=== PATIENT | female | born 1940 | race Caucasian/White ===

== ENCOUNTER 2018-09-04 10:51 | Inpatient (IN) ==
[2018-09-04] MEDS ORDERED: Naloxone 0.4 MG/ML INJ IVP PRN (14:00)
[2018-09-04] MEDS ORDERED: Acetaminophen 325 MG TABLET PO PRN (14:00)
[2018-09-04] MEDS ORDERED: 0.9 % Sodium Chloride 1,000 ML IVC SCH (14:00)
[2018-09-04] MEDS ORDERED: 0.9 % Sodium Chloride 250 ML IVC ONE (14:03)
[2018-09-04] MEDS ORDERED: *HR* Heparin 5,000 UNIT/ML VIAL IVP PRN ×2 (14:04)
[2018-09-04] MEDS ORDERED: *HR* Heparin 5,000 UNIT/ML VIAL IVP ONE (14:04)
[2018-09-04] MEDS ORDERED: Ondansetron 4 MG/2 ML VIAL IVP PRN (14:08)
--- NOTE | 2018-09-04 14:13 | Internal Med History&Physical ---
<Brodie Ray - Last Filed: 09/04/18 15:47> Date of Encounter: 09/04/18 Time of Encounter: 14:13 Internal Medicine - H&P: HPI Chief complaint: Nausea and vomiting Admitted From: Hospital to Hospital Transfer Plans for Post Hospital Care: Home History of present illness: Ms. Baird is a 78 year old female with no reported past medical history presented to [facility] emergency department with complaint of nausea and vomiting 6 days. She states that the emesis has been bilious and occurring multiple times a day. Symptoms have been constant since onset and starting this morning she has felt increasingly weak and was unable to rise from her chair. She has been denying any symptoms of fevers, chills, cough, urinary symptoms including dysuria and frequency, numbness, tingling, chest pain, shortness of breath, palpitations, abdominal pain, hematochezia, melena. She does admit to decreased bowel movements however she admits that her poor oral intake has been very poor secondary to her nausea and vomiting. She denies any recent travel or sick contacts. In [facility] emergency room, vitals were significant for a heart rate of 148, respiratory rate 16, blood pressure 102/61 and she was tolerating 98% oxygen on room air. Labs were significant for a WBC elevation of 15.5, hemoglobin 15.5, platelets 240, potassium 2.8, BUNs/creatinine of 63/2.22, troponin elevation of 0.43, TSH within normal limits, magnesium 3.8. EKG was obtained and showed atrial fibrillation with rapid ventricular response, some anterior septal ST depression in leads II, III, AVF, V3-V6. Chest x-ray was obtained and showed possible ground glass opacities in right central region which may indicate early pneumonitis. She was given 40 mEq of potassium, IV hydration, she was started on Cardizem drip and [place] cardiology was consult at that time. She was given a heparin bolus per cardiology recommendations and transferred to [facility]. On presentation to this facility, she states she overall she is feeling mildly improved. She is still having episodes of emesis which contains dark bilious fluid without evidence of coffee grounds or blood. Past medical history: Patient denies. He does admit to occasional GERD Past surgical history: Patient denies Social history: Never smoker, denies alcohol or drug use Family history: CAD in grandfather Past Med Surg Social Fam HX - Past Medical History Medical history: no medical history Psychiatric history: no psych history - Social History Smoking Status: Never smoker Smokeless Tobacco Status: No Alcohol use: none Drug use: none - Family History Mother History Unknown: Yes Internal Medicine - H&P: Meds No Known Home Drugs 09/04/18 [History] 3 Allergy/AdvReac Type Severity Reaction Status Date / Time No Known Allergies Allergy Verified 09/04/18 09:22 All Systems PM: A 10-system review of systems was performed and is negative for pertinent findings except as documented above in the HPI. Review of systems: - Constitutional: Admits to weakness, fatigue. Denies fevers, chills - Head/Neck: Denies MORRISON, neck stiffness - EENT: Denies vision changes/blurriness - CVS: Denies chest pain, palpitations, PERRY, orthopnea, edema, PND, - Pulm: Denies SOB, cough, sputum, hematemesis, wheezing - GI: Admits to nausea and vomiting Denies abdominal pain, anorexia, diarrhea, constipation, melena - : Denies dysuria, increased frequency, urgency, hematuria, - Heme: Denies ease of bleeding or bruising - Skin: Denies rashes, ulcers, color changes, - Neuro: Denies MORRISON, paresthesias, focal deficits, numbness, tingling - Constitutional Exam: Gen.: Vitals noted. No acute distress. AAOx3, resting comfortably at bedside. HEENT: PERRL/EOMI, oropharynx clear, Normocephalic, atraumatic, mildly dry mucus membranes, bilious residue in mouth Cardiac: RRR, no murmur, +S1/S2, mildly tachycardic Pulmonary: CTA bilaterally, no wheezes, rales or rhonchi, equal chest expansion Abdomen: soft, nontender, BS noted, no guarding, no rebound or distention. MSK: ROM intact, no joint swelling noted Extremities: no BLE edema, nontender calf, no cyanosis or clubbing Neuro: A&Ox3, moves all extremities, no focal deficits Psych: Appropriate mood and behavior - Assessment and plan (1) New onset atrial fibrillation Current Visit: Yes Status: Acute Assessment and plan: - New-onset atrial fibrillation as noted and confirmed on EKG in [place] - Patient was started on Cardizem drip and received heparin bolus - Patient has since converted to normal sinus rhythm, mildly tachycardic in the 90s, confirmed by repeat EKG - Etiology unclear at this time however may be possibly due to dehydration, hypokalemia, infection, ischemia - Patient is having her potassium replenished as below receiving IV fluids for dehydration. - Infectious etiologies possible given leukocytosis however I believe this is more likely secondary to hemoconcentration as below. - TSH wnl at [facility]. - Cardiology has been consult, appreciate recommendations - [id number] score 3 (age, female). HASBLED 0 Plan - Spoke with cardiology regarding anticoagulation and will not start heparin drip at this time - Continue Cardizem drip in attempt to wean off with long-acting Cardizem - May possibly be a candidate for outpatient long-term adequate ventilation - Replenish K as below. Recheck in AM. - Appreciate cardiology recommendations as far as ischemic etiology. (2) Acute renal failure Current Visit: Yes Status: Acute Assessment and plan: - BUNs/creatinine of 63/2.22 in [facility] emergency department - Patient denies any history of kidney disease however no baseline labs are available - Likely elevated in the setting of dehydration secondary to nausea and vomiting - Patient is clinically dry on exam - We will give gentle fluid hydration at 250 mL bolus and 75 mL per hour 1 bag - Continue to monitor, avoid nephrotoxic agents - We will also obtain urinalysis and postvoid bladder scan to rule out alternative etiologies Qualifiers: Acute renal failure type: unspecified Qualified Code(s): N17.9 - Acute kidney failure, unspecified (3) Elevated troponin Current Visit: Yes Status: Acute Assessment and plan: - Elevated troponin of 0.43 in [facility] emergency department - EKG did show ST changes in leads 2, 3, aVF, V3-V6 however noted to be nonspecific - No previous EKG to compare to - Patient has never had a cardiac workup in the past and denies any cardiac history - Cardiology has been consult as above - Possible etiologies at this time include demand ischemia from atrial fibrillation, pneumonia, dehydration in the setting of acute kidney injury however cannot rule out cardiac ischemia Plan - We will continue to trend troponins - Echocardiogram - Did receive heparin bolus in [facility]. I did discuss this with Dr. Dowd the on-call supervisor tumbling and rolling he recommends not starting heparin drip at this time as she has converted back to normal sinus rhythm. We will continue to monitor and appreciate recommendations (4) GERD (gastroesophageal reflux disease) Current Visit: Yes Status: Chronic Assessment and plan: - Patient states she does have some symptoms of esophageal reflux for which she takes [id number] medications - States that has been previously well-controlled however has not seen a primary care physician in over 40 years - We will prescribe Tums while inpatient recommend outpatient follow-up Qualifiers: Esophagitis presence: esophagitis presence not specified Qualified Code(s) : K21.9 - Gastro-esophageal reflux disease without esophagitis (5) Pneumonia Current Visit: Yes Status: Suspected Assessment and plan: -Possible Pneumonia demonstrated on chest x-ray in [facility] emergency department - Patient is asymptomatic describing no shortness breath, cough, fevers, chills - X-ray report reads groundglass opacities of possible early pneumonitis - She does have an elevated WBC count of 15.5, afebrile. This may be elevated secondary to dehydration as above - Received 1 dose of azithromycin in emergency department Plan - We will continue to monitor for development of symptoms and worsening of leukocytosis - Will not start antibiotics at this time as alternative etiologies are more likely for leukocytosis - Continue to monitor Qualifiers: Pneumonia type: due to unspecified organism Laterality: right Lung location: middle lobe of lung Qualified Code(s): J18.1 - Lobar pneumonia, unspecified organism (6) Hypokalemia Current Visit: Yes Status: Acute Assessment and plan: - Potassium of 2.8 in [facility] emergency department - Likely depleted and setting of nausea and vomiting - Given 40 mEq in [facility] - We will obtain repeat labs here and replenish as necessary - Repeat with a.m. labs (7) DVT prophylaxis Current Visit: Yes Status: Acute Assessment and plan: Heparin subcutaneously every 12 hours (8) Sepsis Current Visit: Yes Status: Ruled-out Assessment and plan: - Patient does technically meet sirs criteria with leukocytosis and tachycardia - However at this time I did not suspect an infectious etiology and suspect that more likely leukocytosis is secondary to hemoconcentration and tachycardia secondary to atrial fibrillation - We cannot rule out atrial fibrillation brought on by infectious etiology however patient is having no symptoms at this time other than nausea and vomiting as above - Patient does not appear clinically ill Plan - We will continue to monitor with daily labs - Of note, heart rate has improved with Cardizem drip and fluid administration Qualifiers: Sepsis type: sepsis due to unspecified organism Qualified Code(s): A41.9 - Sepsis, unspecified organism - Time Spent With Patient Total time spent is greater than 50% in coordination of care (as documented) at patient's floor/unit and/or counseling patient: <Gloria Harvey - Last Filed: 09/04/18 17:01> Date of Encounter: 09/04/18 Internal Medicine - H&P: HPI History of present illness: Ms. Baird is a 78 year old female All Systems PM: A 10-system review of systems was performed and is negative for pertinent findings except as documented above in the HPI. - Constitutional Vitals: Temp Pulse Resp BP Pulse Ox 98 F 99 18 124/75 91 09/04/18 14:19 09/04/18 14:19 09/04/18 14:19 09/04/18 14:19 09/04/18 14:19 - Assessment and plan (1) New onset atrial fibrillation Current Visit: Yes Status: Acute (2) Hypokalemia Current Visit: Yes Status: Acute (3) Acute renal failure Current Visit: Yes Status: Acute Qualifiers: Acute renal failure type: unspecified Qualified Code(s): N17.9 - Acute kidney failure, unspecified (4) Elevated troponin Current Visit: Yes Status: Acute (5) Pneumonia Current Visit: Yes Status: Suspected Qualifiers: Pneumonia type: due to unspecified organism Laterality: right Lung location: middle lobe of lung Qualified Code(s): J18.1 - Lobar pneumonia, unspecified organism (6) DVT prophylaxis Current Visit: Yes Status: Acute (7) GERD (gastroesophageal reflux disease) Current Visit: Yes Status: Chronic Qualifiers: Esophagitis presence: esophagitis presence not specified Qualified Code(s) : K21.9 - Gastro-esophageal reflux disease without esophagitis (8) Sepsis Current Visit: Yes Status: Ruled-out Qualifiers: Sepsis type: sepsis due to unspecified organism Qualified Code(s): A41.9 - Sepsis, unspecified organism - Time Spent With Patient Total time spent is greater than 50% in coordination of care (as documented) at patient's floor/unit and/or counseling patient: - Attending Attestation I examined this patient and my medical decision-making was reviewed with the Resident Physician Dr Ray. I agree with the documented findings, disposition and treatment plan as described except to the extent set forth below. Presented to [facility] with days of n/v, no other assoicated symptoms and found to be in afib with rvr, ekg findings c/w nstemi and significant mirza. Transferred for futher cardiac care with cardiology contacted from ED. Awake, family at bedside. She has continued nausea and emesis, emeiss at bedside watery green which is what she reports it has been. No assoicated abd pain, diarrhea, some recent constipation but has had bm in last day. No assoicated chest pain or pressure, sob, palpitations, presyncope or syncope, no le edema. CXR there showed possible developing pna and she denies any recent sob , cough, sptum, congestion, wheezing, orthopnea. No fevers or chills. No cardiac history. Noting decreased urinary outptu, no dysuria, heamturia, urgency. gen- alert, awake,appears stated age, nad eyes- pupils equal round , no scleral icterus, no conjunctival pallor, dry mm cv- reg rate and rhythm, normal s1,s2, no murmurs appreciated, no le edema, no jvd, radial pulses 2+ and regular lungs- ctabl, no wheezing, rhonchi or crackles, normal resp effort on ra abd- soft, non tender, non distended, + bs skin- no pallor juandice, warm, dry neuro- AAOx3 Intractable nausea and vomiting, suspecting gastroenteritis, rule out obstruction given recent constipation-prn anti emetics, check kub Afib with RVR, converted to NSR on cardizem gtt 2/2 hypokalemia, dehydration and possible infection whic his being ruled out -cont cardizem gtt, fu cards rec re transitioning to oral -replete lytes, tele, tsh wnl, ivf hydration -cards is consulted and will fu recs reagrding beginning AC given her chadsvasc score, and if ischemic work up warranted NSTEMI at this time suspect Type II due to demand of Afib RVR as evidenced by [place] ekg with st depressions in II, III, aVF and V3-V^ with improvement on EKG on admission here, trop 0.43 admitting ekg reviewed- nsr hr 90 baseline artifact makes it hard to discuern st segments and t waves, appear s to have likely twi II on review of rhythm lead , possibly V4-6 -tele, serial trops and ekgs, o2 prn, cards gave heparin bolus in greenfiled? though rec her verbally thus far is no heparin gtt -degree of trop elevation may be partially related to kidney funcion -will fu cards recs today, check a1c and lipids, at this time she cannot tolerate oral so no asa or statin ordered- will defer to cards re hep gtt intitaiton or ischemic work up -check echo MIRZA likely 2/2 dehydration- i/os, ivfs, check ua and monitor for urinary retention, aovid nephro toxic agents leukocytosis suspect hemoconcentration, afebrile ros neg, aware of CXR read though pt has no s/s of pna, cont to monitor, check ua with reflex to culture, check kub Hypokalmeia- repeat K+ level now onadmit and replete further prn, check mag
[2018-09-04] MEDS ORDERED: Heparin 25,000 UNIT/500 ML D5W 25,000 UNIT/500 ML BAG IVC SCH (14:15)
--- NOTE | 2018-09-04 15:27 | Cardiology Consult Note ---
<Astrid Alvarez Alfredo - Last Filed: 09/04/18 15:21> Date of Encounter: 09/04/18 Time of Encounter: 15:10 Assessment and Plan (1) New onset atrial fibrillation Current Visit: Yes Status: Acute Newly diagnosed atrial fibrillation with RVR; chronicity unclear--patient asymptomatic. Converted to NSR on cardizem gtt; will transition to LA cardizem. Significant electrolyte abnormality upon presentation with K 2.8, Mg 3.8, SCr 2.22 Developing PNA also evident on CXR. Add TSH. Continue CCB. Check TTE. CHA2Ds Vasc=2 (female, age); recommend long-term anticoagulation prior to discharge, patient is agreeable. NOAC vs. coumadin depending on testing and renal function. Will continue to follow. (2) Acute renal failure Current Visit: Yes Status: Acute Likely secondary to acute anorexia/dehydration. IVF resuscitation. Primary service to manage. Qualifiers: Acute renal failure type: unspecified Qualified Code(s): N17.9 - Acute kidney failure, unspecified (3) Elevated troponin Current Visit: Yes Status: Acute Troponin 0.43 in the setting of ARF, PNA, and afib with RVR; non-diagnostic for ACS. No chest pain reported. Non-specific ST/T wave abnormalities noted. No prior CV history. Check TTE. Add asa, started on CCB. (4) Pneumonia Current Visit: Yes Status: Acute Mgmt per primary service. Qualifiers: Pneumonia type: due to unspecified organism Laterality: right Lung location: middle lobe of lung Qualified Code(s): J18.1 - Lobar pneumonia, unspecified organism Discussion w patient/family: The assessment and plan as outlined above was discussed with the patient and/or family members who expressed understanding and agreement. All questions were answered. Thank you for involving us in the care of your patient. Please call with any questions. The patient will be discussed and reviewed with Dr. Dowd; changes to be made accordingly. History of Present Illness Consult date: 09/04/18 Requesting physician: Brodie Ray Consult reason: new onset afib Chief complaint: nausea/vomiting History of present illness: Ms. Baird is a 78 year old female with no significant PMHx (nor follows with provider) who presented to [facility] ED after fall at home today secondary to weakness. She reports persistent nausea and vomiting over the past 6 days, symptoms began last Tuesday. Denies food bourne illness or recent sick contacts. She reports she is unable to keep food or liquids down. Associated symptoms include decrease in urine output over the past 3-4 days, weakness, and hoarseness due to dry heaving. No chest pain/discomfort, shortness of breath, palpitations, or syncope/pre-syncopal symptoms described. ECG demonstrated afib with RVR, she was started on Cardizem gtt and reportedly converted to NSR prior to transfer to [facility]. She was also noted to have MIRZA (SCr 2.2) with hypokalemia. Troponin elevated at 0.43. No prior CV testing reported. Past Med Surg Social Fam HX - Past Medical History Attestation: Yes The following information was validated with the patient. Source: patient Medical history: no medical history Psychiatric history: no psych history - Past Surgical History Surgical History: non-contributory - Social History Smoking Status: Never smoker Smokeless Tobacco Status: No Alcohol use: none Drug use: none - Family History Mother Living Status: Cause of : CA Hx Family Cancer: Yes (blood cancer) Father Living Status: Cause of : CA Hx Family Cancer: Yes (prostate) Brother Living Status: Cause of : liver disease/ 2nd brother CVA (brain aneurysm) Medications and Allergies No Known Home Drugs 09/04/18 [History] 3 Allergy/AdvReac Type Severity Reaction Status Date / Time No Known Allergies Allergy Verified 09/04/18 09:22 All Systems Review: The remainder of the systems were reviewed and are negative - Cardiovascular Cardiovascular: as per HPI Physical Examination Vital Signs, Last 4 Hours Temp Pulse Resp BP Pulse Ox 09/04/18 14:19 98 F 99 18 124/75 91 General: Conversant, Other (thin, frail) Cardiac: Reg Rate and Rhythm, Normal S1 and S2 Lungs: Other (RLL rales) Neuro: Alert and responsive Abdomen: Soft Skin: No rashes noted on visualized skin Musculoskeletal: No Chest Wall Tenderness Extremities: No Edema, Normal Pulses Results - Imaging and Cardiology Echo: pending - EKG Interpretation EKG results cardiology: personally reviewed Consult Discharge Plan - Plan Referrals: NONE,PCP [Primary Care Provider] - <Werner Dowd - Last Filed: 10/10/18 12:45> Date of Encounter: 09/04/18 Time of Encounter: 18:00 - Attending Attestation I have personally performed a face to face evaluation on this patient. I have reviewed and agree with the care plan. History and Exam by me shows: CC: Weakness HPI: Pt presented to [facility] ER with complaints of sudden onset nausea and vomiting over last week, unable to keep fluids or medications down over the last 48 hours prior to admission. She noted associated muscle weakness, decreased appetite, and continue emesis. On initial eval was found to be in A fib with RVR, heart rates into the 160s. She was started on IV diltiazem and rehydration in the ER, with conversion to NSR. She denies chest pain, pressure , palpitations, head, neck or arm pain. She notes nausea and shortness of breath have improved since admission. PMH: reviewed ROS: reviewed Labs, xrays, EKGs and echos reviewed. PE: pt seen and examined, agree with findings as documented. IMP/Plan: 1. A fib with RVR, transient, back in NSR with rehydration and IV diltiazem, will continue po diltiazem 2. Elevated troponin, most consistent with demand ischemia, no acute EKG changes , will review echo for wall motion abnormalities, continue medical tx, will reconsider if has indications of previous KS. 3. Acute on chronic renal failure, responding to gentle rehydration 4. Pnuemonia, right middle lobe, on antibiotics and resp tx per primary team, reports some improvement comparted to admission. Assessment and Plan Discussion w patient/family: The assessment and plan as outlined above was discussed with the patient and/or family members who expressed understanding and agreement. All questions were answered. Thank you for involving us in the care of your patient. Please call with any questions. History of Present Illness History of present illness: Ms. Baird is a 78 year old female All Systems Review: The remainder of the systems were reviewed and are negative Physical Examination Vital Signs, Last 4 Hours Temp Pulse Resp BP Pulse Ox 09/06/18 12:15 97.6 F 83 15 149/71 96 Results 09/06/18 05:33 09/06/18 05:33 Lab Results 09/06/18 09/06/18 05:33 05:33 WBC 10.7 Hgb 13.2 Hct 40.2 Plt Count 235 Sodium 141 Potassium 3.5 Chloride 96 L Carbon Dioxide 35 H BUN 50 H Creatinine 0.92 Glucose 105 Calcium 10.5 H Total Bilirubin 1.1 H AST 131 H ALT 134 H Alkaline Phosphatase 59
[2018-09-04] MEDS: Diltiazem CD (24hr) 120 MG CAPSULE PO SCH (16:24)
[2018-09-04 16:52] LABS: Heparin anti-factor XA UFH 0.23 IU/mL (0.30-0.70); INR 1.2; Prothrombin Time 13.1 Seconds (9.4-12.1)
[2018-09-04 17:10] LABS: Troponin I 0.48 ng/mL (< 0.04)
[2018-09-04 17:33] LABS: Hematocrit 42.6 % (35.3-44.9); Hemoglobin 14.2 g/dL (11.5-15.4); Immature Granulocytes % 0.8 % (0-4); Lymphocytes # 0.2 K/mcL (0.6-4.6); Lymphocytes % 3.6 %; Mean Corpuscular HGB Conc 33.3 g/dL (31.6-35.5); Mean Corpuscular Hemoglobin 29.6 pg (28.0-33.3); Mean Corpuscular Volume 88.9 fL (83.0-100.0); Monocytes # 0.3 K/mcL (0.0-1.3); Monocytes % 4.5 %; Neutrophils # 5.9 K/mcL (1.6-8.9); Platelet Count 201 K/mcL (140-400); Red Blood Count 4.79 M/mcL (3.82-4.97); Red Cell Distribution Width 12.2 % (11.5-14.5); Segmented Neutrophils % 91.1 %
[2018-09-04] MEDS: *HR* Heparin 5,000 UNIT/ML VIAL SQ SCH (17:52)
[2018-09-04 17:59] LABS: Albumin 3.7 g/dL (3.5-5.7); Albumin/Globulin Ratio 1.7 (1.1-2.2); Bilirubin,Total 1.4 mg/dL (0.3-1.0); Calcium 9.7 mg/dL (8.6-10.3); Globulin 2.2 g/dL (2.4-3.5); Magnesium 3.1 mg/dL (1.6-2.6); Potassium 3.2 mEq/L (3.5-5.1); Total Protein 5.9 g/dL (6.4-8.9)
[2018-09-05 05:08] LABS: Basophils % 0.1 %; Immature Granulocytes % 0.2 % (0-4); Lymphocytes # 0.4 K/mcL (0.6-4.6); Lymphocytes % 5.1 %; Mean Corpuscular HGB Conc 34.1 g/dL (31.6-35.5); Mean Corpuscular Hemoglobin 30.1 pg (28.0-33.3); Mean Corpuscular Volume 88.5 fL (83.0-100.0); Mean Platelet Volume 10.6 fL (9.4-12.4); Monocytes # 0.6 K/mcL (0.0-1.3); Monocytes % 6.6 %; Neutrophils # 7.6 K/mcL (1.6-8.9); Platelet Count 172 K/mcL (140-400); Red Blood Count 4.18 M/mcL (3.82-4.97); Red Cell Distribution Width 12.6 % (11.5-14.5)
[2018-09-05 05:09] LABS: Hemoglobin 12.6 g/dL (11.5-15.4)
[2018-09-05 05:30] LABS: Calcium 9.8 mg/dL (8.6-10.3); Chol/HDL Ratio 2.5 (0-4.9); Magnesium 2.8 mg/dL (1.6-2.6); Potassium 3.5 mEq/L (3.5-5.1)
[2018-09-05] MEDS: *HR* Heparin 5,000 UNIT/ML VIAL SQ SCH (06:19)
[2018-09-05 06:32] LABS: Estimated Average Glucose 120 mg/dl; Hemoglobin A1C 5.8 %
[2018-09-05] MEDS: Aspirin 81 MG TAB.CHEW PO SCH (08:31)
[2018-09-05] MEDS: Diltiazem CD (24hr) 120 MG CAPSULE PO SCH (08:31)
--- NOTE | 2018-09-05 13:55 | Internal Med Progress Note ---
<Ovidio Tam - Last Filed: 09/05/18 16:40> Hospitalist Progress Note - Encounter Date of Encounter: 09/05/18 - Exam Vitals: Temp Pulse Resp BP Pulse Ox 98.4 F 84 17 150/73 96 09/05/18 15:51 09/05/18 15:51 09/05/18 15:51 09/05/18 15:51 09/05/18 15:51 - Assessment and Plan (1) Paroxysmal atrial fibrillation Current Visit: Yes Status: Acute (2) New onset atrial fibrillation Current Visit: Yes Status: Inactive (3) Hypokalemia Current Visit: Yes Status: Inactive (4) Acute renal failure Current Visit: Yes Status: Suspected (5) Elevated troponin Current Visit: Yes Status: Inactive (6) Pneumonia Current Visit: Yes Status: Inactive (7) DVT prophylaxis Current Visit: Yes Status: Acute (8) GERD (gastroesophageal reflux disease) Current Visit: Yes Status: Chronic (9) Sepsis Current Visit: Yes Status: Ruled-out - Time Spent with Patient Total time spent is greater than 50% in coordination of care (as documented) at patient's floor/unit and/or counseling patient: Internal Medicine: Result - Labs CBC & Chem 7: 09/05/18 04:41 09/05/18 04:41 Labs: Short CBC 09/04/18 09/05/18 Range/Units 16:42 04:41 WBC 6.5 D 8.7 (4.3-11.1) K/mcL Hgb 14.2 12.6 D (11.5-15.4) g/dL Hct 42.6 37.0 (35.3-44.9) % Plt Count 201 172 (140-400) K/mcL Neutrophils # 5.9 7.6 (1.6-8.9) K/mcL BMP 09/04/18 09/04/18 09/05/18 15:52 20:01 04:41 Sodium 138 140 Potassium 3.2 L 3.5 3.5 Chloride 95 L 99 Carbon Dioxide 28 28 BUN 61 H 65 H Creatinine 1.67 H 1.35 H Glucose 109 H 85 Calcium 9.7 9.8 Cardiac Enzymes 09/04/18 09/04/18 09/05/18 Range/Units 15:52 20:01 01:39 Troponin I 0.48 H* 0.57 H* 0.42 H* (< 0.04) ng/mL Liver Function 09/04/18 Range/Units 15:52 Total Bilirubin 1.4 H (0.3-1.0) mg/dL AST 248 H (13-39) Units/L ALT 162 H (7-52) Units/L Alkaline Phosphatase 52 (34-104) Units/L Albumin 3.7 (3.5-5.7) g/dL - ABG Interpretation ABG results: PT/INR, D-dimer PT 13.1 Seconds (9.4-12.1) H 09/04/18 16:01 - Impressions Impressions Echocardiogram 09/04/18 14:04 Impressions: LVEF 60-65%. Normal LV chamber size, wall thickness and function. Mild left ventricular diastolic dysfunction. Normal right ventricular structure and function. Mild tricuspid regurgitation. KUB X-Ray 09/04/18 16:51 IMPRESSION: Air-filled dilated loops of small bowel in the left mid to lower abdomen which may reflect ileus or obstruction. D/ / Leatha Stephens MD / Leatha Stephens MD Interpreting Provider: Leatha Stephens MD Consult Discharge Plan - Plan Referrals: NONE,PCP [Primary Care Provider] - - Attending Attestation The history, physical exam, and medical decision making was performed by the medical student either while I was physically present and actively involved or I personally re-performed the exam and medical decision making. I have verified the accuracy of the medical student's documentation with regards to the history, physical exam findings, and medical decision making on 09/05/18. Ms Baird is currently admitted for new atrial fibrillation/flutter paroxysmal with rapid rate. She remains moderate to high risk due to potential for worsening clinical status. Ms. Baird was in NSR this AM but returned to an episode of afib/flutter around lunch time. No fever or chills. Says she feels tachycardia "if I concentrate on it." Tolerating clear liquid diet. Says she is passing gas but no BM. Exam Alert Comfortable at this time Mucus membranes dry Heart irreg and tachy. No overt murmur though hard to hear. Lungs clear Abd distended. Nontender. No mass felt though distended No edema I/P 1. Parox a fib/flutter - Cardizem dose increased today. Eliquis started. 2. Nausea /vomiting - ? GI issue. 3. Low TSH - need to check free T4 Further diagnoses and plan as above. <Wolfgang Guzman R - Last Filed: 09/05/18 18:56> Hospitalist Progress Note - Encounter Date of Encounter: 09/05/18 Time of Encounter: 18:55 - Subjective Interval History: Patient reports that she is feeling better today. She no longer feels weak. Her nausea and vomiting has improved. She had 1 episode of emesis last night. While vomiting, her upper dentures fell into the vomit bag and was thrown away before she realized they were missing. She is now producing urine, which she states is dark in color. She was eating a clear liquid diet without nausea, vomiting, abdominal pain, but she has not had a bowel movement since admission. She denies chest pain, shortness of breath, palpitations, light headedness, cough, sputum production, nausea, abdominal pain, dysuria, fever, chills, night sweats. - Exam Vitals: Temp Pulse Resp BP Pulse Ox 97.7 F 93 16 137/74 95 09/05/18 10:55 09/05/18 10:55 09/05/18 10:55 09/05/18 10:55 09/05/18 10:55 Exam: Gen.: female sitting in chair. Not in acute distress HEENT: Upper teeth missing. 1 cm yellow colored nodule midline anterior neck Cardiac: RRR with occasional PAC/PVC, no murmurs noted Pulmonary: CTA bilaterally, no wheezes, rales or rhonchi, equal chest expansion Abdomen: soft, nontender to palpation, distended, BS present MSK: ROM intact, no joint swelling noted, 5/5 strength in RUE, 4/5 strength in LUE Extremities: no BLE edema, nontender calf, no cyanosis or clubbing Neuro: A&Ox3, moves all extremities Psych: Appropriate mood and behavior - Assessment and Plan (1) Atrial fibrillation with RVR Current Visit: Yes Status: Acute Assessment and Plan: -Patient presented to [place] [facility] with new onset A fib RVR -Peak HR was 144 at [place] [facility]. Dropped to 99 upon admission with cardizem dripp. It is currently in the 80s -Patient is currently in NSR -Chronicity unclear due to patient not being able to feel when she is out of rhythm. Etiology is unclear at this time. Likely 2/2 dehydration vs infection vs hyperthyroidism vs unlikely ischemia -TSH .254 today. Was 1.002 at [place] [facility] yesterday. This could be an acute thyroid -ECHO 09/05 showed EF 65% with mild LV diastolic dysfunction -CHADSVASC score 4 (age,female) Plan: -Continue with cardizem po -Continue tele -Start Eliquis 2.5 mg BID upon discharge -Follow with cardiology outpatient for ischemic eval -T4 pending (2) Elevated troponin Current Visit: Yes Status: Acute Assessment and Plan: -Patient had troponin of .43 on admission. Serial troponins have remained elevated at .48, .57, .42 -EKG 09/[address] depression in II, III, AVF, V3-V6 -ECHO 09/05 shows EF 65% with no wall motion abnormalities and mild LV diastolic dysfunction -Likely NSTEMI type II 2/2 dehydration vs A fib RVR in the setting of MIRZA -Patient received 250 ml bolus and 1 bag NS at 75ml/hr -Patient is tolerating clear fluids with good oral intake Plan: -same as above (3) MIRZA (acute kidney injury) Current Visit: Yes Status: Acute Assessment and Plan: -2/2 dehydration vs infection -BUN/Cr at admission was 63/2.22 . Now it has improved to 65/1.35 -Patient is now having urine output -Patient received 250 ml bolus and 1 bag NS at 75 ml/hr -Patient tolerating clear liquid diet with good oral intake Plan: -UA pending -Avoid nephrotoxic agents -Continue to encourage good oral intake (4) Pneumonia Current Visit: Yes Status: Suspected Assessment and Plan: -Chest xray on 09/04 showed ground glass air space opacification in Right lower lobe, suggestive of early pneumonitis -Patient is currently asymptomatic. Has no cough, fever, sputum production, shortness of breath -At this time, we do not suspect pneumonia Plan: -Will not currently treat because do not suspect pneumonia -Consider starting antibiotics if patient becomes symptomatic (5) Hypokalemia Current Visit: Yes Status: Acute Assessment and Plan: -2/2 emesis -Potassium on admission was 2.8. 40 mEq was given in [place] [facility], and another 40 mEq were given when she was admitted. Her potassium has now increased to 3.5 -Magnesium is 2.8 today -Continue to replete potassium prn (6) Nausea & vomiting Current Visit: Yes Status: Acute Assessment and Plan: -2/2 infectious etiology vs ileus vs malignancy -KUB 09/04 shows findings suggestive of ileus vs obstruction -Patient has never had colonoscopy -Nausea and vomiting has improved since admission. Abdomen is still distended -Patient tolerating clear liquid diet without nausea, vomiting, abdominal pain -Patient has not had a BM since admission Plan: -Talk with patient tomorrow regarding imaging vs outpatient followup for etiology workup -Consider CT abdomen if patient does not improve -Consider outpatient colonoscopy upon discharge (7) GERD (gastroesophageal reflux disease) Current Visit: Yes Status: Chronic Assessment and Plan: -Patient states that she has had acid reflux for many years. It is controlled at home with TUMS -Continue TUMS prn while inpatient (8) Sepsis Current Visit: Yes Status: Ruled-out Assessment and Plan: -Sepsis has been ruled out -Patient met SIRS criteria upon admission with WBC of 15.5, and heart rate of 144. We suspected that the leukocytosis was 2/2 to dehydration because she also had erythrocytosis and thrombocytosis. With fluid resucitation, her WBC has come down to 8.7. We also suspect that she was tachycardic 2/2 atrial fibrillation with RVR. Her heart rate is now in the mid 80s DVT Prophylaxis: Heparin SQ - Time Spent with Patient Total time spent is greater than 50% in coordination of care (as documented) at patient's floor/unit and/or counseling patient: Internal Medicine: Result - Labs CBC & Chem 7: 09/05/18 04:41 09/05/18 04:41 Labs: Short CBC 09/04/18 09/05/18 Range/Units 16:42 04:41 WBC 6.5 D 8.7 (4.3-11.1) K/mcL Hgb 14.2 12.6 D (11.5-15.4) g/dL Hct 42.6 37.0 (35.3-44.9) % Plt Count 201 172 (140-400) K/mcL Neutrophils # 5.9 7.6 (1.6-8.9) K/mcL BMP 09/04/18 09/04/18 09/05/18 15:52 20:01 04:41 Sodium 138 140 Potassium 3.2 L 3.5 3.5 Chloride 95 L 99 Carbon Dioxide 28 28 BUN 61 H 65 H Creatinine 1.67 H 1.35 H Glucose 109 H 85 Calcium 9.7 9.8 Cardiac Enzymes 09/04/18 09/04/18 09/05/18 Range/Units 15:52 20:01 01:39 Troponin I 0.48 H* 0.57 H* 0.42 H* (< 0.04) ng/mL Liver Function 09/04/18 Range/Units 15:52 Total Bilirubin 1.4 H (0.3-1.0) mg/dL AST 248 H (13-39) Units/L ALT 162 H (7-52) Units/L Alkaline Phosphatase 52 (34-104) Units/L Albumin 3.7 (3.5-5.7) g/dL - ABG Interpretation ABG results: PT/INR, D-dimer PT 13.1 Seconds (9.4-12.1) H 09/04/18 16:01 - Impressions Impressions KUB X-Ray 09/04/18 16:51 IMPRESSION: Air-filled dilated loops of small bowel in the left mid to lower abdomen which may reflect ileus or obstruction. D/ / Leatha Stephens MD / Leatha Stephens MD Interpreting Provider: Leatha Stephens MD <Ovidio Tam - Last Filed: 09/05/18 16:40> (4) Acute renal failure Qualifiers: Acute renal failure type: with acute tubular necrosis Qualified Code(s): N17.0 - Acute kidney failure with tubular necrosis (6) Pneumonia Qualifiers: Pneumonia type: due to unspecified organism Laterality: right Lung location : middle lobe of lung Qualified Code(s): J18.1 - Lobar pneumonia, unspecified organism (8) GERD (gastroesophageal reflux disease) Qualifiers: Esophagitis presence: esophagitis presence not specified Qualified Code(s): K21.9 - Gastro-esophageal reflux disease without esophagitis (9) Sepsis Qualifiers: Sepsis type: sepsis due to unspecified organism Qualified Code(s): A41.9 - Sepsis, unspecified organism <Wolfgang Guzman R - Last Filed: 09/05/18 18:56> (7) GERD (gastroesophageal reflux disease) Qualifiers: Esophagitis presence: esophagitis presence not specified Qualified Code(s): K21.9 - Gastro-esophageal reflux disease without esophagitis (8) Sepsis Qualifiers: Sepsis type: sepsis due to unspecified organism Qualified Code(s): A41.9 - Sepsis, unspecified organism
--- NOTE | 2018-09-05 14:36 | Cardiology Progress Note ---
Date of Encounter: 09/05/18 Time of Encounter: 14:00 Assessment and Plan (1) New onset atrial fibrillation Current Visit: Yes Status: Inactive Newly diagnosed atrial fibrillation with RVR; chronicity unclear--patient asymptomatic. Converted to NSR on cardizem gtt; transitioned to LA cardizem yesterday. Significant electrolyte abnormality upon presentation with K 2.8, Mg 3.8, SCr 2.22--improved today. Developing PNA also evident on CXR. PAF noted overnight, currently in afib; hospitalist has changed cardizem to short-acting. Would recommend transition to long acting upon discharge. Anticipate HR to improve once PNA, ileus treated. TSH low at 0.254, defer correction to primary service. TTE: EF preserved, no significant valvular dysfunction. CHA2Ds Vasc=4 (female, age, HTN); recommend long-term anticoagulation prior to discharge, patient is agreeable. NOAC vs. coumadin discussed; due to transportation issues, want NOAC if affordable. Discussed with Rafael in Pharmacy , will arroyo check Eliquis 2.5 mg BID. (2) Acute renal failure Current Visit: Yes Status: Inactive Likely secondary to acute anorexia/dehydration. IVF resuscitation. Primary service to manage. Qualifiers: Acute renal failure type: unspecified Qualified Code(s): N17.9 - Acute kidney failure, unspecified (3) Elevated troponin Current Visit: Yes Status: Inactive Peak troponin 0.57 in the setting of ARF, PNA, and afib with RVR; non- diagnostic for ACS. No chest pain reported. Non-specific ST/T wave abnormalities noted. No prior CV history. TTE: EF preserved, normal wall motion. Consider outpt ischemic evaluation. (4) Pneumonia Current Visit: Yes Status: Inactive Mgmt per primary service. Qualifiers: Pneumonia type: due to unspecified organism Laterality: right Lung location: middle lobe of lung Qualified Code(s): J18.1 - Lobar pneumonia, unspecified organism Discussion w patient/family: The assessment and plan as outlined above was discussed with the patient and/or family members who expressed understanding and agreement. All questions were answered. Thank you for involving us in the care of your patient. Please call with any questions. The patient will be discussed and reviewed with Dr. Dowd; changes to be made accordingly. Subjective Principal diagnosis: Afib, MIRZA, ileus Interval history: Seen and examined. She has no complaints today upon exam. Now back in afib--reports occasionally notices palpitations. Still with no BM. Objective Vital Signs, Last 4 Hours Temp Pulse Resp BP Pulse Ox 09/05/18 10:55 97.7 F 93 16 137/74 95 General: Conversant HEENT: Atraumatic, Normocephaly Cardiac: Other (irregularly irregular) Lungs: Normal Breath Sounds Neuro: Alert and responsive Abdomen: Soft Skin: No rashes noted on visualized skin Musculoskeletal: No Chest Wall Tenderness Extremities: No Edema, Normal Pulses Results 09/05/18 04:41 09/05/18 04:41 Lab Results 09/04/18 09/04/18 09/04/18 15:52 16:01 16:42 WBC 6.5 D Hgb 14.2 Hct 42.6 Plt Count 201 INR 1.2 Sodium 138 Potassium 3.2 L Chloride 95 L Carbon Dioxide 28 BUN 61 H Creatinine 1.67 H Glucose 109 H Calcium 9.7 Magnesium 3.1 H Total Bilirubin 1.4 H AST 248 H ALT 162 H Alkaline Phosphatase 52 Troponin I 0.48 H* TSH 09/04/18 09/04/18 09/05/18 20:01 20:01 01:39 WBC Hgb Hct Plt Count INR Sodium Potassium 3.5 Chloride Carbon Dioxide BUN Creatinine Glucose Calcium Magnesium Total Bilirubin AST ALT Alkaline Phosphatase Troponin I 0.57 H* 0.42 H* TSH 09/05/18 09/05/18 09/05/18 04:41 04:41 04:41 WBC 8.7 Hgb 12.6 D Hct 37.0 Plt Count 172 INR Sodium 140 Potassium 3.5 Chloride 99 Carbon Dioxide 28 BUN 65 H Creatinine 1.35 H Glucose 85 Calcium 9.8 Magnesium 2.8 H Total Bilirubin AST ALT Alkaline Phosphatase Troponin I TSH 0.254 L Active Medications Acetaminophen (Tylenol) 650 mg PO Q6HR PRN PRN Reason: Mild Pain/Fever Stop: 03/06/19 14:01 Aspirin (Aspirin) 81 mg PO DAILY [facility] Stop: 03/07/19 09:01 Last Admin: 09/05/18 08:31 Dose: 81 mg Calcium Carbonate (Tums) 1,000 mg PO Q4HR PRN; Protocol PRN Reason: Heartburn Stop: 03/06/19 14:22 Last Admin: 09/05/18 09:07 Dose: 1,000 mg Diltiazem HCl (Cardizem Cd) 180 mg PO DAILY [facility] Stop: 03/08/19 09:01 Diltiazem HCl (Cardizem) 60 mg PO Q8H [facility] Stop: 09/05/18 21:01 Last Admin: 09/05/18 12:55 Dose: Not Given Heparin Sodium (Porcine) (Heparin) 5,000 unit SQ Q12HCO [facility] Stop: 03/06/19 18:01 Last Admin: 09/05/18 06:19 Dose: 5,000 unit Naloxone HCl (Narcan) 0.4 mg IVP Q2MIN PRN PRN Reason: SEE COMMENTS Stop: 03/06/19 14:01 Ondansetron HCl (Zofran) 4 mg IVP Q6HR PRN; Protocol PRN Reason: Nausea Stop: 03/06/19 14:09 - Imaging and Cardiology Echo: report reviewed Other Results: 12 hour tele: avg HR=82 PAF noted. - EKG Interpretation EKG results cardiology: personally reviewed, sinus rhythm Consult Discharge Plan - Plan Referrals: NONE,PCP [Primary Care Provider] -
[2018-09-05 17:54] LABS: Bilirubin,Urine Negative (Negative); Blood,Urine Moderate (Negative); Clarity,Urine Cloudy (Clear); Color,Urine Yellow (Yellow); Glucose,Urine (UA) Normal (Normal); Ketones,Urine 15 mg/dL (Negative); Leukocyte Esterase,Urine Negative (Negative); Nitrite,Urine Negative (Negative); PH,Urine 5.5 pH Units (5.0-8.0); Protein,Urine 30 mg/dL (Neg-Trace); Specific Gravity,Urine 1.024 (1.010-1.025); Urobilinogen,Urine Normal (Normal)
[2018-09-05 17:55] LABS: Hyaline Casts,Urine None Seen per lpf (None-Few); Squamous Epithelial Cell,Urine Many per lpf (None-Few)
[2018-09-05 18:12] LABS: Yeast,Urine Few per hpf (None Seen)
[2018-09-05 18:13] LABS: Bacteria,Urine Few per hpf (None-Few)
--- NOTE | 2018-09-05 19:07 | Electrocardiograph Report ---
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
[2018-09-05] MEDS: Apixaban 5 MG TABLET PO SCH (23:49)
[2018-09-06 06:36] LABS: Basophils % 0.1 %; Hematocrit 40.2 % (35.3-44.9); Hemoglobin 13.2 g/dL (11.5-15.4); Immature Granulocytes % 0.5 % (0-4); Lymphocytes # 0.4 K/mcL (0.6-4.6); Lymphocytes % 3.5 %; Mean Corpuscular HGB Conc 32.8 g/dL (31.6-35.5); Mean Corpuscular Volume 91.4 fL (83.0-100.0); Mean Platelet Volume 10.7 fL (9.4-12.4); Monocytes # 0.8 K/mcL (0.0-1.3); Monocytes % 7.3 %; Neutrophils # 9.5 K/mcL (1.6-8.9); Platelet Count 235 K/mcL (140-400); Red Cell Distribution Width 12.5 % (11.5-14.5); Segmented Neutrophils % 88.6 %
[2018-09-06 06:51] LABS: Alanine Aminotransferase 134 Units/L (7-52); Albumin 3.7 g/dL (3.5-5.7); Albumin/Globulin Ratio 1.6 (1.1-2.2); Alkaline Phosphatase 59 Units/L (34-104); Aspartate Amino Transferase 131 Units/L (13-39); BUN/Creatinine Ratio 54 (6-26); Bilirubin,Total 1.1 mg/dL (0.3-1.0); Blood Urea Nitrogen 50 mg/dL (8-23); Calcium 10.5 mg/dL (8.6-10.3); Carbon Dioxide 35 mEq/L (23-29); Chloride 96 mEq/L (98-107); Globulin 2.3 g/dL (2.4-3.5); Glucose 105 mg/dL (70-105); Osmolality,Calculated 306 (280-300); Potassium 3.5 mEq/L (3.5-5.1); Sodium 141 mEq/L (136-145); eGFR For Non-African Americans 59 (> 60)
--- NOTE | 2018-09-06 08:43 | Electrocardiograph Report ---
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
--- NOTE | 2018-09-06 09:07 | Cardiology Progress Note ---
Date of Encounter: 09/06/18 Time of Encounter: 08:00 Assessment and Plan (1) New onset atrial fibrillation Current Visit: Yes Status: Acute Per cardiology: -Newly diagnosed atrial fibrillation with RVR; chronicity unclear--patient asymptomatic. -Converted to NSR on cardizem gtt; transitioned to LA cardizem yesterday. -Significant electrolyte abnormality upon presentation with K 2.8, Mg 3.8, SCr 2.22--improved today. -Developing PNA also evident on CXR. -Now in SR. Average HR previous 12 hours noted to be 80, SR. -TSH low at 0.254, defer correction to primary service. -TTE: EF preserved, no significant valvular dysfunction. -CHA2Ds Vasc=4 (female, age, HTN); recommend long-term anticoagulation prior to discharge, started on eliquis 2.5mg BID, noted to be $8/month. -Cardiology will sign off. Will arrange outpatient follow up. -Consider outpatient ischemic evaluation, and possible sleep study. (2) Acute renal failure Current Visit: Yes Status: Suspected Per cardiology: -Likely secondary to acute anorexia/dehydration. Improved today. -IVF resuscitation. -Primary service to manage. Qualifiers: Acute renal failure type: with acute tubular necrosis Qualified Code(s): N17.0 - Acute kidney failure with tubular necrosis (3) Elevated troponin Current Visit: Yes Status: Acute Per cardiology: -Peak troponin 0.57 in the setting of ARF, PNA, and afib with RVR; non- diagnostic for ACS. -No chest pain reported. Non-specific ST/T wave abnormalities noted. -No prior CV history. -TTE: EF preserved, normal wall motion. -Consider outpt ischemic evaluation. Discussion w patient/family: The assessment and plan as outlined above was discussed with the patient who expressed understanding and agreement. All questions were answered. Thank you for involving us in the care of your patient. Please call with any questions. Discussed and reviewed with . Subjective Principal diagnosis: Afib, MIRZA, ileus Interval history: Patient states she feels better this morning. Denies palpitations, fluttering. Objective Vital Signs, Last 4 Hours Temp Pulse Resp BP Pulse Ox 09/06/18 07:03 98.9 F 80 18 130/67 94 General: Conversant, No Apparent Distress HEENT: Atraumatic, Normocephaly, Mucus Membranes Moist Neck: No JVD, Normal carotid pulses Cardiac: Reg Rate and Rhythm, Normal S1 and S2, No Murmur Lungs: Normal Breath Sounds, No Wheeze, Rales, Rhonchi Neuro: Alert and responsive, No focal deficits noted Abdomen: Soft, Non-Tender Skin: No rashes noted on visualized skin Musculoskeletal: No Chest Wall Tenderness Extremities: No Clubbing, No Cyanosis, No Edema, Normal Pulses Results 09/06/18 05:33 09/06/18 05:33 Lab Results Impressions Echocardiogram 09/04/18 14:04 Impressions: LVEF 60-65%. Normal LV chamber size, wall thickness and function. Mild left ventricular diastolic dysfunction. Normal right ventricular structure and function. Mild tricuspid regurgitation. Active Medications Acetaminophen (Tylenol) 650 mg PO Q6HR PRN PRN Reason: Mild Pain/Fever Stop: 03/06/19 14:01 Apixaban (Eliquis) 2.5 mg PO BID [facility] Stop: 03/07/19 21:01 Last Admin: 09/05/18 23:49 Dose: Not Given Aspirin (Aspirin) 81 mg PO DAILY [facility] Stop: 03/07/19 09:01 Last Admin: 09/05/18 08:31 Dose: 81 mg Calcium Carbonate (Tums) 1,000 mg PO Q4HR PRN; Protocol PRN Reason: Heartburn Stop: 03/06/19 14:22 Last Admin: 09/05/18 09:07 Dose: 1,000 mg Diltiazem HCl (Cardizem Cd) 180 mg PO DAILY [facility] Stop: 03/08/19 09:01 Naloxone HCl (Narcan) 0.4 mg IVP Q2MIN PRN PRN Reason: SEE COMMENTS Stop: 03/06/19 14:01 Ondansetron HCl (Zofran) 4 mg IVP Q6HR PRN; Protocol PRN Reason: Nausea Stop: 03/06/19 14:09 Last Admin: 09/06/18 06:48 Dose: 4 mg Laboratory Tests 09/04/18 09/06/18 09/06/18 15:52 05:33 05:33 Hgb 13.2 Potassium 3.5 Creatinine 1.67 H 0.92 - Imaging and Cardiology Chest Xray: report reviewed Echo: report reviewed - EKG Interpretation EKG results cardiology: other (Telemetry reviewed with average HR previous 12 hours noted to be 80, SR. PVCs and PACs noted.) Consult Discharge Plan - Plan Referrals: NONE,PCP [Primary Care Provider] -
[2018-09-06] MEDS: Aspirin 81 MG TAB.CHEW PO SCH (09:26)
[2018-09-06] MEDS: Diltiazem CD (24hr) 180 MG CAPSULE PO SCH (09:26)
[2018-09-06] MEDS: Apixaban 5 MG TABLET PO SCH (09:26)
[2018-09-06] MEDS ORDERED: 0.9 % Sodium Chloride 500 ML IVC ONE (09:27)
[2018-09-06] MEDS ORDERED: Isovue-370 500 ML INFUS..BTL IV ONE (09:27)
--- NOTE | 2018-09-06 09:52 | Internal Med Progress Note ---
<Ovidio Tam - Last Filed: 09/06/18 16:52> Hospitalist Progress Note - Encounter Date of Encounter: 09/06/18 - Exam Vitals: Temp Pulse Resp BP Pulse Ox 97.6 F 83 15 149/71 96 09/06/18 12:15 09/06/18 12:15 09/06/18 12:15 09/06/18 12:15 09/06/18 12:15 - Assessment and Plan (1) Small bowel obstruction Current Visit: Yes Status: Acute (2) Paroxysmal atrial fibrillation Current Visit: Yes Status: Acute (3) Acute renal failure Current Visit: Yes Status: Resolved (4) DVT prophylaxis Current Visit: Yes Status: Acute (5) GERD (gastroesophageal reflux disease) Current Visit: Yes Status: Chronic (6) Sepsis Current Visit: Yes Status: Ruled-out (7) Severe protein-calorie malnutrition Current Visit: Yes Status: Chronic - Time Spent with Patient Total time spent is greater than 50% in coordination of care (as documented) at patient's floor/unit and/or counseling patient: Internal Medicine: Result - Labs CBC & Chem 7: 09/06/18 05:33 09/06/18 05:33 Labs: Short CBC 09/06/18 Range/Units 05:33 WBC 10.7 (4.3-11.1) K/mcL Hgb 13.2 (11.5-15.4) g/dL Hct 40.2 (35.3-44.9) % Plt Count 235 (140-400) K/mcL Neutrophils # 9.5 H (1.6-8.9) K/mcL BMP 09/06/18 05:33 Sodium 141 Potassium 3.5 Chloride 96 L Carbon Dioxide 35 H BUN 50 H Creatinine 0.92 Glucose 105 Calcium 10.5 H Liver Function 09/06/18 Range/Units 05:33 Total Bilirubin 1.1 H (0.3-1.0) mg/dL AST 131 H (13-39) Units/L ALT 134 H (7-52) Units/L Alkaline Phosphatase 59 (34-104) Units/L Albumin 3.7 (3.5-5.7) g/dL Urine 09/05/18 Range/Units 17:45 Urine Color Yellow (Yellow) Urine Clarity Cloudy A (Clear) Urine pH 5.5 (5.0-8.0) pH Units Ur Specific [place] 1.024 (1.010-1.025) Urine Protein 30 H (Neg-Trace) mg/dL Urine Glucose (UA) Normal (Normal) mg/dL - ABG Interpretation ABG results: PT/INR, D-dimer PT 13.1 Seconds (9.4-12.1) H 09/04/18 16:01 - Impressions Impressions Abdomen/Pelvis CT 09/06/18 12:00 IMPRESSION: Findings consistent with a small bowel obstruction and the transition point is within the right lower quadrant. D/ / 09/06/2018 15:12:55 Luis Frankel MD / haley Interpreting Provider: Luis Frankel MD Consult Discharge Plan - Plan Referrals: NONE,PCP [Primary Care Provider] - - Attending Attestation I examined this patient and my medical decision-making was reviewed with the Resident Physician on 09/06/18. I agree with the documented findings, disposition and treatment plan as described except to the extent set forth below. Ms Baird is currently admitted for new atrial fibrillation and intractable nausea and vomiting. She has been found to have SBO on CT scan today. She remains moderate to high risk due to potential for worsening clinical status. Ms Baird feels OK but is still very nauseous. Has had emesis today. CT of abdomen shows RLQ small bowel obstruction. No fever or chills. Denies pain. Not tolerating much PO at this time. Exam Alert Comfortable sitting in bed. Mucus membranes dry Heart reg now Lungs clear Abd distended - not tender No edema I/P 1. Parox a fib - in NSR now. Will hold Eliquis due to possible need for surgery 2. Small bowel obstruction - surgery to see 3. Severe prot kyle malnutrition - most likely is going to need nutritional support with TPN if needs surgery Further diagnoses and plan as above. <Brodie Ray - Last Filed: 09/06/18 18:02> Hospitalist Progress Note - Encounter Date of Encounter: 09/06/18 Time of Encounter: 09:52 - Subjective Interval History: Patient was seen and examined this morning at bedside. Overall she states she feels like she might be doing a little bit better both in her energy levels as well as overall nausea and vomiting. It is noted however, the patient did have an episode of emesis early this morning and she was not able to tolerate her breakfast. She did not have any overnight events. Denies any symptoms of fevers, chills, abdominal pain, cough, shortness of breath. She has not yet had a bowel movement since this admission however she does report flatus. - Exam Vitals: Temp Pulse Resp BP Pulse Ox 98.9 F 80 18 130/67 94 09/06/18 07:03 09/06/18 07:03 09/06/18 07:03 09/06/18 07:03 09/06/18 07:03 Exam: Gen.: female sitting in chair. Not in acute distress HEENT: Mildly dry mucous membranes with ileus residue Cardiac: RRR, rate controlled, no murmurs noted Pulmonary: CTA bilaterally, no wheezes, rales or rhonchi, equal chest expansion Abdomen: soft, nontender to palpation, distended, BS diminished MSK: ROM intact, gait not assessed Extremities: no BLE edema, nontender calf, no cyanosis or clubbing Neuro: A&Ox3, moves all extremities, no focal neurological deficits Psych: Appropriate mood and behavior - Assessment and Plan (1) Paroxysmal atrial fibrillation Current Visit: Yes Status: Acute Assessment and Plan: - As below for new onset AFib - Unsure on chronicity as patient is asymptomatic - Patient did revert back to AFib yesterday however rapidly converted back to NSR after increasing oral cardizem - Further management as below (2) New onset atrial fibrillation Current Visit: Yes Status: Inactive Assessment and Plan: - New-onset atrial fibrillation as noted and confirmed on EKG in [place] - Currently in normal sinus rhythm with rate control. Cardizem drip turned off and transition to oral Cardizem - Etiology unclear at this time however may be possibly due to dehydration, hypokalemia,ischemia - TSH wnl at [place], low on this admission however free T4 within normal limits - Cardiology has been consult, appreciate recommendations - [id number] score 3 (age, female). HASBLED 0 - No signs of atrial enlargement on echo Plan - We will continue current Cardizem dosage however, the patient has had poor oral intake secondary to SBO as below - Patient started on eliquis for anticoagulation however will hold this time pending surgery recommendations - Replenish K as below. Recheck in AM. - Appreciate cardiology recommendations - Per cardiology note, consider ischemic evaluation as outpatient (3) Small bowel obstruction Current Visit: Yes Status: Acute Assessment and Plan: - As demonstrated on CT this afternoon. Transition point appears to be in RLQ - Likely source of n/v - Surgery has been consulted appreciate recommendations - NG tube placed this afternoon - NPO Plan - Surgery recommendations pending - Will hold eliquis in case of any surgical procedures - Continue zofran for symptomatic treatment - Consider fluids vs nutrition for nutritional status (4) Hypokalemia Current Visit: Yes Status: Resolved Assessment and Plan: - Potassium of 2.8 in [place] emergency department - Improved to 3.5 on this morning's labs - Continue monitor and replenish as necessary (5) Acute renal failure Current Visit: Yes Status: Resolved Assessment and Plan: - BUNs/creatinine of 63/2.22 in [place] emergency department - Labs this morning show BUNs/creatinine of 50/0.92 - Patient denies any history of kidney disease however no baseline labs are available - Clinically improving however oral intake is poor - Urinalysis is not suggestive of infection plan - Continue to monitor fluid status with IV hydration as necessary - Continue to monitor, avoid nephrotoxic agents (6) Elevated troponin Current Visit: Yes Status: Inactive Assessment and Plan: - Elevated troponin of 0.43 in [place] emergency department. Trended to 0.42 /0.57/0.48 - Likely type II and STEMI secondary to atrial fibrillation in the setting of dehydration and MIRZA - EKG did show ST changes in leads 2, 3, aVF, V3-V6 however noted to be nonspecific - No previous EKG to compare to - Patient has never had a cardiac workup in the past and denies any cardiac history - Cardiology has been consult as above, do not suspect ischemic etiology at this time Plan - Consider ischemic eval as outpatient - Echocardiogram on 09/04/18 shows mild diastolic dysfunction, otherwise wnl. (7) DVT prophylaxis Current Visit: Yes Status: Acute Assessment and Plan: On eliquis, however will hold for possible surgical intervention for SBO as above. start scds (8) GERD (gastroesophageal reflux disease) Current Visit: Yes Status: Chronic Assessment and Plan: - Patient states she does have some symptoms of esophageal reflux for which she takes [id number] medications - States that has been previously well-controlled however has not seen a primary care physician in over 40 years - We will prescribe Tums while inpatient recommend outpatient follow-up - Time Spent with Patient Total time spent is greater than 50% in coordination of care (as documented) at patient's floor/unit and/or counseling patient: Internal Medicine: Result - Labs CBC & Chem 7: 09/06/18 05:33 09/06/18 05:33 Labs: Short CBC 09/06/18 Range/Units 05:33 WBC 10.7 (4.3-11.1) K/mcL Hgb 13.2 (11.5-15.4) g/dL Hct 40.2 (35.3-44.9) % Plt Count 235 (140-400) K/mcL Neutrophils # 9.5 H (1.6-8.9) K/mcL BMP 09/06/18 05:33 Sodium 141 Potassium 3.5 Chloride 96 L Carbon Dioxide 35 H BUN 50 H Creatinine 0.92 Glucose 105 Calcium 10.5 H Liver Function 09/06/18 Range/Units 05:33 Total Bilirubin 1.1 H (0.3-1.0) mg/dL AST 131 H (13-39) Units/L ALT 134 H (7-52) Units/L Alkaline Phosphatase 59 (34-104) Units/L Albumin 3.7 (3.5-5.7) g/dL Urine 09/05/18 Range/Units 17:45 Urine Color Yellow (Yellow) Urine Clarity Cloudy A (Clear) Urine pH 5.5 (5.0-8.0) pH Units Ur Specific [place] 1.024 (1.010-1.025) Urine Protein 30 H (Neg-Trace) mg/dL Urine Glucose (UA) Normal (Normal) mg/dL - ABG Interpretation ABG results: PT/INR, D-dimer PT 13.1 Seconds (9.4-12.1) H 09/04/18 16:01 - Impressions Impressions Echocardiogram 09/04/18 14:04 Impressions: LVEF 60-65%. Normal LV chamber size, wall thickness and function. Mild left ventricular diastolic dysfunction. Normal right ventricular structure and function. Mild tricuspid regurgitation. <Ovidio Tam - Last Filed: 09/06/18 16:52> (3) Acute renal failure Qualifiers: Acute renal failure type: with acute tubular necrosis Qualified Code(s): N17.0 - Acute kidney failure with tubular necrosis (5) GERD (gastroesophageal reflux disease) Qualifiers: Esophagitis presence: esophagitis presence not specified Qualified Code(s): K21.9 - Gastro-esophageal reflux disease without esophagitis (6) Sepsis Qualifiers: Sepsis type: sepsis due to unspecified organism Qualified Code(s): A41.9 - Sepsis, unspecified organism <Brodie Ray - Last Filed: 09/06/18 18:02> (5) Acute renal failure Qualifiers: Acute renal failure type: with acute tubular necrosis Qualified Code(s): N17.0 - Acute kidney failure with tubular necrosis (8) GERD (gastroesophageal reflux disease) Qualifiers: Esophagitis presence: esophagitis presence not specified Qualified Code(s): K21.9 - Gastro-esophageal reflux disease without esophagitis
--- NOTE | 2018-09-06 16:35 | General Surgery Consult Note ---
<Kylee Tompkins - Last Filed: 09/06/18 17:19> Date of Encounter: 09/06/18 Time of Encounter: 16:34 Assessment and Plan (1) Small bowel obstruction Current Visit: Yes Status: Acute CT abd on 09-06 showed impressive SBO with signs of obstipation with impacted solid stool in sigmoid-rectum but no masses seen. Given lack of surgical history , adhesions are not likely cause of SBO - place NG tube now - NPO - continue zofran, add phenegran - agree with continued IVF per primary team - consult nutrition to start TPN given over one week with out adequate nutrition We would like to see improvement of bowel function before Tuesday, if not will have to consider possible surgical intervention. Surgery will continue to follow. (2) Severe protein-calorie malnutrition Current Visit: Yes Status: Chronic Consult nutrition for TPN - ordered pre-albumin History of Present Illness Consult date: 09/06/18 Reason for consult: abdominal pain Requesting physician: Brodie Ray History of present illness: 78 y/o female hx of chronic constipation presented with nausea and vomiting that has now been on going for over a week. She reports last emesis was during this interviewwith ongoing nausea despite zofran. She has been able keep down some clears. She doesn't remember last bowel movement but states it was over a week ago and can not describe if incited pain, change in character or color - no BM charted since admit. Her last full meal was over one week ago and she doesn't like the ensure clears. She has history of hemorrhoids so her stool is often has bright red blood with typicall bowel movement every two days. She has no surgical history. She has multiple chronic medial conditions including a fib and is currently being treated for PNA. Past Med Surg Social Fam HX - Past Medical History Medical history: no medical history Psychiatric history: no psych history - Past Surgical History Surgical History: non-contributory - Social History Smoking Status: Never smoker Smokeless Tobacco Status: No Alcohol use: none Drug use: none - Family History Mother History Unknown: Yes Living Status: Cause of : CA Hx Family Cancer: Yes (blood cancer) Father Living Status: Cause of : CA Hx Family Cancer: Yes (prostate) Brother Living Status: Cause of : liver disease/ 2nd brother CVA (brain aneurysm) Medications and Allergies No Known Home Drugs 09/04/18 [History] 3 Allergy/AdvReac Type Severity Reaction Status Date / Time No Known Allergies Allergy Verified 09/04/18 09:22 Review of Systems All systems PM: The remainder of the systems were reviewed and are negative - Constitutional no chills, no fever(s), no headache(s) - Cardiovascular no chest pain, no irregular heart rhythm, no palpitations - Respiratory no cough, no dyspnea, no wheezing - Gastrointestinal as per HPI, abdominal pain, constipation, nausea, vomiting - Genitourinary Genitourinary: no dysuria, no urinary frequency, no urinary incontinence - Musculoskeletal back pain, muscle weakness - Neurological no headache(s), no syncope, no tingling General Surgery Exam Initial Vital Signs Temp Pulse Resp BP Pulse Ox 98 F 99 18 124/75 91 09/04/18 14:19 09/04/18 14:19 09/04/18 14:19 09/04/18 14:19 09/04/18 14:19 - General physical appearance well developed, moderate distress, cachectic. negative: well nourished - Eyes PERRL, normal ocular movement - ENT normal pinna, normal nares, dry mucosa, atraumatic - Respiratory normal expansion, normal respiratory effort - Cardiovascular Cardiovascular exam: Present: RRR, no murmurs/rubs/gallops - Abdomen Abdomen general surgery: Present: non tender, distended. Absent: bowel sounds present, tympanic, guarding, surgical scars Hernia: Present: none - Integumentary Integumentary general surgery: Present: warm and dry, no abnormal pigmentation. Absent: diaphoresis - Neurologic Present: CN 2-12 grossly intact, normal coordination, normal sensation - Musculoskeletal Present: normal gait, normal posture - Psychiatric Psychiatric general surgery: Present: A&Ox3, speech is normal. Absent: memory intact (poor historian) Exam Initial Vital Signs Temp Pulse Resp BP Pulse Ox 98 F 99 18 124/75 91 09/04/18 14:19 09/04/18 14:19 09/04/18 14:19 09/04/18 14:19 09/04/18 14:19 Results - Labs 09/06/18 05:33 09/06/18 05:33 Abnormal lab results Neutrophils # 9.5 K/mcL (1.6-8.9) H 09/06/18 05:33 Lymphocytes # 0.4 K/mcL (0.6-4.6) L 09/06/18 05:33 PT 13.1 Seconds (9.4-12.1) H 09/04/18 16:01 Heparin Anti-Xa, Unfract 0.23 IU/mL (0.30-0.70) L 09/04/18 16:01 Chloride 96 mEq/L (98-107) L 09/06/18 05:33 Carbon Dioxide 35 mEq/L (23-29) H 09/06/18 05:33 BUN 50 mg/dL (8-23) H 09/06/18 05:33 Est GFR (Non-Af Amer) 59 (> 60) L 09/06/18 05:33 BUN/Creatinine Ratio 54 (6-26) H 09/06/18 05:33 Hemoglobin A1c 5.8 % (-5.6) H 09/05/18 04:41 Calculated Osmolality 306 (280-300) H 09/06/18 05:33 Calcium 10.5 mg/dL (8.6-10.3) H 09/06/18 05:33 Magnesium 2.8 mg/dL (1.6-2.6) H 09/05/18 04:41 Total Bilirubin 1.1 mg/dL (0.3-1.0) H 09/06/18 05:33 AST 131 Units/L (13-39) H 09/06/18 05:33 ALT 134 Units/L (7-52) H 09/06/18 05:33 Troponin I 0.42 ng/mL (< 0.04) H* 09/05/18 01:39 Serum Total Protein 6.0 g/dL (6.4-8.9) L 09/06/18 05:33 Globulin 2.3 g/dL (2.4-3.5) L 09/06/18 05:33 TSH 0.254 mcIU/mL (0.340-5.600) L 09/05/18 04:41 Urine Clarity Cloudy (Clear) A 09/05/18 17:45 Urine Protein 30 mg/dL (Neg-Trace) H 09/05/18 17:45 Urine Ketones 15 mg/dL (Negative) H 09/05/18 17:45 Urine Blood Moderate (Negative) H 09/05/18 17:45 Urine Microscopic RBC 3-5 per hpf (0-3) H 09/05/18 17:45 Urine Microscopic WBC 3-5 per hpf (0-3) H 09/05/18 17:45 Ur Squamous Epith Cells Many per lpf (None-Few) H 09/05/18 17:45 Urine Yeast Few per hpf (None Seen) H 09/05/18 17:45 Diabetes panel 09/06/18 Range/Units 05:33 Sodium 141 (136-145) mEq/L Potassium 3.5 (3.5-5.1) mEq/L Chloride 96 L (98-107) mEq/L Carbon Dioxide 35 H (23-29) mEq/L BUN 50 H (8-23) mg/dL Creatinine 0.92 (0.60-1.20) mg/dL Glucose 105 (70-105) mg/dL Calcium 10.5 H (8.6-10.3) mg/dL AST 131 H (13-39) Units/L ALT 134 H (7-52) Units/L Alkaline Phosphatase 59 (34-104) Units/L Albumin 3.7 (3.5-5.7) g/dL Calcium panel 09/06/18 Range/Units 05:33 Calcium 10.5 H (8.6-10.3) mg/dL Albumin 3.7 (3.5-5.7) g/dL Pituitary panel 09/06/18 Range/Units 05:33 Sodium 141 (136-145) mEq/L Potassium 3.5 (3.5-5.1) mEq/L Chloride 96 L (98-107) mEq/L Carbon Dioxide 35 H (23-29) mEq/L BUN 50 H (8-23) mg/dL Creatinine 0.92 (0.60-1.20) mg/dL Glucose 105 (70-105) mg/dL Calcium 10.5 H (8.6-10.3) mg/dL Adrenal panel 09/06/18 Range/Units 05:33 Sodium 141 (136-145) mEq/L Potassium 3.5 (3.5-5.1) mEq/L Chloride 96 L (98-107) mEq/L Carbon Dioxide 35 H (23-29) mEq/L BUN 50 H (8-23) mg/dL Creatinine 0.92 (0.60-1.20) mg/dL Glucose 105 (70-105) mg/dL Calcium 10.5 H (8.6-10.3) mg/dL Total Bilirubin 1.1 H (0.3-1.0) mg/dL AST 131 H (13-39) Units/L ALT 134 H (7-52) Units/L Alkaline Phosphatase 59 (34-104) Units/L Albumin 3.7 (3.5-5.7) g/dL All other labs normal. Consult Discharge Plan - Plan Referrals: NONE,PCP [Primary Care Provider] - <Oscar Dickens - Last Filed: 09/07/18 08:18> Date of Encounter: 09/06/18 Review of Systems All systems PM: The remainder of the systems were reviewed and are negative General Surgery Exam Initial Vital Signs Temp Pulse Resp BP Pulse Ox 98 F 99 18 124/75 91 09/04/18 14:19 09/04/18 14:19 09/04/18 14:19 09/04/18 14:19 09/04/18 14:19 Exam Initial Vital Signs Temp Pulse Resp BP Pulse Ox 98 F 99 18 124/75 91 09/04/18 14:19 09/04/18 14:19 09/04/18 14:19 09/04/18 14:19 09/04/18 14:19 Results - Labs 09/07/18 04:49 09/07/18 04:49 Abnormal lab results WBC 11.3 K/mcL (4.3-11.1) H 09/07/18 04:49 Neutrophils # 9.7 K/mcL (1.6-8.9) H 09/07/18 04:49 PT 13.1 Seconds (9.4-12.1) H 09/04/18 16:01 Heparin Anti-Xa, Unfract 0.23 IU/mL (0.30-0.70) L 09/04/18 16:01 Potassium 3.2 mEq/L (3.5-5.1) L 09/07/18 04:49 Carbon Dioxide 31 mEq/L (23-29) H 09/07/18 04:49 BUN 34 mg/dL (8-23) H 09/07/18 04:49 BUN/Creatinine Ratio 52 (6-26) H 09/07/18 04:49 Hemoglobin A1c 5.8 % (-5.6) H 09/05/18 04:41 AST 96 Units/L (13-39) H 09/07/18 04:49 ALT 105 Units/L (7-52) H 09/07/18 04:49 Troponin I 0.42 ng/mL (< 0.04) H* 09/05/18 01:39 Serum Total Protein 5.4 g/dL (6.4-8.9) L 09/07/18 04:49 Albumin 3.4 g/dL (3.5-5.7) L 09/07/18 04:49 Globulin 2.0 g/dL (2.4-3.5) L 09/07/18 04:49 Prealbumin 12.1 mg/dL (17.0-34.0) L 09/07/18 04:49 TSH 0.254 mcIU/mL (0.340-5.600) L 09/05/18 04:41 Urine Clarity Cloudy (Clear) A 09/05/18 17:45 Urine Protein 30 mg/dL (Neg-Trace) H 09/05/18 17:45 Urine Ketones 15 mg/dL (Negative) H 09/05/18 17:45 Urine Blood Moderate (Negative) H 09/05/18 17:45 Urine Microscopic RBC 3-5 per hpf (0-3) H 09/05/18 17:45 Urine Microscopic WBC 3-5 per hpf (0-3) H 09/05/18 17:45 Ur Squamous Epith Cells Many per lpf (None-Few) H 09/05/18 17:45 Urine Yeast Few per hpf (None Seen) H 09/05/18 17:45 Diabetes panel 09/07/18 Range/Units 04:49 Sodium 141 (136-145) mEq/L Potassium 3.2 L (3.5-5.1) mEq/L Chloride 98 (98-107) mEq/L Carbon Dioxide 31 H (23-29) mEq/L BUN 34 H (8-23) mg/dL Creatinine 0.66 (0.60-1.20) mg/dL Glucose 84 (70-105) mg/dL Calcium 9.9 (8.6-10.3) mg/dL AST 96 H (13-39) Units/L ALT 105 H (7-52) Units/L Alkaline Phosphatase 60 (34-104) Units/L Albumin 3.4 L (3.5-5.7) g/dL Calcium panel 09/07/18 Range/Units 04:49 Calcium 9.9 (8.6-10.3) mg/dL Albumin 3.4 L (3.5-5.7) g/dL Pituitary panel 09/07/18 Range/Units 04:49 Sodium 141 (136-145) mEq/L Potassium 3.2 L (3.5-5.1) mEq/L Chloride 98 (98-107) mEq/L Carbon Dioxide 31 H (23-29) mEq/L BUN 34 H (8-23) mg/dL Creatinine 0.66 (0.60-1.20) mg/dL Glucose 84 (70-105) mg/dL Calcium 9.9 (8.6-10.3) mg/dL Adrenal panel 09/07/18 Range/Units 04:49 Sodium 141 (136-145) mEq/L Potassium 3.2 L (3.5-5.1) mEq/L Chloride 98 (98-107) mEq/L Carbon Dioxide 31 H (23-29) mEq/L BUN 34 H (8-23) mg/dL Creatinine 0.66 (0.60-1.20) mg/dL Glucose 84 (70-105) mg/dL Calcium 9.9 (8.6-10.3) mg/dL Total Bilirubin 0.8 (0.3-1.0) mg/dL AST 96 H (13-39) Units/L ALT 105 H (7-52) Units/L Alkaline Phosphatase 60 (34-104) Units/L Albumin 3.4 L (3.5-5.7) g/dL All other labs normal. - Attending Attestation I examined this patient and my medical decision-making was reviewed with the Resident Physician. I agree with the documented findings, disposition and treatment plan as described except to the extent set forth below. I reviewed the above assessment and evaluation and agree with the above plan. Patient has had a 7-10 day history of nausea and vomiting with abdominal distention. Her last bowel movement was greater than one week ago. Abdomen is distended and non-tympanitic. I reviewed the CT scan image which demonstrates dilated stomach and dilated fluid-filled small bowel loops. Agree with placement of the NG tube for decompression and will follow with you.
[2018-09-06] MEDS ORDERED: *HR* Promethazine 25 MG/ML VIAL IVP PRN (16:44)
[2018-09-07 05:21] LABS: Basophils % 0.3 %; Eosinophils % 0.3 %; Hematocrit 35.9 % (35.3-44.9); Hemoglobin 11.9 g/dL (11.5-15.4); Immature Granulocytes % 1.1 % (0-4); Lymphocytes # 0.6 K/mcL (0.6-4.6); Lymphocytes % 5.4 %; Mean Corpuscular HGB Conc 33.1 g/dL (31.6-35.5); Mean Corpuscular Hemoglobin 29.9 pg (28.0-33.3); Mean Corpuscular Volume 90.2 fL (83.0-100.0); Mean Platelet Volume 10.2 fL (9.4-12.4); Monocytes # 0.8 K/mcL (0.0-1.3); Monocytes % 6.8 %; Neutrophils # 9.7 K/mcL (1.6-8.9); Platelet Count 221 K/mcL (140-400); Red Blood Count 3.98 M/mcL (3.82-4.97); Red Cell Distribution Width 12.6 % (11.5-14.5); Segmented Neutrophils % 86.1 %
[2018-09-07 05:36] LABS: Alanine Aminotransferase 105 Units/L (7-52); Albumin 3.4 g/dL (3.5-5.7); Albumin/Globulin Ratio 1.7 (1.1-2.2); Alkaline Phosphatase 60 Units/L (34-104); Aspartate Amino Transferase 96 Units/L (13-39); BUN/Creatinine Ratio 52 (6-26); Bilirubin,Total 0.8 mg/dL (0.3-1.0); Blood Urea Nitrogen 34 mg/dL (8-23); Calcium 9.9 mg/dL (8.6-10.3); Carbon Dioxide 31 mEq/L (23-29); Chloride 98 mEq/L (98-107); Glucose 84 mg/dL (70-105); Magnesium 2.2 mg/dL (1.6-2.6); Osmolality,Calculated 299 (280-300); Potassium 3.2 mEq/L (3.5-5.1); Sodium 141 mEq/L (136-145); Total Protein 5.4 g/dL (6.4-8.9); eGFR For Non-African Americans > 60 (> 60)
[2018-09-07] MEDS ORDERED: Potassium Chloride 40 MEQ, Lidocaine 1% 2 ML in D5% in Water 500 ML IVPB ONE (08:09)
[2018-09-07] MEDS: Aspirin 81 MG TAB.CHEW PO SCH (09:16)
[2018-09-07] MEDS: Diltiazem CD (24hr) 180 MG CAPSULE PO SCH (09:16)
--- NOTE | 2018-09-07 10:30 | General Surgery Progress Note ---
<Do Gilmore - Last Filed: 09/07/18 10:27> Date of Encounter: 09/07/18 Time of Encounter: 10:28 - Assessment and Plan (1) Small bowel obstruction Current Visit: Yes Status: Acute Reports flatus x1, no BM. States abd pain remains. Noted unclear documentation of NG output as none recorded since yesterday. She denies n/v. She reports feeling hungry. Abdomen is soft but distended and faint at best BS. Plan: continue supportive care and discomfort management continue NG tube low intermittent wall suction. Noted TPN per primary team add Dulcolax suppository daily HS if no BM will obtain SBFT ambulate as tolerated out of bed to chair at least TID continue G.I. and DVT prophylaxis repeat a.m. labs serial abdominal exams we will continue to follow along with you and assess progress; further recommendations pending SBFT Subjective Patient reports: no new complaints, feels better, still having pain, pain is less, voiding w/o difficulty, flatus (x1 this am), no bowel movement, afebrile Objective Vital Signs - Last 8 Hours Temp Pulse Resp BP Pulse Ox 09/07/18 07:36 99.1 F 96 18 165/73 94 09/07/18 05:03 98.7 F 95 16 149/69 95 Intake and Output 09/06/18 09/07/18 09/07/18 23:59 07:59 15:59 Intake Total 500 / 500 Output Total 1150 / 1150 Balance -650 / -650 Intake: IV Fluids 500 / 500 0.9 % Sodium Chloride 500 ML @ 500 / 500 75 mls/hr IVC .Q6H40M ONE Rx#: [id number] Output: Urine 250 / 250 Gastric Tube Lavage Amount 900 / 900 Right Nare 900 / 900 Other: # Voids 1 Weight 41.4 kg Blood Glucose* 80 Patient Weight 09/07/18 23:59 Weight 41.4 kg - General physical appearance no distress - ENT normal nares (NG noted), normal mucosa - Neck Neck exam: trachea midline - Respiratory normal expansion, normal respiratory effort, clear to auscultation - Cardiovascular Cardiovascular exam: Present: RRR - Abdomen Abdomen: Present: soft, distended, tender (mild diffuse tenderness). Absent: bowel sounds present Hernia: none - Integumentary no abnormal pigmentation - Neurologic normal sensation - Musculoskeletal normal posture - Psychiatric oriented to person, oriented to place, speech is normal - Labs 09/07/18 04:49 09/07/18 04:49 Diabetes panel 09/07/18 Range/Units 04:49 Sodium 141 (136-145) mEq/L Potassium 3.2 L (3.5-5.1) mEq/L Chloride 98 (98-107) mEq/L Carbon Dioxide 31 H (23-29) mEq/L BUN 34 H (8-23) mg/dL Creatinine 0.66 (0.60-1.20) mg/dL Glucose 84 (70-105) mg/dL Calcium 9.9 (8.6-10.3) mg/dL AST 96 H (13-39) Units/L ALT 105 H (7-52) Units/L Alkaline Phosphatase 60 (34-104) Units/L Albumin 3.4 L (3.5-5.7) g/dL Calcium panel 09/07/18 Range/Units 04:49 Calcium 9.9 (8.6-10.3) mg/dL Albumin 3.4 L (3.5-5.7) g/dL Pituitary panel 09/07/18 Range/Units 04:49 Sodium 141 (136-145) mEq/L Potassium 3.2 L (3.5-5.1) mEq/L Chloride 98 (98-107) mEq/L Carbon Dioxide 31 H (23-29) mEq/L BUN 34 H (8-23) mg/dL Creatinine 0.66 (0.60-1.20) mg/dL Glucose 84 (70-105) mg/dL Calcium 9.9 (8.6-10.3) mg/dL Adrenal panel 09/07/18 Range/Units 04:49 Sodium 141 (136-145) mEq/L Potassium 3.2 L (3.5-5.1) mEq/L Chloride 98 (98-107) mEq/L Carbon Dioxide 31 H (23-29) mEq/L BUN 34 H (8-23) mg/dL Creatinine 0.66 (0.60-1.20) mg/dL Glucose 84 (70-105) mg/dL Calcium 9.9 (8.6-10.3) mg/dL Total Bilirubin 0.8 (0.3-1.0) mg/dL AST 96 H (13-39) Units/L ALT 105 H (7-52) Units/L Alkaline Phosphatase 60 (34-104) Units/L Albumin 3.4 L (3.5-5.7) g/dL Consult Discharge Plan - Plan Referrals: NONE,PCP [Primary Care Provider] - <Oscar Dickens - Last Filed: 09/08/18 14:44> Date of Encounter: 09/07/18 Objective Vital Signs - Last 8 Hours Temp Pulse Resp BP Pulse Ox 09/08/18 10:53 98.8 F 112 18 118/76 94 09/08/18 07:40 97.6 F 111 16 130/79 94 Intake and Output 09/07/18 09/08/18 09/08/18 23:59 07:59 15:59 Intake Total 50 / 50 665 / 665 Output Total 1150 / 1150 1000 / 1000 Balance -1100 / -1100 -1000 / -1000 661 / 661 Intake: IV Fluids 50 / 50 665 / 665 Cardizem 50 MG In 0.9 % Sodium 50 / 50 45 / 45 Chloride 40 ML @ 7.5 MG/HR 7.5 mls/hr IVC .Q6H40M AKOSUA Rx#: [id number] Clinimix E 5%-15% SOLUTION 2, 620 / 620 000 ML @ 35 mls/hr IVC .Q24H AKOSUA with M.v.i. Adult 10 ml Rx# :[id number] Oral 0 / 0 Output: Urine 200 / 200 Gastric Tube Lavage Amount 1150 / 1150 800 / 800 Right Nare 1150 / 1150 800 / 800 Estimated Blood Loss Other: Meal Pt. is NPO Stool Size Smear Smear Smear Stool Consistency soft liquid Stool Color Yellow Brown Brown Green # Voids 1 # Bowel Movements 1 1 1 Weight 42.1 kg Blood Glucose* 223 197 241 Patient Weight 09/08/18 23:59 Weight 42.1 kg - Labs 09/08/18 04:00 09/08/18 04:00 Diabetes panel 09/08/18 Range/Units 04:00 Sodium 145 (136-145) mEq/L Potassium 3.7 (3.5-5.1) mEq/L Chloride 96 L (98-107) mEq/L Carbon Dioxide 39 H (23-29) mEq/L BUN 43 H (8-23) mg/dL Creatinine 0.93 (0.60-1.20) mg/dL Glucose 216 H (70-105) mg/dL Calcium 11.2 H (8.6-10.3) mg/dL Calcium panel 09/08/18 Range/Units 04:00 Calcium 11.2 H (8.6-10.3) mg/dL Phosphorus 3.4 (2.7-4.5) mg/dL Pituitary panel 09/08/18 Range/Units 04:00 Sodium 145 (136-145) mEq/L Potassium 3.7 (3.5-5.1) mEq/L Chloride 96 L (98-107) mEq/L Carbon Dioxide 39 H (23-29) mEq/L BUN 43 H (8-23) mg/dL Creatinine 0.93 (0.60-1.20) mg/dL Glucose 216 H (70-105) mg/dL Calcium 11.2 H (8.6-10.3) mg/dL Adrenal panel 09/08/18 Range/Units 04:00 Sodium 145 (136-145) mEq/L Potassium 3.7 (3.5-5.1) mEq/L Chloride 96 L (98-107) mEq/L Carbon Dioxide 39 H (23-29) mEq/L BUN 43 H (8-23) mg/dL Creatinine 0.93 (0.60-1.20) mg/dL Glucose 216 H (70-105) mg/dL Calcium 11.2 H (8.6-10.3) mg/dL - Attending Attestation I have personally performed a face to face evaluation on this patient. I have reviewed and agree with the care plan. History and Exam by me shows: I reviewed the above assessment and evaluation and agree with the plan. Await results of small bowel follow-through.
[2018-09-07] MEDS ORDERED: Lidocaine -MPF 1% 5 ML AMPUL INFILT ONE (10:41)
[2018-09-07] MEDS ORDERED: Bisacodyl 10 MG RECTAL SUPPOSITORY RC SCH ×2 (10:45→21:00)
[2018-09-07] MEDS ORDERED: D10% in Water 500 ML IVC PRN (12:00)
--- NOTE | 2018-09-07 13:57 | Internal Med Progress Note ---
<Brodie Ray - Last Filed: 09/07/18 15:28> Hospitalist Progress Note - Encounter Date of Encounter: 09/07/18 Time of Encounter: 08:15 - Subjective Interval History: Patient was seen and examined this morning at bedside. She states overall that she is doing much better and is tolerating her NG tube without complaints. She no longer has any symptoms of nausea and is not had any episodes of emesis. She is denying any symptoms of abdominal pain and feels less distended. She denies any bowel movements but is having flatus. She denies any symptoms of fevers, chills, chest pain, shortness of breath. She does state she has an appetite this morning but otherwise has no complaints. - Exam Vitals: Temp Pulse Resp BP Pulse Ox 98.1 F 166 18 124/74 96 09/07/18 11:19 10 11:19 09/07/18 11:19 09/07/18 11:19 09/07/18 11:19 Exam: Gen.: Vitals noted. No acute distress. AAOx3 HEENT: PERRL/EOMI, oropharynx clear, Normocephalic, atraumatic, mildly dry mucous membranes, NG tube in place with bilious output approximately 200 mL Cardiac: Irregularly irregular rhythm, mildly tachycardic, no murmur, +S1/S2 Pulmonary: CTA bilaterally, no wheezes, rales or rhonchi, equal chest expansion Abdomen: soft, nontender, BS noted, no guarding, no rebound. Minimally distended however improving MSK: ROM intact, no joint swelling noted Extremities: no BLE edema, nontender calf, no cyanosis or clubbing Neuro: A&Ox3, moves all extremities, no focal deficits Psych: Appropriate mood and behavior - Assessment and Plan (1) New onset atrial fibrillation Current Visit: Yes Status: Inactive Assessment and Plan: - New-onset atrial fibrillation as noted and confirmed on EKG in [place] - Has reverted back to A. fib with RVR this morning as she has been nothing by mouth and not taking her oral Cardizem - Etiology unclear at this time however may be possibly due to dehydration, hypokalemia,ischemia - TSH wnl at [place], low on this admission however free T4 within normal limits - Cardiology has been consult, appreciate recommendations - [id number] score 3 (age, female). HASBLED 0 - No signs of atrial enlargement on echo Plan - We will hold oral Cardizem while nothing by mouth, restart Cardizem drip - Patient started on eliquis for anticoagulation however will hold this time pending surgery recommendations - Replenish K as below. Recheck in AM. - Appreciate cardiology recommendations - Per cardiology note, consider ischemic evaluation as outpatient (2) Paroxysmal atrial fibrillation Current Visit: Yes Status: Acute Assessment and Plan: - As below for new onset AFib - Unsure on chronicity as patient is asymptomatic - Patient did revert back to AFib this morning after being unable to tolerate oral intake - Further management as above (3) Hypokalemia Current Visit: Yes Status: Acute Assessment and Plan: - Potassium of 2.8 in [place] emergency department - Improved to 3.2 on this morning's labs - Continue monitor and replenish as necessary (4) Acute renal failure Current Visit: Yes Status: Resolved Assessment and Plan: - BUNs/creatinine of 63/2.22 in [place] emergency department - Labs this morning show BUNs/creatinine of 34/0.66 - Patient denies any history of kidney disease however no baseline labs are available - Clinically improving with hydration. Consider IV fluids while she remains nothing by mouth if clinically dry - Urinalysis is not suggestive of infection plan - Continue to monitor fluid status with IV hydration as necessary - Continue to monitor, avoid nephrotoxic agents (5) Elevated troponin Current Visit: Yes Status: Inactive Assessment and Plan: - Elevated troponin of 0.43 in [place] emergency department. Trended to 0.42 /0.57/0.48 - Likely type II NSTEMI secondary to atrial fibrillation in the setting of dehydration and MIRZA - EKG did show ST changes in leads 2, 3, aVF, V3-V6 however noted to be nonspecific - No previous EKG to compare to - Patient has never had a cardiac workup in the past and denies any cardiac history - Cardiology has been consult as above, do not suspect ischemic etiology at this time Plan - Consider ischemic eval as outpatient - Echocardiogram on 09/04/18 shows mild diastolic dysfunction, otherwise wnl. (6) GERD (gastroesophageal reflux disease) Current Visit: Yes Status: Chronic Assessment and Plan: - Patient states she does have some symptoms of esophageal reflux for which she takes [id number] medications - States that has been previously well-controlled however has not seen a primary care physician in over 40 years - We will prescribe Tums while inpatient recommend outpatient follow-up (7) DVT prophylaxis Current Visit: Yes Status: Acute Assessment and Plan: On eliquis, however will hold for possible surgical intervention for SBO as above. start scds (8) Small bowel obstruction Current Visit: Yes Status: Acute Assessment and Plan: - As demonstrated on CT on 09/06. Transition point appears to be in RLQ - Likely source of n/v - Surgery has been consulted appreciate recommendations - NG tube placed on 09/06, patient tolerating well - NPO - Per surgery note, will monitor and reassess on Tuesday at which point surgery may be considered if no improvement Plan - Surgery recommendations - Will hold eliquis in case of any surgical procedures - Continue zofran for symptomatic treatment - Start TPN today, insert PICC line - Time Spent with Patient Total time spent is greater than 50% in coordination of care (as documented) at patient's floor/unit and/or counseling patient: Internal Medicine: Result - Labs CBC & Chem 7: 09/07/18 04:49 09/07/18 04:49 Labs: Short CBC 09/07/18 Range/Units 04:49 WBC 11.3 H (4.3-11.1) K/mcL Hgb 11.9 (11.5-15.4) g/dL Hct 35.9 (35.3-44.9) % Plt Count 221 (140-400) K/mcL Neutrophils # 9.7 H (1.6-8.9) K/mcL BMP 09/07/18 04:49 Sodium 141 Potassium 3.2 L Chloride 98 Carbon Dioxide 31 H BUN 34 H Creatinine 0.66 Glucose 84 Calcium 9.9 Liver Function 09/07/18 Range/Units 04:49 Total Bilirubin 0.8 (0.3-1.0) mg/dL AST 96 H (13-39) Units/L ALT 105 H (7-52) Units/L Alkaline Phosphatase 60 (34-104) Units/L Albumin 3.4 L (3.5-5.7) g/dL - ABG Interpretation ABG results: PT/INR, D-dimer PT 13.1 Seconds (9.4-12.1) H 09/04/18 16:01 - Impressions Impressions Abdomen/Pelvis CT 09/06/18 12:00 IMPRESSION: Findings consistent with a small bowel obstruction and the transition point is within the right lower quadrant. D/ / 09/06/2018 15:12:55 Luis Frankel MD / haley Interpreting Provider: Luis Frankel MD KUB X-Ray 09/06/18 17:27 IMPRESSION: Unremarkable limited KUB. NG tube tip projects at the right upper quadrant, overlying the expected location of the distal stomach versus 1st portion of the duodenum. D/ / Te Angel / Te Angel Interpreting Provider: Te Angel Chest X-Ray 09/07/18 10:37 IMPRESSION: 1. New right upper extremity PICC terminates in the lower superior vena cava. 2. Near complete resolution of previously seen central right lung airspace opacity, likely improved pneumonia or edema. 3. Minimal bibasilar atelectasis. D/ / Da Aggarwal MD / Da Aggarwal MD Interpreting Provider: Da Aggarwal MD Consult Discharge Plan - Plan Referrals: NONE,PCP [Primary Care Provider] - <Ovidio Tam - Last Filed: 09/07/18 18:08> Hospitalist Progress Note - Encounter Date of Encounter: 09/07/18 - Exam Vitals: Temp Pulse Resp BP Pulse Ox 98.0 F 104 19 161/78 94 09/07/18 16:12 09/07/18 16:12 09/07/18 16:12 09/07/18 16:12 09/07/18 16:12 - Assessment and Plan (1) New onset atrial fibrillation Current Visit: Yes Status: Inactive (2) Hypokalemia Current Visit: Yes Status: Acute (3) Acute renal failure Current Visit: Yes Status: Resolved (4) Elevated troponin Current Visit: Yes Status: Inactive (5) DVT prophylaxis Current Visit: Yes Status: Acute (6) GERD (gastroesophageal reflux disease) Current Visit: Yes Status: Chronic (7) Paroxysmal atrial fibrillation Current Visit: Yes Status: Acute (8) Small bowel obstruction Current Visit: Yes Status: Acute (9) Severe protein-calorie malnutrition Current Visit: Yes Status: Chronic - Time Spent with Patient Total time spent is greater than 50% in coordination of care (as documented) at patient's floor/unit and/or counseling patient: Internal Medicine: Result - Labs CBC & Chem 7: 09/07/18 04:49 09/07/18 04:49 Labs: Short CBC 09/07/18 Range/Units 04:49 WBC 11.3 H (4.3-11.1) K/mcL Hgb 11.9 (11.5-15.4) g/dL Hct 35.9 (35.3-44.9) % Plt Count 221 (140-400) K/mcL Neutrophils # 9.7 H (1.6-8.9) K/mcL BMP 09/07/18 04:49 Sodium 141 Potassium 3.2 L Chloride 98 Carbon Dioxide 31 H BUN 34 H Creatinine 0.66 Glucose 84 Calcium 9.9 Liver Function 09/07/18 Range/Units 04:49 Total Bilirubin 0.8 (0.3-1.0) mg/dL AST 96 H (13-39) Units/L ALT 105 H (7-52) Units/L Alkaline Phosphatase 60 (34-104) Units/L Albumin 3.4 L (3.5-5.7) g/dL - ABG Interpretation ABG results: PT/INR, D-dimer PT 13.1 Seconds (9.4-12.1) H 09/04/18 16:01 - Impressions Impressions Chest X-Ray 09/07/18 10:37 IMPRESSION: 1. New right upper extremity PICC terminates in the lower superior vena cava. 2. Near complete resolution of previously seen central right lung airspace opacity, likely improved pneumonia or edema. 3. Minimal bibasilar atelectasis. D/ / Da Aggarwal MD / Da Aggarwal MD Interpreting Provider: Da Aggarwal MD - Attending Attestation I examined this patient and my medical decision-making was reviewed with the Resident Physician on 09/07/18. I agree with the documented findings, disposition and treatment plan as described except to the extent set forth below. Ms Baird is currently admitted for a fib and SBO. She remains moderate to high risk due to potential for worsening clinical status. Ms Baird is doing OK. She feels better with NG. No further nausea. No BM. To have SBFT today. No fever or chills. On Cardizem drip for heart rate. Exam alert Comfortable Mucus membranes dry Heart irreg No wheeze abd less distended No edema I/P 1. A fib 2. SBO per surgery 3. Malnutrition - PICC placed and TPN started today. Further diagnoses and plan as above. <Brodie Ray - Last Filed: 09/07/18 15:28> (4) Acute renal failure Qualifiers: Acute renal failure type: with acute tubular necrosis Qualified Code(s): N17.0 - Acute kidney failure with tubular necrosis (6) GERD (gastroesophageal reflux disease) Qualifiers: Esophagitis presence: esophagitis presence not specified Qualified Code(s): K21.9 - Gastro-esophageal reflux disease without esophagitis <Ovidio Tam - Last Filed: 09/07/18 18:08> (3) Acute renal failure Qualifiers: Acute renal failure type: with acute tubular necrosis Qualified Code(s): N17.0 - Acute kidney failure with tubular necrosis (6) GERD (gastroesophageal reflux disease) Qualifiers: Esophagitis presence: esophagitis presence not specified Qualified Code(s): K21.9 - Gastro-esophageal reflux disease without esophagitis
[2018-09-07] MEDS ORDERED: Clinimix E 5%-15% SOLUTION 2,000 ML with MVI, adult with vitamin K 10 ML IVC SCH ×2 (17:00)
[2018-09-08 05:15] LABS: Basophils # 0.1 K/mcL (0.0-0.2); Basophils % 0.3 %; Hematocrit 46.4 % (35.3-44.9); Immature Granulocytes % 1.4 % (0-4); Lymphocytes # 0.5 K/mcL (0.6-4.6); Lymphocytes % 2.7 %; Mean Corpuscular HGB Conc 32.5 g/dL (31.6-35.5); Mean Corpuscular Hemoglobin 29.8 pg (28.0-33.3); Mean Corpuscular Volume 91.7 fL (83.0-100.0); Mean Platelet Volume 10.3 fL (9.4-12.4); Monocytes % 6.6 %; Neutrophils # 16.8 K/mcL (1.6-8.9); Platelet Count 322 K/mcL (140-400); Red Blood Count 5.06 M/mcL (3.82-4.97); Red Cell Distribution Width 12.5 % (11.5-14.5)
[2018-09-08 05:26] LABS: Hemoglobin 15.1 g/dL (11.5-15.4); Monocytes # 1.3 K/mcL (0.0-1.3)
[2018-09-08 05:30] LABS: BUN/Creatinine Ratio 46 (6-26); Blood Urea Nitrogen 43 mg/dL (8-23); Calcium 11.2 mg/dL (8.6-10.3); Carbon Dioxide 39 mEq/L (23-29); Chloride 96 mEq/L (98-107); Glucose 216 mg/dL (70-105); Magnesium 2.6 mg/dL (1.6-2.6); Osmolality,Calculated 317 (280-300); Phosphorous 3.4 mg/dL (2.7-4.5); Potassium 3.7 mEq/L (3.5-5.1); Sodium 145 mEq/L (136-145); eGFR For Non-African Americans 58 (> 60)
--- NOTE | 2018-09-08 08:08 | General Surgery Progress Note ---
<Kylee Tompkins - Last Filed: 09/08/18 12:05> Date of Encounter: 09/08/18 Time of Encounter: 08:02 - Assessment and Plan (1) Small bowel obstruction Current Visit: Yes Status: Acute CT abd on 09-06 showed impressive SBO with signs of obstipation with impacted solid stool in sigmoid. SBFT yesterday did not show adequate progression even after 6 hrs. Despite patient reporting improvement her obstruction remains concerning. - NG 3L out yesterday but stopped producing after NG was moved overnight and as it was not marked difficult to reposition. Repositioned this morning with return of flow. -KUB to evaluate placement showed placement in distal duodenum and was repositioned - remain NPO - agree with IVF - supportive care and pain management - serial abdominal exam Plan for exploratory celotomy with possible small bowel resection with Dr Dickens in the next 24-48 (2) Severe protein-calorie malnutrition Current Visit: Yes Status: Chronic Nutrition consulted, continue TPN Subjective Patient reports: no new complaints (wants to eat), flatus, bowel movement ( small smear per nursing), afebrile Objective Vital Signs - Last 8 Hours Temp Pulse Resp BP Pulse Ox 09/08/18 07:40 97.6 F 111 16 130/79 94 09/08/18 05:01 97.5 F L 106 16 131/81 91 09/08/18 01:54 98.9 F 100 16 140/90 96 Intake and Output 09/07/18 09/08/18 09/08/18 23:59 07:59 15:59 Intake Total 50 / 50 Output Total 1150 / 1150 1000 / 1000 Balance -1100 / -1100 -1000 / -1000 Intake: IV Fluids 50 / 50 Cardizem 50 MG In 0.9 % Sodium 50 / 50 Chloride 40 ML @ 7.5 MG/HR 7.5 mls/hr IVC .Q6H40M AKOSUA Rx#: [id number] Output: Urine 200 / 200 Gastric Tube Lavage Amount 1150 / 1150 800 / 800 Right Nare 1150 / 1150 800 / 800 Other: Stool Size Smear Smear Stool Consistency soft Stool Color Yellow Brown Green # Voids 1 # Bowel Movements 1 1 Weight 42.1 kg Blood Glucose* 223 197 Patient Weight 09/08/18 23:59 Weight 42.1 kg - General physical appearance well developed, cachectic - Eyes normal ocular movement - ENT normal pinna, normal nares, normal mucosa - Respiratory normal expansion, normal respiratory effort, clear to auscultation - Cardiovascular Cardiovascular exam: Present: RRR, no murmurs/rubs/gallops - Abdomen Abdomen: Present: bowel sounds present (very minimal), soft, non tender, distended. Absent: guarding, rebound, surgical scars - Integumentary no rash, no growths, no abnormal pigmentation - Neurologic CN 2-12 grossly intact, normal coordination, normal sensation - Musculoskeletal normal gait, normal posture - Psychiatric oriented to time, oriented to person, oriented to place, speech is normal, memory intact (poor recall of last nights events), other (unhappy) - Labs 09/08/18 04:00 09/08/18 04:00 Diabetes panel 09/08/18 Range/Units 04:00 Sodium 145 (136-145) mEq/L Potassium 3.7 (3.5-5.1) mEq/L Chloride 96 L (98-107) mEq/L Carbon Dioxide 39 H (23-29) mEq/L BUN 43 H (8-23) mg/dL Creatinine 0.93 (0.60-1.20) mg/dL Glucose 216 H (70-105) mg/dL Calcium 11.2 H (8.6-10.3) mg/dL Calcium panel 09/07/18 09/08/18 Range/Units 08:47 04:00 Calcium 11.2 H (8.6-10.3) mg/dL Phosphorus 2.6 L 3.4 (2.7-4.5) mg/dL Pituitary panel 09/08/18 Range/Units 04:00 Sodium 145 (136-145) mEq/L Potassium 3.7 (3.5-5.1) mEq/L Chloride 96 L (98-107) mEq/L Carbon Dioxide 39 H (23-29) mEq/L BUN 43 H (8-23) mg/dL Creatinine 0.93 (0.60-1.20) mg/dL Glucose 216 H (70-105) mg/dL Calcium 11.2 H (8.6-10.3) mg/dL Adrenal panel 09/08/18 Range/Units 04:00 Sodium 145 (136-145) mEq/L Potassium 3.7 (3.5-5.1) mEq/L Chloride 96 L (98-107) mEq/L Carbon Dioxide 39 H (23-29) mEq/L BUN 43 H (8-23) mg/dL Creatinine 0.93 (0.60-1.20) mg/dL Glucose 216 H (70-105) mg/dL Calcium 11.2 H (8.6-10.3) mg/dL Consult Discharge Plan - Plan Referrals: NONE,PCP [Primary Care Provider] - <Oscar Dickens - Last Filed: 09/08/18 13:12> Date of Encounter: 09/08/18 Objective Vital Signs - Last 8 Hours Temp Pulse Resp BP Pulse Ox 09/08/18 10:53 98.8 F 112 18 118/76 94 09/08/18 07:40 97.6 F 111 16 130/79 94 Intake and Output 09/07/18 09/08/18 09/08/18 23:59 07:59 15:59 Intake Total 50 / 50 665 / 665 Output Total 1150 / 1150 1000 / 1000 Balance -1100 / -1100 -1000 / -1000 665 / 665 Intake: IV Fluids 50 / 50 665 / 665 Cardizem 50 MG In 0.9 % Sodium 50 / 50 45 / 45 Chloride 40 ML @ 7.5 MG/HR 7.5 mls/hr IVC .Q6H40M AKOSUA Rx#: [id number] Clinimix E 5%-15% SOLUTION 2, 620 / 620 000 ML @ 35 mls/hr IVC .Q24H AKOSUA with M.v.i. Adult 10 ml Rx# :[id number] Oral 0 / 0 Output: Urine 200 / 200 Gastric Tube Lavage Amount 1150 / 1150 800 / 800 Right Nare 1150 / 1150 800 / 800 Other: Meal Pt. is NPO Stool Size Smear Smear Smear Stool Consistency soft liquid Stool Color Yellow Brown Brown Green # Voids 1 # Bowel Movements 1 1 1 Weight 42.1 kg Blood Glucose* 223 197 241 Patient Weight 09/08/18 23:59 Weight 42.1 kg - Labs 09/08/18 04:00 09/08/18 04:00 Diabetes panel 09/08/18 Range/Units 04:00 Sodium 145 (136-145) mEq/L Potassium 3.7 (3.5-5.1) mEq/L Chloride 96 L (98-107) mEq/L Carbon Dioxide 39 H (23-29) mEq/L BUN 43 H (8-23) mg/dL Creatinine 0.93 (0.60-1.20) mg/dL Glucose 216 H (70-105) mg/dL Calcium 11.2 H (8.6-10.3) mg/dL Calcium panel 09/08/18 Range/Units 04:00 Calcium 11.2 H (8.6-10.3) mg/dL Phosphorus 3.4 (2.7-4.5) mg/dL Pituitary panel 09/08/18 Range/Units 04:00 Sodium 145 (136-145) mEq/L Potassium 3.7 (3.5-5.1) mEq/L Chloride 96 L (98-107) mEq/L Carbon Dioxide 39 H (23-29) mEq/L BUN 43 H (8-23) mg/dL Creatinine 0.93 (0.60-1.20) mg/dL Glucose 216 H (70-105) mg/dL Calcium 11.2 H (8.6-10.3) mg/dL Adrenal panel 09/08/18 Range/Units 04:00 Sodium 145 (136-145) mEq/L Potassium 3.7 (3.5-5.1) mEq/L Chloride 96 L (98-107) mEq/L Carbon Dioxide 39 H (23-29) mEq/L BUN 43 H (8-23) mg/dL Creatinine 0.93 (0.60-1.20) mg/dL Glucose 216 H (70-105) mg/dL Calcium 11.2 H (8.6-10.3) mg/dL - Attending Attestation I examined this patient and my medical decision-making was reviewed with the Resident Physician. I agree with the documented findings, disposition and treatment plan as described except to the extent set forth below. I reviewed the above and agree with the above plan. SBFT shows no flow through the small bowel. Patient with nausea despite NGT. Will proceed with an exploratory celiotomy with possible lysis of adhesion. Discussed with the patient and she agrees to the above plan.
[2018-09-08] MEDS: Aspirin 81 MG TAB.CHEW PO SCH (08:13)
[2018-09-08] MEDS ORDERED: Dextrose Gel 15 GM/37.5 ML TUBE PO PRN ×4 (09:19→15:53)
[2018-09-08] MEDS ORDERED: *HR* Dextrose 50 % in Water (Syg) 50 ML SYRINGE IVP PRN ×2 (09:19→15:53)
[2018-09-08] MEDS ORDERED: D5% in Water 1,000 ML IVC PRN ×2 (09:19→15:53)
[2018-09-08] MEDS ORDERED: Insulin LISPRO 300 UNITS/3 ML VIAL SQ SCH (12:00)
--- NOTE | 2018-09-08 12:50 | Anesthesia Evaluation PreOp ---
Date of Encounter: 09/08/18 Time of Encounter: 13:00 - Past History Planned Operation: Exploratory Celiotomy Cardiac History: Arrhythmia (New Onset AFib on Cardizem) Pulmonary History: Denies Any Significant HX MACHINE DEBURRER History: Denies Any Significant HX Other Medical History: Other (Severe Malnutrition) Anesthesia History: No Prior Anesthetic Complications : No Alcohol Use: none Drug use: none Medications and Allergies No Known Home Drugs 09/04/18 [History] 3 Allergy/AdvReac Type Severity Reaction Status Date / Time No Known Allergies Allergy Verified 09/04/18 09:22 - Meds/Allergy Pre-op Review Medications Reviewed: Yes Allergies Reviewed: Yes Beta Blockers on Current Med List: No Anesthesia Results - Labs 09/08/18 04:00 09/08/18 04:00 Laboratory Tests 09/08/18 09/08/18 04:00 04:00 Hgb 15.1 D Hct 46.4 H Plt Count 322 Sodium 145 Potassium 3.7 BUN 43 H Creatinine 0.93 - Imaging EKG: report reviewed (AFib) Additional studies: ECHO EF 60%, no pulm htn Anesthesia Exam Vital Signs/O2 Sat/Glucose, Most Current Temp Pulse Resp BP Pulse Ox 09/08/18 10:53 98.8 F 112 18 118/76 94 Height: 5'1 Weight: 92 lbs NPO (# of Hours): MN Pain Scale: 0 - HEENT Pupil (Motor): Pupils equal, EOMI Mallampati: III Teeth: Edentulous Oral Opening: Less than or equal to 3 - MACHINE DEBURRER LOC: Oriented MACHINE DEBURRER Motor: Normal RUE, Normal LUE, Normal RLE, Normal LLE, Normal Face MACHINE DEBURRER Sensory: Normal: RUE, LUE, RLE, LLE, Face - Cardiac Rhythm: Irregular Murmur: None JVD: No Carotid Bruit: No - Pulmonary Breath Sounds: bilateral Clear Respiratory Effort: Symmetrical Anesthesia Assess/Plan ASA Score: 4 (Severe Malnutrition AFib) Modified Pj Scale for Level of Consciousness: Cooperative, oriented, and tranquil Anesthetic Plan: General Monitoring Plan: Standard Monitors Recovery Plan: PACU (Discussed GA, agrees to proceed)
[2018-09-08] MEDS ORDERED: CefOXitin 1,000 MG VIAL ONE (13:27)
[2018-09-08] MEDS ORDERED: Bupivacaine/EPI 1:200k 0.5%PF 30 ML VIAL ONE (13:27)
--- NOTE | 2018-09-08 13:37 | Internal Med Progress Note ---
<Brodie Ray - Last Filed: 09/08/18 16:29> Hospitalist Progress Note - Encounter Date of Encounter: 09/08/18 Time of Encounter: 09:00 - Subjective Interval History: Patient was seen and examined this morning at bedside. She states overall that she is doing much better and is tolerating her NG tube without complaints. She no longer has any symptoms of nausea and is not had any episodes of emesis. She is denying any symptoms of abdominal pain and feels less distended. She states she did have one large bowel movement yesterday. She denies any symptoms of fevers, chills, chest pain, shortness of breath. She does state she has an appetite this morning but otherwise has no complaints. Reports of NG tube, displaced overnight with cessation of output. Repositioned with KUB to confirm placement. - Exam Vitals: Temp Pulse Resp BP Pulse Ox 98.8 F 112 18 118/76 94 09/08/18 10:53 09/08/18 10:53 09/08/18 10:53 09/08/18 10:53 09/08/18 10:53 Exam: Gen.: Vitals noted. No acute distress. AAOx3 HEENT: PERRL/EOMI, oropharynx clear, Normocephalic, atraumatic, mildly dry mucous membranes, NG tube in place with bilious output Cardiac: Regular rhythm, mildly tachycardic, no murmur, +S1/S2 Pulmonary: CTA bilaterally, no wheezes, rales or rhonchi, equal chest expansion Abdomen: soft, nontender, BS noted, no guarding, no rebound. Minimally distended however improving MSK: ROM intact, no joint swelling noted Extremities: no BLE edema, nontender calf, no cyanosis or clubbing Neuro: A&Ox3, moves all extremities, no focal deficits Psych: Appropriate mood and behavior - Assessment and Plan (1) New onset atrial fibrillation Current Visit: Yes Status: Inactive Assessment and Plan: - New-onset atrial fibrillation as noted and confirmed on EKG in [place] - Currently in sinus rhythm this morning. Currently nothing by mouth and on Cardizem drip - Etiology unclear at this time however may be possibly due to dehydration, hypokalemia,ischemia - TSH wnl at [place], low on this admission however free T4 within normal limits - Cardiology has been consult, appreciate recommendations - [id number] score 3 (age, female). HASBLED 0 - No signs of atrial enlargement on echo Plan - We will hold oral Cardizem while nothing by mouth, restarted Cardizem drip - Patient started on eliquis for anticoagulation however will hold this time pending surgery recommendations - Replenish K as below. Recheck in AM. - Appreciate cardiology recommendations - Per cardiology note, consider ischemic evaluation as outpatient (2) Paroxysmal atrial fibrillation Current Visit: Yes Status: Acute Assessment and Plan: - As below for new onset AFib - Unsure on chronicity as patient is asymptomatic - Patient currently normal sinus rhythm after transitioning that Cardizem drip while nothing by mouth - Further management as above (3) Hypokalemia Current Visit: Yes Status: Acute Assessment and Plan: - Potassium of 2.8 in [place] emergency department - Improved to 3.5 on this morning's labs - Starting TPN yesterday - Continue monitor and replenish as necessary (4) Small bowel obstruction Current Visit: Yes Status: Acute Assessment and Plan: - As demonstrated on CT on 09/06. Transition point appears to be in RLQ - Likely source of n/v - Small bowel follow-through on 09/07 showed complete obstruction likely - Surgery has been consulted appreciate recommendations - NG tube placed on 09/06, patient tolerating well - NPO - Per surgery note, considering taking to surgery this evening Plan - Appreciate Surgery recommendations - Will hold eliquis in case of any surgical procedures - Continue zofran for symptomatic treatment - Start TPN yesterday, insert PICC line (5) Acute renal failure Current Visit: Yes Status: Resolved Assessment and Plan: - BUNs/creatinine of 63/2.22 in [place] emergency department - Labs this morning show BUNs/creatinine of 12/0.76 - Patient denies any history of kidney disease however no baseline labs are available - Clinically improving with hydration. Consider IV fluids while she remains nothing by mouth if clinically dry - Urinalysis is not suggestive of infection plan - Continue to monitor fluid status with IV hydration as necessary - Continue to monitor, avoid nephrotoxic agents (6) Elevated troponin Current Visit: Yes Status: Inactive Assessment and Plan: - Elevated troponin of 0.43 in [place] emergency department. Trended to 0.42 /0.57/0.48 - Likely type II NSTEMI secondary to atrial fibrillation in the setting of dehydration and MIRZA - EKG did show ST changes in leads 2, 3, aVF, V3-V6 however noted to be nonspecific - No previous EKG to compare to - Patient has never had a cardiac workup in the past and denies any cardiac history - Cardiology has been consult as above, do not suspect ischemic etiology at this time Plan - Consider ischemic eval as outpatient - Echocardiogram on 09/04/18 shows mild diastolic dysfunction, otherwise wnl. (7) DVT prophylaxis Current Visit: Yes Status: Acute Assessment and Plan: On eliquis, however will hold for possible surgical intervention for SBO as above. start scds (8) GERD (gastroesophageal reflux disease) Current Visit: Yes Status: Chronic Assessment and Plan: - Patient states she does have some symptoms of esophageal reflux for which she takes [id number]-zwftqxa medications - States that has been previously well-controlled however has not seen a primary care physician in over 40 years - We will prescribe Tums while inpatient recommend outpatient follow-up (9) Severe protein-calorie malnutrition Current Visit: Yes Status: Chronic Assessment and Plan: As noted per nutrition, started TPN yesterday - Time Spent with Patient Total time spent is greater than 50% in coordination of care (as documented) at patient's floor/unit and/or counseling patient: Internal Medicine: Result - Labs CBC & Chem 7: 09/08/18 04:00 09/08/18 04:00 Labs: Short CBC 09/08/18 Range/Units 04:00 WBC 18.9 H D (4.3-11.1) K/mcL Hgb 15.1 D (11.5-15.4) g/dL Hct 46.4 H (35.3-44.9) % Plt Count 322 (140-400) K/mcL Neutrophils # 16.8 H (1.6-8.9) K/mcL BMP 09/08/18 04:00 Sodium 145 Potassium 3.7 Chloride 96 L Carbon Dioxide 39 H BUN 43 H Creatinine 0.93 Glucose 216 H Calcium 11.2 H - ABG Interpretation ABG results: PT/INR, D-dimer PT 13.1 Seconds (9.4-12.1) H 09/04/18 16:01 - Impressions Impressions Small Bowel X-Ray 09/07/18 10:43 IMPRESSION: 1. Findings compatible with small bowel obstruction 2. Distal small bowel loops are suboptimally assessed due to lack of oral contrast progression. D/ / Tae Perdomo MD / Tae Perdomo MD Interpreting Provider: Tae Perdomo MD X-Ray 09/08/18 07:58 IMPRESSION: The nasogastric tube is post pyloric and terminates within the distal duodenum. D/ / Brodie Whitney MD / Brodie Whitney MD Interpreting Provider: Brodie Whitney MD Consult Discharge Plan - Plan Referrals: NONE,PCP [Primary Care Provider] - <Ovidio Tam - Last Filed: 09/08/18 18:10> Hospitalist Progress Note - Encounter Date of Encounter: 09/08/18 - Exam Vitals: Temp Pulse Resp BP Pulse Ox 98.1 F 91 19 134/72 96 09/08/18 17:06 09/08/18 17:06 09/08/18 17:06 09/08/18 17:06 09/08/18 17:06 - Assessment and Plan (1) Small bowel obstruction due to adhesions Current Visit: Yes Status: Acute Assessment and Plan: S/P exp lap (2) New onset atrial fibrillation Current Visit: Yes Status: Inactive (3) Hypokalemia Current Visit: Yes Status: Resolved (4) Acute renal failure Current Visit: Yes Status: Resolved (5) Elevated troponin Current Visit: Yes Status: Inactive (6) DVT prophylaxis Current Visit: Yes Status: Acute (7) GERD (gastroesophageal reflux disease) Current Visit: Yes Status: Chronic (8) Paroxysmal atrial fibrillation Current Visit: Yes Status: Acute (9) Small bowel obstruction Current Visit: Yes Status: Acute (10) Severe protein-calorie malnutrition Current Visit: Yes Status: Chronic - Time Spent with Patient Total time spent is greater than 50% in coordination of care (as documented) at patient's floor/unit and/or counseling patient: Internal Medicine: Result - Labs CBC & Chem 7: 09/08/18 04:00 09/08/18 04:00 Labs: Short CBC 09/08/18 Range/Units 04:00 WBC 18.9 H D (4.3-11.1) K/mcL Hgb 15.1 D (11.5-15.4) g/dL Hct 46.4 H (35.3-44.9) % Plt Count 322 (140-400) K/mcL Neutrophils # 16.8 H (1.6-8.9) K/mcL BMP 09/08/18 04:00 Sodium 145 Potassium 3.7 Chloride 96 L Carbon Dioxide 39 H BUN 43 H Creatinine 0.93 Glucose 216 H Calcium 11.2 H - ABG Interpretation ABG results: PT/INR, D-dimer PT 13.1 Seconds (9.4-12.1) H 09/04/18 16:01 - Impressions Impressions Small Bowel X-Ray 09/07/18 10:43 IMPRESSION: 1. Findings compatible with small bowel obstruction 2. Distal small bowel loops are suboptimally assessed due to lack of oral contrast progression. D/ / Tae Perdomo MD / Tae Perdomo MD Interpreting Provider: Tae Perdomo MD X-Ray 09/08/18 07:58 IMPRESSION: The nasogastric tube is post pyloric and terminates within the distal duodenum. D/ / Brodie Whitney MD / Brodie Whitney MD Interpreting Provider: Brodie Whitney MD - Attending Attestation I examined this patient and my medical decision-making was reviewed with the Resident Physician on 09/08/18. I agree with the documented findings, disposition and treatment plan as described except to the extent set forth below. Ms Baird is currently admitted for new a fib and small bowel obstruction. She remains moderate to high risk due to potential for worsening clinical status. Ms Baird went to OR and had adhesion. No fever or chills. On Cardizem drip for heart rate control. Feels hungry. Exam alert Comfortable Mucus membranes dry Heart not tachy No wheeze No edema I/P 1. SBO due to adhesion 2. A fib Further diagnoses and plan as above <Brodie Ray - Last Filed: 09/08/18 16:29> (5) Acute renal failure Qualifiers: Acute renal failure type: with acute tubular necrosis Qualified Code(s): N17.0 - Acute kidney failure with tubular necrosis (8) GERD (gastroesophageal reflux disease) Qualifiers: Esophagitis presence: esophagitis presence not specified Qualified Code(s): K21.9 - Gastro-esophageal reflux disease without esophagitis <Ovidio Tam - Last Filed: 09/08/18 18:10> (4) Acute renal failure Qualifiers: Acute renal failure type: with acute tubular necrosis Qualified Code(s): N17.0 - Acute kidney failure with tubular necrosis (7) GERD (gastroesophageal reflux disease) Qualifiers: Esophagitis presence: esophagitis presence not specified Qualified Code(s): K21.9 - Gastro-esophageal reflux disease without esophagitis
[2018-09-08] MEDS ORDERED: Water for inj. (sterile) 20 ML IV ONE (13:54)
[2018-09-08] MEDS ORDERED: CefOXitin 2,000 MG VIAL ONE (13:55)
[2018-09-08] MEDS ORDERED: *HR* LORazepam 0.5 MG TABLET PO PRN (14:13)
[2018-09-08] MEDS ORDERED: *HR* PHENYLEPHRINE 1,000 MCG/10 ML SYRINGE IVP ONE (14:18)
[2018-09-08] MEDS ORDERED: cefOXitin 1,000 MG in Water for inj. (sterile) 20 ML 10 ML IVP ONE (14:19)
[2018-09-08] MEDS ORDERED: Dexamethasone 4 MG/ML VIAL ONE (14:27)
[2018-09-08] MEDS ORDERED: *HR* Promethazine 25 MG/ML VIAL IVP PRN ×2 (14:27→15:53)
[2018-09-08] MEDS ORDERED: *HR* Meperidine 25 MG/ML SYRINGE IVP PRN (14:27)
[2018-09-08] MEDS ORDERED: *HR* Propofol 200 MG/20 ML VIAL IVP ONE (14:27)
[2018-09-08] MEDS ORDERED: *HR* FentaNYL (PF) 100 MCG/2 ML VIAL ONE (14:27)
[2018-09-08] MEDS ORDERED: Albuterol 2.5 MG/3 ML NEBULIZER IH ONE ×2 (14:27→15:53)
[2018-09-08] MEDS ORDERED: Naloxone 0.4 MG/ML INJ IVP PRN ×2 (14:27→15:53)
[2018-09-08] MEDS ORDERED: Ondansetron 4 MG/2 ML VIAL ONE (14:27)
[2018-09-08] MEDS ORDERED: Ondansetron 4 MG/2 ML VIAL IVP ONE (14:27)
[2018-09-08] MEDS ORDERED: *HR* Succinylcholine 200 MG/10 ML VIAL IVP ONE (14:27)
[2018-09-08] MEDS ORDERED: *HR* Morphine 2 MG/ML SYRINGE IVP PRN (14:27)
[2018-09-08] MEDS ORDERED: *HR* Midazolam HCl 2 MG/2 ML VIAL ONE (14:27)
[2018-09-08] MEDS ORDERED: *HR* Rocuronium Bromide 50 MG/5 ML VIAL ONE (14:27)
[2018-09-08] MEDS ORDERED: Lidocaine -MPF 2% 2 ML VIAL ONE (14:27)
[2018-09-08] MEDS ORDERED: Neostigmine Methylsulfate 3 MG/3 ML SYRINGE ONE (14:29)
[2018-09-08] MEDS ORDERED: Ringers Solution, Lactated 1,000 ML IVC SCH (14:30)
--- NOTE | 2018-09-08 14:43 | Operative Note ---
Date of procedure: 09/08/18 Pre-op diagnosis: Small bowel obstruction. Post-op diagnosis: other (Internal hernia/adhesion) Procedure: 1. Exploratory celiotomy. 2. Lysis of adhesion. Anesthesia: OLIVIAA Surgeon: Oscar Dickens Was there an fleet administrative assistant present: Yes Active Directory Engineer: Hiwot Bruno Estimated blood loss (cc): 4 Specimen: none Condition: stable Disposition: PACU Procedure in Detail: Date of surgery: 09/08/18 After properly identifying the patient, the patient was brought to the operating room and placed in a supine position. After proper IV sedation was achieved followed by general endotracheal intubation, the patient's abdomen was prepped and draped in a normal sterile fashion. A timeout was performed noting the patient's name and type of procedure to be performed. An infra-umbilical incision with a 10 blade scalpel was made near the level of the pubic symphysis. Bovie cauterization was used to dissect through the subcutaneous tissue to the rectus fascia was encountered and incised. The abdomen was opened through the entire length of the skin incision. A medium- sized Hiram was brought to the operative field and placed through the incision to protect the subcutaneous tissue. The small bowel was noted to be distended retracted out of the wound. There was an area of a adhesive band and an internal hernia noted. The band was dissected free with Bovie cauterization and the internal hernia was retracted. Reinspection of the bowel demonstrated evidence of a transition zone and ecchymosis along the serosal surface of the small bowel with normal caliber of the small bowel. Small bowel was run from the proximal jejunum to the cecum. No evidence of a mass effect was identified. The cecum appeared to be normal caliber. The bowel contents were then placed back within the abdomen and Seprafilm was placed within the abdomen. The abdominal wall fascia was then reapproximated with 0 looped PDS sutures 2. The subcutaneous tissue was reapproximated with 2-0 Vicryl sutures and the epidermal and dermal layers were reapproximated with gustavo. Needle, sponge, and instrument counts were correct 2 and the incision was covered with 4 x 4's. The patient was aroused from IV sedation, extubated in the operating room without complication, and transported to the recovery room stable condition.
--- NOTE | 2018-09-08 15:20 | Anesthesia Evaluation Post Op ---
Date of Encounter: 09/08/18 Time of Encounter: 15:17 - Vital Signs Vital Signs: vss - Lungs Lungs: Clear Ascult./Percussion - Airway Airway: Non-obstructed - Cardiovascular Baseline Rhythm - Mental Status Mental Status: Asleep with brisk response to light stimulation - Pain Pain Scale used: Hunter-Munoz (Faces) (no acute distress noted.) - Nausea Vomiting Nausea Vomiting: Not Present - Discharge PostOp Status: Transfer Patient to floor
[2018-09-08] MEDS ORDERED: Ondansetron 4 MG/2 ML VIAL IVP PRN (15:53)
[2018-09-08] MEDS ORDERED: D10% in Water 500 ML IVC PRN (15:53)
[2018-09-08] MEDS: Insulin LISPRO 300 UNITS/3 ML VIAL SQ SCH ×2 (16:28→21:47)
[2018-09-08] MEDS ORDERED: Clinimix E 5%-15% SOLUTION 2,000 ML with MVI, adult with vitamin K 10 ML IVC SCH ×2 (17:00)
[2018-09-08] MEDS: *HR* Heparin 5,000 UNIT/ML VIAL SQ SCH (18:19)
[2018-09-09] MEDS: Insulin LISPRO 300 UNITS/3 ML VIAL SQ SCH ×6 (02:12→20:27)
[2018-09-09 03:30] LABS: Basophils # 0.1 K/mcL (0.0-0.2); Basophils % 0.4 %; Hematocrit 40.8 % (35.3-44.9); Immature Granulocytes % 2.4 % (0-4); Lymphocytes # 0.5 K/mcL (0.6-4.6); Lymphocytes % 2.4 %; Mean Corpuscular HGB Conc 32.4 g/dL (31.6-35.5); Mean Corpuscular Hemoglobin 29.8 pg (28.0-33.3); Mean Corpuscular Volume 92.1 fL (83.0-100.0); Mean Platelet Volume 10.3 fL (9.4-12.4); Monocytes # 0.7 K/mcL (0.0-1.3); Monocytes % 3.2 %; Neutrophils # 19.2 K/mcL (1.6-8.9); Platelet Count 295 K/mcL (140-400); Red Blood Count 4.43 M/mcL (3.82-4.97); Red Cell Distribution Width 12.8 % (11.5-14.5); Segmented Neutrophils % 91.6 %
[2018-09-09 03:31] LABS: Hemoglobin 13.2 g/dL (11.5-15.4)
[2018-09-09 03:47] LABS: Alanine Aminotransferase 121 Units/L (7-52); Albumin 3.2 g/dL (3.5-5.7); Albumin/Globulin Ratio 1.3 (1.1-2.2); Alkaline Phosphatase 83 Units/L (34-104); Aspartate Amino Transferase 93 Units/L (13-39); BUN/Creatinine Ratio 59 (6-26); Bilirubin,Total 0.7 mg/dL (0.3-1.0); Blood Urea Nitrogen 53 mg/dL (8-23); Calcium 9.5 mg/dL (8.6-10.3); Carbon Dioxide 36 mEq/L (23-29); Chloride 102 mEq/L (98-107); Globulin 2.4 g/dL (2.4-3.5); Glucose 168 mg/dL (70-105); Magnesium 2.2 mg/dL (1.6-2.6); Osmolality,Calculated 320 (280-300); Potassium 3.5 mEq/L (3.5-5.1); Sodium 146 mEq/L (136-145); Total Protein 5.6 g/dL (6.4-8.9); eGFR For Non-African Americans > 60 (> 60)
[2018-09-09] MEDS: *HR* Heparin 5,000 UNIT/ML VIAL SQ SCH ×2 (05:35→16:07)
--- NOTE | 2018-09-09 07:51 | Internal Med Progress Note ---
Hospitalist Progress Note - Encounter Date of Encounter: 09/09/18 Time of Encounter: 10:30 - Subjective Interval History: Ms Baird is currently admitted for new onset atrial fibrillation and small bowel obstruction. She remains moderate to high risk due to potential for worsening clinical status. Ms Baird is doing OK. She had exp lap yesterday. Had adhesion. Has NG still and eating ice. No fever or chills. Feels hungry at this time. - Exam Vitals: Temp Pulse Resp BP Pulse Ox 98.6 F 93 17 143/83 93 09/09/18 07:31 09/09/18 07:31 09/09/18 07:31 09/09/18 07:31 09/09/18 07:31 Exam: General: Alert and oriented. Mild distress due to NG. Skin: no rash, no lesions. H: Normocephalic. EENT: EOMI, pupils equal, round and reactive. Mucus membranes moist. No lesion. NG present. Cardiovascular: Normal S1 & S2, no rubs, murmurs or gallops. No JVD. Pulse regular. Not tachycardic at this time. Lungs: Normal breath sounds, no wheezes or crackles. Decreased at this time. Abdomen: Midline incision. Scant bowel sounds. Extremities: No deformity, no edema or tenderness, no joint swelling or clubbing. Neurological: Normal cognition and motor skills. Pulses: Carotid and radial pulses normal +2. Rest of the physical exam is non contributory - Assessment and Plan (1) Hypernatremia Current Visit: Yes Status: Acute Assessment and Plan: Pt with evidence of volume depletion (osm 320) on TPN. Will add additional LR today. Recheck tomorrow. (2) Small bowel obstruction due to adhesions Current Visit: Yes Status: Acute Assessment and Plan: Pt is s/p exp lap yesterday. Had lysis of adhesions. Still has NG and hopefully will be able to have clear liquids tomorrow. Continue pain control. (3) Hypokalemia Current Visit: Yes Status: Resolved Assessment and Plan: - Resolved. Recheck tomorrow. (4) Acute renal failure Current Visit: Yes Status: Resolved Assessment and Plan: - Renal function remains normal at this time. Following closely as is post op and NPO. (5) DVT prophylaxis Current Visit: Yes Status: Acute Assessment and Plan: Will need restart Eliquis when OK with surgery. (6) GERD (gastroesophageal reflux disease) Current Visit: Yes Status: Chronic Assessment and Plan: - Symptomatic treatment. (7) Paroxysmal atrial fibrillation Current Visit: Yes Status: Acute Assessment and Plan: - On Cardizem drip for rate control. Will transition to PO Cardizem again when able to take PO meds. (8) Severe protein-calorie malnutrition Current Visit: Yes Status: Chronic Assessment and Plan: Remains on TPN at this time. - Time Spent with Patient Total time spent is greater than 50% in coordination of care (as documented) at patient's floor/unit and/or counseling patient: Internal Medicine: Result - Labs CBC & Chem 7: 09/09/18 03:00 09/09/18 03:00 Labs: Short CBC 09/09/18 Range/Units 03:00 WBC 21.0 H (4.3-11.1) K/mcL Hgb 13.2 D (11.5-15.4) g/dL Hct 40.8 (35.3-44.9) % Plt Count 295 (140-400) K/mcL Neutrophils # 19.2 H (1.6-8.9) K/mcL BMP 09/09/18 03:00 Sodium 146 H Potassium 3.5 Chloride 102 Carbon Dioxide 36 H BUN 53 H Creatinine 0.90 Glucose 168 H Calcium 9.5 Liver Function 09/09/18 Range/Units 03:00 Total Bilirubin 0.7 (0.3-1.0) mg/dL AST 93 H (13-39) Units/L ALT 121 H (7-52) Units/L Alkaline Phosphatase 83 (34-104) Units/L Albumin 3.2 L (3.5-5.7) g/dL - ABG Interpretation ABG results: PT/INR, D-dimer PT 13.1 Seconds (9.4-12.1) H 09/04/18 16:01 - Impressions Impressions KUB X-Ray 09/08/18 07:58 IMPRESSION: The nasogastric tube is post pyloric and terminates within the distal duodenum. D/ / Brodie Whitney MD / Brodie Whitney MD Interpreting Provider: Brodie Whitney MD Consult Discharge Plan - Plan Referrals: NONE,PCP [Primary Care Provider] - (4) Acute renal failure Qualifiers: Acute renal failure type: with acute tubular necrosis Qualified Code(s): N17.0 - Acute kidney failure with tubular necrosis (6) GERD (gastroesophageal reflux disease) Qualifiers: Esophagitis presence: esophagitis presence not specified Qualified Code(s): K21.9 - Gastro-esophageal reflux disease without esophagitis
[2018-09-09] MEDS: Pantoprazole 40 MG VIAL IVP SCH (08:42)
--- NOTE | 2018-09-09 09:27 | General Surgery Progress Note ---
Date of Encounter: 09/09/18 Time of Encounter: 09:25 - Assessment and Plan (1) Obstructed internal hernia Current Visit: Yes Status: Acute POD [address] Dickens that found internal hernia and adhesions as cause for bowel obstruction. Patient reports large bowel movement but two recorded of unknown size with nursing verbal report as small. - I reviewed with nursing that we require better recording of I/Os in patient who is poor historian - NG flushed and continues output, 260 ml recorded yesterday but not well recorded for today - remain NPO - agree with IVF and TPN - supportive care and pain management - serial abdominal exams Plan to attempt trial of clears on Tuesday only if NG output is minimal. Surgery will continue to follow (2) Small bowel obstruction Current Visit: Yes Status: Acute see above. (3) Severe protein-calorie malnutrition Current Visit: Yes Status: Chronic Nutrition consulted, continue TPN Subjective Patient reports: still having pain (worse at incision site), no flatus, no bowel movement (large per patient), bowel movement, afebrile Objective Vital Signs - Last 8 Hours Temp Pulse Resp BP Pulse Ox 09/09/18 08:51 93 09/09/18 07:31 98.6 F 93 17 143/83 93 09/09/18 04:14 98.1 F 103 16 133/84 96 Intake and Output 09/08/18 09/09/18 09/09/18 23:59 07:59 15:59 Intake Total 255 / 255 300 / 300 20 / 20 Output Total 260 / 260 550 / 550 Balance -5 / -5 -250 / -250 20 / 20 Intake: IV Fluids 255 / 255 300 / 300 20 / 20 Cardizem 50 MG In 0.9 % Sodium 50 / 50 50 / 50 20 / 20 Chloride 40 ML @ 7.5 MG/HR 7.5 mls/hr IVC .[id number] AKOSUA Rx#: [id number] Clinimix E 5%-15% SOLUTION 2, 205 / 205 000 ML @ 35 mls/hr IVC .Q24H AKOSUA with M.v.i. Adult 10 ml Rx# :[id number] Intralipid 20% 250 ML @ 21 mls/ 250 / 250 hr IVPB MoWeFr@1700 AKOSUA Rx#: [id number] Oral 0 / 0 Output: Urine 200 / 200 Gastric Tube Lavage Amount 350 / 350 Right Nare 350 / 350 Gastric Drainage 260 / 260 Other: Meal NPO Percent of Meal Consumed 0% # Voids 1 Weight 42.6 kg Blood Glucose* 212 130 Patient Weight 09/09/18 23:59 Weight 42.6 kg - General physical appearance well developed, well nourished, moderate distress - Eyes normal ocular movement - ENT normal pinna, normal nares, normal mucosa - Respiratory normal expansion, normal respiratory effort, clear to auscultation - Cardiovascular Cardiovascular exam: Present: RRR, no murmurs/rubs/gallops - Abdomen Abdomen: Present: bowel sounds present (good with normal frequency), soft, tender (near wound) Hernia: none - Incision Incision: Present: approximated. Absent: draining, inflamed - Integumentary no rash, no growths, no abnormal pigmentation - Neurologic CN 2-12 grossly intact, normal coordination, normal sensation - Musculoskeletal normal gait, normal posture - Psychiatric oriented to time, oriented to person, oriented to place, speech is normal, memory intact, other (affect flat) - Labs 09/09/18 03:00 09/09/18 03:00 Diabetes panel 09/09/18 Range/Units 03:00 Sodium 146 H (136-145) mEq/L Potassium 3.5 (3.5-5.1) mEq/L Chloride 102 (98-107) mEq/L Carbon Dioxide 36 H (23-29) mEq/L BUN 53 H (8-23) mg/dL Creatinine 0.90 (0.60-1.20) mg/dL Glucose 168 H (70-105) mg/dL Calcium 9.5 (8.6-10.3) mg/dL AST 93 H (13-39) Units/L ALT 121 H (7-52) Units/L Alkaline Phosphatase 83 (34-104) Units/L Albumin 3.2 L (3.5-5.7) g/dL Calcium panel 09/09/18 Range/Units 03:00 Calcium 9.5 (8.6-10.3) mg/dL Phosphorus 3.0 (2.7-4.5) mg/dL Albumin 3.2 L (3.5-5.7) g/dL Pituitary panel 09/09/18 Range/Units 03:00 Sodium 146 H (136-145) mEq/L Potassium 3.5 (3.5-5.1) mEq/L Chloride 102 (98-107) mEq/L Carbon Dioxide 36 H (23-29) mEq/L BUN 53 H (8-23) mg/dL Creatinine 0.90 (0.60-1.20) mg/dL Glucose 168 H (70-105) mg/dL Calcium 9.5 (8.6-10.3) mg/dL Adrenal panel 09/09/18 Range/Units 03:00 Sodium 146 H (136-145) mEq/L Potassium 3.5 (3.5-5.1) mEq/L Chloride 102 (98-107) mEq/L Carbon Dioxide 36 H (23-29) mEq/L BUN 53 H (8-23) mg/dL Creatinine 0.90 (0.60-1.20) mg/dL Glucose 168 H (70-105) mg/dL Calcium 9.5 (8.6-10.3) mg/dL Total Bilirubin 0.7 (0.3-1.0) mg/dL AST 93 H (13-39) Units/L ALT 121 H (7-52) Units/L Alkaline Phosphatase 83 (34-104) Units/L Albumin 3.2 L (3.5-5.7) g/dL Consult Discharge Plan - Plan Referrals: NONE,PCP [Primary Care Provider] -
[2018-09-09] MEDS: Ringers Solution, Lactated 1,000 ML IVC SCH (16:05)
[2018-09-09] MEDS: MORPHINE SUL Oral CONC 10 MG/0.5 ML ORAL.SYG SL PRN ×2 (16:07→20:27)
[2018-09-09] MEDS ORDERED: Clinimix E 5%-15% SOLUTION 2,000 ML with MVI, adult with vitamin K 10 ML IVC SCH ×2 (17:00)
[2018-09-10] MEDS: Insulin LISPRO 300 UNITS/3 ML VIAL SQ SCH ×6 (00:13→20:19)
[2018-09-10] MEDS: Ringers Solution, Lactated 1,000 ML IVC SCH (04:30)
[2018-09-10] MEDS: *HR* Heparin 5,000 UNIT/ML VIAL SQ SCH ×2 (04:31→16:51)
[2018-09-10 05:05] LABS: Basophils # 0.1 K/mcL (0.0-0.2); Basophils % 0.4 %; Eosinophils % 0.1 %; Hematocrit 41.1 % (35.3-44.9); Immature Granulocytes % 2.7 % (0-4); Lymphocytes # 0.8 K/mcL (0.6-4.6); Lymphocytes % 4.2 %; Mean Corpuscular HGB Conc 31.6 g/dL (31.6-35.5); Mean Corpuscular Volume 94.9 fL (83.0-100.0); Mean Platelet Volume 10.4 fL (9.4-12.4); Monocytes # 0.7 K/mcL (0.0-1.3); Monocytes % 3.6 %; Neutrophils # 16.1 K/mcL (1.6-8.9); Platelet Count 319 K/mcL (140-400); Red Blood Count 4.33 M/mcL (3.82-4.97); Red Cell Distribution Width 12.8 % (11.5-14.5)
[2018-09-10 05:14] LABS: BUN/Creatinine Ratio 67 (6-26); Blood Urea Nitrogen 52 mg/dL (8-23); Carbon Dioxide 39 mEq/L (23-29); Chloride 103 mEq/L (98-107); Glucose 179 mg/dL (70-105); Magnesium 2.3 mg/dL (1.6-2.6); Osmolality,Calculated 323 (280-300); Potassium 3.7 mEq/L (3.5-5.1); Sodium 147 mEq/L (136-145); eGFR For Non-African Americans > 60 (> 60)
--- NOTE | 2018-09-10 07:44 | Internal Med Progress Note ---
Hospitalist Progress Note - Encounter Date of Encounter: 09/10/18 Time of Encounter: 12:10 - Subjective Interval History: Ms Baird is currently admitted for new onset atrial fibrillation and small bowel obstruction. She remains moderate to high risk due to potential for worsening clinical status. Ms Baird is hungry. No fever or chills. No cough at this time. Pain is controlled. No diarrhea but no BM. No CP or SOB. - Exam Vitals: Temp Pulse Resp BP Pulse Ox 97.9 F 94 16 136/75 97 09/10/18 07:40 09/10/18 07:40 09/10/18 07:40 09/10/18 07:40 09/10/18 07:40 Exam: General: Alert and oriented. Smiling. Comfortable Skin: no rash, no lesions. H: Normocephalic. EENT: EOMI, pupils equal. Mucus membranes moist. No lesion. NG present. Cardiovascular: Normal S1 & S2, no rubs, murmurs or gallops. No JVD. Pulse regular. No tachycardia. Lungs: Normal breath sounds, no wheezes or crackles. Good inspiration. Abdomen: Midline incision. Faint bowel sounds. Extremities: OA present. Neurological: Normal cognition and motor skills. Pulses: Carotid and radial pulses normal +2. Rest of the physical exam is non contributory - Assessment and Plan (1) Hypernatremia Current Visit: Yes Status: Acute Assessment and Plan: Persists. Most likely related to TPN. Received fluids yesterday. Give another liter today. Continues on TPN. May need adjustment. (2) Small bowel obstruction due to adhesions Current Visit: Yes Status: Acute Assessment and Plan: Pt is s/p exp lap. Had lysis of adhesions. NG without much output. Diet per surgery. Continue pain control. (3) Hypokalemia Current Visit: Yes Status: Resolved (4) Acute renal failure Current Visit: Yes Status: Resolved (5) DVT prophylaxis Current Visit: Yes Status: Acute (6) GERD (gastroesophageal reflux disease) Current Visit: Yes Status: Chronic Assessment and Plan: - Symptomatic treatment. (7) Paroxysmal atrial fibrillation Current Visit: Yes Status: Acute Assessment and Plan: - On Cardizem drip for rate control. When able to take PO will place back on cardizem PO and Eliquis. (8) Severe protein-calorie malnutrition Current Visit: Yes Status: Chronic Assessment and Plan: Remains on TPN at this time. - Time Spent with Patient Total time spent is greater than 50% in coordination of care (as documented) at patient's floor/unit and/or counseling patient: Internal Medicine: Result - Labs CBC & Chem 7: 09/10/18 04:45 09/10/18 04:45 Labs: Short CBC 09/10/18 Range/Units 04:45 WBC 18.0 H (4.3-11.1) K/mcL Hgb 13.0 (11.5-15.4) g/dL Hct 41.1 (35.3-44.9) % Plt Count 319 (140-400) K/mcL Neutrophils # 16.1 H (1.6-8.9) K/mcL BMP 09/10/18 04:45 Sodium 147 H Potassium 3.7 Chloride 103 Carbon Dioxide 39 H BUN 52 H Creatinine 0.78 Glucose 179 H Calcium 10.0 - ABG Interpretation ABG results: PT/INR, D-dimer PT 13.1 Seconds (9.4-12.1) H 09/04/18 16:01 Consult Discharge Plan - Plan Referrals: NONE,PCP [Primary Care Provider] - (4) Acute renal failure Qualifiers: Acute renal failure type: with acute tubular necrosis Qualified Code(s): N17.0 - Acute kidney failure with tubular necrosis (6) GERD (gastroesophageal reflux disease) Qualifiers: Esophagitis presence: esophagitis presence not specified Qualified Code(s): K21.9 - Gastro-esophageal reflux disease without esophagitis
[2018-09-10] MEDS: Pantoprazole 40 MG VIAL IVP SCH (08:57)
--- NOTE | 2018-09-10 09:50 | General Surgery Progress Note ---
Date of Encounter: 09/10/18 Time of Encounter: 09:45 - Assessment and Plan (1) Obstructed internal hernia Current Visit: Yes Status: Acute POD [address] Dickens that found internal hernia and adhesions as cause for bowel obstruction. Concerned because of decreased bowel sounds and lack of return of normal bowel function - NG cannister changed last night now bilous output of 150ml that is more than minimal so we will take of wall suctions and make dependent on gravity - may have sips of clears - agree with IVF and TPN - supportive care and pain management - serial abdominal exams Surgery will continue to follow (2) Small bowel obstruction Current Visit: Yes Status: Resolved see above. (3) Severe protein-calorie malnutrition Current Visit: Yes Status: Chronic Nutrition consulted, continue TPN Subjective Patient reports: still having pain (improved in RLQ, no nausea), no bowel movement, afebrile Objective Vital Signs - Last 8 Hours Temp Pulse Resp BP Pulse Ox 09/10/18 07:40 97.9 F 94 16 136/75 97 09/10/18 03:51 97.9 F 89 15 129/80 95 Intake and Output 09/09/18 09/10/18 09/10/18 23:59 07:59 15:59 Intake Total 50 / 50 1000 / 1000 50 / 50 Output Total 400 / 400 300 / 300 Balance -350 / -350 700 / 700 50 / 50 Intake: IV Fluids 50 / 50 1000 / 1000 50 / 50 Cardizem 50 MG In 0.9 % Sodium 50 / 50 50 / 50 Chloride 40 ML @ 7.5 MG/HR 7.5 mls/hr IVC .Q6H40M [facility] Rx#: [id number] Lactated Ringers 1,000 ML @ 75 1000 / 1000 mls/hr IVC .[id number] [facility] Rx#: [id number] Oral 0 / 0 0 / 0 Output: Gastric Tube Lavage Amount 200 / 200 150 / 150 Right Nare 200 / 200 150 / 150 Gastric Drainage 200 / 200 150 / 150 Other: Meal NPO NPO Percent of Meal Consumed 0% 0% Weight 43.3 kg Blood Glucose* 139 111 - General physical appearance well developed, well nourished, no distress - ENT normal pinna, normal nares, normal mucosa - Respiratory normal expansion, normal respiratory effort, clear to auscultation - Cardiovascular Cardiovascular exam: Present: RRR, no murmurs/rubs/gallops - Abdomen Abdomen: Present: bowel sounds present (decreased), soft, distended, tender. Absent: guarding, rebound Abdominal Tenderness: RLQ Hernia: none - Integumentary no rash, no growths, no abnormal pigmentation - Neurologic CN 2-12 grossly intact, normal coordination, normal sensation - Musculoskeletal normal gait, normal posture - Psychiatric oriented to time, oriented to person, oriented to place, speech is normal, memory intact - Labs 09/10/18 04:45 09/10/18 04:45 Diabetes panel 09/10/18 Range/Units 04:45 Sodium 147 H (136-145) mEq/L Potassium 3.7 (3.5-5.1) mEq/L Chloride 103 (98-107) mEq/L Carbon Dioxide 39 H (23-29) mEq/L BUN 52 H (8-23) mg/dL Creatinine 0.78 (0.60-1.20) mg/dL Glucose 179 H (70-105) mg/dL Calcium 10.0 (8.6-10.3) mg/dL Calcium panel 09/10/18 Range/Units 04:45 Calcium 10.0 (8.6-10.3) mg/dL Phosphorus 3.0 (2.7-4.5) mg/dL Pituitary panel 09/10/18 Range/Units 04:45 Sodium 147 H (136-145) mEq/L Potassium 3.7 (3.5-5.1) mEq/L Chloride 103 (98-107) mEq/L Carbon Dioxide 39 H (23-29) mEq/L BUN 52 H (8-23) mg/dL Creatinine 0.78 (0.60-1.20) mg/dL Glucose 179 H (70-105) mg/dL Calcium 10.0 (8.6-10.3) mg/dL Adrenal panel 09/10/18 Range/Units 04:45 Sodium 147 H (136-145) mEq/L Potassium 3.7 (3.5-5.1) mEq/L Chloride 103 (98-107) mEq/L Carbon Dioxide 39 H (23-29) mEq/L BUN 52 H (8-23) mg/dL Creatinine 0.78 (0.60-1.20) mg/dL Glucose 179 H (70-105) mg/dL Calcium 10.0 (8.6-10.3) mg/dL Consult Discharge Plan - Plan Referrals: NONE,PCP [Primary Care Provider] -
[2018-09-10] MEDS: Clinimix E 5%-15% SOLUTION 2,000 ML with MVI, adult with vitamin K 10 ML IVC SCH (16:50)
[2018-09-10] MEDS ORDERED: Clinimix E 5%-15% SOLUTION 2,000 ML with MVI, adult with vitamin K 10 ML IVC SCH (17:00)
[2018-09-11] MEDS: Insulin LISPRO 300 UNITS/3 ML VIAL SQ SCH ×6 (03:04→21:42)
[2018-09-11 04:32] LABS: Hematocrit 38.7 % (35.3-44.9); Mean Corpuscular Hemoglobin 29.6 pg (28.0-33.3); Mean Corpuscular Volume 95.6 fL (83.0-100.0); Mean Platelet Volume 10.1 fL (9.4-12.4); Platelet Count 267 K/mcL (140-400); Red Blood Count 4.05 M/mcL (3.82-4.97); Red Cell Distribution Width 12.8 % (11.5-14.5)
[2018-09-11 04:42] LABS: BUN/Creatinine Ratio 69 (6-26); Blood Urea Nitrogen 42 mg/dL (8-23); Calcium 9.6 mg/dL (8.6-10.3); Carbon Dioxide 36 mEq/L (23-29); Chloride 107 mEq/L (98-107); Glucose 135 mg/dL (70-105); Osmolality,Calculated 317 (280-300); Phosphorous 2.6 mg/dL (2.7-4.5); Potassium 3.7 mEq/L (3.5-5.1); Sodium 147 mEq/L (136-145); eGFR For Non-African Americans > 60 (> 60)
[2018-09-11] MEDS: *HR* Heparin 5,000 UNIT/ML VIAL SQ SCH ×2 (05:08→17:01)
--- NOTE | 2018-09-11 08:17 | General Surgery Progress Note ---
<Kylee Tompkins - Last Filed: 09/11/18 11:30> Date of Encounter: 09/11/18 Time of Encounter: 08:12 - Assessment and Plan (1) Obstructed internal hernia Current Visit: Yes Status: Acute POD [address] Dickens that found internal hernia and adhesions as cause for bowel obstruction. - clamp NG today; was on dependent on gravity since last night with out put of black 200 ml - agree with IVF and TPN - supportive care and pain management - serial abdominal exams - up to chair tid - allow ambulation per patient- appreciate any recs from PT - allow limited clears Awaiting return of normal bowel function before advancing diet further Surgery will continue to follow. (2) Small bowel obstruction Current Visit: Yes Status: Resolved see above. (3) Severe protein-calorie malnutrition Current Visit: Yes Status: Chronic Nutrition consulted, continue TPN Subjective Patient reports: pain is less, flatus, no bowel movement Objective Vital Signs - Last 8 Hours Temp Pulse Resp BP Pulse Ox 09/11/18 06:58 98.7 F 78 16 160/76 96 09/11/18 04:22 98.6 F 80 16 171/69 98 09/11/18 00:25 99.1 F 82 16 159/69 97 Intake and Output 09/10/18 09/11/18 09/11/18 23:59 07:59 15:59 Intake Total 2550 / 2550 50 / 50 Output Total 400 / 400 Balance 2550 / 2550 -350 / -350 Intake: IV Fluids 2550 / 2550 50 / 50 Cardizem 50 MG In 0.9 % Sodium 50 / 50 50 / 50 Chloride 40 ML @ 7.5 MG/HR 7.5 mls/hr IVC .Q6H40M [facility] Rx#: [id number] Clinimix E 5%-15% SOLUTION 2, 1500 / 1500 000 ML @ 40 mls/hr IVC .Q24H [facility] with M.v.i. Adult 10 ml Rx# :[id number] Lactated Ringers 1,000 ML @ 75 1000 / 1000 mls/hr IVC .[id number] [facility] Rx#: [id number] Output: Gastric Tube Lavage Amount 200 / 200 Right Nare 200 / 200 Gastric Drainage 200 / 200 Other: # Urine Diapers 1 Weight 44.2 kg Blood Glucose* 126 136 Patient Weight 09/11/18 23:59 Weight 44.2 kg - General physical appearance well developed, cachectic - Eyes normal ocular movement - ENT normal pinna, normal nares, normal mucosa - Respiratory normal expansion, normal respiratory effort, clear to auscultation - Cardiovascular Cardiovascular exam: Present: RRR, no murmurs/rubs/gallops - Abdomen Abdomen: Present: bowel sounds present (active), soft, distended (decreased from yesterday). Absent: guarding, rebound Abdominal Tenderness: RUQ - Incision Incision: Present: red (mild bleeding ), approximated. Absent: draining, inflamed, erythema - Integumentary no rash, no growths, no abnormal pigmentation - Neurologic CN 2-12 grossly intact, normal coordination, normal sensation - Musculoskeletal normal gait, normal posture - Psychiatric oriented to time, oriented to person, oriented to place, speech is normal, memory intact, other (flat affect but better than yesterday) - Labs 09/11/18 04:00 09/11/18 04:00 Diabetes panel 09/11/18 Range/Units 04:00 Sodium 147 H (136-145) mEq/L Potassium 3.7 (3.5-5.1) mEq/L Chloride 107 (98-107) mEq/L Carbon Dioxide 36 H (23-29) mEq/L BUN 42 H (8-23) mg/dL Creatinine 0.61 (0.60-1.20) mg/dL Glucose 135 H (70-105) mg/dL Calcium 9.6 (8.6-10.3) mg/dL Calcium panel 09/11/18 Range/Units 04:00 Calcium 9.6 (8.6-10.3) mg/dL Phosphorus 2.6 L (2.7-4.5) mg/dL Pituitary panel 09/11/18 Range/Units 04:00 Sodium 147 H (136-145) mEq/L Potassium 3.7 (3.5-5.1) mEq/L Chloride 107 (98-107) mEq/L Carbon Dioxide 36 H (23-29) mEq/L BUN 42 H (8-23) mg/dL Creatinine 0.61 (0.60-1.20) mg/dL Glucose 135 H (70-105) mg/dL Calcium 9.6 (8.6-10.3) mg/dL Adrenal panel 09/11/18 Range/Units 04:00 Sodium 147 H (136-145) mEq/L Potassium 3.7 (3.5-5.1) mEq/L Chloride 107 (98-107) mEq/L Carbon Dioxide 36 H (23-29) mEq/L BUN 42 H (8-23) mg/dL Creatinine 0.61 (0.60-1.20) mg/dL Glucose 135 H (70-105) mg/dL Calcium 9.6 (8.6-10.3) mg/dL Consult Discharge Plan - Plan Referrals: NONE,PCP [Primary Care Provider] - <Oscar Dickens - Last Filed: 09/12/18 06:52> Date of Encounter: 09/11/18 Objective Vital Signs - Last 8 Hours Temp Pulse Resp BP Pulse Ox 09/12/18 03:48 99.1 F 90 16 150/55 97 09/11/18 23:57 97.4 F L 83 16 170/71 95 Intake and Output 09/11/18 09/11/18 09/12/18 15:59 23:59 07:59 Intake Total 135 / 135 630 / 630 35 / 35 Output Total 525 / 525 Balance -390 / -390 630 / 630 35 / 35 Intake: IV Fluids 510 / 510 35 / 35 Cardizem 50 MG In 0.9 % Sodium 35 / 35 Chloride 40 ML @ 7.5 MG/HR 7.5 mls/hr IVC .Q6H40M [facility] Rx#: [id number] Oral 120 / 120 120 / 120 Output: Urine 450 / 450 Gastric Tube Lavage Amount 75 / 75 Right Nare 75 / 75 Other: # Voids 1 # Urine Diapers 1 Weight 43 kg Blood Glucose* 144 113 116 Patient Weight 09/12/18 23:59 Weight 43 kg - Labs 09/12/18 03:40 09/12/18 03:40 Diabetes panel 09/12/18 Range/Units 03:40 Sodium 144 (136-145) mEq/L Potassium 3.7 (3.5-5.1) mEq/L Chloride 107 (98-107) mEq/L Carbon Dioxide 32 H (23-29) mEq/L BUN 37 H (8-23) mg/dL Creatinine 0.58 L (0.60-1.20) mg/dL Glucose 135 H (70-105) mg/dL Calcium 9.7 (8.6-10.3) mg/dL Calcium panel 09/12/18 Range/Units 03:40 Calcium 9.7 (8.6-10.3) mg/dL Phosphorus 2.9 (2.7-4.5) mg/dL Pituitary panel 09/12/18 Range/Units 03:40 Sodium 144 (136-145) mEq/L Potassium 3.7 (3.5-5.1) mEq/L Chloride 107 (98-107) mEq/L Carbon Dioxide 32 H (23-29) mEq/L BUN 37 H (8-23) mg/dL Creatinine 0.58 L (0.60-1.20) mg/dL Glucose 135 H (70-105) mg/dL Calcium 9.7 (8.6-10.3) mg/dL Adrenal panel 09/12/18 Range/Units 03:40 Sodium 144 (136-145) mEq/L Potassium 3.7 (3.5-5.1) mEq/L Chloride 107 (98-107) mEq/L Carbon Dioxide 32 H (23-29) mEq/L BUN 37 H (8-23) mg/dL Creatinine 0.58 L (0.60-1.20) mg/dL Glucose 135 H (70-105) mg/dL Calcium 9.7 (8.6-10.3) mg/dL - Attending Attestation I examined this patient and my medical decision-making was reviewed with the Resident Physician. I agree with the documented findings, disposition and treatment plan as described except to the extent set forth below. Review the above assessment and evaluation with the resident and agree with the above plan. Will clamp NG tube. Positive bowel sounds noted on examination. Awaiting return of bowel function. Will allow limited clears. If NG tube residual is low when tested tomorrow morning then will consider removal of NG tube and advancement of diet to unrestricted clears.
[2018-09-11] MEDS: Pantoprazole 40 MG VIAL IVP SCH (09:06)
--- NOTE | 2018-09-11 15:03 | Internal Med Progress Note ---
<Ovidio Tam - Last Filed: 09/11/18 15:49> Hospitalist Progress Note - Encounter Date of Encounter: 09/11/18 - Exam Vitals: Temp Pulse Resp BP Pulse Ox 97.8 F 83 17 153/77 95 09/11/18 15:27 09/11/18 15:27 09/11/18 15:27 09/11/18 15:27 09/11/18 15:27 - Assessment and Plan (1) Hypernatremia Current Visit: Yes Status: Acute (2) Small bowel obstruction due to adhesions Current Visit: Yes Status: Acute (3) Hypokalemia Current Visit: Yes Status: Resolved (4) Acute renal failure Current Visit: Yes Status: Resolved (5) DVT prophylaxis Current Visit: Yes Status: Acute (6) GERD (gastroesophageal reflux disease) Current Visit: Yes Status: Chronic (7) Paroxysmal atrial fibrillation Current Visit: Yes Status: Acute (8) Severe protein-calorie malnutrition Current Visit: Yes Status: Chronic - Time Spent with Patient Total time spent is greater than 50% in coordination of care (as documented) at patient's floor/unit and/or counseling patient: Internal Medicine: Result - Labs CBC & Chem 7: 09/11/18 04:00 09/11/18 04:00 Labs: Short CBC 09/11/18 Range/Units 04:00 WBC 12.7 H (4.3-11.1) K/mcL Hgb 12.0 (11.5-15.4) g/dL Hct 38.7 (35.3-44.9) % Plt Count 267 (140-400) K/mcL BMP 09/11/18 04:00 Sodium 147 H Potassium 3.7 Chloride 107 Carbon Dioxide 36 H BUN 42 H Creatinine 0.61 Glucose 135 H Calcium 9.6 - ABG Interpretation ABG results: PT/INR, D-dimer PT 13.1 Seconds (9.4-12.1) H 09/04/18 16:01 Consult Discharge Plan - Plan Referrals: NONE,PCP [Primary Care Provider] - - Attending Attestation I examined this patient and my medical decision-making was reviewed with the Resident Physician on 09/11/18. I agree with the documented findings, disposition and treatment plan as described except to the extent set forth below. Ms Baird is currently admitted for a fib and SBO from adhesions. She remains moderate to high risk due to potential for worsening clinical status. Ms Baird is frustrated. She has not had BM. She wants to eat. No fever or chills. Pain is controlled. No nausea or vomiting. Exam alert Comfortable Mucus membranes dry Heart reg now No wheeze noted Abd with bowel sound No edema I/P 1. A fib - on card drip. Can switch to PO when able to take it. Can restart Eliquis then as well. 2. SBO - diet per surgery. Further diagnoses and plan as above. <Abimbola Pettit - Last Filed: 09/11/18 19:34> Hospitalist Progress Note - Encounter Date of Encounter: 09/11/18 Time of Encounter: 09:30 - Subjective Interval History: Patient was seen and examined this morning at bedside. She had no events overnight, remained afebrile and She is tolerating the NG tube and the TPN. She has no nausea and no episodes of emesis. She is denying any symptoms of abdominal pain and feels less distended. She noted her last bowel movement was on 09/07. She denies any symptoms of fevers, chills, chest pain or shortness of breath. She does state she has an appetite this morning but otherwise has no c omplaints. - Exam Vitals: Temp Pulse Resp BP Pulse Ox 97.9 F 76 16 155/65 95 09/11/18 10:49 09/11/18 10:49 09/11/18 10:49 09/11/18 10:49 09/11/18 10:49 Exam: Constitutional: Alert, in no acute distress, comfortable in bed HEENT: Normocephalic, atraumatic, mildly dry mucus membranes Heart: Regular rhythm, no murmurs, no edema Lungs: lungs clear and equal bilaterally, no rhonchi, no wheeze Abdomen: dressing on midline of abdomen, diminished bowel sounds, tender around the incision site Extremities: No edema of lower extremity or upper extremities, warm, nontender Skin: Skin warm and dry, no lesions, no rashes, no jaundice Psych: thought content congruent, appropriate affect Neurological: Alert and oriented x 3, thought content congruent - Assessment and Plan (1) Hypernatremia Current Visit: Yes Status: Acute Assessment and Plan: Continues to have hypernatremia, most likely related to TPN. She received fluids but it has been stopped to prevent increase in serum sodium. Plan: Dietery will need to modify the TPN Progress oral water intake Continue to monitor, bmp tomorrow (2) Small bowel obstruction due to adhesions Current Visit: Yes Status: Acute Assessment and Plan: She is s/p ex. laporectomy on 09/07/18 with lysis of adhesions. NG without much output. Plan: Surgery following Continue pain control. Surgery for dietary recommendations Progress oral water intake (3) Paroxysmal atrial fibrillation Current Visit: Yes Status: Acute Assessment and Plan: The past a few days her heart rate has remained stable and rhythm is regular. Currently on cardizem drip. Plan: Continue IV cardizem Can switch to oral cardizem when able to intake orally Will require PO eliquis depending on post-op status (4) Acute renal failure Current Visit: Yes Status: Resolved Assessment and Plan: Renal function remains normal at this time. Poor output. Plan: Following closely as is post op and NPO BMP in the morning (5) GERD (gastroesophageal reflux disease) Current Visit: Yes Status: Chronic Assessment and Plan: Continue IV protonix, no current exacerbation of symptoms. (6) Severe protein-calorie malnutrition Current Visit: Yes Status: Chronic Assessment and Plan: Remains on TPN at this time hence ongoing protein calorie malnutrition as she is unable to tolerate oral diet. Plan: Will require protein supplement once able to intake orally Dietary following (7) Hypokalemia Current Visit: Yes Status: Resolved Assessment and Plan: Resolved. BMP in the morning. (8) DVT prophylaxis Current Visit: Yes Status: Acute Assessment and Plan: Will need restart Eliquis when OK with surgery. - Time Spent with Patient Total time spent is greater than 50% in coordination of care (as documented) at patient's floor/unit and/or counseling patient: less than 15 minutes Plan of Care Discussed with: patient Internal Medicine: Result - Labs CBC & Chem 7: 09/11/18 04:00 09/11/18 04:00 Labs: Short CBC 09/11/18 Range/Units 04:00 WBC 12.7 H (4.3-11.1) K/mcL Hgb 12.0 (11.5-15.4) g/dL Hct 38.7 (35.3-44.9) % Plt Count 267 (140-400) K/mcL BMP 09/11/18 04:00 Sodium 147 H Potassium 3.7 Chloride 107 Carbon Dioxide 36 H BUN 42 H Creatinine 0.61 Glucose 135 H Calcium 9.6 - ABG Interpretation ABG results: PT/INR, D-dimer PT 13.1 Seconds (9.4-12.1) H 09/04/18 16:01 <Ovidio Tam - Last Filed: 09/11/18 15:49> (4) Acute renal failure Qualifiers: Acute renal failure type: with acute tubular necrosis Qualified Code(s): N17.0 - Acute kidney failure with tubular necrosis (6) GERD (gastroesophageal reflux disease) Qualifiers: Esophagitis presence: esophagitis presence not specified Qualified Code(s): K21.9 - Gastro-esophageal reflux disease without esophagitis <Abimbola Pettit - Last Filed: 09/11/18 19:34> (4) Acute renal failure Qualifiers: Acute renal failure type: with acute tubular necrosis Qualified Code(s): N17.0 - Acute kidney failure with tubular necrosis (5) GERD (gastroesophageal reflux disease) Qualifiers: Esophagitis presence: esophagitis presence not specified Qualified Code(s): K21.9 - Gastro-esophageal reflux disease without esophagitis
[2018-09-11] MEDS ORDERED: Clinimix E 5%-15% SOLUTION 2,000 ML with MVI, adult with vitamin K 10 ML IVC SCH (17:00)
[2018-09-11] MEDS: Clinimix E 5%-15% SOLUTION 2,000 ML with MVI, adult with vitamin K 10 ML IVC SCH (17:14)
[2018-09-12] MEDS: Insulin LISPRO 300 UNITS/3 ML VIAL SQ SCH ×6 (00:18→22:14)
[2018-09-12 03:55] LABS: Basophils % 0.3 %; Eosinophils # 0.4 K/mcL (0.0-0.6); Eosinophils % 2.6 %; Hematocrit 39.5 % (35.3-44.9); Hemoglobin 12.4 g/dL (11.5-15.4); Lymphocytes # 0.7 K/mcL (0.6-4.6); Lymphocytes % 5.1 %; Mean Corpuscular HGB Conc 31.4 g/dL (31.6-35.5); Mean Corpuscular Hemoglobin 30.1 pg (28.0-33.3); Mean Corpuscular Volume 95.9 fL (83.0-100.0); Mean Platelet Volume 9.8 fL (9.4-12.4); Monocytes # 0.4 K/mcL (0.0-1.3); Monocytes % 2.6 %; Neutrophils # 12.8 K/mcL (1.6-8.9); Platelet Count 270 K/mcL (140-400); Red Blood Count 4.12 M/mcL (3.82-4.97); Red Cell Distribution Width 12.7 % (11.5-14.5); Segmented Neutrophils % 88.4 %
[2018-09-12 04:10] LABS: BUN/Creatinine Ratio 64 (6-26); Blood Urea Nitrogen 37 mg/dL (8-23); Calcium 9.7 mg/dL (8.6-10.3); Carbon Dioxide 32 mEq/L (23-29); Chloride 107 mEq/L (98-107); Glucose 135 mg/dL (70-105); Magnesium 2.1 mg/dL (1.6-2.6); Osmolality,Calculated 309 (280-300); Phosphorous 2.9 mg/dL (2.7-4.5); Potassium 3.7 mEq/L (3.5-5.1); Sodium 144 mEq/L (136-145); eGFR For Non-African Americans > 60 (> 60)
[2018-09-12] MEDS: *HR* Heparin 5,000 UNIT/ML VIAL SQ SCH (05:30)
--- NOTE | 2018-09-12 08:25 | General Surgery Progress Note ---
Date of Encounter: 09/12/18 Time of Encounter: 07:30 - Assessment and Plan (1) Small bowel obstruction Current Visit: Yes Status: Resolved Date of procedure: 09/08/18 Pre-op diagnosis: Small bowel obstruction. Post-op diagnosis: other (Internal hernia/adhesion) Procedure: 1. Exploratory celiotomy. 2. Lysis of adhesion. Anesthesia: GETA Surgeon: Oscar Dickens Plan: continue supportive care and discomfort management NG tube discontinued. May have clear liquid diet. If she tolerates breakfast she can be advanced to full liquids for lunch Noted TPN per primary team; recommend continue TPN until adequate caloric intake add Dulcolax suppository now. Then beginning 09/13/2018, may hold Dulcolax FBM the day prior. Add Colace BID. Add MiraLAX daily. May hold a bowel movement the day previous. ambulate as tolerated out of bed to chair at least TID continue G.I. and DVT prophylaxis repeat a.m. labs serial abdominal exams May transition to PO meds per primary team. Slight increase in WBC. No cear indication for ATBX from a surgical standpoint. d/c planning per primary team pending clinical course. (2) Atrial fibrillation with RVR Current Visit: Yes Status: Acute noted diltiazem gtt. may transition to po meds per primary team (3) MIRZA (acute kidney injury) Current Visit: Yes Status: Resolved (4) Severe protein-calorie malnutrition Current Visit: Yes Status: Chronic Noted TPN per primary team. advance diet as tolerated after FLD for lunch 2017. TPN management per primary team Subjective Patient reports: no new complaints, feels better, still having pain, pain is less, tolerating liquids well, voiding w/o difficulty, flatus, no bowel movement , afebrile Objective Vital Signs - Last 8 Hours Temp Pulse Resp BP Pulse Ox 09/12/18 06:56 98.7 F 84 16 152/74 98 09/12/18 03:48 99.1 F 90 16 150/55 97 Intake and Output 09/11/18 09/12/18 09/12/18 23:59 07:59 15:59 Intake Total 630 / 630 35 / 35 Balance 630 / 630 35 / 35 Intake: IV Fluids 510 / 510 35 / 35 Cardizem 50 MG In 0.9 % Sodium 35 / 35 Chloride 40 ML @ 7.5 MG/HR 7.5 mls/hr IVC .[id number] [facility] Rx#: [id number] Oral 120 / 120 Other: Weight 43 kg Blood Glucose* 113 105 Patient Weight 09/12/18 23:59 Weight 43 kg - General physical appearance no distress, no pain, other (sitting upright i nchair at bedside) - Eyes normal ocular movement - ENT normal mucosa - Neck Neck exam: trachea midline - Respiratory normal expansion, normal respiratory effort, clear to auscultation - Cardiovascular Cardiovascular exam: Present: RRR - Abdomen Abdomen: Present: bowel sounds present, soft, non tender Hernia: none - Incision Incision: Present: clean and dry, intact - Integumentary no abnormal pigmentation - Neurologic normal sensation - Musculoskeletal normal posture - Psychiatric oriented to time, oriented to person, oriented to place, speech is normal, memory intact - Labs 09/12/18 03:40 09/12/18 03:40 Diabetes panel 09/12/18 Range/Units 03:40 Sodium 144 (136-145) mEq/L Potassium 3.7 (3.5-5.1) mEq/L Chloride 107 (98-107) mEq/L Carbon Dioxide 32 H (23-29) mEq/L BUN 37 H (8-23) mg/dL Creatinine 0.58 L (0.60-1.20) mg/dL Glucose 135 H (70-105) mg/dL Calcium 9.7 (8.6-10.3) mg/dL Calcium panel 09/12/18 Range/Units 03:40 Calcium 9.7 (8.6-10.3) mg/dL Phosphorus 2.9 (2.7-4.5) mg/dL Pituitary panel 09/12/18 Range/Units 03:40 Sodium 144 (136-145) mEq/L Potassium 3.7 (3.5-5.1) mEq/L Chloride 107 (98-107) mEq/L Carbon Dioxide 32 H (23-29) mEq/L BUN 37 H (8-23) mg/dL Creatinine 0.58 L (0.60-1.20) mg/dL Glucose 135 H (70-105) mg/dL Calcium 9.7 (8.6-10.3) mg/dL Adrenal panel 09/12/18 Range/Units 03:40 Sodium 144 (136-145) mEq/L Potassium 3.7 (3.5-5.1) mEq/L Chloride 107 (98-107) mEq/L Carbon Dioxide 32 H (23-29) mEq/L BUN 37 H (8-23) mg/dL Creatinine 0.58 L (0.60-1.20) mg/dL Glucose 135 H (70-105) mg/dL Calcium 9.7 (8.6-10.3) mg/dL Consult Discharge Plan - Plan Instructions: Exploratory Laparotomy (DC), Lysis of Abdominal Adhesions (DC) Additional Instructions: General Surgical Discharge Instructions 1. No pushing, pulling, or lifting greater than 15 lbs for 4 weeks (depending upon procedure). 2. You may shower beginning today, but no tub baths, soaking, or swimming for 2 weeks. 3. You may resume driving when you are off narcotics and are safe to react in a car. 4. Take ibuprofen every 8 hours for discomfort. If this does not relieve discomfort, you may take the as needed Percocet. Take narcotics as directed. Do not take more narcotics then directed and do not share your narcotics with any other person. Do not drink alcohol while on narcotics. 5. Take stool softeners (Colace) or a water based laxative (Miralax) while taking narcotics. You may hold for loose stools. 6. Report any fevers greater than 100.5F, increase abdominal discomfort, drainage that looks like pus, increased redness or pain at the surgical site, or any vomiting. 7. Report any pain in the calves, shortness of breath, or rapid heartbeat. 8. Follow-up in the office as directed. 9. If you were prescribed antibiotics, do not stop them without talking to your provider. Referrals: NONE,PCP [Primary Care Provider] - Do Gilmore, LADDERMAN [Advanced Practice Nurse] - 09/26/18 3:00 pm
[2018-09-12] MEDS ORDERED: Ondansetron ODT 4 MG TAB.RAPDIS SL PRN (08:31)
[2018-09-12] MEDS ORDERED: *HR* OxyCODONE/APAP 5/325 TABLET PO PRN (08:31)
[2018-09-12] MEDS: Ibuprofen 600 MG TABLET PO SCH ×2 (09:21→09:26)
[2018-09-12] MEDS: Bisacodyl 10 MG RECTAL SUPPOSITORY RC SCH ×2 (09:22→22:22)
[2018-09-12] MEDS: Pantoprazole 40 MG VIAL IVP SCH (09:22)
[2018-09-12] MEDS: Docusate Oral Soln 100 MG/10 ML UDC PO SCH (10:46)
[2018-09-12] MEDS: Diltiazem CD (24hr) 180 MG CAPSULE PO SCH (10:56)
--- NOTE | 2018-09-12 13:59 | Internal Med Progress Note ---
<Abimbola Pettit - Last Filed: 09/12/18 13:45> Hospitalist Progress Note - Encounter Date of Encounter: 09/12/18 Time of Encounter: 08:20 - Subjective Interval History: Patient was seen and examined this morning at bedside. She had no events overnight, remained afebrile. Today she does not have an NG tube. She is eating her jello and has been started on a diet today by surgery. She has no nausea and no episodes of emesis. She is denying any symptoms of abdominal pain and feels less distended. She noted her last bowel movement was on 09/07. She denies any symptoms of fevers, chills, chest pain or shortness of breath. She has an appetite and is ready to start oral intake. - Exam Vitals: Temp Pulse Resp BP Pulse Ox 98.6 F 90 16 136/72 96 09/12/18 11:14 09/12/18 11:14 09/12/18 11:14 09/12/18 11:14 09/12/18 11:14 Exam: Constitutional: Alert, in no acute distress, comfortable in bed HEENT: Normocephalic, atraumatic, moist mucus membranes Heart: Regular rhythm, no murmurs, no edema Lungs: lungs clear and equal bilaterally, no rhonchi, no wheeze Abdomen: dressing on midline of abdomen, diminished bowel sounds, tender around the incision site Extremities: No edema of lower extremity or upper extremities, warm, nontender Skin: Skin warm and dry, no lesions, no rashes, no jaundice Psych: thought content congruent, appropriate affect Neurological: Alert and oriented x 3, thought content congruent - Assessment and Plan (1) Small bowel obstruction due to adhesions Current Visit: Yes Status: Acute Assessment and Plan: She is s/p ex. laporectomy on 09/07/18 with lysis of adhesions. NG without much output. Plan: Surgery following Continue pain control Surgery for dietary recommendations Progress oral water intake (2) Paroxysmal atrial fibrillation Current Visit: Yes Status: Acute Assessment and Plan: The past a few days her heart rate has remained stable and rhythm is regular. Switched to oral cardizem from IV cardizem. Plan: Switched to oral cardizem today from IV Will require PO eliquis depending on post-op status (3) Acute renal failure Current Visit: Yes Status: Resolved Assessment and Plan: Renal function remains normal at this time. Poor output. Plan: Following closely as is post op BMP in the morning (4) GERD (gastroesophageal reflux disease) Current Visit: Yes Status: Chronic Assessment and Plan: Continue IV protonix, no current exacerbation of symptoms. (5) Severe protein-calorie malnutrition Current Visit: Yes Status: Chronic Assessment and Plan: Remains on TPN at this time hence ongoing protein calorie malnutrition as she is unable to tolerate oral diet. Plan: Started oral dietary intake today Dietary following (6) Hypokalemia Current Visit: Yes Status: Resolved Assessment and Plan: Resolved. BMP in the morning. (7) DVT prophylaxis Current Visit: Yes Status: Acute Assessment and Plan: Will need restart Eliquis when OK with surgery. (8) Hypernatremia Current Visit: Yes Status: Resolved Assessment and Plan: Resolved after starting oral liquid intake. She received fluids but it has been stopped to prevent increase in serum sodium. Plan: Dietary will need to modify the TPN Progress oral water intake Continue to monitor, bmp tomorrow - Time Spent with Patient Total time spent is greater than 50% in coordination of care (as documented) at patient's floor/unit and/or counseling patient: less than 15 minutes Plan of Care Discussed with: patient Internal Medicine: Result - Labs CBC & Chem 7: 09/12/18 03:40 09/12/18 03:40 Labs: Short CBC 09/12/18 Range/Units 03:40 WBC 14.5 H (4.3-11.1) K/mcL Hgb 12.4 (11.5-15.4) g/dL Hct 39.5 (35.3-44.9) % Plt Count 270 (140-400) K/mcL Neutrophils # 12.8 H (1.6-8.9) K/mcL BMP 09/12/18 03:40 Sodium 144 Potassium 3.7 Chloride 107 Carbon Dioxide 32 H BUN 37 H Creatinine 0.58 L Glucose 135 H Calcium 9.7 - ABG Interpretation ABG results: PT/INR, D-dimer PT 13.1 Seconds (9.4-12.1) H 09/04/18 16:01 Consult Discharge Plan - Plan Instructions: Exploratory Laparotomy (DC), Lysis of Abdominal Adhesions (DC) Additional Instructions: General Surgical Discharge Instructions 1. No pushing, pulling, or lifting greater than 15 lbs for 4 weeks (depending upon procedure). 2. You may shower beginning today, but no tub baths, soaking, or swimming for 2 weeks. 3. You may resume driving when you are off narcotics and are safe to react in a car. 4. Take ibuprofen every 8 hours for discomfort. If this does not relieve discomfort, you may take the as needed Percocet. Take narcotics as directed. Do not take more narcotics then directed and do not share your narcotics with any other person. Do not drink alcohol while on narcotics. 5. Take stool softeners (Colace) or a water based laxative (Miralax) while taking narcotics. You may hold for loose stools. 6. Report any fevers greater than 100.5F, increase abdominal discomfort, drainage that looks like pus, increased redness or pain at the surgical site, or any vomiting. 7. Report any pain in the calves, shortness of breath, or rapid heartbeat. 8. Follow-up in the office as directed. 9. If you were prescribed antibiotics, do not stop them without talking to your provider. Referrals: Do Gilmore MOTORCYCLE SERVICE TECHNICIAN [Advanced Practice Nurse] - 09/26/18 3:00 pm NONE,PCP [Primary Care Provider] - <Jessica Whitaker - Last Filed: 09/12/18 17:13> Hospitalist Progress Note - Encounter Date of Encounter: 09/12/18 - Exam Vitals: Temp Pulse Resp BP Pulse Ox 98.7 F 87 16 127/71 96 09/12/18 15:38 09/12/18 15:38 09/12/18 15:38 09/12/18 15:38 09/12/18 15:38 - Assessment and Plan (1) Hypokalemia Current Visit: Yes Status: Resolved (2) Acute renal failure Current Visit: Yes Status: Resolved (3) DVT prophylaxis Current Visit: Yes Status: Acute (4) GERD (gastroesophageal reflux disease) Current Visit: Yes Status: Chronic (5) Paroxysmal atrial fibrillation Current Visit: Yes Status: Acute (6) Severe protein-calorie malnutrition Current Visit: Yes Status: Chronic (7) Small bowel obstruction due to adhesions Current Visit: Yes Status: Acute (8) Hypernatremia Current Visit: Yes Status: Resolved - Time Spent with Patient Total time spent is greater than 50% in coordination of care (as documented) at patient's floor/unit and/or counseling patient: Internal Medicine: Result - Labs CBC & Chem 7: 09/12/18 03:40 09/12/18 03:40 Labs: Short CBC 09/12/18 Range/Units 03:40 WBC 14.5 H (4.3-11.1) K/mcL Hgb 12.4 (11.5-15.4) g/dL Hct 39.5 (35.3-44.9) % Plt Count 270 (140-400) K/mcL Neutrophils # 12.8 H (1.6-8.9) K/mcL BMP 09/12/18 03:40 Sodium 144 Potassium 3.7 Chloride 107 Carbon Dioxide 32 H BUN 37 H Creatinine 0.58 L Glucose 135 H Calcium 9.7 - ABG Interpretation ABG results: PT/INR, D-dimer PT 13.1 Seconds (9.4-12.1) H 09/04/18 16:01 - Attending Attestation I examined this patient and my medical decision-making was reviewed with the Resident Physician Dr. Pettit. I agree with the documented findings, disposition and treatment plan as described except to the extent set forth below. Ms. Baird is a 78 year old female with no reported past medical history presented to [facility] emergency department with complaint of nausea and vomiting 6 days. Pt was admitted here for SBO. Placed NG tube and continued symptomatic and supportive care. Patient small bowel obstruction improved off the NG tube now and tolerating liquid diet well. She also happen to have a fib with RVR which improved with Cardizem drip. She denied any CP . Gen: A, A, O x3 Chest: Diminished BS b/l Heart: S1S2+ Afib Abd: Sfot, NS, BS+ a/p 1. Acute SBO improved advanced diet as per surgery recommendations cont TPN until pt tolerates PO intake well 2. Paroxysmal Afib rate controlled now switched to PO Cardizem will check with surgery to resume anti coag Eliquis <Abimbola Pettit - Last Filed: 09/12/18 13:45> (3) Acute renal failure Qualifiers: Acute renal failure type: with acute tubular necrosis Qualified Code(s): N17.0 - Acute kidney failure with tubular necrosis (4) GERD (gastroesophageal reflux disease) Qualifiers: Esophagitis presence: esophagitis presence not specified Qualified Code(s): K21.9 - Gastro-esophageal reflux disease without esophagitis <Jessica Whitaker - Last Filed: 09/12/18 17:13> (2) Acute renal failure Qualifiers: Acute renal failure type: with acute tubular necrosis Qualified Code(s): N17.0 - Acute kidney failure with tubular necrosis (4) GERD (gastroesophageal reflux disease) Qualifiers: Esophagitis presence: esophagitis presence not specified Qualified Code(s): K21.9 - Gastro-esophageal reflux disease without esophagitis
[2018-09-12] MEDS ORDERED: Clinimix E 5%-20% SOLUTION 2,000 ML with MVI, adult with vitamin K 10 ML IVC SCH (17:00)
[2018-09-12] MEDS: Apixaban 5 MG TABLET PO SCH (22:26)
[2018-09-13] MEDS: Trolamine Salicylate/Aloe Vera 35.4 GM TUBE TP PRN ×2 (02:25→23:17)
[2018-09-13 04:21] LABS: Basophils % 0.3 %; Eosinophils # 0.3 K/mcL (0.0-0.6); Eosinophils % 1.7 %; Hematocrit 38.1 % (35.3-44.9); Hemoglobin 12.1 g/dL (11.5-15.4); Lymphocytes # 0.6 K/mcL (0.6-4.6); Lymphocytes % 3.9 %; Mean Corpuscular HGB Conc 31.8 g/dL (31.6-35.5); Mean Corpuscular Hemoglobin 29.7 pg (28.0-33.3); Mean Corpuscular Volume 93.6 fL (83.0-100.0); Mean Platelet Volume 10.1 fL (9.4-12.4); Monocytes # 0.6 K/mcL (0.0-1.3); Monocytes % 3.9 %; Neutrophils # 12.9 K/mcL (1.6-8.9); Platelet Count 258 K/mcL (140-400); Red Blood Count 4.07 M/mcL (3.82-4.97); Red Cell Distribution Width 12.8 % (11.5-14.5); Segmented Neutrophils % 89.2 %
[2018-09-13 04:36] LABS: BUN/Creatinine Ratio 71 (6-26); Blood Urea Nitrogen 42 mg/dL (8-23); Calcium 9.8 mg/dL (8.6-10.3); Carbon Dioxide 33 mEq/L (23-29); Chloride 105 mEq/L (98-107); Glucose 133 mg/dL (70-105); Osmolality,Calculated 312 (280-300); Potassium 4.1 mEq/L (3.5-5.1); Sodium 145 mEq/L (136-145); eGFR For Non-African Americans > 60 (> 60)
[2018-09-13] MEDS: Insulin LISPRO 300 UNITS/3 ML VIAL SQ SCH ×4 (08:35→21:46)
[2018-09-13] MEDS: Docusate Oral Soln 100 MG/10 ML UDC PO SCH ×2 (08:36→10:41)
[2018-09-13] MEDS: Diltiazem CD (24hr) 180 MG CAPSULE PO SCH ×2 (08:36→08:40)
[2018-09-13] MEDS: Apixaban 5 MG TABLET PO SCH ×3 (08:36→21:46)
[2018-09-13] MEDS ORDERED: Menthol 9.1 MG LOZENGE PO PRN (10:08)
--- NOTE | 2018-09-13 11:32 | General Surgery Progress Note ---
<Ghazala Sexton - Last Filed: 09/13/18 11:30> Date of Encounter: 09/13/18 Time of Encounter: 10:30 - Assessment and Plan (1) Small bowel obstruction due to adhesions Current Visit: Yes Status: Acute POD #5 Exploratory celiotomy, Lysis of adhesion with Dr. Dickens Patient distended and poor appetite with nausea this morning NPO except ice chips Continue TPN therapy for nutritional support Check acute abdominal series Added reglan 10mg IV every 6 hours for 2 days Supportive care Serial abdominal exams IS every 1 hour while awake Ambulate hallways TID with assistance- PT/OT for mobilization PPI therapy daily Repeat am labs- CBC, BMP Surgery will continue to follow along and assess progress (2) DVT prophylaxis Current Visit: Yes Status: Acute EPCDs to bilateral lower extremities for DVT prophylaxis Ambulate hallways TID with assistance Patient on eliquis Subjective Patient reports: still having pain (post-operative), voiding w/o difficulty, no flatus (denies flatus today), bowel movement (last evening), nausea (and distended, no appetite), afebrile, other (Patient has no appetite and is not tolerating full liquids) Objective Vital Signs - Last 8 Hours Temp Pulse Resp BP Pulse Ox 09/13/18 11:26 98.6 F 83 16 146/63 97 09/13/18 06:32 98.3 F 80 18 139/67 97 09/13/18 04:13 97.6 F 81 16 148/71 97 Intake and Output 09/12/18 09/13/18 09/13/18 23:59 07:59 15:59 Intake Total 120 / 120 Output Total 0 / 0 Balance 120 / 120 0 / 0 Intake: Oral 120 / 120 Output: Urine 0 / 0 Other: Meal Dinner Percent of Meal Consumed 10% Stool Size Moderate Stool Consistency loose Stool Color Brown # Voids 1 1 # Urine Diapers 1 # Bowel Movements 1 Weight 43.2 kg Blood Glucose* 123 182 104 - General physical appearance well developed, no distress - Eyes PERRL, normal ocular movement - ENT normal mucosa, atraumatic, normocephalic - Neck Neck exam: trachea midline - Respiratory normal respiratory effort, clear to auscultation, other (diminished bibasilar bases) - Cardiovascular Cardiovascular exam: Present: RRR - Abdomen Abdomen: Present: bowel sounds present (minimal, hypoactive), soft, distended, tender (expected post-operative tenderness) - Incision Incision: Present: clean and dry, intact - Neurologic CN 2-12 grossly intact - Psychiatric oriented to time, oriented to person, oriented to place, speech is normal, memory intact - Labs 09/13/18 04:05 09/13/18 04:05 Diabetes panel 09/13/18 Range/Units 04:05 Sodium 145 (136-145) mEq/L Potassium 4.1 (3.5-5.1) mEq/L Chloride 105 (98-107) mEq/L Carbon Dioxide 33 H (23-29) mEq/L BUN 42 H (8-23) mg/dL Creatinine 0.59 L (0.60-1.20) mg/dL Glucose 133 H (70-105) mg/dL Calcium 9.8 (8.6-10.3) mg/dL Calcium panel 09/13/18 Range/Units 04:05 Calcium 9.8 (8.6-10.3) mg/dL Pituitary panel 09/13/18 Range/Units 04:05 Sodium 145 (136-145) mEq/L Potassium 4.1 (3.5-5.1) mEq/L Chloride 105 (98-107) mEq/L Carbon Dioxide 33 H (23-29) mEq/L BUN 42 H (8-23) mg/dL Creatinine 0.59 L (0.60-1.20) mg/dL Glucose 133 H (70-105) mg/dL Calcium 9.8 (8.6-10.3) mg/dL Adrenal panel 09/13/18 Range/Units 04:05 Sodium 145 (136-145) mEq/L Potassium 4.1 (3.5-5.1) mEq/L Chloride 105 (98-107) mEq/L Carbon Dioxide 33 H (23-29) mEq/L BUN 42 H (8-23) mg/dL Creatinine 0.59 L (0.60-1.20) mg/dL Glucose 133 H (70-105) mg/dL Calcium 9.8 (8.6-10.3) mg/dL - VTE Documentation of Mechanical Device: Intermittent pneumatic compression device Consult Discharge Plan - Plan Instructions: Exploratory Laparotomy (DC), Lysis of Abdominal Adhesions (DC) Additional Instructions: General Surgical Discharge Instructions 1. No pushing, pulling, or lifting greater than 15 lbs for 4 weeks (depending upon procedure). 2. You may shower beginning today, but no tub baths, soaking, or swimming for 2 weeks. 3. You may resume driving when you are off narcotics and are safe to react in a car. 4. Take ibuprofen every 8 hours for discomfort. If this does not relieve discomfort, you may take the as needed Percocet. Take narcotics as directed. Do not take more narcotics then directed and do not share your narcotics with any other person. Do not drink alcohol while on narcotics. 5. Take stool softeners (Colace) or a water based laxative (Miralax) while taking narcotics. You may hold for loose stools. 6. Report any fevers greater than 100.5F, increase abdominal discomfort, drainage that looks like pus, increased redness or pain at the surgical site, or any vomiting. 7. Report any pain in the calves, shortness of breath, or rapid heartbeat. 8. Follow-up in the office as directed. 9. If you were prescribed antibiotics, do not stop them without talking to your provider. Referrals: Do Gilmore, ENTERPRISE SYSTEMS MANAGER [Advanced Practice Nurse] - 09/26/18 3:00 pm NONE,PCP [Primary Care Provider] - - Attending Attestation For this encounter, I have reviewed the TOBACCO WEIGHER or PA documentation, treatment plan, and medical decision making; and I have had face to face time with this patient. <Oscar Dickens - Last Filed: 09/14/18 12:42> Date of Encounter: 09/13/18 Objective Intake and Output 09/13/18 09/14/18 09/14/18 23:59 07:59 15:59 Intake Total 1300 / 1300 Balance 1300 / 1300 Intake: IV Fluids 1200 / 1200 Clinimix E 5%-20% SOLUTION 2, 1200 / 1200 000 ML @ 50 mls/hr IVC .Q24H AKOSUA with M.v.i. Adult 10 ml Rx# :[id number] Oral 100 / 100 Other: Weight 42 kg Blood Glucose* 97 - Labs 09/14/18 04:45 09/14/18 04:45 Diabetes panel 09/14/18 Range/Units 04:45 Sodium 142 (136-145) mEq/L Potassium 3.8 (3.5-5.1) mEq/L Chloride 106 (98-107) mEq/L Carbon Dioxide 30 H (23-29) mEq/L BUN 38 H (8-23) mg/dL Creatinine 0.71 (0.60-1.20) mg/dL Glucose 144 H (70-105) mg/dL Calcium 9.5 (8.6-10.3) mg/dL Calcium panel 09/14/18 Range/Units 04:45 Calcium 9.5 (8.6-10.3) mg/dL Pituitary panel 09/14/18 Range/Units 04:45 Sodium 142 (136-145) mEq/L Potassium 3.8 (3.5-5.1) mEq/L Chloride 106 (98-107) mEq/L Carbon Dioxide 30 H (23-29) mEq/L BUN 38 H (8-23) mg/dL Creatinine 0.71 (0.60-1.20) mg/dL Glucose 144 H (70-105) mg/dL Calcium 9.5 (8.6-10.3) mg/dL Adrenal panel 09/14/18 Range/Units 04:45 Sodium 142 (136-145) mEq/L Potassium 3.8 (3.5-5.1) mEq/L Chloride 106 (98-107) mEq/L Carbon Dioxide 30 H (23-29) mEq/L BUN 38 H (8-23) mg/dL Creatinine 0.71 (0.60-1.20) mg/dL Glucose 144 H (70-105) mg/dL Calcium 9.5 (8.6-10.3) mg/dL - Attending Attestation I reviewed the above assessment and evaluation and agree with the above plan.
[2018-09-13] MEDS ORDERED: Metoclopramide 10 MG/2 ML VIAL IVP SCH (12:00)
--- NOTE | 2018-09-13 12:04 | Internal Med Progress Note ---
<Abimbola Pettit - Last Filed: 09/13/18 11:55> Hospitalist Progress Note - Encounter Date of Encounter: 09/13/18 Time of Encounter: 08:35 - Subjective Interval History: Patient was seen and examined this morning at bedside. She had no events overnight, remained afebrile. She had breakfast this morning but stated she does not have an appetite. Surgery has recommended holding oral food intake and recommends continued TPN. She has no nausea and no episodes of emesis. She complained of bitter taste in her mouth but denied dysphagia. She is denying any symptoms of abdominal pain. She noted her last bowel movement was on . She denies any symptoms of fevers, chills, chest pain or shortness of breath. - Exam Vitals: Temp Pulse Resp BP Pulse Ox 98.6 F 83 16 146/63 97 09/13/18 11:26 09/13/18 11:26 09/13/18 11:26 09/13/18 11:26 09/13/18 11:26 Exam: Constitutional: Alert, in no acute distress, comfortable in bed HEENT: Normocephalic, atraumatic, moist mucus membranes Heart: Regular rhythm, no murmurs, no edema Lungs: lungs clear and equal bilaterally, no rhonchi, no wheeze Abdomen: dressing on midline of abdomen, diminished bowel sounds, tender around the incision site Extremities: No edema of lower extremity or upper extremities, warm, nontender Skin: Skin warm and dry, no lesions, no rashes, no jaundice Psych: thought content congruent, appropriate affect Neurological: Alert and oriented x 3, thought content congruent - Assessment and Plan (1) Small bowel obstruction due to adhesions Current Visit: Yes Status: Acute Assessment and Plan: She is s/p ex. laporectomy on 09/07/18 with lysis of adhesions. NG without much output. Plan: Surgery following Continue pain control Surgery recommends continued TPN Surgery recommends holding diet except ice chips (2) Paroxysmal atrial fibrillation Current Visit: Yes Status: Acute Assessment and Plan: Newly diagnosed a fib, controlled rate and rhythm. Switched to oral cardizem from IV cardizem. Plan: Continue oral cardizem Continue oral Eliquis (3) Acute renal failure Current Visit: Yes Status: Resolved Assessment and Plan: Renal function remains normal at this time. Poor input and output. Creatinine within normal limits. Plan: Following closely as is post op BMP in the morning (4) GERD (gastroesophageal reflux disease) Current Visit: Yes Status: Chronic Assessment and Plan: Continue PO omeprazole, no current exacerbation of symptoms at this time. (5) Severe protein-calorie malnutrition Current Visit: Yes Status: Chronic Assessment and Plan: Continue TPN per surgery recommendations, has poor oral intake. Continues to have protein calorie malnutrition as she is unable to tolerate oral diet. Plan: Continue oral dietary intake Dietary following (6) DVT prophylaxis Current Visit: Yes Status: Acute (7) Hypernatremia Current Visit: Yes Status: Resolved Assessment and Plan: Resolved after starting oral liquid intake. Plan: Continue TPN Continue ice chips Continue to monitor, bmp tomorrow - Time Spent with Patient Total time spent is greater than 50% in coordination of care (as documented) at patient's floor/unit and/or counseling patient: Internal Medicine: Result - Labs CBC & Chem 7: 09/13/18 04:05 09/13/18 04:05 Labs: Short CBC 09/13/18 Range/Units 04:05 WBC 14.4 H (4.3-11.1) K/mcL Hgb 12.1 (11.5-15.4) g/dL Hct 38.1 (35.3-44.9) % Plt Count 258 (140-400) K/mcL Neutrophils # 12.9 H (1.6-8.9) K/mcL BMP 09/13/18 04:05 Sodium 145 Potassium 4.1 Chloride 105 Carbon Dioxide 33 H BUN 42 H Creatinine 0.59 L Glucose 133 H Calcium 9.8 - ABG Interpretation ABG results: PT/INR, D-dimer PT 13.1 Seconds (9.4-12.1) H 09/04/18 16:01 - VTE Documentation of Mechanical Device: Intermittent pneumatic compression device Consult Discharge Plan - Plan Instructions: Exploratory Laparotomy (DC), Lysis of Abdominal Adhesions (DC) Additional Instructions: General Surgical Discharge Instructions 1. No pushing, pulling, or lifting greater than 15 lbs for 4 weeks (depending upon procedure). 2. You may shower beginning today, but no tub baths, soaking, or swimming for 2 weeks. 3. You may resume driving when you are off narcotics and are safe to react in a car. 4. Take ibuprofen every 8 hours for discomfort. If this does not relieve discomfort, you may take the as needed Percocet. Take narcotics as directed. Do not take more narcotics then directed and do not share your narcotics with any other person. Do not drink alcohol while on narcotics. 5. Take stool softeners (Colace) or a water based laxative (Miralax) while taking narcotics. You may hold for loose stools. 6. Report any fevers greater than 100.5F, increase abdominal discomfort, drainage that looks like pus, increased redness or pain at the surgical site, or any vomiting. 7. Report any pain in the calves, shortness of breath, or rapid heartbeat. 8. Follow-up in the office as directed. 9. If you were prescribed antibiotics, do not stop them without talking to your provider. Referrals: Do Gilmore, TECHNOLOGIST INFECTIOUS DISEASE [Advanced Practice Nurse] - 09/26/18 3:00 pm NONE,PCP [Primary Care Provider] - <Jessica Whitaker - Last Filed: 09/13/18 15:16> Hospitalist Progress Note - Encounter Date of Encounter: 09/13/18 - Exam Vitals: Temp Pulse Resp BP Pulse Ox 98.6 F 83 16 146/63 97 09/13/18 11:26 09/13/18 11:26 09/13/18 11:26 09/13/18 11:26 09/13/18 11:26 - Assessment and Plan (1) Acute renal failure Current Visit: Yes Status: Resolved (2) DVT prophylaxis Current Visit: Yes Status: Acute (3) GERD (gastroesophageal reflux disease) Current Visit: Yes Status: Chronic (4) Paroxysmal atrial fibrillation Current Visit: Yes Status: Acute (5) Severe protein-calorie malnutrition Current Visit: Yes Status: Chronic (6) Small bowel obstruction due to adhesions Current Visit: Yes Status: Acute (7) Hypernatremia Current Visit: Yes Status: Resolved - Time Spent with Patient Total time spent is greater than 50% in coordination of care (as documented) at patient's floor/unit and/or counseling patient: Internal Medicine: Result - Labs CBC & Chem 7: 09/13/18 04:05 09/13/18 04:05 Labs: Short CBC 09/13/18 Range/Units 04:05 WBC 14.4 H (4.3-11.1) K/mcL Hgb 12.1 (11.5-15.4) g/dL Hct 38.1 (35.3-44.9) % Plt Count 258 (140-400) K/mcL Neutrophils # 12.9 H (1.6-8.9) K/mcL BMP 09/13/18 04:05 Sodium 145 Potassium 4.1 Chloride 105 Carbon Dioxide 33 H BUN 42 H Creatinine 0.59 L Glucose 133 H Calcium 9.8 - ABG Interpretation ABG results: PT/INR, D-dimer PT 13.1 Seconds (9.4-12.1) H 09/04/18 16:01 - Impressions Impressions Chest/Abdomen X-ray 09/13/18 10:52 IMPRESSION: Pneumoperitoneum. This may be secondary to recent surgery but would recommend correlation with recent surgical history. Distended loops of small bowel throughout the abdomen suggesting a distal small bowel obstruction. Residual contrast in the bowel in the right abdomen. No acute process in the lungs. D/ / 09/13/2018 12:35:18 Ran Guevara MD / ryanne Interpreting Provider: Ran Guevara MD - Attending Attestation I examined this patient and my medical decision-making was reviewed with the Resident Physician Dr. Pettit. I agree with the documented findings, disposition and treatment plan as described except to the extent set forth below. Ms. Baird is a 78 year old female with no reported past medical history presented to [place] emergency department with complaint of nausea and vomiting 6 days. Pt was admitted here for SBO. Placed NG tube and continued symptomatic and supportive care. Patient small bowel obstruction improved off the NG tube now and tolerating liquid diet well. She also happen to have a fib with RVR which improved with Cardizem drip. She denied any CP. Pt still has mild abdominal distension, No BM since y/d. Loss of appetite. Denied any Abd pain. Denied any N/V. Gen: A, A, O x3 Chest: Diminished BS b/l Heart: S1S2+ Afib Abd: Soft, NS, BS+ a/p 1. Acute SBO 2. s/p Ecp Celiotomy and Lysis of Adhesion POD # 5 Reviewed Abd X ray today.. still showing distal SBO cont NPO for now except Ice chips and meds Appreciate Surgery recommendations Cont TPN until pt tolerates PO intake well 2. Paroxysmal Afib rate controlled with PO Cardizem On Eliquis for anti coag <Abimbola Pettit - Last Filed: 09/13/18 11:55> (3) Acute renal failure Qualifiers: Acute renal failure type: with acute tubular necrosis Qualified Code(s): N17.0 - Acute kidney failure with tubular necrosis (4) GERD (gastroesophageal reflux disease) Qualifiers: Esophagitis presence: esophagitis presence not specified Qualified Code(s): K21.9 - Gastro-esophageal reflux disease without esophagitis <Jessica Whitaker - Last Filed: 09/13/18 15:16> (1) Acute renal failure Qualifiers: Acute renal failure type: with acute tubular necrosis Qualified Code(s): N17.0 - Acute kidney failure with tubular necrosis (3) GERD (gastroesophageal reflux disease) Qualifiers: Esophagitis presence: esophagitis presence not specified Qualified Code(s): K21.9 - Gastro-esophageal reflux disease without esophagitis
[2018-09-13] MEDS: Metoclopramide 10 MG/2 ML VIAL IVP SCH ×2 (16:55→21:46)
[2018-09-13] MEDS ORDERED: Clinimix E 5%-15% SOLUTION 2,000 ML with MVI, adult with vitamin K 10 ML IVC SCH (17:00)
[2018-09-13] MEDS: Bisacodyl 10 MG RECTAL SUPPOSITORY RC SCH (20:01)
[2018-09-14 11:41] LABS: Basophils % 0.2 %; Eosinophils # 0.2 K/mcL (0.0-0.6); Eosinophils % 1.2 %; Hematocrit 37.6 % (35.3-44.9); Hemoglobin 11.7 g/dL (11.5-15.4); Immature Granulocytes % 0.7 % (0-4); Immature Platelets 3.7 % (1.1-6.1); Lymphocytes # 0.6 K/mcL (0.6-4.6); Lymphocytes % 3.6 %; Mean Corpuscular HGB Conc 31.1 g/dL (31.6-35.5); Mean Corpuscular Hemoglobin 29.7 pg (28.0-33.3); Mean Corpuscular Volume 95.4 fL (83.0-100.0); Mean Platelet Volume 11.3 fL (9.4-12.4); Monocytes % 5.8 %; Neutrophils # 14.6 K/mcL (1.6-8.9); Platelet Count 252 K/mcL (140-400); Red Blood Count 3.94 M/mcL (3.82-4.97); Red Cell Distribution Width 12.8 % (11.5-14.5); Segmented Neutrophils % 88.5 %
[2018-09-14 11:48] LABS: BUN/Creatinine Ratio 54 (6-26); Blood Urea Nitrogen 38 mg/dL (8-23); Calcium 9.5 mg/dL (8.6-10.3); Carbon Dioxide 30 mEq/L (23-29); Chloride 106 mEq/L (98-107); Glucose 144 mg/dL (70-105); Osmolality,Calculated 306 (280-300); Potassium 3.8 mEq/L (3.5-5.1); Sodium 142 mEq/L (136-145); eGFR For Non-African Americans > 60 (> 60)
[2018-09-14] MEDS: Insulin LISPRO 300 UNITS/3 ML VIAL SQ SCH ×4 (12:02→21:48)
[2018-09-14] MEDS: Diltiazem CD (24hr) 180 MG CAPSULE PO SCH (12:03)
[2018-09-14] MEDS: Apixaban 5 MG TABLET PO SCH ×2 (12:03→21:47)
[2018-09-14] MEDS: Docusate Oral Soln 100 MG/10 ML UDC PO SCH (12:03)
[2018-09-14] MEDS: Metoclopramide 10 MG/2 ML VIAL IVP SCH ×4 (12:03→21:47)
[2018-09-14] MEDS ORDERED: Metoclopramide 10 MG/2 ML VIAL IVP ONE (12:43)
[2018-09-14] MEDS ORDERED: Diltiazem CD (24hr) 180 MG CAPSULE PO ONE (12:43)
[2018-09-14] MEDS ORDERED: Docusate Oral Soln 100 MG/10 ML UDC PO ONE (12:43)
[2018-09-14] MEDS ORDERED: Apixaban 5 MG TABLET PO ONE (12:43)
[2018-09-14] MEDS ORDERED: Bisacodyl 10 MG RECTAL SUPPOSITORY RC STA (12:58)
--- NOTE | 2018-09-14 12:58 | General Surgery Progress Note ---
Addendum entered and electronically signed by Do Gilmore CNP 09/14/18 14:55: Further reviewed patients nonadherence to medical regimen. Pt is agreeable to suppository now and at HS. She would like ice cream. I reviewed with her that she is on ice chips. we could provide an greek ice for comfort. she is agreeable. Original Note: <Do Gilmore - Last Filed: 09/14/18 12:56> Date of Encounter: 09/14/18 Time of Encounter: 11:45 - Assessment and Plan (1) Small bowel obstruction Current Visit: Yes Status: Resolved Date of procedure: 09/08/18 Pre-op diagnosis: Small bowel obstruction. Post-op diagnosis: other (Internal hernia/adhesion) Procedure: 1. Exploratory celiotomy. 2. Lysis of adhesion. Anesthesia: GETA Surgeon: Oscar Dickens POD #6 as above PT with postoperative ileus. She is distended but soft. Faint hypoactive bowel sounds Plan: continue supportive care and discomfort management NPO with ice chips Continue TPN Continue dulcolax suppositories. Add suppository one now as well ambulate as tolerated out of bed to chair at least TID continue G.I. and DVT prophylaxis repeat a.m. labs serial abdominal exams surgery will continue to follow along. Patient is refusing suppositories. She is strongly encouraged to adhere to the treatment recommendations. (2) Severe protein-calorie malnutrition Current Visit: Yes Status: Chronic Continue TPN (3) Non-adherence to medical treatment Current Visit: Yes Status: Acute see above (4) Atrial fibrillation with RVR Current Visit: Yes Status: Acute per primary team (5) MIRZA (acute kidney injury) Current Visit: Yes Status: Resolved Objective Intake and Output 09/13/18 09/14/18 09/14/18 23:59 07:59 15:59 Intake Total 1300 / 1300 Balance 1300 / 1300 Intake: IV Fluids 1200 / 1200 Clinimix E 5%-20% SOLUTION 2, 1200 / 1200 000 ML @ 50 mls/hr IVC .Q24H AKOSUA with M.v.i. Adult 10 ml Rx# :[id number] Oral 100 / 100 Other: Weight 42 kg Blood Glucose* 97 - Labs 09/14/18 04:45 09/14/18 04:45 Diabetes panel 09/14/18 Range/Units 04:45 Sodium 142 (136-145) mEq/L Potassium 3.8 (3.5-5.1) mEq/L Chloride 106 (98-107) mEq/L Carbon Dioxide 30 H (23-29) mEq/L BUN 38 H (8-23) mg/dL Creatinine 0.71 (0.60-1.20) mg/dL Glucose 144 H (70-105) mg/dL Calcium 9.5 (8.6-10.3) mg/dL Calcium panel 09/14/18 Range/Units 04:45 Calcium 9.5 (8.6-10.3) mg/dL Pituitary panel 09/14/18 Range/Units 04:45 Sodium 142 (136-145) mEq/L Potassium 3.8 (3.5-5.1) mEq/L Chloride 106 (98-107) mEq/L Carbon Dioxide 30 H (23-29) mEq/L BUN 38 H (8-23) mg/dL Creatinine 0.71 (0.60-1.20) mg/dL Glucose 144 H (70-105) mg/dL Calcium 9.5 (8.6-10.3) mg/dL Adrenal panel 09/14/18 Range/Units 04:45 Sodium 142 (136-145) mEq/L Potassium 3.8 (3.5-5.1) mEq/L Chloride 106 (98-107) mEq/L Carbon Dioxide 30 H (23-29) mEq/L BUN 38 H (8-23) mg/dL Creatinine 0.71 (0.60-1.20) mg/dL Glucose 144 H (70-105) mg/dL Calcium 9.5 (8.6-10.3) mg/dL - VTE Documentation of Mechanical Device: Intermittent pneumatic compression device Consult Discharge Plan - Plan Instructions: Exploratory Laparotomy (DC), Lysis of Abdominal Adhesions (DC) Additional Instructions: General Surgical Discharge Instructions 1. No pushing, pulling, or lifting greater than 15 lbs for 4 weeks (depending upon procedure). 2. You may shower beginning today, but no tub baths, soaking, or swimming for 2 weeks. 3. You may resume driving when you are off narcotics and are safe to react in a car. 4. Take ibuprofen every 8 hours for discomfort. If this does not relieve discomfort, you may take the as needed Percocet. Take narcotics as directed. Do not take more narcotics then directed and do not share your narcotics with any other person. Do not drink alcohol while on narcotics. 5. Take stool softeners (Colace) or a water based laxative (Miralax) while taking narcotics. You may hold for loose stools. 6. Report any fevers greater than 100.5F, increase abdominal discomfort, drainage that looks like pus, increased redness or pain at the surgical site, or any vomiting. 7. Report any pain in the calves, shortness of breath, or rapid heartbeat. 8. Follow-up in the office as directed. 9. If you were prescribed antibiotics, do not stop them without talking to your provider. Referrals: Do Gilmore, CLEANER AND TRIMMER [Advanced Practice Nurse] - 09/26/18 3:00 pm NONE,PCP [Primary Care Provider] - <Oscar Dickens - Last Filed: 09/15/18 12:33> Date of Encounter: 09/14/18 Objective Vital Signs - Last 8 Hours Temp Pulse Resp BP Pulse Ox 09/15/18 11:29 97.7 F 94 19 155/71 96 09/15/18 08:10 98.0 F 93 18 155/75 99 09/15/18 05:03 98.4 F 87 15 157/69 94 Intake and Output 09/14/18 09/15/18 09/15/18 23:59 07:59 15:59 Other: Meal NPO Breakfast Stool Size Small # Voids 1 # Urine Diapers 1 # Bowel Movement Diapers 1 Weight 43.5 kg Blood Glucose* 120 124 136 - Labs 09/15/18 05:33 09/15/18 05:33 Diabetes panel 09/15/18 Range/Units 05:33 Sodium 142 (136-145) mEq/L Potassium 3.9 (3.5-5.1) mEq/L Chloride 107 (98-107) mEq/L Carbon Dioxide 31 H (23-29) mEq/L BUN 60 H (8-23) mg/dL Creatinine 1.42 H (0.60-1.20) mg/dL Glucose 165 H (70-105) mg/dL Calcium 9.5 (8.6-10.3) mg/dL Calcium panel 09/15/18 Range/Units 05:33 Calcium 9.5 (8.6-10.3) mg/dL Phosphorus 4.8 H (2.7-4.5) mg/dL Pituitary panel 09/15/18 Range/Units 05:33 Sodium 142 (136-145) mEq/L Potassium 3.9 (3.5-5.1) mEq/L Chloride 107 (98-107) mEq/L Carbon Dioxide 31 H (23-29) mEq/L BUN 60 H (8-23) mg/dL Creatinine 1.42 H (0.60-1.20) mg/dL Glucose 165 H (70-105) mg/dL Calcium 9.5 (8.6-10.3) mg/dL Adrenal panel 09/15/18 Range/Units 05:33 Sodium 142 (136-145) mEq/L Potassium 3.9 (3.5-5.1) mEq/L Chloride 107 (98-107) mEq/L Carbon Dioxide 31 H (23-29) mEq/L BUN 60 H (8-23) mg/dL Creatinine 1.42 H (0.60-1.20) mg/dL Glucose 165 H (70-105) mg/dL Calcium 9.5 (8.6-10.3) mg/dL - Attending Attestation I have personally performed a face to face evaluation on this patient. I have reviewed and agree with the care plan. History and Exam by me shows: I reviewed the above assessment and evaluation and agree with the above- mentioned plan.
[2018-09-14] MEDS ORDERED: Clinimix E 5%-15% SOLUTION 2,000 ML with MVI, adult with vitamin K 10 ML IVC SCH (17:00)
--- NOTE | 2018-09-14 17:03 | Internal Med Progress Note ---
<Abimbola Pettit - Last Filed: 09/14/18 17:01> Hospitalist Progress Note - Encounter Date of Encounter: 09/14/18 Time of Encounter: 09:00 - Subjective Interval History: Patient was seen and examined this morning at bedside. She had no events overnight, remained afebrile. This morning she has no complaints but appears frustrated from lack of diet. She has no nausea and no episodes of emesis. She is denying any symptoms of abdominal pain. She noted a large bowel movement yesterday. She denies any symptoms of fevers, chills, chest pain or shortness of breath. - Exam Vitals: Temp Pulse Resp BP Pulse Ox 98.8 F 87 18 153/74 99 09/14/18 15:52 09/14/18 15:52 09/14/18 15:52 09/14/18 15:52 09/14/18 15:52 Exam: Constitutional: Alert, in no acute distress, comfortable in bed HEENT: Normocephalic, atraumatic, moist mucus membranes Heart: Regular rhythm, no murmurs, no edema Lungs: lungs clear and equal bilaterally, no rhonchi, no wheeze Abdomen: dressing on midline of abdomen, diminished bowel sounds, nontender, no rigidity Extremities: No edema of lower extremity or upper extremities, warm, nontender Skin: Skin warm and dry, no lesions, no rashes, no jaundice Psych: thought content congruent, appears frustrated Neurological: Alert and oriented x 3 - Assessment and Plan (1) Small bowel obstruction due to adhesions Current Visit: Yes Status: Acute Assessment and Plan: She is s/p ex. laporectomy on 09/07/18 with lysis of adhesions. Continues to have a small bowel obstruction CT abdomen 09/13/18: Distended loops of small bowel throughout the abdomen suggesting a distal small bowel obstruction. Residual contrast in the bowel in the right abdomen. Plan: Surgery following Continue pain control Surgery recommends continued TPN Continue bowel regimen Surgery recommends nothing by mouth diet except ice chips (2) Paroxysmal atrial fibrillation Current Visit: Yes Status: Acute Assessment and Plan: Newly diagnosed a fib, controlled rate and rhythm since starting Cardizem. [id number] score 4 (age, female, HTN). HASBLED 0 TTE showed preserved EF Cardiology was consulted and recommended long-term anticoagulation therapy Plan: Continue oral cardizem Continue oral Eliquis (3) Acute renal failure Current Visit: Yes Status: Resolved Assessment and Plan: Resolved. Renal function remains normal at this time. Poor input and output. Creatinine within normal limits. Plan: Following closely as is post op BMP in the morning (4) GERD (gastroesophageal reflux disease) Current Visit: Yes Status: Chronic Assessment and Plan: Continue PO omeprazole, no current exacerbation of symptoms at this time. (5) Severe protein-calorie malnutrition Current Visit: Yes Status: Chronic Assessment and Plan: Continues to have a small bowel obstruction. Continues to have protein calorie malnutrition as she is unable to tolerate oral diet. Plan: Nothing by mouth except ice Continue TPN per surgery recommendations We will progress diet after SBO is resolved Dietary following (6) DVT prophylaxis Current Visit: Yes Status: Acute Assessment and Plan: On eliquis (7) Hypertension Current Visit: Yes Status: Acute Assessment and Plan: Denies history of hypertension Since admission has had episodes of high blood pressure Currently on Cardizem Plan: Hydralazine PRN Continue to monitor On telemetry - Time Spent with Patient Total time spent is greater than 50% in coordination of care (as documented) at patient's floor/unit and/or counseling patient: less than 15 minutes Plan of Care Discussed with: patient Internal Medicine: Result - Labs CBC & Chem 7: 09/14/18 04:45 09/14/18 04:45 Labs: Short CBC 09/14/18 Range/Units 04:45 WBC 16.4 H (4.3-11.1) K/mcL Hgb 11.7 (11.5-15.4) g/dL Hct 37.6 (35.3-44.9) % Plt Count 252 (140-400) K/mcL Neutrophils # 14.6 H (1.6-8.9) K/mcL BMP 09/14/18 04:45 Sodium 142 Potassium 3.8 Chloride 106 Carbon Dioxide 30 H BUN 38 H Creatinine 0.71 Glucose 144 H Calcium 9.5 - ABG Interpretation ABG results: PT/INR, D-dimer PT 13.1 Seconds (9.4-12.1) H 09/04/18 16:01 - VTE Documentation of Mechanical Device: Intermittent pneumatic compression device Consult Discharge Plan - Plan Instructions: Exploratory Laparotomy (DC), Lysis of Abdominal Adhesions (DC) Additional Instructions: General Surgical Discharge Instructions 1. No pushing, pulling, or lifting greater than 15 lbs for 4 weeks (depending upon procedure). 2. You may shower beginning today, but no tub baths, soaking, or swimming for 2 weeks. 3. You may resume driving when you are off narcotics and are safe to react in a car. 4. Take ibuprofen every 8 hours for discomfort. If this does not relieve discomfort, you may take the as needed Percocet. Take narcotics as directed. Do not take more narcotics then directed and do not share your narcotics with any other person. Do not drink alcohol while on narcotics. 5. Take stool softeners (Colace) or a water based laxative (Miralax) while taking narcotics. You may hold for loose stools. 6. Report any fevers greater than 100.5F, increase abdominal discomfort, drainage that looks like pus, increased redness or pain at the surgical site, or any vomiting. 7. Report any pain in the calves, shortness of breath, or rapid heartbeat. 8. Follow-up in the office as directed. 9. If you were prescribed antibiotics, do not stop them without talking to your provider. Referrals: Do Gilmore ELEVATOR WORKER [Advanced Practice Nurse] - 09/26/18 3:00 pm NONE,PCP [Primary Care Provider] - <Jessica Whitaker - Last Filed: 09/14/18 17:36> Hospitalist Progress Note - Exam Vitals: Temp Pulse Resp BP Pulse Ox 98.8 F 87 18 153/74 99 09/14/18 15:52 09/14/18 15:52 09/14/18 15:52 09/14/18 15:52 09/14/18 15:52 - Assessment and Plan (1) Acute renal failure Current Visit: Yes Status: Resolved (2) DVT prophylaxis Current Visit: Yes Status: Acute (3) GERD (gastroesophageal reflux disease) Current Visit: Yes Status: Chronic (4) Paroxysmal atrial fibrillation Current Visit: Yes Status: Acute (5) Severe protein-calorie malnutrition Current Visit: Yes Status: Chronic (6) Small bowel obstruction due to adhesions Current Visit: Yes Status: Acute (7) Hypertension Current Visit: Yes Status: Acute - Time Spent with Patient Total time spent is greater than 50% in coordination of care (as documented) at patient's floor/unit and/or counseling patient: Internal Medicine: Result - Labs CBC & Chem 7: 09/14/18 04:45 09/14/18 04:45 Labs: Short CBC 09/14/18 Range/Units 04:45 WBC 16.4 H (4.3-11.1) K/mcL Hgb 11.7 (11.5-15.4) g/dL Hct 37.6 (35.3-44.9) % Plt Count 252 (140-400) K/mcL Neutrophils # 14.6 H (1.6-8.9) K/mcL BMP 09/14/18 04:45 Sodium 142 Potassium 3.8 Chloride 106 Carbon Dioxide 30 H BUN 38 H Creatinine 0.71 Glucose 144 H Calcium 9.5 - ABG Interpretation ABG results: PT/INR, D-dimer PT 13.1 Seconds (9.4-12.1) H 09/04/18 16:01 - Impressions Impressions Chest/Abdomen X-ray 09/13/18 10:52 IMPRESSION: Pneumoperitoneum. This may be secondary to recent surgery but would recommend correlation with recent surgical history. Distended loops of small bowel throughout the abdomen suggesting a distal small bowel obstruction. Residual contrast in the bowel in the right abdomen. No acute process in the lungs. D/ / 09/13/2018 12:35:18 Ran Guevara MD / ryanne Interpreting Provider: Ran Guevara MD - Attending Attestation I examined this patient and my medical decision-making was reviewed with the Resident Physician Dr. Pettit. I agree with the documented findings, disposition and treatment plan as described except to the extent set forth below. Ms. Baird is a 78 year old female with no reported past medical history presented to [place] emergency department with complaint of nausea and vomiting 6 days. Pt was admitted here for SBO. Placed NG tube and continued symptomatic and supportive care. Patient small bowel obstruction improved off the NG tube now and tolerating liquid diet well. She also happen to have a fib with RVR which improved with Cardizem drip. She denied any CP. Pt still has mild abdominal distension, had BM last night. Loss of appetite. Denied any Abd pain. Denied any N/V. Gen: A, A, O x3 Chest: Diminished BS b/l Heart: S1S2+ Afib Abd: Soft, NS, BS+ a/p 1. Acute SBO 2. s/p Ecp Celiotomy and Lysis of Adhesion POD # 6 still has mild distal SBO cont NPO for now except Ice chips and meds Appreciate Surgery recommendations Cont TPN until pt tolerates PO intake well 2. Paroxysmal Afib rate controlled with PO Cardizem On Eliquis for anti coag <Abimbola Pettit - Last Filed: 09/14/18 17:01> (3) Acute renal failure Qualifiers: Acute renal failure type: with acute tubular necrosis Qualified Code(s): N17.0 - Acute kidney failure with tubular necrosis (4) GERD (gastroesophageal reflux disease) Qualifiers: Esophagitis presence: esophagitis presence not specified Qualified Code(s): K21.9 - Gastro-esophageal reflux disease without esophagitis <Jessica Whitaker - Last Filed: 09/14/18 17:36> (1) Acute renal failure Qualifiers: Acute renal failure type: with acute tubular necrosis Qualified Code(s): N17.0 - Acute kidney failure with tubular necrosis (3) GERD (gastroesophageal reflux disease) Qualifiers: Esophagitis presence: esophagitis presence not specified Qualified Code(s): K21.9 - Gastro-esophageal reflux disease without esophagitis
[2018-09-14] MEDS: Bisacodyl 10 MG RECTAL SUPPOSITORY RC SCH (21:47)
[2018-09-15 05:46] LABS: Basophils % 0.1 %; Eosinophils # 0.1 K/mcL (0.0-0.6); Eosinophils % 0.5 %; Hematocrit 33.8 % (35.3-44.9); Hemoglobin 10.8 g/dL (11.5-15.4); Immature Granulocytes % 0.8 % (0-4); Lymphocytes # 0.5 K/mcL (0.6-4.6); Lymphocytes % 3.6 %; Mean Corpuscular Volume 93.9 fL (83.0-100.0); Mean Platelet Volume 10.3 fL (9.4-12.4); Monocytes # 0.8 K/mcL (0.0-1.3); Monocytes % 6.1 %; Neutrophils # 12.2 K/mcL (1.6-8.9); Platelet Count 234 K/mcL (140-400); Red Cell Distribution Width 13.1 % (11.5-14.5); Segmented Neutrophils % 88.9 %
[2018-09-15 06:05] LABS: Calcium 9.5 mg/dL (8.6-10.3); Magnesium 2.6 mg/dL (1.6-2.6); Phosphorous 4.8 mg/dL (2.7-4.5); Potassium 3.9 mEq/L (3.5-5.1)
[2018-09-15] MEDS ORDERED: Ringers Solution, Lactated 1,000 ML IVC SCH (08:15)
[2018-09-15] MEDS ORDERED: Ringers Solution, Lactated 1,000 ML IVC ONE (08:29)
[2018-09-15] MEDS: Insulin LISPRO 300 UNITS/3 ML VIAL SQ SCH ×4 (08:55→20:07)
[2018-09-15] MEDS: Docusate Oral Soln 100 MG/10 ML UDC PO SCH (09:12)
[2018-09-15] MEDS: Diltiazem CD (24hr) 180 MG CAPSULE PO SCH (09:13)
[2018-09-15] MEDS: Apixaban 5 MG TABLET PO SCH ×2 (09:14→21:16)
[2018-09-15] MEDS: Metoclopramide 10 MG/2 ML VIAL IVP SCH ×3 (09:23→17:18)
--- NOTE | 2018-09-15 10:16 | General Surgery Progress Note ---
<Kylee Tompkins - Last Filed: 09/15/18 11:46> Date of Encounter: 09/15/18 Time of Encounter: 10:12 - Assessment and Plan (1) Obstructed internal hernia Current Visit: Yes Status: Acute POD [address] ex [address] Dr Dickens that found internal hernia and adhesions as cause for bowel obstruction. We discussed with patient need for NG suction due to her increasin distension but she refused. Patient is not ready for placement in [place] as we are still awaiting return of normal bowel function. - continue TPN - supportive care and pain management - serial abdominal exams - up to chair tid -ambulation tid - tolerating ice chips - continue wound care - continue daily enemas Surgery will continue to follow. (2) Small bowel obstruction Current Visit: Yes Status: Resolved see above. (3) Severe protein-calorie malnutrition Current Visit: Yes Status: Chronic Nutrition consulted- see above Subjective Patient reports: pain is less, no flatus, bowel movement (small last night near time of enema), afebrile Objective Vital Signs - Last 8 Hours Temp Pulse Resp BP Pulse Ox 09/15/18 08:10 98.0 F 93 18 155/75 99 09/15/18 05:03 98.4 F 87 15 157/69 94 Intake and Output 09/14/18 09/15/18 09/15/18 23:59 07:59 15:59 Other: Meal NPO Breakfast Stool Size Small # Voids 1 # Urine Diapers 1 # Bowel Movement Diapers 1 Weight 43.5 kg Blood Glucose* 120 124 110 - General physical appearance well developed, well nourished, no distress - Eyes normal ocular movement - ENT normal pinna, normal nares, normal mucosa, no hearing loss - Respiratory normal expansion, normal respiratory effort, clear to auscultation - Cardiovascular Cardiovascular exam: Present: RRR, no murmurs/rubs/gallops - Abdomen Abdomen: Present: bowel sounds present (decreased), soft, non tender, distended (increased). Absent: guarding, rebound Hernia: none - Incision Incision: Absent: draining (covered by tape bandage) - Integumentary no rash, no growths, no abnormal pigmentation - Neurologic CN 2-12 grossly intact, normal coordination, normal sensation - Musculoskeletal normal gait, normal posture - Psychiatric oriented to time, oriented to person, oriented to place, speech is normal, memor y intact, other (flat affect) - Labs 09/15/18 05:33 09/15/18 05:33 Diabetes panel 09/14/18 09/15/18 Range/Units 04:45 05:33 Sodium 142 142 (136-145) mEq/L Potassium 3.8 3.9 (3.5-5.1) mEq/L Chloride 106 107 (98-107) mEq/L Carbon Dioxide 30 H 31 H (23-29) mEq/L BUN 38 H 60 H (8-23) mg/dL Creatinine 0.71 1.42 H (0.60-1.20) mg/dL Glucose 144 H 165 H (70-105) mg/dL Calcium 9.5 9.5 (8.6-10.3) mg/dL Calcium panel 09/14/18 09/15/18 Range/Units 04:45 05:33 Calcium 9.5 9.5 (8.6-10.3) mg/dL Phosphorus 4.8 H (2.7-4.5) mg/dL Pituitary panel 09/14/18 09/15/18 Range/Units 04:45 05:33 Sodium 142 142 (136-145) mEq/L Potassium 3.8 3.9 (3.5-5.1) mEq/L Chloride 106 107 (98-107) mEq/L Carbon Dioxide 30 H 31 H (23-29) mEq/L BUN 38 H 60 H (8-23) mg/dL Creatinine 0.71 1.42 H (0.60-1.20) mg/dL Glucose 144 H 165 H (70-105) mg/dL Calcium 9.5 9.5 (8.6-10.3) mg/dL Adrenal panel 09/14/18 09/15/18 Range/Units 04:45 05:33 Sodium 142 142 (136-145) mEq/L Potassium 3.8 3.9 (3.5-5.1) mEq/L Chloride 106 107 (98-107) mEq/L Carbon Dioxide 30 H 31 H (23-29) mEq/L BUN 38 H 60 H (8-23) mg/dL Creatinine 0.71 1.42 H (0.60-1.20) mg/dL Glucose 144 H 165 H (70-105) mg/dL Calcium 9.5 9.5 (8.6-10.3) mg/dL - VTE Documentation of Mechanical Device: Intermittent pneumatic compression device Consult Discharge Plan - Plan Instructions: Exploratory Laparotomy (DC), Lysis of Abdominal Adhesions (DC) Additional Instructions: General Surgical Discharge Instructions 1. No pushing, pulling, or lifting greater than 15 lbs for 4 weeks (depending upon procedure). 2. You may shower beginning today, but no tub baths, soaking, or swimming for 2 weeks. 3. You may resume driving when you are off narcotics and are safe to react in a car. 4. Take ibuprofen every 8 hours for discomfort. If this does not relieve discomfort, you may take the as needed Percocet. Take narcotics as directed. Do not take more narcotics then directed and do not share your narcotics with any other person. Do not drink alcohol while on narcotics. 5. Take stool softeners (Colace) or a water based laxative (Miralax) while taking narcotics. You may hold for loose stools. 6. Report any fevers greater than 100.5F, increase abdominal discomfort, drainage that looks like pus, increased redness or pain at the surgical site, or any vomiting. 7. Report any pain in the calves, shortness of breath, or rapid heartbeat. 8. Follow-up in the office as directed. 9. If you were prescribed antibiotics, do not stop them without talking to your provider. Referrals: Do Gilmore, PROGRAM PRODUCTION SPECIALIST [Advanced Practice Nurse] - 09/26/18 3:00 pm NONE,PCP [Primary Care Provider] - <Oscar Dickens - Last Filed: 09/19/18 06:58> Date of Encounter: 09/15/18 Objective Vital Signs - Last 8 Hours Temp Pulse Resp BP Pulse Ox 09/19/18 04:34 98.5 F 89 15 157/69 95 09/18/18 23:59 98.3 F 91 15 146/68 98 Intake and Output 09/18/18 09/18/18 09/19/18 15:59 23:59 07:59 Intake Total 1000 / 1000 3536 / 3536 1250 / 1250 Output Total 2350 / 2350 1150 / 1150 Balance 1000 / 1000 1186 / 1186 100 / 100 Intake: IV Fluids 1000 / 1000 3536 / 3536 1250 / 1250 0.45% Sodium Chloride 1000 Ml 1000 / 1000 1000 / 1000 1000 Ml 1,000 ML @ 75 mls/hr IVC .[id number] [facility] Rx#:[id number] Clinimix E 5%-15% SOLUTION 2, 3436 / 3436 000 ML @ 50 mls/hr IVC .Q24H AKOSUA with M.v.i. Adult 10 ml Rx# :[id number] Intralipid 20% 250 ML @ 21 mls/ 250 / 250 hr IVPB MoWeFr@1700 [facility] Rx#: [id number] Zosyn 3.375 GM In 0.9 % Sodium 100 / 100 Chloride (Mini-Bag +) 100 ML @ 25 mls/hr IVPB Q12HR [facility] Rx#: [id number] Output: Catheter 2350 / 2350 600 / 600 Gastric Drainage 550 / 550 Right Nare 550 / 550 Other: Weight 45.9 kg Blood Glucose* 161 141 107 - Labs 09/19/18 04:56 09/19/18 04:56 Diabetes panel 09/19/18 Range/Units 04:56 Sodium 142 (136-145) mEq/L Potassium 3.8 (3.5-5.1) mEq/L Chloride 109 H (98-107) mEq/L Carbon Dioxide 29 (23-29) mEq/L BUN 29 H (8-23) mg/dL Creatinine 0.60 (0.60-1.20) mg/dL Glucose 99 (70-105) mg/dL Calcium 8.2 L (8.6-10.3) mg/dL AST 42 H (13-39) Units/L ALT 66 H (7-52) Units/L Alkaline Phosphatase 260 H (34-104) Units/L Albumin 2.2 L (3.5-5.7) g/dL Calcium panel 09/19/18 Range/Units 04:56 Calcium 8.2 L (8.6-10.3) mg/dL Phosphorus 3.1 (2.7-4.5) mg/dL Albumin 2.2 L (3.5-5.7) g/dL Pituitary panel 09/19/18 Range/Units 04:56 Sodium 142 (136-145) mEq/L Potassium 3.8 (3.5-5.1) mEq/L Chloride 109 H (98-107) mEq/L Carbon Dioxide 29 (23-29) mEq/L BUN 29 H (8-23) mg/dL Creatinine 0.60 (0.60-1.20) mg/dL Glucose 99 (70-105) mg/dL Calcium 8.2 L (8.6-10.3) mg/dL Adrenal panel 09/19/18 Range/Units 04:56 Sodium 142 (136-145) mEq/L Potassium 3.8 (3.5-5.1) mEq/L Chloride 109 H (98-107) mEq/L Carbon Dioxide 29 (23-29) mEq/L BUN 29 H (8-23) mg/dL Creatinine 0.60 (0.60-1.20) mg/dL Glucose 99 (70-105) mg/dL Calcium 8.2 L (8.6-10.3) mg/dL Total Bilirubin 0.5 (0.3-1.0) mg/dL AST 42 H (13-39) Units/L ALT 66 H (7-52) Units/L Alkaline Phosphatase 260 H (34-104) Units/L Albumin 2.2 L (3.5-5.7) g/dL - Attending Attestation I examined this patient and my medical decision-making was reviewed with the Resident Physician. I agree with the documented findings, disposition and jyoti atment plan as described except to the extent set forth below. I reviewed reviewed the above assessment and evaluation and agree with the above plan.
[2018-09-15] MEDS ORDERED: Methylnaltrexone 12 MG/0.6 ML SYRINGE SQ STA (11:52)
--- NOTE | 2018-09-15 13:23 | Internal Med Progress Note ---
<Abimbola Pettit - Last Filed: 09/15/18 14:24> Hospitalist Progress Note - Encounter Date of Encounter: 09/15/18 Time of Encounter: 08:30 - Subjective Interval History: Patient was seen and examined this morning at bedside. She had no events overnight, remained afebrile. This morning she continue to complain of inability to swallow her medication. She denies odynophagia but notes it is difficult to swallow her medications. She denies any cough after ingestion of the medication or the ice chips. She has no nausea and no episodes of emesis. She is denying any symptoms of abdominal pain. She had a small bowel movement last night. She denies any symptoms of fevers, chills, chest pain or shortness of breath. - Exam Vitals: Temp Pulse Resp BP Pulse Ox 97.7 F 94 19 155/71 96 09/15/18 11:29 09/15/18 11:29 09/15/18 11:29 09/15/18 11:29 09/15/18 11:29 Exam: Constitutional: Alert, in no acute distress, sitting in chair HEENT: Normocephalic, atraumatic, moist mucus membranes Heart: Regular rhythm, no murmurs, no edema Lungs: lungs clear and equal bilaterally, no rhonchi, no wheeze Abdomen: dressing on midline of abdomen, diminished bowel sounds, nontender, no rigidity Extremities: No edema of lower extremity or upper extremities, warm, nontender Skin: Skin warm and dry, no lesions, no rashes, no jaundice Psych: thought content congruent, appears frustrated Neurological: Alert and oriented x 3 - Assessment and Plan (1) Small bowel obstruction due to adhesions Current Visit: Yes Status: Acute Assessment and Plan: She is s/p ex. laporectomy on 09/07/18 with lysis of adhesions. Continues to have a small bowel obstruction CT abdomen 09/13/18: Distended loops of small bowel throughout the abdomen suggesting a distal small bowel obstruction. Residual contrast in the bowel in the right abdomen. Plan: Surgery following Continue pain control Surgery recommends continued TPN Surgery recommended NG tube but she refused Continue bowel regimen Surgery recommends nothing by mouth diet except ice chips (2) Paroxysmal atrial fibrillation Current Visit: Yes Status: Acute Assessment and Plan: Newly diagnosed a fib, controlled rate and rhythm since starting Cardizem. [id number] score 4 (age, female, HTN). HASBLED 0 TTE showed preserved EF Cardiology was consulted and recommended long-term anticoagulation therapy Plan: Continue oral cardizem Continue oral Eliquis (3) Acute renal failure Current Visit: Yes Status: Resolved Assessment and Plan: Resolved. Renal function remains normal at this time. Poor input and output. Creatinine within normal limits. Plan: Following closely as is post op BMP in the morning (4) GERD (gastroesophageal reflux disease) Current Visit: Yes Status: Chronic Assessment and Plan: Continue PO omeprazole, no current exacerbation of symptoms at this time. (5) Severe protein-calorie malnutrition Current Visit: Yes Status: Chronic Assessment and Plan: Continues to have a small bowel obstruction. Continues to have protein calorie malnutrition as she is unable to tolerate oral diet. Plan: Nothing by mouth except ice Continue TPN per surgery recommendations We will progress diet after SBO is resolved Dietary following (6) Hypertension Current Visit: Yes Status: Acute Assessment and Plan: Denies history of hypertension Since admission has had episodes of high blood pressure Currently on Cardizem Plan: Hydralazine PRN Continue to monitor On telemetry (7) DVT prophylaxis Current Visit: Yes Status: Acute Assessment and Plan: On eliquis (8) Dysphagia Current Visit: Yes Status: Acute Assessment and Plan: Complaining of difficulty ingesting medication, likely due to lack of oral intake. 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 pending for further recommendations Continue NPO except medications - Time Spent with Patient Total time spent is greater than 50% in coordination of care (as documented) at patient's floor/unit and/or counseling patient: less than 15 minutes Plan of Care Discussed with: patient Internal Medicine: Result - Labs CBC & Chem 7: 09/15/18 05:33 09/15/18 05:33 Labs: Short CBC 09/15/18 Range/Units 05:33 WBC 13.8 H (4.3-11.1) K/mcL Hgb 10.8 L (11.5-15.4) g/dL Hct 33.8 L (35.3-44.9) % Plt Count 234 (140-400) K/mcL Neutrophils # 12.2 H (1.6-8.9) K/mcL BMP 09/15/18 05:33 Sodium 142 Potassium 3.9 Chloride 107 Carbon Dioxide 31 H BUN 60 H Creatinine 1.42 H Glucose 165 H Calcium 9.5 - ABG Interpretation ABG results: PT/INR, D-dimer PT 13.1 Seconds (9.4-12.1) H 09/04/18 16:01 - Impressions Impressions Abdomen/Pelvis CT 09/06/18 12:00 IMPRESSION: Findings consistent with a small bowel obstruction and the transition point is within the right lower quadrant. D/ / 09/06/2018 15:12:55 Luis Frankel MD / haley Interpreting Provider: Luis Frankel MD Chest/Abdomen X-ray 09/13/18 10:52 IMPRESSION: Pneumoperitoneum. This may be secondary to recent surgery but would recommend correlation with recent surgical history. Distended loops of small bowel throughout the abdomen suggesting a distal small bowel obstruction. Residual contrast in the bowel in the right abdomen. No acute process in the lungs. D/ / 09/13/2018 12:35:18 Ran Guevara MD / ryanne Interpreting Provider: Ran Guevara MD - VTE Documentation of Mechanical Device: Intermittent pneumatic compression device Consult Discharge Plan - Plan Instructions: Exploratory Laparotomy (DC), Lysis of Abdominal Adhesions (DC) Additional Instructions: General Surgical Discharge Instructions 1. No pushing, pulling, or lifting greater than 15 lbs for 4 weeks (depending upon procedure). 2. You may shower beginning today, but no tub baths, soaking, or swimming for 2 weeks. 3. You may resume driving when you are off narcotics and are safe to react in a car. 4. Take ibuprofen every 8 hours for discomfort. If this does not relieve discomfort, you may take the as needed Percocet. Take narcotics as directed. Do not take more narcotics then directed and do not share your narcotics with an y other person. Do not drink alcohol while on narcotics. 5. Take stool softeners (Colace) or a water based laxative (Miralax) while taking narcotics. You may hold for loose stools. 6. Report any fevers greater than 100.5F, increase abdominal discomfort, drainage that looks like pus, increased redness or pain at the surgical site, or any vomiting. 7. Report any pain in the calves, shortness of breath, or rapid heartbeat. 8. Follow-up in the office as directed. 9. If you were prescribed antibiotics, do not stop them without talking to your provider. Referrals: Do Gilmore SECURITY INSTALLATION TECHNICIAN [Advanced Practice Nurse] - 09/26/18 3:00 pm NONE,PCP [Primary Care Provider] - <Jessica Whitaker - Last Filed: 09/15/18 15:13> Hospitalist Progress Note - Exam Vitals: Temp Pulse Resp BP Pulse Ox 97.7 F 94 19 155/71 96 09/15/18 11:29 09/15/18 11:29 09/15/18 11:29 09/15/18 11:29 09/15/18 11:29 - Assessment and Plan (1) Acute renal failure Current Visit: Yes Status: Resolved (2) DVT prophylaxis Current Visit: Yes Status: Acute (3) GERD (gastroesophageal reflux disease) Current Visit: Yes Status: Chronic (4) Paroxysmal atrial fibrillation Current Visit: Yes Status: Acute (5) Severe protein-calorie malnutrition Current Visit: Yes Status: Chronic (6) Small bowel obstruction due to adhesions Current Visit: Yes Status: Acute (7) Hypertension Current Visit: Yes Status: Acute (8) Dysphagia Current Visit: Yes Status: Acute - Time Spent with Patient Total time spent is greater than 50% in coordination of care (as documented) at patient's floor/unit and/or counseling patient: Internal Medicine: Result - Labs CBC & Chem 7: 09/15/18 05:33 09/15/18 05:33 Labs: Short CBC 09/15/18 Range/Units 05:33 WBC 13.8 H (4.3-11.1) K/mcL Hgb 10.8 L (11.5-15.4) g/dL Hct 33.8 L (35.3-44.9) % Plt Count 234 (140-400) K/mcL Neutrophils # 12.2 H (1.6-8.9) K/mcL BMP 09/15/18 05:33 Sodium 142 Potassium 3.9 Chloride 107 Carbon Dioxide 31 H BUN 60 H Creatinine 1.42 H Glucose 165 H Calcium 9.5 - ABG Interpretation ABG results: PT/INR, D-dimer PT 13.1 Seconds (9.4-12.1) H 09/04/18 16:01 - Impressions Impressions Abdomen/Pelvis CT 09/06/18 12:00 IMPRESSION: Findings consistent with a small bowel obstruction and the transition point is within the right lower quadrant. D/ / 09/06/2018 15:12:55 Luis Frankel MD / haley Interpreting Provider: Luis Frankel MD Chest/Abdomen X-ray 09/13/18 10:52 IMPRESSION: Pneumoperitoneum. This may be secondary to recent surgery but would recommend correlation with recent surgical history. Distended loops of small bowel throughout the abdomen suggesting a distal small bowel obstruction. Residual contrast in the bowel in the right abdomen. No acute process in the lungs. D/ / 09/13/2018 12:35:18 Ran Guevara MD / ryanne Interpreting Provider: Ran Guevara MD - Attending Attestation I examined this patient and my medical decision-making was reviewed with the Resident Physician Dr. Pettit. I agree with the documented findings, disposition and treatment plan as described except to the extent set forth below. Ms. Baird is a 78 year old female with no reported past medical history presented to [facility] emergency department with complaint of nausea and vomit ing 6 days. Pt was admitted here for SBO. Placed NG tube and continued symptomatic and supportive care. Patient small bowel obstruction improved off the NG tube now and tolerating liquid diet well. She also happen to have a fib with RVR which improved with Cardizem drip. She denied any CP. Pt still has mild abdominal distension. Loss of appetite. Denied any Abd pain. Denied any N/V. Gen: A, A, O x3 Chest: Diminished BS b/l Heart: S1S2+ Afib Abd: Soft, NS, BS+ a/p 1. Acute SBO 2. s/p Ecp Celiotomy and Lysis of Adhesion POD # 7 cont NPO for now except Ice chips and meds Appreciate Surgery recommendations Cont TPN until pt tolerates PO intake well 2. Paroxysmal Afib rate controlled with PO Cardizem On Eliquis for anti coag <Abimbola Pettit - Last Filed: 09/15/18 14:24> (3) Acute renal failure Qualifiers: Acute renal failure type: with acute tubular necrosis Qualified Code(s): N17.0 - Acute kidney failure with tubular necrosis (4) GERD (gastroesophageal reflux disease) Qualifiers: Esophagitis presence: esophagitis presence not specified Qualified Code(s): K21.9 - Gastro-esophageal reflux disease without esophagitis <Jessica Whitaker - Last Filed: 09/15/18 15:13> (1) Acute renal failure Qualifiers: Acute renal failure type: with acute tubular necrosis Qualified Code(s): N17.0 - Acute kidney failure with tubular necrosis (3) GERD (gastroesophageal reflux disease) Qualifiers: Esophagitis presence: esophagitis presence not specified Qualified Code(s): K21.9 - Gastro-esophageal reflux disease without esophagitis
[2018-09-15] MEDS ORDERED: Clinimix E 5%-15% SOLUTION 2,000 ML with MVI, adult with vitamin K 10 ML IVC SCH (17:00)
[2018-09-15] MEDS: Bisacodyl 10 MG RECTAL SUPPOSITORY RC SCH (21:16)
[2018-09-16 04:31] LABS: Basophils % 0.1 %; Eosinophils # 0.1 K/mcL (0.0-0.6); Eosinophils % 0.7 %; Hematocrit 31.9 % (35.3-44.9); Hemoglobin 10.4 g/dL (11.5-15.4); Immature Granulocytes % 0.6 % (0-4); Lymphocytes # 0.7 K/mcL (0.6-4.6); Lymphocytes % 4.5 %; Mean Corpuscular HGB Conc 32.6 g/dL (31.6-35.5); Mean Corpuscular Hemoglobin 30.1 pg (28.0-33.3); Mean Corpuscular Volume 92.2 fL (83.0-100.0); Mean Platelet Volume 10.4 fL (9.4-12.4); Monocytes % 6.8 %; Neutrophils # 13.1 K/mcL (1.6-8.9); Platelet Count 227 K/mcL (140-400); Red Blood Count 3.46 M/mcL (3.82-4.97); Red Cell Distribution Width 13.2 % (11.5-14.5); Segmented Neutrophils % 87.3 %
[2018-09-16 04:50] LABS: BUN/Creatinine Ratio 54 (6-26); Blood Urea Nitrogen 56 mg/dL (8-23); Calcium 9.3 mg/dL (8.6-10.3); Carbon Dioxide 30 mEq/L (23-29); Chloride 109 mEq/L (98-107); Glucose 105 mg/dL (70-105); Magnesium 2.5 mg/dL (1.6-2.6); Osmolality,Calculated 312 (280-300); Phosphorous 4.2 mg/dL (2.7-4.5); Sodium 143 mEq/L (136-145); eGFR For Non-African Americans 52 (> 60)
[2018-09-16] MEDS: Diltiazem CD (24hr) 180 MG CAPSULE PO SCH (08:22)
[2018-09-16] MEDS: Insulin LISPRO 300 UNITS/3 ML VIAL SQ SCH ×4 (08:22→21:48)
[2018-09-16] MEDS: Docusate Oral Soln 100 MG/10 ML UDC PO SCH (08:22)
--- NOTE | 2018-09-16 08:22 | Internal Med Progress Note ---
<Abimbola Pettit - Last Filed: 09/16/18 08:18> Hospitalist Progress Note - Encounter Date of Encounter: 09/16/18 Time of Encounter: 08:00 - Subjective Interval History: Patient was seen and examined this morning at bedside. She had no events overnight, remained afebrile. This morning she is more comfortable in her chair. She notes not having difficulty swallowing any longer. She denies any cough after ingestion of the medication or the ice chips. She has no nausea and no episodes of emesis. She is denying any symptoms of abdominal pain and notes she feels her belly is softer today. She had a small bowel movement last night. She denies any symptoms of fevers, chills, chest pain or shortness of breath. - Exam Vitals: Temp Pulse Resp BP Pulse Ox 97.7 F 94 19 135/82 98 09/16/18 08:03 09/16/18 08:03 09/16/18 08:03 09/16/18 08:03 09/16/18 08:03 Exam: Constitutional: Alert, in no acute distress, sitting in chair HEENT: Normocephalic, atraumatic, moist mucus membranes Heart: Regular rhythm, no murmurs, no edema Lungs: lungs clear and equal bilaterally, no rhonchi, no wheeze Abdomen: dressing on midline of abdomen, diminished bowel sounds, nontender, no rigidity Extremities: No edema of lower extremity or upper extremities, warm, nontender Skin: Skin warm and dry, no lesions, no rashes, no jaundice Psych: thought content congruent, normal mood and normal affect Neurological: Alert and oriented x 3 - Assessment and Plan (1) Small bowel obstruction due to adhesions Current Visit: Yes Status: Acute Assessment and Plan: She is s/p ex. laporectomy on 09/07/18 with lysis of adhesions. Continues to have a small bowel obstruction CT abdomen 09/13/18: Distended loops of small bowel throughout the abdomen suggesting a distal small bowel obstruction. Residual contrast in the bowel in the right abdomen. Plan: Surgery following Continue pain control Continue stool softeners Surgery recommends continued TPN Surgery recommended NG tube but she refused Continue bowel regimen Surgery recommends nothing by mouth diet except ice chips (2) Paroxysmal atrial fibrillation Current Visit: Yes Status: Acute Assessment and Plan: Newly diagnosed a fib, controlled rate and rhythm since starting Cardizem. [id number] score 4 (age, female, HTN). HASBLED 0 TTE showed preserved EF Cardiology was consulted and recommended long-term anticoagulation therapy Regular rate and rhythm overnight Plan: Continue oral cardizem Continue oral Eliquis (3) Acute renal failure Current Visit: Yes Status: Resolved Assessment and Plan: Resolved. Renal function remains normal at this time. Poor input and output. Creatinine improved since yesterday is likely due to volume repletion GFR improved Plan: Following closely as is post op BMP in the morning (4) GERD (gastroesophageal reflux disease) Current Visit: Yes Status: Chronic Assessment and Plan: Continue PO omeprazole, no current exacerbation of symptoms at this time. (5) Severe protein-calorie malnutrition Current Visit: Yes Status: Chronic Assessment and Plan: Continues to have a small bowel obstruction. Continues to have protein calorie malnutrition as she is unable to tolerate oral diet. Feels hungry today. Plan: Nothing by mouth except ice Continue TPN per surgery recommendations We will progress diet after SBO is resolved Dietary following (6) Hypertension Current Visit: Yes Status: Acute Assessment and Plan: Denies history of hypertension Since admission has had episodes of high blood pressure Currently on Cardizem Blood pressure stayed stable overnight 138/76 to 135/82 Plan: Hydralazine PRN Continue to monitor On telemetry (7) DVT prophylaxis Current Visit: Yes Status: Acute Assessment and Plan: On eliquis (8) Dysphagia Current Visit: Yes Status: Acute Assessment and Plan: Resolved. Noted she is no longer having difficulty ingesting medication. 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 pending for further recommendations Continue NPO except medications - Time Spent with Patient Total time spent is greater than 50% in coordination of care (as documented) at patient's floor/unit and/or counseling patient: Plan of Care Discussed with: patient Internal Medicine: Result - Labs CBC & Chem 7: 09/16/18 04:05 09/16/18 04:05 Labs: Short CBC 09/16/18 Range/Units 04:05 WBC 15.1 H (4.3-11.1) K/mcL Hgb 10.4 L (11.5-15.4) g/dL Hct 31.9 L (35.3-44.9) % Plt Count 227 (140-400) K/mcL Neutrophils # 13.1 H (1.6-8.9) K/mcL BMP 09/16/18 04:05 Sodium 143 Potassium 4.0 Chloride 109 H Carbon Dioxide 30 H BUN 56 H Creatinine 1.03 Glucose 105 Calcium 9.3 - ABG Interpretation ABG results: PT/INR, D-dimer PT 13.1 Seconds (9.4-12.1) H 09/04/18 16:01 - Impressions Impressions Abdomen/Pelvis CT 09/06/18 12:00 IMPRESSION: Findings consistent with a small bowel obstruction and the transition point is within the right lower quadrant. D/ / 09/06/2018 15:12:55 Luis Frankel MD / [email or web address] Interpreting Provider: Luis Frankel MD - VTE Documentation of Mechanical Device: Intermittent pneumatic compression device Consult Discharge Plan - Plan Instructions: Exploratory Laparotomy (DC), Lysis of Abdominal Adhesions (DC) Additional Instructions: General Surgical Discharge Instructions 1. No pushing, pulling, or lifting greater than 15 lbs for 4 weeks (depending upon procedure). 2. You may shower beginning today, but no tub baths, soaking, or swimming for 2 weeks. 3. You may resume driving when you are off narcotics and are safe to react in a car. 4. Take ibuprofen every 8 hours for discomfort. If this does not relieve discomfort, you may take the as needed Percocet. Take narcotics as directed. Do not take more narcotics then directed and do not share your narcotics with any other person. Do not drink alcohol while on narcotics. 5. Take stool softeners (Colace) or a water based laxative (Miralax) while taking narcotics. You may hold for loose stools. 6. Report any fevers greater than 100.5F, increase abdominal discomfort, drainage that looks like pus, increased redness or pain at the surgical site, or any vomiting. 7. Report any pain in the calves, shortness of breath, or rapid heartbeat. 8. Follow-up in the office as directed. 9. If you were prescribed antibiotics, do not stop them without talking to your provider. Referrals: Do Gilmore, CONSTRUCTION PROJECT COORDINATOR [Advanced Practice Nurse] - 09/26/18 3:00 pm NONE,PCP [Primary Care Provider] - <Jessica Whitaker - Last Filed: 09/16/18 17:35> Hospitalist Progress Note - Exam Vitals: Temp Pulse Resp BP Pulse Ox 99.5 F 96 19 156/72 97 09/16/18 16:23 09/16/18 16:23 09/16/18 16:23 09/16/18 16:23 09/16/18 16:23 - Assessment and Plan (1) Acute renal failure Current Visit: Yes Status: Resolved (2) DVT prophylaxis Current Visit: Yes Status: Acute (3) GERD (gastroesophageal reflux disease) Current Visit: Yes Status: Chronic (4) Paroxysmal atrial fibrillation Current Visit: Yes Status: Acute (5) Severe protein-calorie malnutrition Current Visit: Yes Status: Chronic (6) Small bowel obstruction due to adhesions Current Visit: Yes Status: Acute (7) Hypertension Current Visit: Yes Status: Acute (8) Dysphagia Current Visit: Yes Status: Acute - Time Spent with Patient Total time spent is greater than 50% in coordination of care (as documented) at patient's floor/unit and/or counseling patient: Internal Medicine: Result - Labs CBC & Chem 7: 09/16/18 04:05 09/16/18 04:05 Labs: Short CBC 09/16/18 Range/Units 04:05 WBC 15.1 H (4.3-11.1) K/mcL Hgb 10.4 L (11.5-15.4) g/dL Hct 31.9 L (35.3-44.9) % Plt Count 227 (140-400) K/mcL Neutrophils # 13.1 H (1.6-8.9) K/mcL BMP 09/16/18 04:05 Sodium 143 Potassium 4.0 Chloride 109 H Carbon Dioxide 30 H BUN 56 H Creatinine 1.03 Glucose 105 Calcium 9.3 - ABG Interpretation ABG results: PT/INR, D-dimer PT 13.1 Seconds (9.4-12.1) H 09/04/18 16:01 - Attending Attestation I examined this patient and my medical decision-making was reviewed with the Resident Physician Dr. Pettit. I agree with the documented findings, disposition and treatment plan as described except to the extent set forth below. Ms. Baird is a 78 year old female with no reported past medical history presented to [facility] emergency department with complaint of nausea and vomiting 6 days. Pt was admitted here for SBO. Placed NG tube and continued symptomatic and supportive care. Patient small bowel obstruction improved off the NG tube now and tolerating liquid diet well. She also happen to have a fib with RVR which improved with Cardizem drip. She denied any CP. Pt still has mild abdominal distension. Loss of appetite. Denied any Abd pain. Denied any N/V. Had a BM last night. Gen: A, A, O x3 Chest: Diminished BS b/l Heart: S1S2+ Afib Abd: Soft, NS, BS+ a/p 1. Acute SBO 2. s/p Ecp Celiotomy and Lysis of Adhesion POD # 8 started on clear liquid diet today Appreciate Surgery recommendations Cont TPN until pt tolerates PO intake well 2. Paroxysmal Afib rate controlled with PO Cardizem On Eliquis for anti coag <Abimbola Pettit - Last Filed: 09/16/18 08:18> (3) Acute renal failure Qualifiers: Acute renal failure type: with acute tubular necrosis Qualified Code(s): N17. 0 - Acute kidney failure with tubular necrosis (4) GERD (gastroesophageal reflux disease) Qualifiers: Esophagitis presence: esophagitis presence not specified Qualified Code(s): K21.9 - Gastro-esophageal reflux disease without esophagitis <Jessica Whitaker - Last Filed: 09/16/18 17:35> (1) Acute renal failure Qualifiers: Acute renal failure type: with acute tubular necrosis Qualified Code(s): N17.0 - Acute kidney failure with tubular necrosis (3) GERD (gastroesophageal reflux disease) Qualifiers: Esophagitis presence: esophagitis presence not specified Qualified Code(s): K21.9 - Gastro-esophageal reflux disease without esophagitis
[2018-09-16] MEDS: Apixaban 5 MG TABLET PO SCH ×2 (08:23→21:48)
--- NOTE | 2018-09-16 11:52 | General Surgery Progress Note ---
<Do Gilmore - Last Filed: 09/16/18 11:50> Date of Encounter: 09/16/18 Time of Encounter: 10:45 - Assessment and Plan (1) Small bowel obstruction Current Visit: Yes Status: Acute Date of procedure: 09/08/18 Pre-op diagnosis: Small bowel obstruction. Post-op diagnosis: other (Internal hernia/adhesion) Procedure: 1. Exploratory celiotomy. 2. Lysis of adhesion. Anesthesia: GETA Surgeon: Oscar Dickens POD #8 as above PT with postoperative ileus. Improving. She is s/p Relistor 09/15 with favorable results. Pt states she feels less distended and is having BMs. She requests her diet be advanced. She states minimal abdominal pain. Active bowel sounds. Previously refused adherence to medical treatment that she is agreeable at this time and has since accepted all recommendations. Plan: continue supportive care and discomfort management CLD with Ensure clear TID Continue TPN Continue dulcolax suppositories. ambulate as tolerated out of bed to chair at least TID continue G.I. and DVT prophylaxis repeat a.m. labs serial abdominal exams surgery will continue to follow along. (2) Severe protein-calorie malnutrition Current Visit: Yes Status: Chronic Continue TPN (3) Non-adherence to medical treatment Current Visit: Yes Status: Acute see above (4) Atrial fibrillation with RVR Current Visit: Yes Status: Acute per primary team (5) MIRZA (acute kidney injury) Current Visit: Yes Status: Resolved Subjective Patient reports: no new complaints, feels better, still having pain, pain is less, voiding w/o difficulty, flatus, bowel movement, afebrile Objective Vital Signs - Last 8 Hours Temp Pulse Resp BP Pulse Ox 09/16/18 11:36 99.0 F 74 18 120/63 96 09/16/18 08:03 97.7 F 94 19 135/82 98 09/16/18 04:29 97.9 F 97 15 158/65 93 Intake and Output 09/15/18 09/16/18 09/16/18 23:59 07:59 15:59 Intake Total 1200 / 1200 Output Total 200 / 200 Balance 1200 / 1200 -200 / -200 Intake: IV Fluids 1200 / 1200 Clinimix E 5%-15% SOLUTION 2, 1200 / 1200 000 ML @ 50 mls/hr IVC .Q24H AKOSUA with M.v.i. Adult 10 ml Rx# :[id number] Output: Urine 200 / 200 Other: Stool Size Moderate Stool Consistency loose Stool Color Brown # Voids 1 Weight 44.6 kg Blood Glucose* 129 112 154 Patient Weight 09/16/18 23:59 Weight 44.6 kg - General physical appearance no distress (sitting upright in chair at bedside) - Eyes normal ocular movement - ENT normal mucosa, poor half-way - Neck Neck exam: trachea midline - Respiratory normal expansion, normal respiratory effort, clear to auscultation - Cardiovascular Cardiovascular exam: Present: RRR - Abdomen Abdomen: Present: bowel sounds present, soft, tender (mildly) Hernia: none - Incision Incision: Present: clean and dry, intact - Integumentary no abnormal pigmentation - Neurologic normal sensation - Musculoskeletal normal posture - Psychiatric oriented to time, oriented to person, oriented to place, memory intact - Labs 09/16/18 04:05 09/16/18 04:05 Diabetes panel 09/16/18 Range/Units 04:05 Sodium 143 (136-145) mEq/L Potassium 4.0 (3.5-5.1) mEq/L Chloride 109 H (98-107) mEq/L Carbon Dioxide 30 H (23-29) mEq/L BUN 56 H (8-23) mg/dL Creatinine 1.03 (0.60-1.20) mg/dL Glucose 105 (70-105) mg/dL Calcium 9.3 (8.6-10.3) mg/dL Calcium panel 09/16/18 Range/Units 04:05 Calcium 9.3 (8.6-10.3) mg/dL Phosphorus 4.2 (2.7-4.5) mg/dL Pituitary panel 09/16/18 Range/Units 04:05 Sodium 143 (136-145) mEq/L Potassium 4.0 (3.5-5.1) mEq/L Chloride 109 H (98-107) mEq/L Carbon Dioxide 30 H (23-29) mEq/L BUN 56 H (8-23) mg/dL Creatinine 1.03 (0.60-1.20) mg/dL Glucose 105 (70-105) mg/dL Calcium 9.3 (8.6-10.3) mg/dL Adrenal panel 09/16/18 Range/Units 04:05 Sodium 143 (136-145) mEq/L Potassium 4.0 (3.5-5.1) mEq/L Chloride 109 H (98-107) mEq/L Carbon Dioxide 30 H (23-29) mEq/L BUN 56 H (8-23) mg/dL Creatinine 1.03 (0.60-1.20) mg/dL Glucose 105 (70-105) mg/dL Calcium 9.3 (8.6-10.3) mg/dL - VTE Documentation of Mechanical Device: Intermittent pneumatic compression device Consult Discharge Plan - Plan Instructions: Exploratory Laparotomy (DC), Lysis of Abdominal Adhesions (DC) Additional Instructions: General Surgical Discharge Instructions 1. No pushing, pulling, or lifting greater than 15 lbs for 4 weeks (depending upon procedure). 2. You may shower beginning today, but no tub baths, soaking, or swimming for 2 weeks. 3. You may resume driving when you are off narcotics and are safe to react in a car. 4. Take ibuprofen every 8 hours for discomfort. If this does not relieve discomfort, you may take the as needed Percocet. Take narcotics as directed. Do not take more narcotics then directed and do not share your narcotics with any other person. Do not drink alcohol while on narcotics. 5. Take stool softeners (Colace) or a water based laxative (Miralax) while taking narcotics. You may hold for loose stools. 6. Report any fevers greater than 100.5F, increase abdominal discomfort, drainage that looks like pus, increased redness or pain at the surgical site, or any vomiting. 7. Report any pain in the calves, shortness of breath, or rapid heartbeat. 8. Follow-up in the office as directed. 9. If you were prescribed antibiotics, do not stop them without talking to your provider. Referrals: Do Gilmore, ZULY [Advanced Practice Nurse] - 09/26/18 3:00 pm NONE,PCP [Primary Care Provider] - <Frankie Castano - Last Filed: 09/16/18 13:30> Objective Vital Signs - Last 8 Hours Temp Pulse Resp BP Pulse Ox 09/16/18 11:36 99.0 F 74 18 120/63 96 09/16/18 08:03 97.7 F 94 19 135/82 98 Intake and Output 10/09/16/18 09/16/18 23:59 07:59 15:59 Intake Total 1200 / 1200 Output Total 200 / 200 Balance 1200 / 1200 -200 / -200 Intake: IV Fluids 1200 / 1200 Clinimix E 5%-15% SOLUTION 2, 1200 / 1200 000 ML @ 50 mls/hr IVC .Q24H AKOSUA with M.v.i. Adult 10 ml Rx# :[id number] Output: Urine 200 / 200 Other: Stool Size Moderate Stool Consistency loose Stool Color Brown # Voids 1 Weight 44.6 kg Blood Glucose* 129 112 130 Patient Weight 09/16/18 23:59 Weight 44.6 kg - Labs 09/16/18 04:05 09/16/18 04:05 Diabetes panel 09/16/18 Range/Units 04:05 Sodium 143 (136-145) mEq/L Potassium 4.0 (3.5-5.1) mEq/L Chloride 109 H (98-107) mEq/L Carbon Dioxide 30 H (23-29) mEq/L BUN 56 H (8-23) mg/dL Creatinine 1.03 (0.60-1.20) mg/dL Glucose 105 (70-105) mg/dL Calcium 9.3 (8.6-10.3) mg/dL Calcium panel 09/16/18 Range/Units 04:05 Calcium 9.3 (8.6-10.3) mg/dL Phosphorus 4.2 (2.7-4.5) mg/dL Pituitary panel 09/16/18 Range/Units 04:05 Sodium 143 (136-145) mEq/L Potassium 4.0 (3.5-5.1) mEq/L Chloride 109 H (98-107) mEq/L Carbon Dioxide 30 H (23-29) mEq/L BUN 56 H (8-23) mg/dL Creatinine 1.03 (0.60-1.20) mg/dL Glucose 105 (70-105) mg/dL Calcium 9.3 (8.6-10.3) mg/dL Adrenal panel 09/16/18 Range/Units 04:05 Sodium 143 (136-145) mEq/L Potassium 4.0 (3.5-5.1) mEq/L Chloride 109 H (98-107) mEq/L Carbon Dioxide 30 H (23-29) mEq/L BUN 56 H (8-23) mg/dL Creatinine 1.03 (0.60-1.20) mg/dL Glucose 105 (70-105) mg/dL Calcium 9.3 (8.6-10.3) mg/dL - Attending Attestation patient see and examined. i have reviewed all labs, notes, and imaging. I have discussed in detail with the HAND MIXER the case and plan. i agree with the above assessment and plan and wish to add the following... POD #8 s/p ex lap, KRYSTIN now with return of bowel function, but still distended; no vomiting; cont with current diet cont with TPN activity as tolerated will monitor for continued bowel function
[2018-09-16] MEDS ORDERED: Clinimix E 5%-15% SOLUTION 2,000 ML with MVI, adult with vitamin K 10 ML IVC SCH (17:00)
[2018-09-16] MEDS: Bisacodyl 10 MG RECTAL SUPPOSITORY RC SCH (21:39)
[2018-09-17 05:45] LABS: Basophils % 0.2 %; Eosinophils # 0.1 K/mcL (0.0-0.6); Eosinophils % 0.5 %; Hematocrit 30.1 % (35.3-44.9); Hemoglobin 9.8 g/dL (11.5-15.4); Immature Granulocytes % 0.6 % (0-4); Lymphocytes # 0.6 K/mcL (0.6-4.6); Lymphocytes % 4.2 %; Mean Corpuscular HGB Conc 32.6 g/dL (31.6-35.5); Mean Corpuscular Hemoglobin 30.3 pg (28.0-33.3); Mean Corpuscular Volume 93.2 fL (83.0-100.0); Mean Platelet Volume 10.5 fL (9.4-12.4); Monocytes # 0.9 K/mcL (0.0-1.3); Monocytes % 6.8 %; Neutrophils # 11.8 K/mcL (1.6-8.9); Platelet Count 237 K/mcL (140-400); Red Blood Count 3.23 M/mcL (3.82-4.97); Red Cell Distribution Width 13.1 % (11.5-14.5); Segmented Neutrophils % 87.7 %
[2018-09-17 06:01] LABS: Calcium 9.3 mg/dL (8.6-10.3); Magnesium 2.7 mg/dL (1.6-2.6); Phosphorous 4.3 mg/dL (2.7-4.5); Potassium 4.4 mEq/L (3.5-5.1)
--- NOTE | 2018-09-17 08:43 | Internal Med Progress Note ---
<Abimbola Pettit - Last Filed: 09/17/18 08:37> Hospitalist Progress Note - Encounter Date of Encounter: 09/17/18 Time of Encounter: 08:00 - Subjective Interval History: Patient was seen and examined this morning at bedside. She had no events overnight. It was noted her temperature was 100.7, later yesterday but returned to normal temperature overnight. This morning she is more comfortable in her chair. She tolerated clear liquids yesterday and this morning wanted some apple juice. Her appetite is returning. She has no nausea and no episodes of emesis. She is denying any symptoms of abdominal pain. She had bowel movement yesterday. She denies any symptoms of fevers, chills, chest pain or shortness of breath. - Exam Vitals: Temp Pulse Resp BP Pulse Ox 97.9 F 88 18 143/65 96 09/17/18 07:48 09/17/18 07:48 09/17/18 07:48 09/17/18 07:48 09/17/18 07:48 Exam: Constitutional: Alert, in no acute distress, sitting in chair HEENT: Normocephalic, atraumatic, moist mucus membranes Heart: Regular rhythm, no murmurs, no edema Lungs: lungs clear and equal bilaterally, no rhonchi, no wheeze Abdomen: dressing on midline of abdomen, diminished bowel sounds, nontender, no rigidity Extremities: No edema of lower extremity or upper extremities, warm, nontender Skin: Skin warm and dry, no lesions, no rashes, no jaundice Psych: thought content congruent, normal mood and normal affect Neurological: Alert and oriented x 3 - Assessment and Plan (1) Small bowel obstruction due to adhesions Current Visit: Yes Status: Acute Assessment and Plan: She is s/p ex. laporectomy on 09/07/18 with lysis of adhesions. Having regular bowel movements Resolved abdomina CT abdomen 09/13/18: Distended loops of small bowel throughout the abdomen suggesting a distal small bowel obstruction. Residual contrast in the bowel in the right abdomen. Plan: Surgery following Continue pain control Continue stool softeners Surgery recommends continued TPN Surgery recommended NG tube but she refused Continue bowel regimen Continue clear liquid diet with ensure (2) Paroxysmal atrial fibrillation Current Visit: Yes Status: Acute Assessment and Plan: Newly diagnosed a fib, controlled rate and rhythm since starting Cardizem. [id number] score 4 (age, female, HTN). HASBLED 0 TTE showed preserved EF with EF of 60-65% Cardiology was consulted and recommended long-term anticoagulation therapy Regular rate and rhythm overnight Plan: Continue oral cardizem Continue oral Eliquis (3) GERD (gastroesophageal reflux disease) Current Visit: Yes Status: Chronic Assessment and Plan: Continue PO omeprazole, no current exacerbation of symptoms at this time. (4) Severe protein-calorie malnutrition Current Visit: Yes Status: Chronic Assessment and Plan: Improved as she is having bowel movements Starting to tolerate diet and oral intake should help her protein-calorie malnutrition Feels hungry today. Plan: Nothing by mouth except ice Continue TPN per surgery recommendations We will progress diet after SBO is resolved Dietary following (5) Hypertension Current Visit: Yes Status: Acute Assessment and Plan: Denies history of hypertension Since admission has had episodes of high blood pressure Currently on Cardizem Blood pressure stayed stable overnight 155/73 to 143/65 Plan: Hydralazine PRN Continue to monitor On telemetry (6) DVT prophylaxis Current Visit: Yes Status: Acute Assessment and Plan: On eliquis (7) Acute kidney injury Current Visit: Yes Status: Acute Assessment and Plan: Creatinine 1.46 this morning. Complained of on-and-off burning with urination Continues to have poor urinary output GFR is 34 today from 52 to yesterday Likely due to poor oral intake Plan: Continue I/Os Normal saline bolus Continue maintenance fluid Urinalysis pending BMP in the morning - Time Spent with Patient Total time spent is greater than 50% in coordination of care (as documented) at patient's floor/unit and/or counseling patient: Plan of Care Discussed with: patient Internal Medicine: Result - Labs CBC & Chem 7: 09/17/18 05:22 09/17/18 05:22 Labs: Short CBC 09/17/18 Range/Units 05:22 WBC 13.5 H (4.3-11.1) K/mcL Hgb 9.8 L (11.5-15.4) g/dL Hct 30.1 L (35.3-44.9) % Plt Count 237 (140-400) K/mcL Neutrophils # 11.8 H (1.6-8.9) K/mcL BMP 09/17/18 05:22 Sodium 143 Potassium 4.4 Chloride 109 H Carbon Dioxide 30 H BUN 68 H Creatinine 1.46 H Glucose 132 H Calcium 9.3 - ABG Interpretation ABG results: PT/INR, D-dimer PT 13.1 Seconds (9.4-12.1) H 09/04/18 16:01 - VTE Documentation of Mechanical Device: Intermittent pneumatic compression device Consult Discharge Plan - Plan Instructions: Exploratory Laparotomy (DC), Lysis of Abdominal Adhesions (DC) Additional Instructions: General Surgical Discharge Instructions 1. No pushing, pulling, or lifting greater than 15 lbs for 4 weeks (depending upon procedure). 2. You may shower beginning today, but no tub baths, soaking, or swimming for 2 weeks. 3. You may resume driving when you are off narcotics and are safe to react in a car. 4. Take ibuprofen every 8 hours for discomfort. If this does not relieve discomfort, you may take the as needed Percocet. Take narcotics as directed. Do not take more narcotics then directed and do not share your narcotics with any other person. Do not drink alcohol while on narcotics. 5. Take stool softeners (Colace) or a water based laxative (Miralax) while taking narcotics. You may hold for loose stools. 6. Report any fevers greater than 100.5F, increase abdominal discomfort, drainage that looks like pus, increased redness or pain at the surgical site, or any vomiting. 7. Report any pain in the calves, shortness of breath, or rapid heartbeat. 8. Follow-up in the office as directed. 9. If you were prescribed antibiotics, do not stop them without talking to your provider. Referrals: Do Gilmore CNP [Advanced Practice Nurse] - 09/26/18 3:00 pm NONE,PCP [Primary Care Provider] - <Jessica Whitaker - Last Filed: 09/17/18 15:26> Hospitalist Progress Note - Exam Vitals: Temp Pulse Resp BP Pulse Ox 98.1 F 96 19 167/73 90 09/17/18 11:14 09/17/18 11:14 09/17/18 11:14 09/17/18 11:14 09/17/18 11:14 - Assessment and Plan (1) DVT prophylaxis Current Visit: Yes Status: Acute (2) GERD (gastroesophageal reflux disease) Current Visit: Yes Status: Chronic (3) Paroxysmal atrial fibrillation Current Visit: Yes Status: Acute (4) Severe protein-calorie malnutrition Current Visit: Yes Status: Chronic (5) Small bowel obstruction due to adhesions Current Visit: Yes Status: Acute (6) Hypertension Current Visit: Yes Status: Acute (7) Acute kidney injury Current Visit: Yes Status: Acute - Time Spent with Patient Total time spent is greater than 50% in coordination of care (as documented) at patient's floor/unit and/or counseling patient: Internal Medicine: Result - Labs CBC & Chem 7: 09/17/18 05:22 09/17/18 05:22 Labs: Short CBC 09/17/18 Range/Units 05:22 WBC 13.5 H (4.3-11.1) K/mcL Hgb 9.8 L (11.5-15.4) g/dL Hct 30.1 L (35.3-44.9) % Plt Count 237 (140-400) K/mcL Neutrophils # 11.8 H (1.6-8.9) K/mcL BMP 09/17/18 05:22 Sodium 143 Potassium 4.4 Chloride 109 H Carbon Dioxide 30 H BUN 68 H Creatinine 1.46 H Glucose 132 H Calcium 9.3 - ABG Interpretation ABG results: PT/INR, D-dimer PT 13.1 Seconds (9.4-12.1) H 09/04/18 16:01 - Impressions Impressions Chest X-Ray 09/17/18 08:49 IMPRESSION: No acute process. D/ / Oliver Servin MD / Oliver Servin MD Interpreting Provider: Oliver Servin MD - Attending Attestation I examined this patient and my medical decision-making was reviewed with the Resident Physician Dr. Pettit. I agree with the documented findings, disposition and treatment plan as described except to the extent set forth below. Ms. Baird is a 78 year old female with no reported past medical history presented to [place] emergency department with complaint of nausea and vomiting 6 days. Pt was admitted here for SBO. Placed NG tube and continued symptomatic and supportive care. Patient small bowel obstruction improved off the NG tube now and tolerating liquid diet well. She also happen to have a fib with RVR which improved with Cardizem drip. She denied any CP. Pt still has mild abdominal distension. Loss of appetite. Denied any Abd pain. Denied any N/V. Had a BM last night. She did have low grade temp 100.7 last night Gen: A, A, O x3 Chest: Diminished BS b/l Heart: S1S2+ Afib Abd: Soft, NS, BS+ a/p 1. Acute SBO 2. s/p Ecp Celiotomy and Lysis of Adhesion POD # 9 Diet as per surgery recommendations Appreciate Surgery recommendations Cont TPN until pt tolerates PO intake well 3. Paroxysmal Afib rate controlled with PO Cardizem On Eliquis for anti coag 4. MIRZA due to dehydration started on IVF 5. fever will check CXR.. Ordered UA monitor closely for now If fever persists will start her on abx <Abimbola Pettit - Last Filed: 09/17/18 08:37> (3) GERD (gastroesophageal reflux disease) Qualifiers: Esophagitis presence: esophagitis presence not specified Qualified Code(s): K21.9 - Gastro-esophageal reflux disease without esophagitis <Jessica Whitaker - Last Filed: 09/17/18 15:26> (2) GERD (gastroesophageal reflux disease) Qualifiers: Esophagitis presence: esophagitis presence not specified Qualified Code(s): K21.9 - Gastro-esophageal reflux disease without esophagitis
[2018-09-17] MEDS: Diltiazem CD (24hr) 180 MG CAPSULE PO SCH (09:04)
[2018-09-17] MEDS: Docusate Oral Soln 100 MG/10 ML UDC PO SCH (09:05)
[2018-09-17] MEDS: Insulin LISPRO 300 UNITS/3 ML VIAL SQ SCH ×4 (09:05→20:24)
[2018-09-17] MEDS ORDERED: 0.9 % Sodium Chloride 500 ML IVC ONE (09:05)
[2018-09-17] MEDS: Apixaban 5 MG TABLET PO SCH ×2 (09:05→20:23)
--- NOTE | 2018-09-17 11:47 | General Surgery Progress Note ---
Date of Encounter: 09/17/18 Time of Encounter: 11:44 - Assessment and Plan (1) Small bowel obstruction Current Visit: Yes Status: Acute 78F POD #8 s/p ex lap, KRYSTIN with post operative ileus; still distended; patient agreed to trail of NG tube place 18fr NG tube activity as tolerated replace lytes if no improvement after 24hrs, then can consider removing NG tube await return of bowel function Subjective Patient reports: no new complaints, no flatus, no bowel movement, afebrile Objective Vital Signs - Last 8 Hours Temp Pulse Resp BP Pulse Ox 09/17/18 11:14 98.1 F 96 19 167/73 90 09/17/18 07:48 97.9 F 88 18 143/65 96 09/17/18 04:29 98.8 F 90 16 155/73 97 Intake and Output 09/16/18 09/17/18 09/17/18 23:59 07:59 15:59 Intake Total 1162 / 1162 150 / 150 Output Total 0 / 0 200 / 200 Balance 1162 / 1162 -200 / -200 150 / 150 Intake: IV Fluids 1162 / 1162 Clinimix E 5%-15% SOLUTION 2, 1162 / 1162 000 ML @ 50 mls/hr IVC .Q24H AKOSUA with M.v.i. Adult 10 ml Rx# :[id number] Oral 0 / 0 150 / 150 Output: Urine 0 / 0 200 / 200 Other: Percent of Meal Consumed 0% # Voids 1 Weight 46.3 kg Blood Glucose* 125 119 - General physical appearance no distress - Respiratory normal expansion, normal respiratory effort - Cardiovascular Cardiovascular exam: Present: RRR - Abdomen Abdomen: Present: soft, non tender, distended - Neurologic CN 2-12 grossly intact - Labs 09/17/18 05:22 09/17/18 05:22 Diabetes panel 09/17/18 Range/Units 05:22 Sodium 143 (136-145) mEq/L Potassium 4.4 (3.5-5.1) mEq/L Chloride 109 H (98-107) mEq/L Carbon Dioxide 30 H (23-29) mEq/L BUN 68 H (8-23) mg/dL Creatinine 1.46 H (0.60-1.20) mg/dL Glucose 132 H (70-105) mg/dL Calcium 9.3 (8.6-10.3) mg/dL Calcium panel 09/17/18 Range/Units 05:22 Calcium 9.3 (8.6-10.3) mg/dL Phosphorus 4.3 (2.7-4.5) mg/dL Pituitary panel 09/17/18 Range/Units 05:22 Sodium 143 (136-145) mEq/L Potassium 4.4 (3.5-5.1) mEq/L Chloride 109 H (98-107) mEq/L Carbon Dioxide 30 H (23-29) mEq/L BUN 68 H (8-23) mg/dL Creatinine 1.46 H (0.60-1.20) mg/dL Glucose 132 H (70-105) mg/dL Calcium 9.3 (8.6-10.3) mg/dL Adrenal panel 09/17/18 Range/Units 05:22 Sodium 143 (136-145) mEq/L Potassium 4.4 (3.5-5.1) mEq/L Chloride 109 H (98-107) mEq/L Carbon Dioxide 30 H (23-29) mEq/L BUN 68 H (8-23) mg/dL Creatinine 1.46 H (0.60-1.20) mg/dL Glucose 132 H (70-105) mg/dL Calcium 9.3 (8.6-10.3) mg/dL - VTE Documentation of Mechanical Device: Intermittent pneumatic compression device Consult Discharge Plan - Plan Instructions: Exploratory Laparotomy (DC), Lysis of Abdominal Adhesions (DC) Additional Instructions: General Surgical Discharge Instructions 1. No pushing, pulling, or lifting greater than 15 lbs for 4 weeks (depending upon procedure). 2. You may shower beginning today, but no tub baths, soaking, or swimming for 2 weeks. 3. You may resume driving when you are off narcotics and are safe to react in a car. 4. Take ibuprofen every 8 hours for discomfort. If this does not relieve discomfort, you may take the as needed Percocet. Take narcotics as directed. Do not take more narcotics then directed and do not share your narcotics with any other person. Do not drink alcohol while on narcotics. 5. Take stool softeners (Colace) or a water based laxative (Miralax) while taking narcotics. You may hold for loose stools. 6. Report any fevers greater than 100.5F, increase abdominal discomfort, drainage that looks like pus, increased redness or pain at the surgical site, or any vomiting. 7. Report any pain in the calves, shortness of breath, or rapid heartbeat. 8. Follow-up in the office as directed. 9. If you were prescribed antibiotics, do not stop them without talking to your provider. Referrals: Do Gilmore CNP [Advanced Practice Nurse] - 09/26/18 3:00 pm NONE,PCP [Primary Care Provider] -
[2018-09-17] MEDS: Clinimix E 5%-15% SOLUTION 2,000 ML with MVI, adult with vitamin K 10 ML IVC SCH (17:07)
[2018-09-17] MEDS: Bisacodyl 10 MG RECTAL SUPPOSITORY RC SCH (20:23)
[2018-09-17] MEDS: Trolamine Salicylate/Aloe Vera 35.4 GM TUBE TP PRN (20:28)
--- NOTE | 2018-09-18 08:56 | Internal Med Progress Note ---
<Ike Otoole S - Last Filed: 09/18/18 11:45> Hospitalist Progress Note - Encounter Date of Encounter: 09/18/18 Time of Encounter: 08:51 - Subjective Interval History: Pt is seen at bedside. She was initially admitted for N/V and was found to have a SBO. The pt was also found to be in a fib with RVR and was tx with cardizem. She is hopsital day 14 and is POD #9 s/p explorator KRYSTIN garcia. She currently has a post operative ileus and is being followed by general sx who placed a NG tube yesterday for post-op ileus. The pt reported tolerating clear liquids yesterday. She hasn't eaten anything today. The pt denies any N/V, she reports a BM yesterday. Denies chest pain, SOB. Nursing reported no overnight events. - Exam Vitals: Temp Pulse Resp BP Pulse Ox 99.1 F 83 20 156/71 97 09/18/18 07:53 09/18/18 07:53 09/18/18 07:53 09/18/18 07:53 09/18/18 07:53 Exam: Constitutional: Alert, in no acute distress, laying in bed HEENT: Normocephalic, atraumatic, moist mucus membranes, NG tube in place Heart: Regular rhythm, no murmurs, no edema Lungs: lungs clear and equal bilaterally, no rhonchi, no wheeze Abdomen: dressing on midline of abdomen, diminished bowel sounds, nontender, no rigidity, incision is clean and dry Extremities: No edema of lower extremity or upper extremities, warm, nontender Skin: Skin warm and dry, no lesions, no rashes, no jaundice, no edema Neurological: Alert and oriented x 3 - Assessment and Plan (1) Small bowel obstruction due to adhesions Current Visit: Yes Status: Acute Assessment and Plan: POD #10 s/p ex. laporectomy on 09/07/[address] Castano - pt had a BM two days ago, reports no BM today - abd pain resolving CT abdomen 09/13/18: Distended loops of small bowel throughout the abdomen suggesting a distal small bowel obstruction. Residual contrast in the bowel in the right abdomen. KUB on 09/17/18 - nonobstructive bowel gas pattern Plan: - Surgery following, appreciate recommendations Sx recommending continued TPN - on electrolytes and Intralipid 20% - pain control with percocet - on dulcolax - promethazine for nausea - NG tube in place, confirmed position yesterday Sx switched to LIWS - continue serial abd exams - NPO except for ice chips as per sx - start Zosyn today , pt has white count and low grade fever - up to chair from bed TID (2) Paroxysmal atrial fibrillation Current Visit: Yes Status: Acute Assessment and Plan: Newly diagnosed a fib - EKG at [facility] showed A fib with RVR -pt currently in sinus rhythm , HR currently 83 -CHADVASc of 4 (age 78, female, hx of HTN) Pt had ECHO on 09/04 -LVEF 60-65% -normal LV chamber size, wall thickness, fxn -mild left ventricular diastolic fusfxn Plan: -cardiology consulted, recommended terminal gauger anticoagulation therapy -pt is on 180mg PO cardizem as per cardiology -pt is on PO eliquis as per cardiology (3) DVT prophylaxis Current Visit: Yes Status: Acute Assessment and Plan: On eliquis; scds ordered (4) GERD (gastroesophageal reflux disease) Current Visit: No Status: Chronic Assessment and Plan: Continue PO omeprazole (5) Severe protein-calorie malnutrition Current Visit: Yes Status: Chronic Assessment and Plan: Prealbumin of 12.1 on 09/07 -pt is currently receiving TPN Plan: -NPO except for ice chips as per cardiology -TPN as per surgery recommendations Fat Emulsion IV (intralipid 20%) Amino acids/electrolytes 50mls/hr -progress diet after post-op ileus resolved -plan to give ensure TID (6) Hypertension Current Visit: No Status: Chronic Assessment and Plan: BP this morning 156/71 Plan: -continue cardizem -hydralazine 10mg q6hr prn -on telemetry (7) Elevated troponin Current Visit: Yes Status: Acute Assessment and Plan: Pt had a troponin of 0.57 on admission, decreased to 0.42 -most likely due to a type II AR secondar to A fib with RVR (8) Acute kidney injury Current Visit: Yes Status: Acute Assessment and Plan: Creatinine on admission 1.67 -creatinine 09/17 - 1.46 -baseline no available, pt has never been to this hospital -GFR 09/17 = 34; admission = 30 MIRZA likely secondary to dehydration and poor PO intake I&O's 09/17 -I total - 1810 mL -O total - 200 mL -Balance - 1610 mL Plan: -Continue I/Os - continue fluids, pt currently on 75cc/hr 0.45% NaCl, LR held - UA pending - morning labs still pending DVT Prophylaxis: eliquis - Time Spent with Patient Total time spent is greater than 50% in coordination of care (as documented) at patient's floor/unit and/or counseling patient: less than 15 minutes Plan of Care Discussed with: patient Internal Medicine: Result - Labs CBC & Chem 7: 09/17/18 05:22 09/17/18 05:22 - ABG Interpretation ABG results: PT/INR, D-dimer PT 13.1 Seconds (9.4-12.1) H 09/04/18 16:01 - Impressions Impressions Chest/Abdomen X-ray 09/13/18 10:52 IMPRESSION: Pneumoperitoneum. This may be secondary to recent surgery but would recommend correlation with recent surgical history. Distended loops of small bowel throughout the abdomen suggesting a distal small bowel obstruction. Residual contrast in the bowel in the right abdomen. No acute process in the lungs. D/ / 09/13/2018 12:35:18 Ran Guevara MD / ryanne Interpreting Provider: Ran Guevara MD Chest X-Ray 09/17/18 08:49 IMPRESSION: No acute process. D/ / Oliver Servin MD / Oliver Servin MD Interpreting Provider: Oliver Servin MD X-Ray 09/17/18 14:51 IMPRESSION: Tip and side port of the enteric tube in the distal esophagus. Recommend advancement. The findings were sent to the Radiology Results Communication Center at 4:05 pm on 09/17/2018to be communicated to a licensed caregiver. D/ / Oliver Servin MD / Oliver Servin MD Interpreting Provider: Oliver Servin MD X-Ray 09/17/18 16:22 IMPRESSION: Gastric tube now terminates in the gastric fundus with the sideport in the fundus below the gastroesophageal junction. D/ / Da Aggarwal MD / Da Aggarwal MD Interpreting Provider: Da Aggarwal MD - VTE Documentation of Mechanical Device: Intermittent pneumatic compression device Consult Discharge Plan - Plan Instructions: Exploratory Laparotomy (DC), Lysis of Abdominal Adhesions (DC) Additional Instructions: General Surgical Discharge Instructions 1. No pushing, pulling, or lifting greater than 15 lbs for 4 weeks (depending upon procedure). 2. You may shower beginning today, but no tub baths, soaking, or swimming for 2 weeks. 3. You may resume driving when you are off narcotics and are safe to react in a car. 4. Take ibuprofen every 8 hours for discomfort. If this does not relieve discomfort, you may take the as needed Percocet. Take narcotics as directed. Do not take more narcotics then directed and do not share your narcotics with any other person. Do not drink alcohol while on narcotics. 5. Take stool softeners (Colace) or a water based laxative (Miralax) while taking narcotics. You may hold for loose stools. 6. Report any fevers greater than 100.5F, increase abdominal discomfort, deepa inage that looks like pus, increased redness or pain at the surgical site, or any vomiting. 7. Report any pain in the calves, shortness of breath, or rapid heartbeat. 8. Follow-up in the office as directed. 9. If you were prescribed antibiotics, do not stop them without talking to your provider. Referrals: Do Gilmore [employer] [Advanced Practice Nurse] - 09/26/18 3:00 pm NONE,PCP [Primary Care Provider] - <Jessica Whitaker - Last Filed: 09/18/18 14:09> Hospitalist Progress Note - Exam Vitals: Temp Pulse Resp BP Pulse Ox 97.6 F 90 20 159/65 98 09/18/18 11:55 09/18/18 11:55 09/18/18 11:55 09/18/18 11:55 09/18/18 11:55 - Assessment and Plan (1) DVT prophylaxis Current Visit: Yes Status: Acute (2) GERD (gastroesophageal reflux disease) Current Visit: No Status: Chronic (3) Elevated troponin Current Visit: Yes Status: Acute (4) Paroxysmal atrial fibrillation Current Visit: Yes Status: Acute (5) Severe protein-calorie malnutrition Current Visit: Yes Status: Chronic (6) Small bowel obstruction due to adhesions Current Visit: Yes Status: Acute (7) Hypertension Current Visit: No Status: Chronic (8) Acute kidney injury Current Visit: Yes Status: Acute - Time Spent with Patient Total time spent is greater than 50% in coordination of care (as documented) at patient's floor/unit and/or counseling patient: Internal Medicine: Result - Labs CBC & Chem 7: 09/17/18 05:22 09/17/18 05:22 - ABG Interpretation ABG results: PT/INR, D-dimer PT 13.1 Seconds (9.4-12.1) H 09/04/18 16:01 - Impressions Impressions Chest/Abdomen X-ray 09/13/18 10:52 IMPRESSION: Pneumoperitoneum. This may be secondary to recent surgery but would recommend correlation with recent surgical history. Distended loops of small bowel throughout the abdomen suggesting a distal small bowel obstruction. Residual contrast in the bowel in the right abdomen. No acute process in the lungs. D/ / 09/13/2018 12:35:18 Ran Guevara MD / ryanne Interpreting Provider: Ran Guevara MD X-Ray 09/17/18 14:51 IMPRESSION: Tip and side port of the enteric tube in the distal esophagus. Recommend advancement. The findings were sent to the Radiology Results Communication Center at 4:05 pm on 09/17/2018to be communicated to a licensed caregiver. D/ / Oliver Servin MD / Oliver Servin MD Interpreting Provider: Oliver Servin MD X-Ray 09/17/18 16:22 IMPRESSION: Gastric tube now terminates in the gastric fundus with the sideport in the fundus below the gastroesophageal junction. D/ / Da Aggarwal MD / Da Aggarwal MD Interpreting Provider: Da Aggarwal MD X-Ray 09/18/18 10:25 IMPRESSION: Nondistended gas-filled loops of bowel with minimal interval transit of oral contrast, altogether may reflect a mild postoperative adynamic ileus. No obstruction. Esophagogastric tube remains coiled over the left upper quadrant/stomach. D/ / Roosevelt Aranda / Roosevelt Aranda Interpreting Provider: Roosevelt Aranda - Attending Attestation I examined this patient and my medical decision-making was reviewed with the Resident Physician Dr. Otoole. I agree with the documented findings, disposition and treatment plan as described except to the extent set forth below. Ms. Baird is a 78 year old female with no reported past medical history presented to [place] emergency department with complaint of nausea and vomiting 6 days. Pt was admitted here for SBO. Placed NG tube and continued symptomatic and supportive care. Patient small bowel obstruction improved off the NG tube now and tolerating liquid diet well. She also happen to have a fib with RVR which improved with Cardizem drip. She denied any CP. Pt still has mild abdominal distension. Loss of appetite. NG tube +. Still having low grade temps Gen: A, A, O x3 Chest: Diminished BS b/l Heart: S1S2+ Afib Abd: Soft, NS, BS+ a/p 1. Acute SBO 2. s/p Exp Celiotomy and Lysis of Adhesion 3. Pos op ileus POD # 10 NPO Placed NG tube y/d due to distended abdomen Talked to Surgery - will get CT of abdomen today also added broad spec Zosyn since pt still has low grade temps and her WBC fairly elevated Appreciate Surgery recommendations Cont TPN until pt tolerates PO intake well 3. Paroxysmal Afib rate controlled with PO Cardizem On Eliquis for anti coag 4. MIRZA due to dehydration cont gentle hydration <Ike Otoole S - Last Filed: 09/18/18 11:45> (4) GERD (gastroesophageal reflux disease) Qualifiers: Esophagitis presence: esophagitis presence not specified Qualified Code(s): K21.9 - Gastro-esophageal reflux disease without esophagitis <Jessica Whitaker - Last Filed: 09/18/18 14:09> (2) GERD (gastroesophageal reflux disease) Qualifiers: Esophagitis presence: esophagitis presence not specified Qualified Code(s): K21.9 - Gastro-esophageal reflux disease without esophagitis
--- NOTE | 2018-09-18 10:23 | General Surgery Progress Note ---
Addendum entered and electronically signed by Do Gilmore CNP 09/18/18 10:36: Please note MIRZA was resolved, but should be reactivated on this document given current creatinine is 1046.; management per primary team. Original Note: <Do Gilmore - Last Filed: 09/18/18 10:12> Date of Encounter: 09/18/18 Time of Encounter: 07:45 - Assessment and Plan (1) Small bowel obstruction Current Visit: Yes Status: Acute Date of procedure: 09/08/18 Pre-op diagnosis: Small bowel obstruction. Post-op diagnosis: other (Internal hernia/adhesion) Procedure: 1. Exploratory celiotomy. 2. Lysis of adhesion. Anesthesia: GETA Surgeon: Oscar Dickens POD # 10 as above. PT with PROLONGED postoperative ileus. Daily suppositories were ordered on 09/12, patient refused. On aprox 09/14 she was willing to adhere to treatment recommendations. She was given Relistor 09/15 with favorable results. On 09/16 she requested advancing diet which was acceptable given she has two BMs that am. She was given clears. On 09/17, she began feeling bloated and nauseated again. An NG was placed, but unfortuetly there has not been an accurate recording of output in the EMR. 09/18/2018 she is distended and firm (not rigid), involuntary guarding, and tinkling bowel sounds. Concern for acute abdomen is low given minimal reports of pain and stable vitals. concern for ileus vs obstruction. will collaborate with attending surgeon Plan: continue supportive care and discomfort management NPO Continue NG to LIWS. Please ensure accurate I/O Strict I/O Continue TPN Continue dulcolax suppositories. ambulate as tolerated out of bed to chair at least TID continue G.I. and DVT prophylaxis repeat a.m. labs serial abdominal exams surgery will continue to follow along. (2) Severe protein-calorie malnutrition Current Visit: Yes Status: Chronic Continue TPN (3) Non-adherence to medical treatment Current Visit: Yes Status: Acute see above (4) Atrial fibrillation with RVR Current Visit: Yes Status: Acute per primary team (5) MIRZA (acute kidney injury) Current Visit: Yes Status: Resolved Objective Vital Signs - Last 8 Hours Temp Pulse Resp BP Pulse Ox 09/18/18 07:53 99.1 F 83 20 156/71 97 09/18/18 04:01 99.2 F 91 16 177/70 96 Intake and Output 09/17/18 09/18/18 09/18/18 23:59 07:59 15:59 Intake Total 1660 / 1660 1000 / 1000 Balance 1660 / 1660 1000 / 1000 Intake: IV Fluids 1660 / 1660 1000 / 1000 0.45% Sodium Chloride 1000 Ml 1000 / 1000 1000 Ml 1,000 ML @ 75 mls/hr IVC .[id number] AKOSUA Rx#:[id number] 0.9 % Sodium Chloride 500 ML @ 500 / 500 999 mls/hr IVC .Q31M ONE Rx#: [id number] Clinimix E 5%-15% SOLUTION 2, 1160 / 1160 000 ML @ 50 mls/hr IVC .Q24H AKOSUA with M.v.i. Adult 10 ml Rx# :[id number] Other: # Urine Diapers 2 Weight 45.1 kg Blood Glucose* 152 134 Patient Weight 09/18/18 23:59 Weight 45.1 kg - Labs 09/17/18 05:22 09/17/18 05:22 - VTE Documentation of Mechanical Device: Intermittent pneumatic compression device Consult Discharge Plan - Plan Instructions: Exploratory Laparotomy (DC), Lysis of Abdominal Adhesions (DC) Additional Instructions: General Surgical Discharge Instructions 1. No pushing, pulling, or lifting greater than 15 lbs for 4 weeks (depending upon procedure). 2. You may shower beginning today, but no tub baths, soaking, or swimming for 2 weeks. 3. You may resume driving when you are off narcotics and are safe to react in a car. 4. Take ibuprofen every 8 hours for discomfort. If this does not relieve discomfort, you may take the as needed Percocet. Take narcotics as directed. Do not take more narcotics then directed and do not share your narcotics with any other person. Do not drink alcohol while on narcotics. 5. Take stool softeners (Colace) or a water based laxative (Miralax) while taking narcotics. You may hold for loose stools. 6. Report any fevers greater than 100.5F, increase abdominal discomfort, d rainage that looks like pus, increased redness or pain at the surgical site, or any vomiting. 7. Report any pain in the calves, shortness of breath, or rapid heartbeat. 8. Follow-up in the office as directed. 9. If you were prescribed antibiotics, do not stop them without talking to your provider. Referrals: Do Gilmore, [employer] [Advanced Practice Nurse] - 09/26/18 3:00 pm NONE,PCP [Primary Care Provider] - <Oscar Dickens - Last Filed: 09/19/18 07:00> Date of Encounter: 09/18/18 Objective Vital Signs - Last 8 Hours Temp Pulse Resp BP Pulse Ox 09/19/18 04:34 98.5 F 89 15 157/69 95 09/18/18 23:59 98.3 F 91 15 146/68 98 Intake and Output 09/18/18 09/18/18 09/19/18 15:59 23:59 07:59 Intake Total 1000 / 1000 3536 / 3536 1250 / 1250 Output Total 2350 / 2350 1150 / 1150 Balance 1000 / 1000 1186 / 1186 100 / 100 Intake: IV Fluids 1000 / 1000 3536 / 3536 1250 / 1250 0.45% Sodium Chloride 1000 Ml 1000 / 1000 1000 / 1000 1000 Ml 1,000 ML @ 75 mls/hr IVC .[id number] AKOSUA Rx#:[id number] Clinimix E 5%-15% SOLUTION 2, 3436 / 3436 000 ML @ 50 mls/hr IVC .Q24H AKOSUA with M.v.i. Adult 10 ml Rx# :[id number] Intralipid 20% 250 ML @ 21 mls/ 250 / 250 hr IVPB MoWeFr@1700 AKOSUA Rx#: [id number] Zosyn 3.375 GM In 0.9 % Sodium 100 / 100 Chloride (Mini-Bag +) 100 ML @ 25 mls/hr IVPB Q12HR AKOSUA Rx#: [id number] Output: Catheter 2350 / 2350 600 / 600 Gastric Drainage 550 / 550 Right Nare 550 / 550 Other: Weight 45.9 kg Blood Glucose* 161 141 107 - Labs 09/19/18 04:56 09/19/18 04:56 Diabetes panel 09/19/18 Range/Units 04:56 Sodium 142 (136-145) mEq/L Potassium 3.8 (3.5-5.1) mEq/L Chloride 109 H (98-107) mEq/L Carbon Dioxide 29 (23-29) mEq/L BUN 29 H (8-23) mg/dL Creatinine 0.60 (0.60-1.20) mg/dL Glucose 99 (70-105) mg/dL Calcium 8.2 L (8.6-10.3) mg/dL AST 42 H (13-39) Units/L ALT 66 H (7-52) Units/L Alkaline Phosphatase 260 H (34-104) Units/L Albumin 2.2 L (3.5-5.7) g/dL Calcium panel 09/19/18 Range/Units 04:56 Calcium 8.2 L (8.6-10.3) mg/dL Phosphorus 3.1 (2.7-4.5) mg/dL Albumin 2.2 L (3.5-5.7) g/dL Pituitary panel 09/19/18 Range/Units 04:56 Sodium 142 (136-145) mEq/L Potassium 3.8 (3.5-5.1) mEq/L Chloride 109 H (98-107) mEq/L Carbon Dioxide 29 (23-29) mEq/L BUN 29 H (8-23) mg/dL Creatinine 0.60 (0.60-1.20) mg/dL Glucose 99 (70-105) mg/dL Calcium 8.2 L (8.6-10.3) mg/dL Adrenal panel 09/19/18 Range/Units 04:56 Sodium 142 (136-145) mEq/L Potassium 3.8 (3.5-5.1) mEq/L Chloride 109 H (98-107) mEq/L Carbon Dioxide 29 (23-29) mEq/L BUN 29 H (8-23) mg/dL Creatinine 0.60 (0.60-1.20) mg/dL Glucose 99 (70-105) mg/dL Calcium 8.2 L (8.6-10.3) mg/dL Total Bilirubin 0.5 (0.3-1.0) mg/dL AST 42 H (13-39) Units/L ALT 66 H (7-52) Units/L Alkaline Phosphatase 260 H (34-104) Units/L Albumin 2.2 L (3.5-5.7) g/dL - Attending Attestation I have personally performed a face to face evaluation on this patient. I have reviewed and agree with the care plan. History and Exam by me shows: I reviewed the above assessment and evaluation agree with the above plan. CT scan performed showing a very distended bladder. Contrast was noted into the colon with decreased caliber of the small bowel denoting resolution of obstruction/ileus. NG tube still in place. Will consider adding MiraLAX/Gatorade to the NG tube to help clear the colon to ensure resolution of obstructive symptoms.
[2018-09-18] MEDS: Insulin LISPRO 300 UNITS/3 ML VIAL SQ SCH ×4 (10:53→21:20)
[2018-09-18] MEDS ORDERED: Isovue-370 500 ML INFUS..BTL PO ONE (11:55)
[2018-09-18] MEDS: Apixaban 5 MG TABLET PO SCH ×2 (11:58→21:20)
[2018-09-18] MEDS: Docusate Oral Soln 100 MG/10 ML UDC PO SCH (11:58)
[2018-09-18] MEDS: Diltiazem CD (24hr) 180 MG CAPSULE PO SCH (11:58)
--- NOTE | 2018-09-18 15:55 | Event Note ---
Date of Encounter: 09/18/18 Time of Encounter: 15:53 Noted severely distended bladder per CT. Orders placed for mcdaniel cath and ua. Reviewed with primary for consideration of urology/nephrology consults.
[2018-09-18] MEDS ORDERED: Methylnaltrexone 12 MG/0.6 ML SYRINGE SQ ONE (16:20)
[2018-09-18 16:56] LABS: Bilirubin,Urine Negative (Negative); Blood,Urine Large (Negative); Clarity,Urine Cloudy (Clear); Color,Urine Yellow (Yellow); Glucose,Urine (UA) Normal (Normal); Ketones,Urine Negative (Negative); Leukocyte Esterase,Urine Moderate (Negative); Nitrite,Urine Negative (Negative); Protein,Urine Negative (Neg-Trace); Specific Gravity,Urine 1.021 (1.010-1.025); Urobilinogen,Urine Normal (Normal)
[2018-09-18 16:59] LABS: Bacteria,Urine None Seen per hpf (None-Few); Hyaline Casts,Urine Few per lpf (None-Few); RBC,Urine 15-30 per hpf (0-3); Squamous Epithelial Cell,Urine Many per lpf (None-Few)
[2018-09-18] MEDS ORDERED: Clinimix E 5%-15% SOLUTION 2,000 ML with MVI, adult with vitamin K 10 ML IVC SCH (17:00)
[2018-09-18] MEDS: Clinimix E 5%-15% SOLUTION 2,000 ML with MVI, adult with vitamin K 10 ML IVC SCH (18:38)
[2018-09-18] MEDS: Piperacillin/Tazobactam 3.375 GM in 0.9 % Sodium Chloride Mini Bag 100 ML IVPB SCH (18:47)
[2018-09-18] MEDS: Bisacodyl 10 MG RECTAL SUPPOSITORY RC SCH (21:24)
[2018-09-19] MEDS: Piperacillin/Tazobactam 3.375 GM in 0.9 % Sodium Chloride Mini Bag 100 ML IVPB SCH ×2 (05:05→16:17)
[2018-09-19 05:21] LABS: Basophils % 0.2 %; Eosinophils # 0.2 K/mcL (0.0-0.6); Eosinophils % 2.8 %; Hematocrit 28.9 % (35.3-44.9); Hemoglobin 9.2 g/dL (11.5-15.4); Immature Granulocytes % 0.6 % (0-4); Lymphocytes # 0.7 K/mcL (0.6-4.6); Lymphocytes % 7.9 %; Mean Corpuscular HGB Conc 31.8 g/dL (31.6-35.5); Mean Corpuscular Hemoglobin 30.3 pg (28.0-33.3); Mean Corpuscular Volume 95.1 fL (83.0-100.0); Mean Platelet Volume 10.1 fL (9.4-12.4); Monocytes # 0.5 K/mcL (0.0-1.3); Monocytes % 6.3 %; Neutrophils # 7.1 K/mcL (1.6-8.9); Platelet Count 221 K/mcL (140-400); Red Blood Count 3.04 M/mcL (3.82-4.97); Red Cell Distribution Width 13.2 % (11.5-14.5); Segmented Neutrophils % 82.2 %
[2018-09-19 05:36] LABS: Alanine Aminotransferase 66 Units/L (7-52); Albumin 2.2 g/dL (3.5-5.7); Albumin/Globulin Ratio 0.9 (1.1-2.2); Alkaline Phosphatase 260 Units/L (34-104); Aspartate Amino Transferase 42 Units/L (13-39); BUN/Creatinine Ratio 48 (6-26); Bilirubin,Total 0.5 mg/dL (0.3-1.0); Blood Urea Nitrogen 29 mg/dL (8-23); Calcium 8.2 mg/dL (8.6-10.3); Carbon Dioxide 29 mEq/L (23-29); Chloride 109 mEq/L (98-107); Globulin 2.5 g/dL (2.4-3.5); Glucose 99 mg/dL (70-105); Magnesium 2.1 mg/dL (1.6-2.6); Osmolality,Calculated 300 (280-300); Phosphorous 3.1 mg/dL (2.7-4.5); Potassium 3.8 mEq/L (3.5-5.1); Sodium 142 mEq/L (136-145); Total Protein 4.7 g/dL (6.4-8.9); eGFR For Non-African Americans > 60 (> 60)
[2018-09-19] MEDS: Diltiazem CD (24hr) 180 MG CAPSULE PO SCH (07:40)
[2018-09-19] MEDS: Docusate Oral Soln 100 MG/10 ML UDC PO SCH (07:40)
[2018-09-19] MEDS: Apixaban 5 MG TABLET PO SCH ×3 (07:40→23:29)
[2018-09-19] MEDS: Insulin LISPRO 300 UNITS/3 ML VIAL SQ SCH ×4 (07:44→22:32)
[2018-09-19] MEDS ORDERED: Polyethylene Glycol 3350 255 GM POWDER PO ONE (08:03)
--- NOTE | 2018-09-19 08:09 | General Surgery Progress Note ---
<Do Gilmore - Last Filed: 09/19/18 08:11> Date of Encounter: 09/19/18 Time of Encounter: 08:06 - Assessment and Plan (1) Small bowel obstruction Current Visit: Yes Status: Acute Date of procedure: 09/08/18 Pre-op diagnosis: Small bowel obstruction. Post-op diagnosis: other (Internal hernia/adhesion) Procedure: 1. Exploratory celiotomy. 2. Lysis of adhesion. Anesthesia: GETA Surgeon: Oscar Dickens POD # 11 as above. PT with PROLONGED postoperative ileus. Daily suppositories were ordered on 09/12, patient refused. On aprox 09/14 she was willing to adhere to treatment recommendations. She was given Relistor 09/15 with favorable results. On 09/16 she requested advancing diet which was acceptable given she has two BMs that am. She was given clears. On 09/17, she began feeling bloated and nauseated again. An NG was placed, but unfortuetly there has not been an accurate recording of output in the EMR. Zosyn started 09/18 per primary team. 09/18 CT abd/pelvis with oral contrast noted no acute bowel process. Severely distended bladder for which mcdaniel was placed and UA ordered (management per primary team). Relistor was given. No BMs overnight noted. Plan: continue supportive care and discomfort management NPO except Ice chips aprox 500 ml NG output 24 hours. Clamp NG for Miralax bowel prep (1/2 bottle) May return to suction if patient vomits Continue TPN Continue dulcolax suppositories. ambulate as tolerated out of bed to chair at least TID continue G.I. and DVT prophylaxis repeat a.m. labs serial abdominal exams surgery will continue to follow along. (2) Severe protein-calorie malnutrition Current Visit: Yes Status: Chronic Continue TPN (3) Non-adherence to medical treatment Current Visit: Yes Status: Acute see above (4) Atrial fibrillation with RVR Current Visit: Yes Status: Acute per primary team (5) MIRZA (acute kidney injury) Current Visit: Yes Status: Acute Likely 2/2 acute urinary retention creatinine decreased from 1.46 to 0.60 after Mcdaniel placement. Further management per primary team. Subjective Narrative: drowsy. States no new complaints. Denies abdominal pain Objective Vital Signs - Last 8 Hours Temp Pulse Resp BP Pulse Ox 09/19/18 07:39 98.9 F 88 20 133/70 97 09/19/18 04:34 98.5 F 89 15 157/69 95 Intake and Output 09/18/18 09/19/18 09/19/18 23:59 07:59 15:59 Intake Total 3536 / 3536 1250 / 1250 Output Total 2350 / 2350 1150 / 1150 Balance 1186 / 1186 100 / 100 Intake: IV Fluids 3536 / 3536 1250 / 1250 0.45% Sodium Chloride 1000 Ml 1000 / 1000 1000 Ml 1,000 ML @ 75 mls/hr IVC .[id number] [facility] Rx#:[id number] Clinimix E 5%-15% SOLUTION 2, 3436 / 3436 000 ML @ 50 mls/hr IVC .Q24H [facility] with M.v.i. Adult 10 ml Rx# :[id number] Intralipid 20% 250 ML @ 21 mls/ 250 / 250 hr IVPB MoWeFr@1700 [facility] Rx#: [id number] Zosyn 3.375 GM In 0.9 % Sodium 100 / 100 Chloride (Mini-Bag +) 100 ML @ 25 mls/hr IVPB Q12HR [facility] Rx#: [id number] Output: Catheter 2350 / 2350 600 / 600 Gastric Drainage 550 / 550 Right Nare 550 / 550 Other: Weight 45.9 kg Blood Glucose* 141 116 - General physical appearance no distress, no pain - Eyes normal ocular movement - ENT normal nares (NG noted; pullled back 6 cm 09/18/2018), poor custodial, normocephalic - Neck Neck exam: no masses - Respiratory normal expansion, normal respiratory effort, clear to auscultation - Cardiovascular Cardiovascular exam: Present: RRR, distant heart sounds - Abdomen Abdomen: Present: bowel sounds present, soft, non tender, distended (mildly at most) - Incision Incision: Present: clean and dry, intact - Neurologic normal sensation - Musculoskeletal normal posture - Psychiatric other (drowsy) - Labs 09/19/18 04:56 09/19/18 04:56 Diabetes panel 09/19/18 Range/Units 04:56 Sodium 142 (136-145) mEq/L Potassium 3.8 (3.5-5.1) mEq/L Chloride 109 H (98-107) mEq/L Carbon Dioxide 29 (23-29) mEq/L BUN 29 H (8-23) mg/dL Creatinine 0.60 (0.60-1.20) mg/dL Glucose 99 (70-105) mg/dL Calcium 8.2 L (8.6-10.3) mg/dL AST 42 H (13-39) Units/L ALT 66 H (7-52) Units/L Alkaline Phosphatase 260 H (34-104) Units/L Albumin 2.2 L (3.5-5.7) g/dL Calcium panel 09/19/18 Range/Units 04:56 Calcium 8.2 L (8.6-10.3) mg/dL Phosphorus 3.1 (2.7-4.5) mg/dL Albumin 2.2 L (3.5-5.7) g/dL Pituitary panel 09/19/18 Range/Units 04:56 Sodium 142 (136-145) mEq/L Potassium 3.8 (3.5-5.1) mEq/L Chloride 109 H (98-107) mEq/L Carbon Dioxide 29 (23-29) mEq/L BUN 29 H (8-23) mg/dL Creatinine 0.60 (0.60-1.20) mg/dL Glucose 99 (70-105) mg/dL Calcium 8.2 L (8.6-10.3) mg/dL Adrenal panel 09/19/18 Range/Units 04:56 Sodium 142 (136-145) mEq/L Potassium 3.8 (3.5-5.1) mEq/L Chloride 109 H (98-107) mEq/L Carbon Dioxide 29 (23-29) mEq/L BUN 29 H (8-23) mg/dL Creatinine 0.60 (0.60-1.20) mg/dL Glucose 99 (70-105) mg/dL Calcium 8.2 L (8.6-10.3) mg/dL Total Bilirubin 0.5 (0.3-1.0) mg/dL AST 42 H (13-39) Units/L ALT 66 H (7-52) Units/L Alkaline Phosphatase 260 H (34-104) Units/L Albumin 2.2 L (3.5-5.7) g/dL - VTE Documentation of Mechanical Device: Intermittent pneumatic compression device Consult Discharge Plan - Plan Instructions: Exploratory Laparotomy (DC), Lysis of Abdominal Adhesions (DC) Additional Instructions: General Surgical Discharge Instructions 1. No pushing, pulling, or lifting greater than 15 lbs for 4 weeks (depending upon procedure). 2. You may shower beginning today, but no tub baths, soaking, or swimming for 2 weeks. 3. You may resume driving when you are off narcotics and are safe to react in a car. 4. Take ibuprofen every 8 hours for discomfort. If this does not relieve discomfort, you may take the as needed Percocet. Take narcotics as directed. Do not take more narcotics then directed and do not share your narcotics with any other person. Do not drink alcohol while on narcotics. 5. Take stool softeners (Colace) or a water based laxative (Miralax) while doc ing narcotics. You may hold for loose stools. 6. Report any fevers greater than 100.5F, increase abdominal discomfort, drainage that looks like pus, increased redness or pain at the surgical site, or any vomiting. 7. Report any pain in the calves, shortness of breath, or rapid heartbeat. 8. Follow-up in the office as directed. 9. If you were prescribed antibiotics, do not stop them without talking to your provider. Referrals: Do Gilmore, BARREL CHARRER HELPER [Advanced Practice Nurse] - 09/26/18 3:00 pm NONE,PCP [Primary Care Provider] - <Oscar Dickens - Last Filed: 09/20/18 04:44> Date of Encounter: 09/19/18 Objective Vital Signs - Last 8 Hours Temp Pulse Resp BP Pulse Ox 09/20/18 00:15 99.1 F 78 18 152/77 99 Intake and Output 09/19/18 09/19/18 09/20/18 15:59 23:59 07:59 Intake Total 100 / 100 Output Total 750 / 750 650 / 650 Balance -750 / -750 -550 / -550 Intake: IV Fluids 100 / 100 Zosyn 3.375 GM In 0.9 % Sodium 100 / 100 Chloride (Mini-Bag +) 100 ML @ 25 mls/hr IVPB Q8HR [facility] Rx#: [id number] Output: Urine 650 / 650 Catheter 750 / 750 Other: Stool Size Moderate Moderate Stool Consistency liquid liquid Stool Color Brown Brown # Bowel Movements 1 Blood Glucose* 151 100 - Labs 09/19/18 04:56 09/19/18 04:56 Diabetes panel 09/19/18 Range/Units 04:56 Sodium 142 (136-145) mEq/L Potassium 3.8 (3.5-5.1) mEq/L Chloride 109 H (98-107) mEq/L Carbon Dioxide 29 (23-29) mEq/L BUN 29 H (8-23) mg/dL Creatinine 0.60 (0.60-1.20) mg/dL Glucose 99 (70-105) mg/dL Calcium 8.2 L (8.6-10.3) mg/dL AST 42 H (13-39) Units/L ALT 66 H (7-52) Units/L Alkaline Phosphatase 260 H (34-104) Units/L Albumin 2.2 L (3.5-5.7) g/dL Calcium panel 09/19/18 Range/Units 04:56 Calcium 8.2 L (8.6-10.3) mg/dL Phosphorus 3.1 (2.7-4.5) mg/dL Albumin 2.2 L (3.5-5.7) g/dL Pituitary panel 09/19/18 Range/Units 04:56 Sodium 142 (136-145) mEq/L Potassium 3.8 (3.5-5.1) mEq/L Chloride 109 H (98-107) mEq/L Carbon Dioxide 29 (23-29) mEq/L BUN 29 H (8-23) mg/dL Creatinine 0.60 (0.60-1.20) mg/dL Glucose 99 (70-105) mg/dL Calcium 8.2 L (8.6-10.3) mg/dL Adrenal panel 09/19/18 Range/Units 04:56 Sodium 142 (136-145) mEq/L Potassium 3.8 (3.5-5.1) mEq/L Chloride 109 H (98-107) mEq/L Carbon Dioxide 29 (23-29) mEq/L BUN 29 H (8-23) mg/dL Creatinine 0.60 (0.60-1.20) mg/dL Glucose 99 (70-105) mg/dL Calcium 8.2 L (8.6-10.3) mg/dL Total Bilirubin 0.5 (0.3-1.0) mg/dL AST 42 H (13-39) Units/L ALT 66 H (7-52) Units/L Alkaline Phosphatase 260 H (34-104) Units/L Albumin 2.2 L (3.5-5.7) g/dL - Attending Attestation I have personally performed a face to face evaluation on this patient. I have reviewed and agree with the care plan. History and Exam by me shows: Review the above assessment and evaluation and agree with the above plan. Patient had 3-4 bowel movements since the MiraLAX/Gatorade was administered through the NG tube. Abdomen soft and nontender. She denies any nausea. Will allow clear liquids and if she tolerates this overnight without any abdominal distention and morning then we will consider removal of NG tube and further advancement of her diet.
--- NOTE | 2018-09-19 08:53 | Internal Med Progress Note ---
<OtooleIke S - Last Filed: 09/19/18 10:50> Hospitalist Progress Note - Encounter Date of Encounter: 09/19/18 Time of Encounter: 08:49 - Subjective Interval History: Pt is seen at bedside. She was initially admitted for N/V and was found to have a SBO. The pt was also found to be in a fib with RVR and was tx with cardizem. She is hopsital day 15 and is POD #11 s/p explorator lap, KRYSTIN. She currently has a post operative ileus and is being followed by general sx who placed a NG tube 09/17 for post-op ileus. She hasn't eaten anything today. The pt denies any N/V, no BM since 09/16. Denies chest pain, SOB. Nursing reported no overnight events. - Exam Vitals: Temp Pulse Resp BP Pulse Ox 98.9 F 88 20 133/70 97 09/19/18 07:39 09/19/18 07:39 09/19/18 07:39 09/19/18 07:39 09/19/18 07:39 Exam: Constitutional: Alert, in no acute distress, laying in bed HEENT: Normocephalic, atraumatic, moist mucus membranes, NG tube in place Heart: Regular rhythm, no murmurs, no edema Lungs: lungs clear and equal bilaterally, no rhonchi, no wheeze Abdomen: dressing on midline of abdomen, diminished bowel sounds, nontender, no rigidity, incision is clean and dry Extremities: No edema of lower extremity or upper extremities, warm, nontender Skin: Skin warm and dry, no lesions, no rashes, no jaundice, no edema Neurological: Alert and oriented x 3 - Assessment and Plan (1) Small bowel obstruction due to adhesions Current Visit: Yes Status: Acute Assessment and Plan: POD #11 s/p ex. laporectomy on 09/07/[address] Wells - pt had a BM 09/16, reports no BM today - abd pain resolving, pt has no c/o abd pain CT abdomen 09/13/18: Distended loops of small bowel throughout the abdomen suggesting a distal small bowel obstruction. Residual contrast in the bowel in the right abdomen. KUB on 09/17/18 - nonobstructive bowel gas pattern KUB on 09/18 showed nondistended gas filled loops of bowel , minimal interval transit of PO contrast - mild post op adynamic ileus - no obstruction CT on 09/18 - signif bilat hydronephrosis and hydroureter , no evidence of stones - severly distended bladder NG output ~500 mL in 24hr Plan: - Surgery following, appreciate recommendations Sx recommending continued TPN - on electrolytes and Intralipid 20% - pain control with percocet - on dulcolax - promethazine for nausea - NG tube in place, confirmed position yesterday Sx clamped NG tube for Miralax bowel prep - continue serial abd exams - NPO except for ice chips as per sx - Zosyn day 2 - up to chair from bed TID (2) Paroxysmal atrial fibrillation Current Visit: Yes Status: Chronic Assessment and Plan: Newly diagnosed a fib - EKG at [facility] showed A fib with RVR -pt currently in sinus rhythm , HR currently 83 -CHADVASc of 4 (age 78, female, hx of HTN) Pt had ECHO on 09/04 -LVEF 60-65% -normal LV chamber size, wall thickness, fxn -mild left ventricular diastolic fusfxn Plan: -cardiology consulted, recommended jail anticoagulation therapy -pt is on 180mg PO cardizem as per cardiology -pt is on PO eliquis as per cardiology (3) DVT prophylaxis Current Visit: Yes Status: Acute Assessment and Plan: On eliquis; scds ordered (4) GERD (gastroesophageal reflux disease) Current Visit: No Status: Chronic Assessment and Plan: Continue PO omeprazole (5) Severe protein-calorie malnutrition Current Visit: Yes Status: Chronic Assessment and Plan: Prealbumin of 12.1 on 09/07 -pt is currently receiving TPN Plan: -NPO except for ice chips as per cardiology -TPN as per surgery recommendations Fat Emulsion IV (intralipid 20%) Amino acids/electrolytes 50mls/hr -progress diet after post-op ileus resolved -plan to give ensure TID (6) Hypertension Current Visit: No Status: Chronic Assessment and Plan: BP this morning 133/70 Plan: -continue cardizem -hydralazine 10mg q6hr prn -on telemetry (7) Acute kidney injury Current Visit: Yes Status: Acute Assessment and Plan: Creatinine on admission 1.67 -creatinine 09/17 - 1.46 - creatinine 09/19 - 0.6 -baseline no available, pt has never been to this hospital -GFR 09/17 = 34; admission = 30 MIRZA likely secondary to dehydration and poor PO intake - has resolved I&O's 09/17 -I total - 1250mL -O total - 1150 mL -Balance - 100 mL Plan: -Continue I/Os - continue fluids, pt currently on 75cc/hr 0.45% NaCl - UA pending - continue to monitor sukh mccraryn (8) Elevated troponin Current Visit: Yes Status: Acute Assessment and Plan: Pt had a troponin of 0.57 on admission, decreased to 0.42 -most likely due to a type II AL secondar to A fib with RVR (9) Bladder distention Current Visit: Yes Status: Acute Assessment and Plan: CT on 09/18 - signif bilat hydronephrosis and hydroureter , no evidence of stones - severly distended bladder Plan: - mcdaniel catheter placed - urology consulted - retroperitoneal ultrasound ordered - monitor I&O's DVT Prophylaxis: eliquis - Time Spent with Patient Total time spent is greater than 50% in coordination of care (as documented) at patient's floor/unit and/or counseling patient: less than 15 minutes Plan of Care Discussed with: patient Internal Medicine: Result - Labs CBC & Chem 7: 09/19/18 04:56 09/19/18 04:56 Labs: Short CBC 09/19/18 Range/Units 04:56 WBC 8.6 (4.3-11.1) K/mcL Hgb 9.2 L (11.5-15.4) g/dL Hct 28.9 L (35.3-44.9) % Plt Count 221 (140-400) K/mcL Neutrophils # 7.1 (1.6-8.9) K/mcL BMP 09/19/18 04:56 Sodium 142 Potassium 3.8 Chloride 109 H Carbon Dioxide 29 BUN 29 H Creatinine 0.60 Glucose 99 Calcium 8.2 L Liver Function 09/19/18 Range/Units 04:56 Total Bilirubin 0.5 (0.3-1.0) mg/dL AST 42 H (13-39) Units/L ALT 66 H (7-52) Units/L Alkaline Phosphatase 260 H (34-104) Units/L Albumin 2.2 L (3.5-5.7) g/dL Urine 09/18/18 Range/Units 16:25 Urine Color Yellow (Yellow) Urine Clarity Cloudy A (Clear) Urine pH 6.0 (5.0-8.0) pH Units Ur Specific [place] 1.021 (1.010-1.025) Urine Protein Negative (Neg-Trace) mg/dL Urine Glucose (UA) Normal (Normal) mg/dL - ABG Interpretation ABG results: PT/INR, D-dimer PT 13.1 Seconds (9.4-12.1) H 09/04/18 16:01 - Impressions Impressions KUB X-Ray 09/18/18 10:25 IMPRESSION: Nondistended gas-filled loops of bowel with minimal interval transit of oral contrast, altogether may reflect a mild postoperative adynamic ileus. No obstruction. Esophagogastric tube remains coiled over the left upper quadrant/stomach. D/ / Roosevelt Aranda / Roosevelt Aranda Interpreting Provider: Roosevelt Aranda Abdomen/Pelvis CT 09/18/18 13:45 IMPRESSION: 1. Significant bilateral hydronephrosis and hydroureter but no evidence of stones. Severely distended urinary bladder is noted. 2. Mild atelectatic changes left lower lobe. 3. No evidence of acute gastrointestinal abnormality. Adequate position of the nasogastric tube. This represents an improvement compared with the previous evaluation. RECOMMENDATIONS: Mcdaniel catheter to decompress the urinary bladder. D/ / 09/18/2018 15:36:05 Mely Wade MD / Caity Lima Interpreting Provider: Mely Wade MD - VTE Documentation of Mechanical Device: Intermittent pneumatic compression device Consult Discharge Plan - Plan Instructions: Exploratory Laparotomy (DC), Lysis of Abdominal Adhesions (DC) Additional Instructions: General Surgical Discharge Instructions 1. No pushing, pulling, or lifting greater than 15 lbs for 4 weeks (depending upon procedure). 2. You may shower beginning today, but no tub baths, soaking, or swimming for 2 weeks. 3. You may resume driving when you are off narcotics and are safe to react in a car. 4. Take ibuprofen every 8 hours for discomfort. If this does not relieve discomfort, you may take the as needed Percocet. Take narcotics as directed. Do not take more narcotics then directed and do not share your narcotics with any other person. Do not drink alcohol while on narcotics. 5. Take stool softeners (Colace) or a water based laxative (Miralax) while taking narcotics. You may hold for loose stools. 6. Report any fevers greater than 100.5F, increase abdominal discomfort, drainage that looks like pus, increased redness or pain at the surgical site, or any vomiting. 7. Report any pain in the calves, shortness of breath, or rapid heartbeat. 8. Follow-up in the office as directed. 9. If you were prescribed antibiotics, do not stop them without talking to your provider. Referrals: Do Gilmore, PENETRATION TESTER [Advanced Practice Nurse] - 09/26/18 3:00 pm NONE,PCP [Primary Care Provider] - <Jonna Amador - Last Filed: 09/19/18 13:48> Hospitalist Progress Note - Exam Vitals: Temp Pulse Resp BP Pulse Ox 98.4 F 90 20 158/70 96 09/19/18 11:26 09/19/18 11:26 09/19/18 11:26 09/19/18 11:26 09/19/18 11:26 - Assessment and Plan (1) DVT prophylaxis Current Visit: Yes Status: Acute (2) GERD (gastroesophageal reflux disease) Current Visit: No Status: Chronic (3) Elevated troponin Current Visit: Yes Status: Acute (4) Paroxysmal atrial fibrillation Current Visit: Yes Status: Chronic (5) Severe protein-calorie malnutrition Current Visit: Yes Status: Chronic (6) Small bowel obstruction due to adhesions Current Visit: Yes Status: Acute (7) Hypertension Current Visit: No Status: Chronic (8) Acute kidney injury Current Visit: Yes Status: Acute (9) Bladder distention Current Visit: Yes Status: Acute - Time Spent with Patient Total time spent is greater than 50% in coordination of care (as documented) at patient's floor/unit and/or counseling patient: Internal Medicine: Result - Labs CBC & Chem 7: 09/19/18 04:56 09/19/18 04:56 Labs: Short CBC 09/19/18 Range/Units 04:56 WBC 8.6 (4.3-11.1) K/mcL Hgb 9.2 L (11.5-15.4) g/dL Hct 28.9 L (35.3-44.9) % Plt Count 221 (140-400) K/mcL Neutrophils # 7.1 (1.6-8.9) K/mcL BMP 09/19/18 04:56 Sodium 142 Potassium 3.8 Chloride 109 H Carbon Dioxide 29 BUN 29 H Creatinine 0.60 Glucose 99 Calcium 8.2 L Liver Function 09/19/18 Range/Units 04:56 Total Bilirubin 0.5 (0.3-1.0) mg/dL AST 42 H (13-39) Units/L ALT 66 H (7-52) Units/L Alkaline Phosphatase 260 H (34-104) Units/L Albumin 2.2 L (3.5-5.7) g/dL Urine 09/18/18 Range/Units 16:25 Urine Color Yellow (Yellow) Urine Clarity Cloudy A (Clear) Urine pH 6.0 (5.0-8.0) pH Units Ur Specific [place] 1.021 (1.010-1.025) Urine Protein Negative (Neg-Trace) mg/dL Urine Glucose (UA) Normal (Normal) mg/dL - ABG Interpretation ABG results: PT/INR, D-dimer PT 13.1 Seconds (9.4-12.1) H 09/04/18 16:01 - Impressions Impressions Abdomen/Pelvis CT 09/18/18 13:45 IMPRESSION: 1. Significant bilateral hydronephrosis and hydroureter but no evidence of stones. Severely distended urinary bladder is noted. 2. Mild atelectatic changes left lower lobe. 3. No evidence of acute gastrointestinal abnormality. Adequate position of the nasogastric tube. This represents an improvement compared with the previous evaluation. RECOMMENDATIONS: Mcdaniel catheter to decompress the urinary bladder. D/ / 09/18/2018 15:36:05 Mely Wade MD / Caity Lima Interpreting Provider: Mely Wade MD - Attending Attestation I examined this patient and my medical decision-making was reviewed with the Resident Physician. I agree with the documented findings, disposition and treatment plan as described except to the extent set forth below. <Ike Otoole - Last Filed: 09/19/18 10:50> (4) GERD (gastroesophageal reflux disease) Qualifiers: Esophagitis presence: esophagitis presence not specified Qualified Code(s): K 21.9 - Gastro-esophageal reflux disease without esophagitis (6) Hypertension Qualifiers: Hypertension type: essential hypertension Qualified Code(s): I10 - Essential (primary) hypertension <Jonna Amador - Last Filed: 09/19/18 13:48> (2) GERD (gastroesophageal reflux disease) Qualifiers: Esophagitis presence: esophagitis presence not specified Qualified Code(s): K 21.9 - Gastro-esophageal reflux disease without esophagitis (7) Hypertension Qualifiers: Hypertension type: essential hypertension Qualified Code(s): I10 - Essential (primary) hypertension
[2018-09-19] MEDS ORDERED: Clinimix E 5%-15% SOLUTION 2,000 ML with MVI, adult with vitamin K 10 ML IVC SCH (17:00)
[2018-09-19] MEDS: Bisacodyl 10 MG RECTAL SUPPOSITORY RC SCH ×2 (22:32→23:29)
[2018-09-20] MEDS: Piperacillin/Tazobactam 3.375 GM in 0.9 % Sodium Chloride Mini Bag 100 ML IVPB SCH ×2 (00:31→09:33)
[2018-09-20 06:03] LABS: Basophils % 0.3 %; Eosinophils # 0.2 K/mcL (0.0-0.6); Eosinophils % 3.2 %; Hemoglobin 9.4 g/dL (11.5-15.4); Lymphocytes # 0.6 K/mcL (0.6-4.6); Lymphocytes % 9.4 %; Mean Corpuscular HGB Conc 31.3 g/dL (31.6-35.5); Mean Corpuscular Hemoglobin 29.6 pg (28.0-33.3); Mean Corpuscular Volume 94.3 fL (83.0-100.0); Mean Platelet Volume 10.1 fL (9.4-12.4); Monocytes # 0.5 K/mcL (0.0-1.3); Monocytes % 7.3 %; Neutrophils # 4.9 K/mcL (1.6-8.9); Platelet Count 264 K/mcL (140-400); Red Blood Count 3.18 M/mcL (3.82-4.97); Red Cell Distribution Width 12.9 % (11.5-14.5); Segmented Neutrophils % 78.8 %
--- NOTE | 2018-09-20 06:22 | General Surgery Progress Note ---
Date of Encounter: 09/20/18 Time of Encounter: 06:21 - Assessment and Plan (1) Small bowel obstruction due to adhesions Current Visit: Yes Status: Acute Patient is POD #12 of an exploration with lysis of adhesions and reduction of an internal hernia. She appears to be improving. Will check residual fluid from NG tube and if less than 400 mL an NG tube can be removed and she can be continued with further diet advancement. Subjective Patient reports: no new complaints, other (Patient states that she has been tolerating clears, no nausea. No abdominal pain. A G-tube clamped.) Objective Vital Signs - Last 8 Hours Temp Pulse Resp BP Pulse Ox 09/20/18 05:22 98.9 F 72 18 146/72 99 09/20/18 00:15 99.1 F 78 18 152/77 99 Intake and Output 09/19/18 09/19/18 09/20/18 15:59 23:59 07:59 Intake Total 100 / 100 Output Total 750 / 750 650 / 650 Balance -750 / -750 -550 / -550 Intake: IV Fluids 100 / 100 Zosyn 3.375 GM In 0.9 % Sodium 100 / 100 Chloride (Mini-Bag +) 100 ML @ 25 mls/hr IVPB Q8HR [facility] Rx#: [id number] Output: Urine 650 / 650 Catheter 750 / 750 Other: Stool Size Moderate Moderate Stool Consistency liquid liquid Stool Color Brown Brown # Bowel Movements 1 Weight 46.7 kg Blood Glucose* 151 100 Patient Weight 09/20/18 23:59 Weight 46.7 kg - General physical appearance no distress - Abdomen Abdomen: Present: bowel sounds present, soft, non tender - Labs 09/20/18 05:24 09/19/18 04:56 - VTE Documentation of Mechanical Device: Intermittent pneumatic compression device Consult Discharge Plan - Plan Instructions: Exploratory Laparotomy (DC), Lysis of Abdominal Adhesions (DC) Additional Instructions: General Surgical Discharge Instructions 1. No pushing, pulling, or lifting greater than 15 lbs for 4 weeks (depending upon procedure). 2. You may shower beginning today, but no tub baths, soaking, or swimming for 2 weeks. 3. You may resume driving when you are off narcotics and are safe to react in a car. 4. Take ibuprofen every 8 hours for discomfort. If this does not relieve discomfort, you may take the as needed Percocet. Take narcotics as directed. Do not take more narcotics then directed and do not share your narcotics with any other person. Do not drink alcohol while on narcotics. 5. Take stool softeners (Colace) or a water based laxative (Miralax) while taki ng narcotics. You may hold for loose stools. 6. Report any fevers greater than 100.5F, increase abdominal discomfort, drainage that looks like pus, increased redness or pain at the surgical site, or any vomiting. 7. Report any pain in the calves, shortness of breath, or rapid heartbeat. 8. Follow-up in the office as directed. 9. If you were prescribed antibiotics, do not stop them without talking to your provider. Referrals: Do Gilmore CNP [Advanced Practice Nurse] - 09/26/18 3:00 pm NONE,PCP [Primary Care Provider] -
[2018-09-20 06:31] LABS: BUN/Creatinine Ratio 39 (6-26); Blood Urea Nitrogen 21 mg/dL (8-23); Calcium 8.1 mg/dL (8.6-10.3); Carbon Dioxide 29 mEq/L (23-29); Chloride 105 mEq/L (98-107); Glucose 141 mg/dL (70-105); Magnesium 1.9 mg/dL (1.6-2.6); Osmolality,Calculated 289 (280-300); Phosphorous 2.7 mg/dL (2.7-4.5); Potassium 3.7 mEq/L (3.5-5.1); Sodium 137 mEq/L (136-145); eGFR For Non-African Americans > 60 (> 60)
[2018-09-20 06:32] LABS: Alanine Aminotransferase 92 Units/L (7-52); Albumin 2.3 g/dL (3.5-5.7); Alkaline Phosphatase 303 Units/L (34-104); Aspartate Amino Transferase 62 Units/L (13-39); BUN/Creatinine Ratio 39 (6-26); Bilirubin,Total 0.7 mg/dL (0.3-1.0); Blood Urea Nitrogen 21 mg/dL (8-23); Calcium 8.1 mg/dL (8.6-10.3); Carbon Dioxide 29 mEq/L (23-29); Chloride 105 mEq/L (98-107); Globulin 2.4 g/dL (2.4-3.5); Glucose 141 mg/dL (70-105); Osmolality,Calculated 291 (280-300); Potassium 3.7 mEq/L (3.5-5.1); Sodium 138 mEq/L (136-145); Total Protein 4.7 g/dL (6.4-8.9); eGFR For Non-African Americans > 60 (> 60)
--- NOTE | 2018-09-20 08:57 | Internal Med Progress Note ---
<XiangIke S - Last Filed: 09/20/18 12:04> Hospitalist Progress Note - Encounter Date of Encounter: 09/20/18 Time of Encounter: 08:54 - Subjective Interval History: Pt is seen at bedside. She was initially admitted for N/V and was found to have a SBO. The pt was also found to be in a fib with RVR and was tx with cardizem. She is hopsital day 16 and is POD #12 s/p explorator radha, KRYSTIN. She currently has a post operative ileus and is being followed by general sx who placed a NG tube 09/17 for post-op ileus. She hasn't eaten anything today but reports sx said she will be getting CLD. The pt denies any N/V, had BM yesterday 09/19. She is passing gas. Denies chest pain, SOB. Nursing reported no overnight events. - Exam Vitals: Temp Pulse Resp BP Pulse Ox 99.3 F 84 18 154/71 98 09/20/18 08:08 09/20/18 08:08 09/20/18 08:08 09/20/18 08:08 09/20/18 08:08 Exam: Constitutional: Alert, in no acute distress, laying in bed HEENT: Normocephalic, atraumatic, moist mucus membranes, NG tube in place Heart: Regular rhythm, no murmurs, no edema Lungs: lungs clear and equal bilaterally, no rhonchi, no wheeze Abdomen: dressing on midline of abdomen, diminished bowel sounds, nontender, no rigidity, incision is clean and dry Extremities: No edema of lower extremity or upper extremities, warm, nontender Skin: Skin warm and dry, no lesions, no rashes, no jaundice, no edema Neurological: Alert and oriented x 3 - Assessment and Plan (1) Small bowel obstruction due to adhesions Current Visit: Yes Status: Acute Assessment and Plan: POD #12 s/p ex. laporectomy on 09/07/[address] Wells - pt had a BM 09/19, reports no BM today - abd pain resolving, pt has no c/o abd pain - able to pass gas CT abdomen 09/13/18: Distended loops of small bowel throughout the abdomen suggesting a distal small bowel obstruction. Residual contrast in the bowel in the right abdomen. KUB on 09/17/18 - nonobstructive bowel gas pattern KUB on 09/18 showed nondistended gas filled loops of bowel , minimal interval transit of PO contrast - mild post op adynamic ileus - no obstruction CT on 09/18 - signif bilat hydronephrosis and hydroureter , no evidence of stones - severly distended bladder Plan: - Surgery following, appreciate recommendations Sx recommending continued TPN - on electrolytes and Intralipid 20% Sx to start CLD today and see if pt tolerates ---> advance diet as tolraed - pain control with percocet - on dulcolax - promethazine for nausea - NG tube in place, confirmed position yesterday Sx clamped NG tube - continue serial abd exams - CLD as tolerated - Zosyn d/c, start rocephin day 1 for possible UTI (UA had leukocyte esterase and WBC) - up to chair from bed TID (2) Paroxysmal atrial fibrillation Current Visit: Yes Status: Chronic Assessment and Plan: Newly diagnosed a fib - EKG at [facility] showed A fib with RVR -pt currently in sinus rhythm , HR currently 83 -CHADVASc of 4 (age 78, female, hx of HTN) Pt had ECHO on 09/04 -LVEF 60-65% -normal LV chamber size, wall thickness, fxn -mild left ventricular diastolic fusfxn Plan: -cardiology consulted, recommended alf anticoagulation therapy -pt is on 180mg PO cardizem as per cardiology -pt is on PO eliquis as per cardiology (3) DVT prophylaxis Current Visit: Yes Status: Acute Assessment and Plan: On eliquis; scds ordered (4) GERD (gastroesophageal reflux disease) Current Visit: No Status: Chronic Assessment and Plan: Continue PO omeprazole (5) Severe protein-calorie malnutrition Current Visit: Yes Status: Chronic Assessment and Plan: Prealbumin of 12.1 on 09/07 -pt is currently receiving TPN Plan: - CLD as tolerated - TPN as per surgery recommendations Fat Emulsion IV (intralipid 20%) Amino acids/electrolytes 50mls/hr - progress diet after post-op ileus resolved - plan to give ensure TID (6) Hypertension Current Visit: No Status: Chronic Assessment and Plan: BP this morning 154/71 Plan: - continue cardizem - hydralazine 10mg q6hr prn - on telemetry (7) Acute kidney injury Current Visit: Yes Status: Acute Assessment and Plan: Creatinine on admission 1.67 -creatinine 09/17 - 1.46 - creatinine 09/19 - 0.6 ---> 0.54 on 09/20 -baseline no available, pt has never been to this hospital -GFR 09/17 = 34; admission = 30 MIRZA likely secondary to dehydration and poor PO intake - has resolved I&O's 09/17 -I total - 1350mL -O total - 2550 mL -Balance - -1200 mL Plan: -Continue I/Os - fluids d/c - continue to monitor kindey fxn (8) Elevated troponin Current Visit: Yes Status: Acute Assessment and Plan: Pt had a troponin of 0.57 on admission, decreased to 0.42 -most likely due to a type II [place] secondar to A fib with RVR (9) Bladder distention Current Visit: Yes Status: Acute Assessment and Plan: CT on 09/18 - signif bilat hydronephrosis and hydroureter , no evidence of stones - severly distended bladder Retroperitoneal US unremarkable Plan: - mcdaniel catheter placed - urology consulted - monitor I&O's DVT Prophylaxis: eliquis - Time Spent with Patient Total time spent is greater than 50% in coordination of care (as documented) at patient's floor/unit and/or counseling patient: less than 15 minutes Plan of Care Discussed with: patient Internal Medicine: Result - Labs CBC & Chem 7: 09/20/18 05:24 09/20/18 05:24 Labs: Short CBC 09/20/18 Range/Units 05:24 WBC 6.2 (4.3-11.1) K/mcL Hgb 9.4 L (11.5-15.4) g/dL Hct 30.0 L (35.3-44.9) % Plt Count 264 (140-400) K/mcL Neutrophils # 4.9 (1.6-8.9) K/mcL BMP 09/20/18 09/20/18 05:24 05:24 Sodium 137 138 Potassium 3.7 3.7 Chloride 105 105 Carbon Dioxide 29 29 BUN 21 21 Creatinine 0.54 L 0.54 L Glucose 141 H 141 H Calcium 8.1 L 8.1 L Liver Function 10/24/18 Range/Units 05:24 Total Bilirubin 0.7 (0.3-1.0) mg/dL AST 62 H (13-39) Units/L ALT 92 H (7-52) Units/L Alkaline Phosphatase 303 H (34-104) Units/L Albumin 2.3 L (3.5-5.7) g/dL - ABG Interpretation ABG results: PT/INR, D-dimer PT 13.1 Seconds (9.4-12.1) H 09/04/18 16:01 - Impressions Impressions Retroperitoneum Ultrasound 09/19/18 16:30 IMPRESSION: Unremarkable ultrasound of the kidneys. D/ / Tae Perdomo MD / Tae Perdomo MD Interpreting Provider: Tae Perdomo MD - VTE Documentation of Mechanical Device: Intermittent pneumatic compression device Consult Discharge Plan - Plan Instructions: Exploratory Laparotomy (DC), Lysis of Abdominal Adhesions (DC) Additional Instructions: General Surgical Discharge Instructions 1. No pushing, pulling, or lifting greater than 15 lbs for 4 weeks (depending upon procedure). 2. You may shower beginning today, but no tub baths, soaking, or swimming for 2 weeks. 3. You may resume driving when you are off narcotics and are safe to react in a car. 4. Take ibuprofen every 8 hours for discomfort. If this does not relieve discomfort, you may take the as needed Percocet. Take narcotics as directed. Do not take more narcotics then directed and do not share your narcotics with any other person. Do not drink alcohol while on narcotics. 5. Take stool softeners (Colace) or a water based laxative (Miralax) while taking narcotics. You may hold for loose stools. 6. Report any fevers greater than 100.5F, increase abdominal discomfort, drai nage that looks like pus, increased redness or pain at the surgical site, or any vomiting. 7. Report any pain in the calves, shortness of breath, or rapid heartbeat. 8. Follow-up in the office as directed. 9. If you were prescribed antibiotics, do not stop them without talking to your provider. Referrals: Do Gilmore, ACIDIZER [Advanced Practice Nurse] - 09/26/18 3:00 pm NONE,PCP [Primary Care Provider] - <Jonna Amador - Last Filed: 09/20/18 13:45> Hospitalist Progress Note - Exam Vitals: Temp Pulse Resp BP Pulse Ox 99.4 F 79 17 161/71 98 09/20/18 11:49 09/20/18 11:49 09/20/18 11:49 09/20/18 11:49 09/20/18 11:49 - Assessment and Plan (1) DVT prophylaxis Current Visit: Yes Status: Acute (2) GERD (gastroesophageal reflux disease) Current Visit: No Status: Chronic (3) Elevated troponin Current Visit: Yes Status: Acute (4) Paroxysmal atrial fibrillation Current Visit: Yes Status: Chronic (5) Severe protein-calorie malnutrition Current Visit: Yes Status: Chronic (6) Small bowel obstruction due to adhesions Current Visit: Yes Status: Acute (7) Hypertension Current Visit: No Status: Chronic (8) Acute kidney injury Current Visit: Yes Status: Acute (9) Bladder distention Current Visit: Yes Status: Acute - Time Spent with Patient Total time spent is greater than 50% in coordination of care (as documented) at patient's floor/unit and/or counseling patient: Internal Medicine: Result - Labs CBC & Chem 7: 09/20/18 05:24 09/20/18 05:24 Labs: Short CBC 09/20/18 Range/Units 05:24 WBC 6.2 (4.3-11.1) K/mcL Hgb 9.4 L (11.5-15.4) g/dL Hct 30.0 L (35.3-44.9) % Plt Count 264 (140-400) K/mcL Neutrophils # 4.9 (1.6-8.9) K/mcL BMP 09/20/18 09/20/18 05:24 05:24 Sodium 137 138 Potassium 3.7 3.7 Chloride 105 105 Carbon Dioxide 29 29 BUN 21 21 Creatinine 0.54 L 0.54 L Glucose 141 H 141 H Calcium 8.1 L 8.1 L Liver Function 09/20/18 Range/Units 05:24 Total Bilirubin 0.7 (0.3-1.0) mg/dL AST 62 H (13-39) Units/L ALT 92 H (7-52) Units/L Alkaline Phosphatase 303 H (34-104) Units/L Albumin 2.3 L (3.5-5.7) g/dL - ABG Interpretation ABG results: PT/INR, D-dimer PT 13.1 Seconds (9.4-12.1) H 09/04/18 16:01 - Impressions Impressions Retroperitoneum Ultrasound 09/19/18 16:30 IMPRESSION: Unremarkable ultrasound of the kidneys. D/ / Tae Perdomo MD / Tae Perdomo MD Interpreting Provider: Tae Perdomo MD - Attending Attestation I examined this patient and my medical decision-making was reviewed with the Resident Physician. I agree with the documented findings, disposition and jyoti atment plan as described except to the extent set forth below. <Ike Otoole - Last Filed: 09/20/18 12:04> (4) GERD (gastroesophageal reflux disease) Qualifiers: Esophagitis presence: esophagitis presence not specified Qualified Code(s): K21.9 - Gastro-esophageal reflux disease without esophagitis (6) Hypertension Qualifiers: Hypertension type: essential hypertension Qualified Code(s): I10 - Essential (primary) hypertension <KarenradhavioletaJonna - Last Filed: 09/20/18 13:45> (2) GERD (gastroesophageal reflux disease) Qualifiers: Esophagitis presence: esophagitis presence not specified Qualified Code(s): K21.9 - Gastro-esophageal reflux disease without esophagitis (7) Hypertension Qualifiers: Hypertension type: essential hypertension Qualified Code(s): I10 - Essential (primary) hypertension
[2018-09-20] MEDS: Insulin LISPRO 300 UNITS/3 ML VIAL SQ SCH ×4 (09:26→21:33)
[2018-09-20] MEDS: Docusate Oral Soln 100 MG/10 ML UDC PO SCH (09:31)
[2018-09-20] MEDS: Diltiazem CD (24hr) 180 MG CAPSULE PO SCH (09:31)
[2018-09-20] MEDS: Apixaban 5 MG TABLET PO SCH ×2 (09:32→21:33)
[2018-09-20] MEDS: cefTRIAXone 2,000 MG in Water for inj. (sterile) 20 ML 20 ML IVP SCH (13:10)
--- NOTE | 2018-09-20 14:45 | Urology - Consult Note ---
Date of Encounter: 09/20/18 Time of Encounter: 14:43 - Assessment and Plan (1) Acute urinary retention Current Visit: Yes Status: Acute Assessment and plan: No prior history of urologic difficulties or interventions. Suspect current acute urinary retention secondary to generalized decreased medical condition. Anticipate full recovery of bladder function and normal voiding in 1-2 weeks without interventions. Plan: Home with indwelling Moss. Follow-up in my office in 1-2 weeks for cystoscopy and trial of void. (2) Hydronephrosis Current Visit: Yes Status: Acute Assessment and plan: Secondary to acute urinary retention. Bilateral hydronephrosis resolved on follow-up renal ultrasound within 24 hours of Moss catheter placement. Plan: Address of urinary retention as above. Qualifiers: Hydronephrosis type: other Qualified Code(s): N13.39 - Other hydronephrosis (3) Acute kidney injury Current Visit: Yes Status: Acute Assessment and plan: Secondary to acute urinary retention resulting in obstructive nephropathy. Renal functions have normalized within 24 hours Moss catheter placement. Plan: Address of urinary retention as above. Urology CN:HPI Consult date: 09/20/18 Requesting physician: Jessica Whitaker History of present illness: Very pleasant 78-year-old lady with no significant past urologic history. She has now had a prolonged hospital stay following surgical address of a bowel obstruction 1+ weeks ago. Patient worsening renal functions and a CT was o btained. CT showed bilateral hydroureteronephrosis down to level of a overly distended bladder. Moss catheter was placed. Follow-up imaging 24 hours later revealed resolution of bilateral Icard via ultrasound. Additionally her renal functions have normalized. Evidence to see patient regarding her urinary retention. The patient denies prior difficulties voiding. She denies obstructive or irritative symptoms at home. Patient has prior urologic interventions. Past Med Surg Social Fam HX - Past Medical History Medical history: no medical history Psychiatric history: no psych history - Past Surgical History Surgical History: non-contributory - Social History Smoking Status: Never smoker Smokeless Tobacco Status: No Alcohol use: none Drug use: none - Family History Mother History Unknown: Yes Living Status: Cause of : CA Hx Family Cancer: Yes (blood cancer) Father Living Status: Cause of : CA Hx Family Cancer: Yes (prostate) Brother Living Status: Cause of : liver disease/ 2nd brother CVA (brain aneurysm) Medications and Allergies No Known Home Drugs 09/04/18 [History] Allergy/AdvReac Type Severity Reaction Status Date / Time No Known Allergies Allergy Verified 09/04/18 09:22 Exam Initial Vital Signs Temp Pulse Resp BP Pulse Ox 98 F 99 18 124/75 91 09/04/18 14:19 09/04/18 14:19 09/04/18 14:19 09/04/18 14:19 09/04/18 14:19 - General physical appearance Present: well developed, no distress - Eyes Present: normal ocular movement - ENT Present: normal nares, normal mucosa, no hearing loss - Neck Present: no masses, trachea midline - Respiratory Present: normal respiratory effort - Cardiovascular Cardiovascular exam IM: RRR - Abdomen Abdomen: Present: surgical scars - Integumentary Present: no rash, no growths - Neurologic Present: normal coordination - Musculoskeletal Present: normal gait Urology Results - Labs 09/20/18 05:24 09/20/18 05:24 Abnormal lab results RBC 3.18 M/mcL (3.82-4.97) L 09/20/18 05:24 Hgb 9.4 g/dL (11.5-15.4) L 09/20/18 05:24 Hct 30.0 % (35.3-44.9) L 09/20/18 05:24 MCHC 31.3 g/dL (31.6-35.5) L 09/20/18 05:24 PT 13.1 Seconds (9.4-12.1) H 09/04/18 16:01 Heparin Anti-Xa, Unfract 0.23 IU/mL (0.30-0.70) L 09/04/18 16:01 Creatinine 0.54 mg/dL (0.60-1.20) L 09/20/18 05:24 BUN/Creatinine Ratio 39 (6-26) H 09/20/18 05:24 Glucose 141 mg/dL (70-105) H 09/20/18 05:24 POC Glucose 127 mg/dL (70-99) H 09/20/18 11:47 Hemoglobin A1c 5.8 % (-5.6) H 09/05/18 04:41 Calcium 8.1 mg/dL (8.6-10.3) L 09/20/18 05:24 AST 62 Units/L (13-39) H 09/20/18 05:24 ALT 92 Units/L (7-52) H 09/20/18 05:24 Alkaline Phosphatase 303 Units/L (34-104) H 09/20/18 05:24 Troponin I 0.42 ng/mL (< 0.04) H* 09/05/18 01:39 Serum Total Protein 4.7 g/dL (6.4-8.9) L 09/20/18 05:24 Albumin 2.3 g/dL (3.5-5.7) L 09/20/18 05:24 Albumin/Globulin Ratio 1.0 (1.1-2.2) L 09/20/18 05:24 Prealbumin 12.1 mg/dL (17.0-34.0) L 09/07/18 04:49 TSH 0.254 mcIU/mL (0.340-5.600) L 09/05/18 04:41 Urine Clarity Cloudy (Clear) A 09/18/18 16:25 Urine Blood Large (Negative) H 09/18/18 16:25 Ur Leukocyte Esterase Moderate (Negative) H 09/18/18 16:25 Urine Microscopic RBC 15-30 per hpf (0-3) H 09/18/18 16:25 Urine Microscopic WBC 5-15 per hpf (0-3) H 09/18/18 16:25 Ur Squamous Epith Cells Many per lpf (None-Few) H 09/18/18 16:25 Ur Culture Indicated? NO. (NO) A 09/18/18 16:25 Diabetes panel 09/20/18 09/20/18 Range/Units 05:24 05:24 Sodium 137 138 (136-145) mEq/L Potassium 3.7 3.7 (3.5-5.1) mEq/L Chloride 105 105 (98-107) mEq/L Carbon Dioxide 29 29 (23-29) mEq/L BUN 21 21 (8-23) mg/dL Creatinine 0.54 L 0.54 L (0.60-1.20) mg/dL Glucose 141 H 141 H (70-105) mg/dL Calcium 8.1 L 8.1 L (8.6-10.3) mg/dL AST 62 H (13-39) Units/L ALT 92 H (7-52) Units/L Alkaline Phosphatase 303 H (34-104) Units/L Albumin 2.3 L (3.5-5.7) g/dL Calcium panel 09/20/18 09/20/18 Range/Units 05:24 05:24 Calcium 8.1 L 8.1 L (8.6-10.3) mg/dL Phosphorus 2.7 (2.7-4.5) mg/dL Albumin 2.3 L (3.5-5.7) g/dL Pituitary panel 09/20/18 09/20/18 Range/Units 05:24 05:24 Sodium 137 138 (136-145) mEq/L Potassium 3.7 3.7 (3.5-5.1) mEq/L Chloride 105 105 (98-107) mEq/L Carbon Dioxide 29 29 (23-29) mEq/L BUN 21 21 (8-23) mg/dL Creatinine 0.54 L 0.54 L (0.60-1.20) mg/dL Glucose 141 H 141 H (70-105) mg/dL Calcium 8.1 L 8.1 L (8.6-10.3) mg/dL Adrenal panel 09/20/18 09/20/18 Range/Units 05:24 05:24 Sodium 137 138 (136-145) mEq/L Potassium 3.7 3.7 (3.5-5.1) mEq/L Chloride 105 105 (98-107) mEq/L Carbon Dioxide 29 29 (23-29) mEq/L BUN 21 21 (8-23) mg/dL Creatinine 0.54 L 0.54 L (0.60-1.20) mg/dL Glucose 141 H 141 H (70-105) mg/dL Calcium 8.1 L 8.1 L (8.6-10.3) mg/dL Total Bilirubin 0.7 (0.3-1.0) mg/dL AST 62 H (13-39) Units/L ALT 92 H (7-52) Units/L Alkaline Phosphatase 303 H (34-104) Units/L Albumin 2.3 L (3.5-5.7) g/dL All other labs normal. - Imaging CT scan - abdomen: image reviewed CT scan - pelvis: image reviewed (CT abdomen and pelvis images reviewed and interpreted independently.) Consult Discharge Plan - Plan Instructions: Exploratory Laparotomy (DC), Lysis of Abdominal Adhesions (DC) Additional Instructions: General Surgical Discharge Instructions 1. No pushing, pulling, or lifting greater than 15 lbs for 4 weeks (depending upon procedure). 2. You may shower beginning today, but no tub baths, soaking, or swimming for 2 weeks. 3. You may resume driving when you are off narcotics and are safe to react in a car. 4. Take ibuprofen every 8 hours for discomfort. If this does not relieve discomfort, you may take the as needed Percocet. Take narcotics as directed. Do not take more narcotics then directed and do not share your narcotics with any other person. Do not drink alcohol while on narcotics. 5. Take stool softeners (Colace) or a water based laxative (Miralax) while taking narcotics. You may hold for loose stools. 6. Report any fevers greater than 100.5F, increase abdominal discomfort, drainage that looks like pus, increased redness or pain at the surgical site, or any vomiting. 7. Report any pain in the calves, shortness of breath, or rapid heartbeat. 8. Follow-up in the office as directed. 9. If you were prescribed antibiotics, do not stop them without talking to your provider. Referrals: Do Gilmore CNP [Advanced Practice Nurse] - 09/26/18 3:00 pm NONE,PCP [Primary Care Provider] -
[2018-09-20] MEDS ORDERED: Clinimix E 5%-15% SOLUTION 2,000 ML with MVI, adult with vitamin K 10 ML IVC SCH (17:00)
[2018-09-20] MEDS: Bisacodyl 10 MG RECTAL SUPPOSITORY RC SCH (21:34)
[2018-09-21 04:03] LABS: Basophils % 0.5 %; Eosinophils # 0.2 K/mcL (0.0-0.6); Eosinophils % 3.7 %; Hematocrit 27.9 % (35.3-44.9); Hemoglobin 8.9 g/dL (11.5-15.4); Immature Granulocytes % 1.4 % (0-4); Lymphocytes # 0.6 K/mcL (0.6-4.6); Lymphocytes % 8.9 %; Mean Corpuscular HGB Conc 31.9 g/dL (31.6-35.5); Mean Corpuscular Hemoglobin 29.4 pg (28.0-33.3); Mean Corpuscular Volume 92.1 fL (83.0-100.0); Monocytes # 0.4 K/mcL (0.0-1.3); Monocytes % 5.3 %; Neutrophils # 5.3 K/mcL (1.6-8.9); Platelet Count 265 K/mcL (140-400); Red Blood Count 3.03 M/mcL (3.82-4.97); Red Cell Distribution Width 12.5 % (11.5-14.5); Segmented Neutrophils % 80.2 %
[2018-09-21 04:17] LABS: Alanine Aminotransferase 69 Units/L (7-52); Albumin 2.2 g/dL (3.5-5.7); Albumin/Globulin Ratio 0.9 (1.1-2.2); Alkaline Phosphatase 260 Units/L (34-104); Aspartate Amino Transferase 39 Units/L (13-39); BUN/Creatinine Ratio 35 (6-26); Bilirubin,Direct 0.1 mg/dL (0.0-0.2); Bilirubin,Indirect 0.2 mg/dL (0.0-1.2); Bilirubin,Total 0.3 mg/dL (0.3-1.0); Blood Urea Nitrogen 17 mg/dL (8-23); Calcium 7.7 mg/dL (8.6-10.3); Carbon Dioxide 29 mEq/L (23-29); Chloride 102 mEq/L (98-107); Globulin 2.4 g/dL (2.4-3.5); Glucose 129 mg/dL (70-105); Osmolality,Calculated 283 (280-300); Potassium 3.4 mEq/L (3.5-5.1); Sodium 135 mEq/L (136-145); Total Protein 4.6 g/dL (6.4-8.9); eGFR For Non-African Americans > 60 (> 60)
[2018-09-21] MEDS ORDERED: Potassium Chloride Elixir 20 MEQ/15 ML UDC PO ONE (08:22)
[2018-09-21] MEDS: Apixaban 5 MG TABLET PO SCH ×2 (08:36→20:46)
[2018-09-21] MEDS: Docusate Oral Soln 100 MG/10 ML UDC PO SCH (08:37)
[2018-09-21] MEDS: Insulin LISPRO 300 UNITS/3 ML VIAL SQ SCH ×4 (08:37→19:33)
[2018-09-21] MEDS: Diltiazem CD (24hr) 180 MG CAPSULE PO SCH (08:37)
--- NOTE | 2018-09-21 10:43 | Internal Med Progress Note ---
<OtooleIke S - Last Filed: 09/21/18 08:08> Hospitalist Progress Note - Encounter Date of Encounter: 09/21/18 Time of Encounter: 08:08 - Subjective Interval History: Pt is seen at bedside. She was initially admitted for N/V and was found to have a SBO. The pt was also found to be in a fib with RVR and was tx with cardizem. She is hopsital day 17 and is POD #13 s/p explorator KRYSTIN garcia. She currently has a post operative ileus and is being followed by general sx who placed a NG tube 09/17 for post-op ileus. She is tolerating clear liquids without nausea/vomiting. NG tube removed yesterday. Pt denies chest pain, abd pain, SOB, or n/v/d. Nursing reported no overnight events. Pt had a bowel movement yesterday. - Exam Vitals: Temp Pulse Resp BP Pulse Ox 98.1 F 78 18 143/70 97 09/21/18 06:53 09/21/18 06:53 09/21/18 06:53 09/21/18 06:53 09/21/18 06:53 Exam: Constitutional: Alert, in no acute distress, laying in bed HEENT: Normocephalic, atraumatic, moist mucus membranes, NG tube removed Heart: Regular rhythm, no murmurs, no edema Lungs: lungs clear and equal bilaterally, no rhonchi, no wheeze Abdomen: dressing on midline of abdomen, returning bowel sounds, nontender, no rigidity, incision is clean and dry Extremities: No edema of lower extremity or upper extremities, warm, nontender Skin: Skin warm and dry, no lesions, no rashes, no jaundice, no edema Neurological: Alert and oriented x 3 - Assessment and Plan (1) Small bowel obstruction due to adhesions Current Visit: Yes Status: Acute Assessment and Plan: POD #13 s/p ex. laporectomy on 09/07/[address] Wells - pt had a BM 09/19 and 1024 - abd pain resolving, pt has no c/o abd pain - able to pass gas CT abdomen 09/13/18: Distended loops of small bowel throughout the abdomen suggesting a distal small bowel obstruction. Residual contrast in the bowel in the right abdomen. KUB on 09/17/18 - nonobstructive bowel gas pattern KUB on 09/18 showed nondistended gas filled loops of bowel , minimal interval transit of PO contrast - mild post op adynamic ileus - no obstruction CT on 09/18 - signif bilat hydronephrosis and hydroureter , no evidence of stones - severly distended bladder Plan: - Surgery following, appreciate recommendations Sx recommending continued TPN - on electrolytes and Intralipid 20% Sx to start CLD today and see if pt tolerates ---> advance diet as tolerated NG tube removed 09/20 - pain control with percocet - on dulcolax - promethazine for nausea - continue serial abd exams - CLD as tolerated - Zosyn d/c, start rocephin day 2 for possible UTI (UA had leukocyte esterase and WBC) - up to chair from bed TID (2) Paroxysmal atrial fibrillation Current Visit: Yes Status: Chronic Assessment and Plan: Newly diagnosed a fib - EKG at [facility] showed A fib with RVR -pt currently in sinus rhythm , HR currently 83 -CHADVASc of 4 (age 78, female, hx of HTN) Pt had ECHO on 09/04 -LVEF 60-65% -normal LV chamber size, wall thickness, fxn -mild left ventricular diastolic fusfxn Plan: -cardiology consulted, recommended long-term anticoagulation therapy -pt is on 180mg PO cardizem as per cardiology -pt is on PO eliquis as per cardiology (3) DVT prophylaxis Current Visit: Yes Status: Acute Assessment and Plan: On eliquis; scds ordered (4) GERD (gastroesophageal reflux disease) Current Visit: No Status: Chronic Assessment and Plan: Continue PO omeprazole (5) Severe protein-calorie malnutrition Current Visit: Yes Status: Chronic Assessment and Plan: Prealbumin of 12.1 on 09/07 -pt is currently receiving TPN Plan: - CLD as tolerated, diet as per surgery - TPN as per surgery recommendations Fat Emulsion IV (intralipid 20%) Amino acids/electrolytes 50mls/hr - will order ensure if ok with surgery (6) Hypertension Current Visit: No Status: Chronic Assessment and Plan: BP this morning 143/70 Plan: - continue cardizem - hydralazine 10mg q6hr prn - on telemetry (7) Acute kidney injury Current Visit: Yes Status: Resolved Assessment and Plan: Resolved. Creatinine on admission 1.67 -creatinine 09/17 - 1.46 - creatinine 09/19 - 0.6 ---> 0.54 on 09/20 ---> 0.49 on 09/21 -baseline no available, pt has never been to this hospital -GFR 09/17 = 34; admission = 30 MIRZA likely secondary to dehydration and poor PO intake - has resolved I&O's -I total - 2384mL -O total - 1600 mL -Balance - 784 mL Plan: -Continue I/Os - fluids d/c - continue to monitor kindey fxn (8) Elevated troponin Current Visit: Yes Status: Acute Assessment and Plan: Pt had a troponin of 0.57 on admission, decreased to 0.42 -most likely due to a type II DE secondar to A fib with RVR (9) Hypokalemia Current Visit: Yes Status: Acute Assessment and Plan: Potassium 3.4 this morning -replaced with PO potassium -monitor cmp (10) Bladder distention Current Visit: Yes Status: Acute Assessment and Plan: CT on 09/18 - signif bilat hydronephrosis and hydroureter , no evidence of stones - severly distended bladder Retroperitoneal US unremarkable Plan: - mcdaniel catheter placed - urology consulted Recommends going home with indwelling mcdaniel catheter with follow up after 1- 2wks for cystoscopy and voiding trial - monitor I&O's - Time Spent with Patient Total time spent is greater than 50% in coordination of care (as documented) at patient's floor/unit and/or counseling patient: less than 15 minutes Plan of Care Discussed with: patient Internal Medicine: Result - Labs CBC & Chem 7: 09/21/18 04:08 09/21/18 03:40 Labs: Short CBC 09/21/18 Range/Units 04:08 WBC 6.6 (4.3-11.1) K/mcL Hgb 8.9 L (11.5-15.4) g/dL Hct 27.9 L (35.3-44.9) % Plt Count 265 (140-400) K/mcL Neutrophils # 5.3 (1.6-8.9) K/mcL BMP 09/21/18 03:40 Sodium 135 L Potassium 3.4 L Chloride 102 Carbon Dioxide 29 BUN 17 Creatinine 0.49 L Glucose 129 H Calcium 7.7 L Liver Function 09/21/18 Range/Units 03:40 Total Bilirubin 0.3 (0.3-1.0) mg/dL Direct Bilirubin 0.1 (0.0-0.2) mg/dL AST 39 (13-39) Units/L ALT 69 H (7-52) Units/L Alkaline Phosphatase 260 H (34-104) Units/L Albumin 2.2 L (3.5-5.7) g/dL - ABG Interpretation ABG results: PT/INR, D-dimer PT 13.1 Seconds (9.4-12.1) H 09/04/18 16:01 - VTE Documentation of Mechanical Device: Intermittent pneumatic compression device Consult Discharge Plan - Plan Instructions: Exploratory Laparotomy (DC), Lysis of Abdominal Adhesions (DC) Additional Instructions: General Surgical Discharge Instructions 1. No pushing, pulling, or lifting greater than 15 lbs for 4 weeks (depending upon procedure). 2. You may shower beginning today, but no tub baths, soaking, or swimming for 2 weeks. 3. You may resume driving when you are off narcotics and are safe to react in a car. 4. Take ibuprofen every 8 hours for discomfort. If this does not relieve discomfort, you may take the as needed Percocet. Take narcotics as directed. Do not take more narcotics then directed and do not share your narcotics with any other person. Do not drink alcohol while on narcotics. 5. Take stool softeners (Colace) or a water based laxative (Miralax) while taking narcotics. You may hold for loose stools. 6. Report any fevers greater than 100.5F, increase abdominal discomfort, drainage that looks like pus, increased redness or pain at the surgical site, or any vomiting. 7. Report any pain in the calves, shortness of breath, or rapid heartbeat. 8. Follow-up in the office as directed. 9. If you were prescribed antibiotics, do not stop them without talking to your provider. Referrals: Do Gilmore, DIRECTOR OF PUBLIC HEALTH [Advanced Practice Nurse] - 09/26/18 3:00 pm NONE,PCP [Primary Care Provider] - <Jonna Amador - Last Filed: 09/21/18 14:52> Hospitalist Progress Note - Exam Vitals: Temp Pulse Resp BP Pulse Ox 98.1 F 80 16 127/62 97 09/21/18 11:32 09/21/18 11:32 09/21/18 11:32 09/21/18 11:32 09/21/18 11:32 - Assessment and Plan (1) DVT prophylaxis Current Visit: Yes Status: Acute (2) GERD (gastroesophageal reflux disease) Current Visit: No Status: Chronic (3) Elevated troponin Current Visit: Yes Status: Acute (4) Hypokalemia Current Visit: Yes Status: Acute (5) Paroxysmal atrial fibrillation Current Visit: Yes Status: Chronic (6) Severe protein-calorie malnutrition Current Visit: Yes Status: Chronic (7) Small bowel obstruction due to adhesions Current Visit: Yes Status: Acute (8) Hypertension Current Visit: No Status: Chronic (9) Acute kidney injury Current Visit: Yes Status: Resolved (10) Bladder distention Current Visit: Yes Status: Acute - Time Spent with Patient Total time spent is greater than 50% in coordination of care (as documented) at patient's floor/unit and/or counseling patient: Internal Medicine: Result - Labs CBC & Chem 7: 09/21/18 04:08 09/21/18 03:40 Labs: Short CBC 09/21/18 Range/Units 04:08 WBC 6.6 (4.3-11.1) K/mcL Hgb 8.9 L (11.5-15.4) g/dL Hct 27.9 L (35.3-44.9) % Plt Count 265 (140-400) K/mcL Neutrophils # 5.3 (1.6-8.9) K/mcL BMP 09/21/18 03:40 Sodium 135 L Potassium 3.4 L Chloride 102 Carbon Dioxide 29 BUN 17 Creatinine 0.49 L Glucose 129 H Calcium 7.7 L Liver Function 09/21/18 Range/Units 03:40 Total Bilirubin 0.3 (0.3-1.0) mg/dL Direct Bilirubin 0.1 (0.0-0.2) mg/dL AST 39 (13-39) Units/L ALT 69 H (7-52) Units/L Alkaline Phosphatase 260 H (34-104) Units/L Albumin 2.2 L (3.5-5.7) g/dL - ABG Interpretation ABG results: PT/INR, D-dimer PT 13.1 Seconds (9.4-12.1) H 10/08/18 16:01 - Attending Attestation I examined this patient and my medical decision-making was reviewed with the Resident Physician. I agree with the documented findings, disposition and treatment plan as described except to the extent set forth below. <Ike Otoole - Last Filed: 09/21/18 08:08> (4) GERD (gastroesophageal reflux disease) Qualifiers: Esophagitis presence: esophagitis presence not specified Qualified Code(s): K21.9 - Gastro-esophageal reflux disease without esophagitis (6) Hypertension Qualifiers: Hypertension type: essential hypertension Qualified Code(s): I10 - Essential (primary) hypertension <Jonna Amador - Last Filed: 09/21/18 14:52> (2) GERD (gastroesophageal reflux disease) Qualifiers: Esophagitis presence: esophagitis presence not specified Qualified Code(s): K21.9 - Gastro-esophageal reflux disease without esophagitis (8) Hypertension Qualifiers: Hypertension type: essential hypertension Qualified Code(s): I10 - Essential (primary) hypertension
--- NOTE | 2018-09-21 10:44 | General Surgery Progress Note ---
Date of Encounter: 09/21/18 Time of Encounter: 07:15 - Assessment and Plan (1) Small bowel obstruction Current Visit: Yes Status: Acute Date of procedure: 09/08/18 Pre-op diagnosis: Small bowel obstruction. Post-op diagnosis: other (Internal hernia/adhesion) Procedure: 1. Exploratory celiotomy. 2. Lysis of adhesion. Anesthesia: GETA Surgeon: Oscar Dickens POD # 13 as above. PT with PROLONGED postoperative ileus. Now resolved. Tolerating CLD. Denies pain, n/v. Endorses flatus and noted BM. Advance to FLD for breakfast. Ok to advance to soft diet if she tolerates breakfast. Plan: continue supportive care and discomfort management Wean TPN Continue dulcolax suppositories. ambulate as tolerated out of bed to chair at least TID continue G.I. and DVT prophylaxis repeat a.m. labs serial abdominal exams surgery will continue to follow along. Anticpiate ready for d/c in the next 24- 48 pending clinical course (per primary team) (2) Severe protein-calorie malnutrition Current Visit: Yes Status: Chronic Wean TPN (3) Atrial fibrillation with RVR Current Visit: Yes Status: Acute per primary team (4) MIRZA (acute kidney injury) Current Visit: Yes Status: Acute Likely 2/2 acute urinary retention Further management per primary team. Subjective Patient reports: no new complaints, feels better, tolerating liquids well, voiding w/o difficulty (per mcdaniel), flatus, bowel movement, afebrile Objective Vital Signs - Last 8 Hours Temp Pulse Resp BP Pulse Ox 09/21/18 06:53 98.1 F 78 18 143/70 97 09/21/18 04:51 99.6 F 86 15 124/64 97 Intake and Output 09/20/18 09/21/18 09/21/18 23:59 07:59 15:59 Intake Total 0 / 0 Output Total 1050 / 1050 450 / 450 Balance -1050 / -1050 -450 / -450 Intake: IV Fluids 0 / 0 Clinimix E 5%-15% SOLUTION 2, 0 / 0 000 ML @ 50 mls/hr IVC .Q24H AKOSUA with M.v.i. Adult 10 ml Rx# :[id number] Output: Catheter 1050 / 1050 450 / 450 Other: Stool Size Moderate Stool Consistency loose liquid Stool Characteristics Normal for Patient Stool Color Brown Weight 47.5 kg Blood Glucose* 138 127 - General physical appearance no distress, no pain - Eyes normal ocular movement - ENT atraumatic, normocephalic - Neck Neck exam: trachea midline - Respiratory normal expansion, normal respiratory effort, clear to auscultation - Cardiovascular Cardiovascular exam: Present: distant heart sounds - Abdomen Abdomen: Present: bowel sounds present, soft, non tender - Incision Incision: Present: clean and dry, intact (overall. packing noted. ) - Integumentary no growths - Neurologic normal coordination, normal sensation - Musculoskeletal normal posture - Psychiatric oriented to time, oriented to person, oriented to place - Labs 09/21/18 04:08 09/21/18 03:40 Diabetes panel 09/21/18 Range/Units 03:40 Sodium 135 L (136-145) mEq/L Potassium 3.4 L (3.5-5.1) mEq/L Chloride 102 (98-107) mEq/L Carbon Dioxide 29 (23-29) mEq/L BUN 17 (8-23) mg/dL Creatinine 0.49 L (0.60-1.20) mg/dL Glucose 129 H (70-105) mg/dL Calcium 7.7 L (8.6-10.3) mg/dL AST 39 (13-39) Units/L ALT 69 H (7-52) Units/L Alkaline Phosphatase 260 H (34-104) Units/L Albumin 2.2 L (3.5-5.7) g/dL Calcium panel 09/21/18 Range/Units 03:40 Calcium 7.7 L (8.6-10.3) mg/dL Albumin 2.2 L (3.5-5.7) g/dL Pituitary panel 09/21/18 Range/Units 03:40 Sodium 135 L (136-145) mEq/L Potassium 3.4 L (3.5-5.1) mEq/L Chloride 102 (98-107) mEq/L Carbon Dioxide 29 (23-29) mEq/L BUN 17 (8-23) mg/dL Creatinine 0.49 L (0.60-1.20) mg/dL Glucose 129 H (70-105) mg/dL Calcium 7.7 L (8.6-10.3) mg/dL Adrenal panel 09/21/18 Range/Units 03:40 Sodium 135 L (136-145) mEq/L Potassium 3.4 L (3.5-5.1) mEq/L Chloride 102 (98-107) mEq/L Carbon Dioxide 29 (23-29) mEq/L BUN 17 (8-23) mg/dL Creatinine 0.49 L (0.60-1.20) mg/dL Glucose 129 H (70-105) mg/dL Calcium 7.7 L (8.6-10.3) mg/dL Total Bilirubin 0.3 (0.3-1.0) mg/dL AST 39 (13-39) Units/L ALT 69 H (7-52) Units/L Alkaline Phosphatase 260 H (34-104) Units/L Albumin 2.2 L (3.5-5.7) g/dL - VTE Documentation of Mechanical Device: Intermittent pneumatic compression device Consult Discharge Plan - Plan Instructions: Exploratory Laparotomy (DC), Lysis of Abdominal Adhesions (DC) Additional Instructions: General Surgical Discharge Instructions 1. No pushing, pulling, or lifting greater than 15 lbs for 4 weeks (depending upon procedure). 2. You may shower beginning today, but no tub baths, soaking, or swimming for 2 weeks. 3. You may resume driving when you are off narcotics and are safe to react in a car. 4. Take ibuprofen every 8 hours for discomfort. If this does not relieve discomfort, you may take the as needed Percocet. Take narcotics as directed. Do not take more narcotics then directed and do not share your narcotics with any other person. Do not drink alcohol while on narcotics. 5. Take stool softeners (Colace) or a water based laxative (Miralax) while taking narcotics. You may hold for loose stools. 6. Report any fevers greater than 100.5F, increase abdominal discomfort, drainage that looks like pus, increased redness or pain at the surgical site, or any vomiting. 7. Report any pain in the calves, shortness of breath, or rapid heartbeat. 8. Follow-up in the office as directed. 9. If you were prescribed antibiotics, do not stop them without talking to your provider. Referrals: Do Gilmore CNP [Advanced Practice Nurse] - 09/26/18 3:00 pm NONE,PCP [Primary Care Provider] -
[2018-09-21] MEDS: cefTRIAXone 2,000 MG in Water for inj. (sterile) 20 ML 20 ML IVP SCH (12:49)
[2018-09-21] MEDS: Bisacodyl 10 MG RECTAL SUPPOSITORY RC SCH (20:47)
[2018-09-22 01:58] LABS: Basophils # 0.1 K/mcL (0.0-0.2); Basophils % 0.5 %; Eosinophils # 0.4 K/mcL (0.0-0.6); Eosinophils % 4.1 %; Hemoglobin 10.1 g/dL (11.5-15.4); Immature Granulocytes % 1.4 % (0-4); Lymphocytes # 1.1 K/mcL (0.6-4.6); Lymphocytes % 11.6 %; Mean Corpuscular HGB Conc 32.6 g/dL (31.6-35.5); Mean Corpuscular Hemoglobin 29.8 pg (28.0-33.3); Mean Corpuscular Volume 91.4 fL (83.0-100.0); Mean Platelet Volume 9.8 fL (9.4-12.4); Monocytes # 0.6 K/mcL (0.0-1.3); Platelet Count 312 K/mcL (140-400); Red Blood Count 3.39 M/mcL (3.82-4.97); Red Cell Distribution Width 12.6 % (11.5-14.5); Segmented Neutrophils % 76.4 %
[2018-09-22 02:17] LABS: Alanine Aminotransferase 71 Units/L (7-52); Albumin 2.6 g/dL (3.5-5.7); Alkaline Phosphatase 291 Units/L (34-104); Aspartate Amino Transferase 43 Units/L (13-39); BUN/Creatinine Ratio 30 (6-26); Bilirubin,Total 0.5 mg/dL (0.3-1.0); Blood Urea Nitrogen 16 mg/dL (8-23); Calcium 8.3 mg/dL (8.6-10.3); Carbon Dioxide 29 mEq/L (23-29); Chloride 102 mEq/L (98-107); Globulin 2.6 g/dL (2.4-3.5); Glucose 89 mg/dL (70-105); Osmolality,Calculated 283 (280-300); Potassium 3.7 mEq/L (3.5-5.1); Sodium 136 mEq/L (136-145); Total Protein 5.2 g/dL (6.4-8.9); eGFR For Non-African Americans > 60 (> 60)
[2018-09-22] MEDS: Diltiazem CD (24hr) 180 MG CAPSULE PO SCH (08:32)
[2018-09-22] MEDS: Insulin LISPRO 300 UNITS/3 ML VIAL SQ SCH ×4 (08:32→21:25)
[2018-09-22] MEDS: Docusate Oral Soln 100 MG/10 ML UDC PO SCH (08:32)
[2018-09-22] MEDS: Apixaban 5 MG TABLET PO SCH ×2 (08:32→22:25)
--- NOTE | 2018-09-22 09:48 | Discharge Summary ---
<Ike Otoole S - Last Filed: 09/22/18 11:03> - NOTES TO OUTPATIENT PROVIDER Notes to Outpatient Provider: Follow up on nutritional status. Follow up with urology in 1-2 wks for mcdaniel removal and voiding trial. Follow up for continuation of eliquis. Date of Encounter: 09/22/18 Time of Encounter: 09:44 - Discharge Diagnosis (1) Small bowel obstruction due to adhesions Priority: Primary Status: Acute (2) Paroxysmal atrial fibrillation Priority: Secondary Status: Chronic (3) DVT prophylaxis Priority: Secondary Status: Acute (4) GERD (gastroesophageal reflux disease) Priority: Secondary Status: Chronic Qualifiers: Esophagitis presence: esophagitis presence not specified Qualified Code(s): K21.9 - Gastro-esophageal reflux disease without esophagitis (5) Severe protein-calorie malnutrition Priority: Secondary Status: Chronic (6) Hypertension Priority: Secondary Status: Chronic Qualifiers: Hypertension type: essential hypertension Qualified Code(s): I10 - Essential (primary) hypertension (7) Acute kidney injury Priority: Secondary Status: Resolved (8) Elevated troponin Priority: Secondary Status: Acute (9) Hypokalemia Priority: Secondary Status: Acute (10) Bladder distention Priority: Secondary Status: Acute Hospital course: Ms. Baird is a 78 year old female initially admitted for N/V and was found to have a SBO. The pt was also found to be in a fib with RVR and was tx with cardizem. - cardiology was consulted and placed on cardizem/eliquis - CHADVASc of 4 - ECHO showed LVEF 60-65% She is hopsital day 18 and is POD #14 s/p explorator KRYSTIN garcia. Her surgery was complicated by prolonged post operative ileus. Surgery placed a NG tube 09/17 for post-op ileus, which was removed 09/20 after being clamped and the pt had a trial of CLD. CT abdomen 09/13/18: Distended loops of small bowel throughout the abdomen suggesting a distal small bowel obstruction. Residual contrast in the bowel in the right abdomen. KUB on 09/17/18 - nonobstructive bowel gas pattern KUB on 09/18 showed nondistended gas filled loops of bowel , minimal interval transit of PO contrast - mild post op adynamic ileus - no obstruction CT on 09/18 - signif bilat hydronephrosis and hydroureter , no evidence of stones - severly distended bladder Urology was consulted and the pt will go home with an indwelling mcdaniel catheter and keep for 1-2 wks as per urology - urology will do a voiding trial in 1-2 weeks and remove mcdaniel - the retroperionteal US was unremarkable - pt also had a urine analsis that was (+) for WBC, leukocyte esterase and ketones. Being treated with rocephin x 3days - will d/c pt with 6 days of kephlex She is tolerating clear liquids without nausea/vomiting this morning and will be advanced to a regular diet before discharged. - TPN was weaned and discontinued Pt denies chest pain, abd pain, SOB, or n/v/d. She is having adequate BM and is able to pass gas. Nursing reported no overnight events. Discharge discussed with: patient Time spent discussing smoking cessation with patient: 3 to 10 minutes - Time Spent with Patient Total time spent providing and/or coordinating discharge services: Less than 30 minutes - Discharge Medications Prescriptions: Ondansetron ODT [Zofran ODT] 4 mg SL Q6HR PRN 30 Days #120 tab.rapdis PRN Reason: Premedicate prior to Oxycodone Apixaban [Eliquis] 2.5 mg PO BID 30 Days #60 tablet cephALEXin [Keflex] 500 mg PO BID 6 Days #12 capsule Diltiazem CD (24hr) [Cardizem CD] 180 mg PO DAILY 30 Days #30 cap.er.24h Home Medications: Apixaban [Eliquis] 2.5 mg PO BID 30 Days #60 tablet 09/22/18 [Rx] Diltiazem CD (24hr) [Cardizem CD] 180 mg PO DAILY 30 Days #30 cap.er.24h [Rx] Ondansetron ODT [Zofran ODT] 4 mg SL Q6HR PRN 30 Days #120 tab.rapdis 09/22/18 [Rx] cephALEXin [Keflex] 500 mg PO BID 6 Days #12 capsule 09/22/18 [Rx] Allergies/Adverse Reactions: Allergy/AdvReac Type Severity Reaction Status Date / Time No Known Allergies Allergy Verified 09/04/18 09:22 Date of admission: 09/04/18 12:37 Primary care physician: PCP NONE Consults: 09/04/18 14:02 Consult to Cardiology [CONS] Routine Comment: Consulting Provider: Cardiology [facility] Reason for Consult: new onset AFib, troponinemia Call Completed: Yes 09/06/18 15:29 Consult to Surgery [CONS] Routine Consulting Provider: [facility] Reason for Consult: SBO on CT scan Call Completed: Yes 09/06/18 17:17 Consult to Nutrition [CONS] Routine Comment: SBO, over one week since meal Consulting Provider: NUTRITION Reason for Dietary Consult: TPN Start and Manage 09/07/18 10:41 Consult to Invasive Line Access Team [CONS] Routine Reason for Consult: Picc Line Insertion Line Type: PICC 09/11/18 11:03 Consult to Occupational Therapy [CONS] Routine Comment: Evaluate, develop and implement POC Reason for Consult: poss need for ecf Does patient have active BEDREST order?: No Is patient medically & hemodynamically stable?: Yes Consult to Physical Therapy [CONS] Routine Comment: Evaluate, develop and implement POC Reason for Consult: poss need for ecf Does patient have active BEDREST order?: No Is patient medically & hemodynamically stable?: Yes 09/13/18 08:54 Consult to Mail List Librarian [CONS] Routine Reason for SW Consult: needs placement 09/19/18 10:50 Consult to Urology [CONS] Routine Consulting Provider: Urology [facility] Reason for Consult: bladder distention on CT Call Completed: No Discharging clinician: Ike Otoole Anticipated date of discharge: 09/22/18 - Constitutional Vitals: Temp Pulse Resp BP Pulse Ox 98.8 F 78 14 125/70 97 09/22/18 06:54 09/22/18 06:54 09/22/18 06:54 09/22/18 06:54 09/22/18 08:19 Exam: Constitutional: Alert, in no acute distress, laying in bed HEENT: Normocephalic, atraumatic, moist mucus membranes, NG tube removed Heart: Regular rhythm, no murmurs, no edema Lungs: lungs clear and equal bilaterally, no rhonchi, no wheeze Abdomen: dressing on midline of abdomen, returning bowel sounds, nontender, no rigidity, incision is clean and dry Extremities: No edema of lower extremity or upper extremities, warm, nontender Skin: Skin warm and dry, no lesions, no rashes, no jaundice, no edema Neurological: Alert and oriented x 3 - Patient Status Disposition: Transfer SNF Condition: Good Functional capacity at discharge: uses cane/walker Overall status at discharge: patient is progressing back to baseline - Discharge Instructions Instructions: Exploratory Laparotomy (DC), Lysis of Abdominal Adhesions (DC) Follow Up With: Da Perry DO [Resident] - 09/29/18 Do Gilmore CNP [Advanced Practice Nurse] - 09/26/18 3:00 pm NONE,PCP [Primary Care Provider] - Monroe Brannon [Partnered Physician] - 09/29/18 Additional Instructions: General Surgical Discharge Instructions 1. No pushing, pulling, or lifting greater than 15 lbs for 4 weeks (depending upon procedure). 2. You may shower beginning today, but no tub baths, soaking, or swimming for 2 weeks. 3. You may resume driving when you are off narcotics and are safe to react in a car. 4. Take ibuprofen every 8 hours for discomfort. If this does not relieve discomfort, you may take the as needed Percocet. Take narcotics as directed. Do not take more narcotics then directed and do not share your narcotics with any other person. Do not drink alcohol while on narcotics. 5. Take stool softeners (Colace) or a water based laxative (Miralax) while taking narcotics. You may hold for loose stools. 6. Report any fevers greater than 100.5F, increase abdominal discomfort, drainage that looks like pus, increased redness or pain at the surgical site, or any vomiting. 7. Report any pain in the calves, shortness of breath, or rapid heartbeat. 8. Follow-up in the office as directed. 9. If you were prescribed antibiotics, do not stop them without talking to your provider. - Diet and Activity Activity: as per physical therapy, increase activity as tolerated Diet: advance to your usual diet - VTE Documentation of Mechanical Device: Intermittent pneumatic compression device <Jonna Amador - Last Filed: 09/22/18 14:58> - Discharge Diagnosis (1) DVT prophylaxis Status: Acute (2) GERD (gastroesophageal reflux disease) Status: Chronic Qualifiers: Esophagitis presence: esophagitis presence not specified Qualified Code(s): K21.9 - Gastro-esophageal reflux disease without esophagitis (3) Elevated troponin Status: Acute (4) Hypokalemia Status: Acute (5) Paroxysmal atrial fibrillation Status: Chronic (6) Severe protein-calorie malnutrition Status: Chronic (7) Small bowel obstruction due to adhesions Status: Acute (8) Hypertension Status: Chronic Qualifiers: Hypertension type: essential hypertension Qualified Code(s): I10 - Ess ential (primary) hypertension (9) Acute kidney injury Status: Resolved (10) Bladder distention Status: Acute Hospital course: Ms. Baird is a 78 year old female - Time Spent with Patient Total time spent providing and/or coordinating discharge services: Date of admission: 09/04/18 12:37 Primary care physician: PCP NONE Consults: 09/04/18 14:02 Consult to Cardiology [CONS] Routine Comment: Consulting Provider: Cardiology [facility] Reason for Consult: new onset AFib, troponinemia Call Completed: Yes 09/06/18 15:29 Consult to Surgery [CONS] Routine Consulting Provider: [facility] Reason for Consult: SBO on CT scan Call Completed: Yes 09/06/18 17:17 Consult to Nutrition [CONS] Routine Comment: SBO, over one week since meal Consulting Provider: NUTRITION Reason for Dietary Consult: TPN Start and Manage 09/07/18 10:41 Consult to Invasive Line Access Team [CONS] Routine Reason for Consult: Picc Line Insertion Line Type: PICC 09/11/18 11:03 Consult to Occupational Therapy [CONS] Routine Comment: Evaluate, develop and implement POC Reason for Consult: poss need for ecf Does patient have active BEDREST order?: No Is patient medically & hemodynamically stable?: Yes Consult to Physical Therapy [CONS] Routine Comment: Evaluate, develop and implement POC Reason for Consult: poss need for ecf Does patient have active BEDREST order?: No Is patient medically & hemodynamically stable?: Yes 09/13/18 08:54 Consult to Mail List Librarian [CONS] Routine Reason for SW Consult: needs placement 09/19/18 10:50 Consult to Urology [CONS] Routine Consulting Provider: Urology [facility] Reason for Consult: bladder distention on CT Call Completed: No - Constitutional Vitals: Temp Pulse Resp BP Pulse Ox 98.5 F 80 14 128/66 99 09/22/18 11:34 09/22/18 11:34 09/22/18 11:34 10/26/18 11:34 09/22/18 11:34 - Attending Attestation I examined this patient and my medical decision-making was reviewed with the Resident Physician. I agree with the documented findings, disposition and treatment plan as described except to the extent set forth below.
--- NOTE | 2018-09-22 09:56 | Physician Discharge Referral ---
[facility] Provider in Charge after Transfer: PCP Institutional Level of Care: Skilled - Diagnosis (1) Small bowel obstruction due to adhesions Priority: Primary Status: Acute (2) Bladder distention Priority: Secondary Status: Acute (3) Paroxysmal atrial fibrillation Priority: Secondary Status: Chronic (4) DVT prophylaxis Priority: Secondary Status: Acute (5) GERD (gastroesophageal reflux disease) Priority: Secondary Status: Chronic (6) Severe protein-calorie malnutrition Priority: Secondary Status: Chronic (7) Hypertension Priority: Secondary Status: Chronic (8) Acute kidney injury Priority: Secondary Status: Resolved (9) Elevated troponin Priority: Secondary Status: Acute (10) Hypokalemia Priority: Secondary Status: Acute Prognosis: Good Aware of Diagnosis: Patient Aware of Prognosis: Patient - Transfer Medications Prescriptions: Ondansetron ODT [Zofran ODT] 4 mg SL Q6HR PRN 30 Days #120 tab.rapdis PRN Reason: Premedicate prior to Oxycodone Apixaban [Eliquis] 2.5 mg PO BID 30 Days #60 tablet cephALEXin [Keflex] 500 mg PO BID 6 Days #12 capsule Diltiazem CD (24hr) [Cardizem CD] 180 mg PO DAILY 30 Days #30 cap.er.24h Home Medications: Apixaban [Eliquis] 2.5 mg PO BID 30 Days #60 tablet 09/22/18 [Rx] Diltiazem CD (24hr) [Cardizem CD] 180 mg PO DAILY 30 Days #30 cap.er.24h 09/22/18 [Rx] Ondansetron ODT [Zofran ODT] 4 mg SL Q6HR PRN 30 Days #120 tab.rapdis 09/22/18 [Rx] cephALEXin [Keflex] 500 mg PO BID 6 Days #12 capsule 09/22/18 [Rx] Allergies/Adverse Reactions: Allergy/AdvReac Type Severity Reaction Status Date / Time No Known Allergies Allergy Verified 09/04/18 09:22 - Respiratory Orders None Smoking Cessation: Smoking cessation has been advised. For more information, call the [place] Tobacco Quit Line at 2-620-USMI-NOW. - Advance Directives Code Status: Full Code - Mobility Orders Chair - Rehabiliation Orders Rehab Orders: Evaluation for Physical Therapy, Evaluation for Occupational Therapy - Diet Orders Regular CERTIFICATION: I certify that the transfer of the above named patient to an Extended Care Facility is necessary for the continuing treatment of the diagnosis listed. The above information is true and accurate reflection of patient's current condition. Confidential - Redisclosure prohibited without a patient's written consent.
[2018-09-22] MEDS: cefTRIAXone 2,000 MG in Water for inj. (sterile) 20 ML 20 ML IVP SCH (12:02)
--- NOTE | 2018-09-22 19:28 | Event Note ---
<Ike Otoole - Last Filed: 09/22/18 15:08> Date of Encounter: 09/22/18 Time of Encounter: 15:07 Pt can't go to [facility] until cooperation with PTOT - will d/c discharge order <Jonna Amador - Last Filed: 09/22/18 15:49> I examined this patient and my medical decision-making was reviewed with the Resident Physician. I agree with the documented findings, disposition and treatment plan as described except to the extent set forth below. Patient has refused PT/OT a few times and Jorge would like to see her participate in PT/OT before accepting. Discharge will be delayed for that reason.
[2018-09-22] MEDS: Bisacodyl 10 MG RECTAL SUPPOSITORY RC SCH (22:25)
[2018-09-23] MEDS: Insulin LISPRO 300 UNITS/3 ML VIAL SQ SCH ×4 (08:10→22:15)
[2018-09-23] MEDS: Diltiazem CD (24hr) 180 MG CAPSULE PO SCH (08:15)
[2018-09-23] MEDS: Apixaban 5 MG TABLET PO SCH ×2 (08:15→22:06)
[2018-09-23] MEDS: Docusate Oral Soln 100 MG/10 ML UDC PO SCH (08:15)
--- NOTE | 2018-09-23 09:12 | Internal Med Progress Note ---
<XiangIke S - Last Filed: 09/23/18 10:40> Hospitalist Progress Note - Encounter Date of Encounter: 09/23/18 Time of Encounter: 09:09 - Subjective Interval History: Pt is seen at bedside. She was initially admitted for N/V and was found to have a SBO. The pt was also found to be in a fib with RVR and was tx with cardizem. She is hopsital day 19 and is POD #14 s/p explorator KRYSTIN garcia. She currently has a post operative ileus and is being followed by general sx who placed a NG tube 09/17 for post-op ileus. She is tolerating regular diet without nausea/vomiting. NG tube removed . Pt denies chest pain, abd pain, SOB, or n/v/d. Nursing reported no overnight events. Pt had a bowel movement this morning. Will most likely be d/c on Tuesday if willing to be compliant with PTOT to [facility]. - Exam Vitals: Temp Pulse Resp BP Pulse Ox 98.8 F 94 20 145/67 97 09/23/18 07:53 09/23/18 07:53 09/23/18 07:53 09/23/18 07:53 09/23/18 08:23 Exam: Constitutional: Alert, in no acute distress, laying in bed HEENT: Normocephalic, atraumatic, moist mucus membranes, NG tube removed Heart: Regular rhythm, no murmurs, no edema Lungs: lungs clear and equal bilaterally, no rhonchi, no wheeze Abdomen: dressing on midline of abdomen, returning bowel sounds, nontender, no rigidity, incision is clean and dry Extremities: No edema of lower extremity or upper extremities, warm, nontender Skin: Skin warm and dry, no lesions, no rashes, no jaundice, no edema Neurological: Alert and oriented x 3 - Assessment and Plan (1) Small bowel obstruction due to adhesions Current Visit: Yes Status: Acute Assessment and Plan: POD #14 s/p ex. laporectomy on 09/07/[address] Wells - pt had BM this morning - abd pain resolving, pt has no c/o abd pain - able to pass gas CT abdomen 09/13/18: Distended loops of small bowel throughout the abdomen suggesting a distal small bowel obstruction. Residual contrast in the bowel in the right abdomen. KUB on 09/17/18 - nonobstructive bowel gas pattern KUB on 09/18 showed nondistended gas filled loops of bowel , minimal interval transit of PO contrast - mild post op adynamic ileus - no obstruction CT on 09/18 - signif bilat hydronephrosis and hydroureter , no evidence of stones - severly distended bladder Plan: - Surgery signed off NG tube removed 09/20 Tolerating regular diet - pain control with percocet - on dulcolax - promethazine for nausea - continue serial abd exams - regular diet as tolerated - Zosyn d/c, start rocephin day 4 for possible UTI (UA had leukocyte esterase and WBC) - up to chair from bed TID - dispo : d/c to [facility] pending PTOT compliance (2) Paroxysmal atrial fibrillation Current Visit: Yes Status: Chronic Assessment and Plan: Newly diagnosed a fib - EKG at [facility] showed A fib with RVR -pt currently in sinus rhythm , HR currently 83 -CHADVASc of 4 (age 78, female, hx of HTN) Pt had ECHO on 09/04 -LVEF 60-65% -normal LV chamber size, wall thickness, fxn -mild left ventricular diastolic fusfxn Plan: -cardiology consulted, recommended terminal supervisor anticoagulation therapy -pt is on 180mg PO cardizem as per cardiology -pt is on PO eliquis as per cardiology (3) DVT prophylaxis Current Visit: Yes Status: Acute Assessment and Plan: On eliquis; scds ordered (4) GERD (gastroesophageal reflux disease) Current Visit: No Status: Chronic Assessment and Plan: Continue PO omeprazole (5) Severe protein-calorie malnutrition Current Visit: Yes Status: Chronic Assessment and Plan: Prealbumin of 12.1 on 09/07 - TPN d/c Plan: - regular diet - pt refuses ensure (6) Hypertension Current Visit: No Status: Chronic Assessment and Plan: BP this morning 145/67 Plan: - continue cardizem - hydralazine 10mg q6hr prn - on telemetry (7) Acute kidney injury Current Visit: Yes Status: Resolved Assessment and Plan: Resolved. Creatinine on admission 1.67 -creatinine 09/17 - 1.46 - creatinine 09/19 - 0.6 ---> 0.54 on 09/20 ---> 0.49 on 09/21 -baseline no available, pt has never been to this hospital -GFR 09/17 = 34; admission = 30 MIRZA likely secondary to dehydration and poor PO intake - has resolved Plan: -Continue I/Os - fluids d/c (8) Elevated troponin Current Visit: Yes Status: Acute Assessment and Plan: Pt had a troponin of 0.57 on admission, decreased to 0.42 -most likely due to a type II ID secondar to A fib with RVR (9) Hypokalemia Current Visit: Yes Status: Resolved Assessment and Plan: Potassium 3.7 -replaced with PO potassium -monitor cmp (10) Bladder distention Current Visit: Yes Status: Acute Assessment and Plan: CT on 09/18 - signif bilat hydronephrosis and hydroureter , no evidence of stones - severly distended bladder Retroperitoneal US unremarkable Plan: - mcdaniel catheter placed - urology consulted Recommends going home with indwelling mcdaniel catheter with follow up after 1- 2wks for cystoscopy and voiding trial - monitor I&O's - Time Spent with Patient Total time spent is greater than 50% in coordination of care (as documented) at patient's floor/unit and/or counseling patient: Internal Medicine: Result - Labs CBC & Chem 7: 09/22/18 01:34 09/22/18 01:34 - ABG Interpretation ABG results: PT/INR, D-dimer PT 13.1 Seconds (9.4-12.1) H 09/04/18 16:01 - VTE Documentation of Mechanical Device: Intermittent pneumatic compression device Consult Discharge Plan - Plan Instructions: Exploratory Laparotomy (DC), Lysis of Abdominal Adhesions (DC) Additional Instructions: General Surgical Discharge Instructions 1. No pushing, pulling, or lifting greater than 15 lbs for 4 weeks (depending upon procedure). 2. You may shower beginning today, but no tub baths, soaking, or swimming for 2 weeks. 3. You may resume driving when you are off narcotics and are safe to react in a car. 4. Take ibuprofen every 8 hours for discomfort. If this does not relieve discomfort, you may take the as needed Percocet. Take narcotics as directed. Do not take more narcotics then directed and do not share your narcotics with any other person. Do not drink alcohol while on narcotics. 5. Take stool softeners (Colace) or a water based laxative (Miralax) while taking narcotics. You may hold for loose stools. 6. Report any fevers greater than 100.5F, increase abdominal discomfort, drainage that looks like pus, increased redness or pain at the surgical site, or any vomiting. 7. Report any pain in the calves, shortness of breath, or rapid heartbeat. 8. Follow-up in the office as directed. 9. If you were prescribed antibiotics, do not stop them without talking to your provider. Referrals: Monroe Brannon [Partnered Physician] - 09/29/18 Da Perry DO [Resident] - 09/29/18 Do Gilmore CNP [Advanced Practice Nurse] - 09/26/18 3:00 pm NONE,PCP [Primary Care Provider] - Prescriptions: Ondansetron ODT [Zofran ODT] 4 mg SL Q6HR PRN 30 Days #120 tab.rapdis PRN Reason: Premedicate prior to Oxycodone Apixaban [Eliquis] 2.5 mg PO BID 30 Days #60 tablet cephALEXin [Keflex] 500 mg PO BID 6 Days #12 capsule Diltiazem CD (24hr) [Cardizem CD] 180 mg PO DAILY 30 Days #30 cap.er.24h <Jonna Amador - Last Filed: 09/23/18 12:42> Hospitalist Progress Note - Exam Vitals: Temp Pulse Resp BP Pulse Ox 98.8 F 76 20 146/71 97 09/23/18 11:25 09/23/18 11:25 09/23/18 11:25 09/23/18 11:25 09/23/18 11:25 - Assessment and Plan (1) DVT prophylaxis Current Visit: Yes Status: Acute (2) GERD (gastroesophageal reflux disease) Current Visit: No Status: Chronic (3) Elevated troponin Current Visit: Yes Status: Acute (4) Hypokalemia Current Visit: Yes Status: Resolved (5) Paroxysmal atrial fibrillation Current Visit: Yes Status: Chronic (6) Severe protein-calorie malnutrition Current Visit: Yes Status: Chronic (7) Small bowel obstruction due to adhesions Current Visit: Yes Status: Acute (8) Hypertension Current Visit: No Status: Chronic (9) Acute kidney injury Current Visit: Yes Status: Resolved (10) Bladder distention Current Visit: Yes Status: Acute - Time Spent with Patient Total time spent is greater than 50% in coordination of care (as documented) at patient's floor/unit and/or counseling patient: Internal Medicine: Result - Labs CBC & Chem 7: 09/22/18 01:34 09/22/18 01:34 - ABG Interpretation ABG results: PT/INR, D-dimer PT 13.1 Seconds (9.4-12.1) H 09/04/18 16:01 - Attending Attestation I examined this patient and my medical decision-making was reviewed with the Resident Physician. I agree with the documented findings, disposition and treatment plan as described except to the extent set forth below. <Ike Otoole - Last Filed: 09/23/18 10:40> (4) GERD (gastroesophageal reflux disease) Qualifiers: Esophagitis presence: esophagitis presence not specified Qualified Code(s): K21.9 - Gastro-esophageal reflux disease without esophagitis (6) Hypertension Qualifiers: Hypertension type: essential hypertension Qualified Code(s): I10 - Essential (primary) hypertension <Jonna Amador - Last Filed: 09/23/18 12:42> (2) GERD (gastroesophageal reflux disease) Qualifiers: Esophagitis presence: esophagitis presence not specified Qualified Code(s): K21.9 - Gastro-esophageal reflux disease without esophagitis (8) Hypertension Qualifiers: Hypertension type: essential hypertension Qualified Code(s): I10 - Essential (primary) hypertension
[2018-09-23] MEDS: cefTRIAXone 2,000 MG in Water for inj. (sterile) 20 ML 20 ML IVP SCH (12:58)
[2018-09-23] MEDS: Bisacodyl 10 MG RECTAL SUPPOSITORY RC SCH (22:06)
[2018-09-24] MEDS: Insulin LISPRO 300 UNITS/3 ML VIAL SQ SCH ×4 (08:29→21:34)
--- NOTE | 2018-09-24 08:31 | Internal Med Progress Note ---
<XiangIke S - Last Filed: 09/24/18 08:28> Hospitalist Progress Note - Encounter Date of Encounter: 09/24/18 Time of Encounter: 08:30 - Subjective Interval History: Pt is seen at bedside. She was initially admitted for N/V and was found to have a SBO. The pt was also found to be in a fib with RVR and was tx with cardizem. She is hopsital day 20 and is POD #15 s/p explorator KRYSTIN garcia. She currently has a post operative ileus and is being followed by general sx who placed a NG tube 09/17 for post-op ileus. She is tolerating regular diet without nausea/vomiting. NG tube removed . Pt denies chest pain, abd pain, SOB, or n/v/d. Nursing reported no overnight events. Pt had a bowel movement yesterday. Will most likely be d/c on Tuesday if willing to be compliant with PTOT to [facility]. - Exam Vitals: Temp Pulse Resp BP Pulse Ox 98.6 F 76 18 143/68 97 09/24/18 07:45 09/24/18 07:45 09/24/18 07:45 09/24/18 07:45 09/24/18 07:45 Exam: Constitutional: Alert, in no acute distress, laying in bed HEENT: Normocephalic, atraumatic, moist mucus membranes, NG tube removed Heart: Regular rhythm, no murmurs, no edema Lungs: lungs clear and equal bilaterally, no rhonchi, no wheeze Abdomen: dressing on midline of abdomen, returning bowel sounds, nontender, no rigidity, incision is clean and dry Extremities: No edema of lower extremity or upper extremities, warm, nontender Skin: Skin warm and dry, no lesions, no rashes, no jaundice, no edema Neurological: Alert and oriented x 3 - Assessment and Plan (1) Small bowel obstruction due to adhesions Current Visit: Yes Status: Acute Assessment and Plan: POD #15 s/p ex. laporectomy on 09/07/[address] Wells - pt had BM yesterday - pt has no c/o abd pain - able to pass gas CT abdomen 09/13/18: Distended loops of small bowel throughout the abdomen suggesting a distal small bowel obstruction. Residual contrast in the bowel in the right abdomen. KUB on 09/17/18 - nonobstructive bowel gas pattern KUB on 09/18 showed nondistended gas filled loops of bowel , minimal interval transit of PO contrast - mild post op adynamic ileus - no obstruction CT on 09/18 - signif bilat hydronephrosis and hydroureter , no evidence of stones - severly distended bladder Plan: - Surgery signed off NG tube removed 09/20 Tolerating regular diet - pain control with percocet - on dulcolax - promethazine for nausea - continue serial abd exams - regular diet as tolerated - Zosyn d/c, start rocephin day 5 for possible UTI (UA had leukocyte esterase and WBC) - up to chair from bed TID - dispo : d/c to [facility] pending PTOT compliance (2) Paroxysmal atrial fibrillation Current Visit: Yes Status: Chronic Assessment and Plan: Newly diagnosed a fib - EKG at [place] [facility] showed A fib with RVR -pt currently in sinus rhythm , HR currently 83 -CHADVASc of 4 (age 78, female, hx of HTN) Pt had ECHO on 09/04 -LVEF 60-65% -normal LV chamber size, wall thickness, fxn -mild left ventricular diastolic fusfxn Plan: -cardiology consulted, recommended oil heaterman anticoagulation therapy -pt is on 180mg PO cardizem as per cardiology -pt is on PO eliquis as per cardiology (3) DVT prophylaxis Current Visit: Yes Status: Acute Assessment and Plan: On eliquis; scds ordered (4) GERD (gastroesophageal reflux disease) Current Visit: No Status: Chronic Assessment and Plan: Continue PO omeprazole (5) Severe protein-calorie malnutrition Current Visit: Yes Status: Chronic Assessment and Plan: Prealbumin of 12.1 on 09/07 - TPN d/c Plan: - regular diet - pt refuses ensure (6) Hypertension Current Visit: No Status: Chronic Assessment and Plan: BP this morning 143/68 Plan: - continue cardizem - hydralazine 10mg q6hr prn - on telemetry (7) Acute kidney injury Current Visit: Yes Status: Resolved Assessment and Plan: Resolved. Creatinine on admission 1.67 -creatinine 09/17 - 1.46 - creatinine 09/19 - 0.6 ---> 0.54 on 09/20 ---> 0.49 on 09/21 -baseline no available, pt has never been to this hospital -GFR 09/17 = 34; admission = 30 MIRZA likely secondary to dehydration and poor PO intake - has resolved Plan: -Continue I/Os - fluids d/c (8) Elevated troponin Current Visit: Yes Status: Acute Assessment and Plan: Pt had a troponin of 0.57 on admission, decreased to 0.42 -most likely due to a type II NH secondar to A fib with RVR (9) Hypokalemia Current Visit: Yes Status: Resolved Assessment and Plan: Potassium 3.7 -replaced with PO potassium -monitor cmp (10) Bladder distention Current Visit: Yes Status: Acute Assessment and Plan: CT on 09/18 - signif bilat hydronephrosis and hydroureter , no evidence of stones - severly distended bladder Retroperitoneal US unremarkable Plan: - mcdaniel catheter placed - urology consulted Recommends going home with indwelling mcdaniel catheter with follow up after 1- 2wks for cystoscopy and voiding trial - monitor I&O's DVT Prophylaxis: eliquis - Time Spent with Patient Total time spent is greater than 50% in coordination of care (as documented) at patient's floor/unit and/or counseling patient: less than 15 minutes Plan of Care Discussed with: patient Internal Medicine: Result - Labs CBC & Chem 7: 09/22/18 01:34 09/22/18 01:34 - ABG Interpretation ABG results: PT/INR, D-dimer PT 13.1 Seconds (9.4-12.1) H 09/04/18 16:01 - VTE Documentation of Mechanical Device: Intermittent pneumatic compression device Consult Discharge Plan - Plan Instructions: Exploratory Laparotomy (DC), Lysis of Abdominal Adhesions (DC) Additional Instructions: General Surgical Discharge Instructions 1. No pushing, pulling, or lifting greater than 15 lbs for 4 weeks (depending upon procedure). 2. You may shower beginning today, but no tub baths, soaking, or swimming for 2 weeks. 3. You may resume driving when you are off narcotics and are safe to react in a car. 4. Take ibuprofen every 8 hours for discomfort. If this does not relieve discomfort, you may take the as needed Percocet. Take narcotics as directed. Do not take more narcotics then directed and do not share your narcotics with any other person. Do not drink alcohol while on narcotics. 5. Take stool softeners (Colace) or a water based laxative (Miralax) while taking narcotics. You may hold for loose stools. 6. Report any fevers greater than 100.5F, increase abdominal discomfort, drainage that looks like pus, increased redness or pain at the surgical site, or any vomiting. 7. Report any pain in the calves, shortness of breath, or rapid heartbeat. 8. Follow-up in the office as directed. 9. If you were prescribed antibiotics, do not stop them without talking to your provider. Referrals: Monroe Brannon [Partnered Physician] - 09/29/18 Da Perry DO [Resident] - 09/29/18 Do Gilmore CNP [Advanced Practice Nurse] - 09/26/18 3:00 pm NONE,PCP [Primary Care Provider] - Prescriptions: Ondansetron ODT [Zofran ODT] 4 mg SL Q6HR PRN 30 Days #120 tab.rapdis PRN Reason: Premedicate prior to Oxycodone Apixaban [Eliquis] 2.5 mg PO BID 30 Days #60 tablet cephALEXin [Keflex] 500 mg PO BID 6 Days #12 capsule Diltiazem CD (24hr) [Cardizem CD] 180 mg PO DAILY 30 Days #30 cap.er.24h <Jonna Amador - Last Filed: 09/24/18 14:47> Hospitalist Progress Note - Exam Vitals: Temp Pulse Resp BP Pulse Ox 97.6 F 81 16 143/64 97 09/24/18 11:54 09/24/18 11:54 09/24/18 11:54 09/24/18 11:54 09/24/18 11:54 - Assessment and Plan (1) DVT prophylaxis Current Visit: Yes Status: Acute (2) GERD (gastroesophageal reflux disease) Current Visit: No Status: Chronic (3) Elevated troponin Current Visit: Yes Status: Acute (4) Hypokalemia Current Visit: Yes Status: Resolved (5) Paroxysmal atrial fibrillation Current Visit: Yes Status: Chronic (6) Severe protein-calorie malnutrition Current Visit: Yes Status: Chronic (7) Small bowel obstruction due to adhesions Current Visit: Yes Status: Acute (8) Hypertension Current Visit: No Status: Chronic (9) Acute kidney injury Current Visit: Yes Status: Resolved (10) Bladder distention Current Visit: Yes Status: Acute - Time Spent with Patient Total time spent is greater than 50% in coordination of care (as documented) at patient's floor/unit and/or counseling patient: Internal Medicine: Result - Labs CBC & Chem 7: 09/22/18 01:34 09/24/18 08:31 Labs: BMP 09/24/18 08:31 Potassium 3.5 - ABG Interpretation ABG results: PT/INR, D-dimer PT 13.1 Seconds (9.4-12.1) H 09/04/18 16:01 - Attending Attestation I examined this patient and my medical decision-making was reviewed with the Resident Physician. I agree with the documented findings, disposition and treatment plan as described except to the extent set forth below. <Ike Otoole S - Last Filed: 09/24/18 08:28> (4) GERD (gastroesophageal reflux disease) Qualifiers: Esophagitis presence: esophagitis presence not specified Qualified Code(s): K21.9 - Gastro-esophageal reflux disease without esophagitis (6) Hypertension Qualifiers: Hypertension type: essential hypertension Qualified Code(s): I10 - Essential (primary) hypertension <Jonna Amador - Last Filed: 09/24/18 14:47> (2) GERD (gastroesophageal reflux disease) Qualifiers: Esophagitis presence: esophagitis presence not specified Qualified Code(s): K21.9 - Gastro-esophageal reflux disease without esophagitis (8) Hypertension Qualifiers: Hypertension type: essential hypertension Qualified Code(s): I10 - Essential (primary) hypertension
[2018-09-24] MEDS: Diltiazem CD (24hr) 180 MG CAPSULE PO SCH (08:36)
[2018-09-24] MEDS: Apixaban 5 MG TABLET PO SCH ×2 (08:36→20:00)
[2018-09-24] MEDS: Docusate Oral Soln 100 MG/10 ML UDC PO SCH (08:37)
[2018-09-24] MEDS: cefTRIAXone 2,000 MG in Water for inj. (sterile) 20 ML 20 ML IVP SCH (12:38)
[2018-09-24] MEDS: Bisacodyl 10 MG RECTAL SUPPOSITORY RC SCH (20:00)
[2018-09-25] MEDS: Insulin LISPRO 300 UNITS/3 ML VIAL SQ SCH ×2 (08:09→11:31)
[2018-09-25] MEDS: Docusate Oral Soln 100 MG/10 ML UDC PO SCH (08:10)
[2018-09-25] MEDS: Diltiazem CD (24hr) 180 MG CAPSULE PO SCH (08:10)
[2018-09-25] MEDS: Apixaban 5 MG TABLET PO SCH (08:10)
--- NOTE | 2018-09-25 09:10 | Discharge Summary ---
<Ike Otoole S - Last Filed: 09/25/18 09:07> - NOTES TO OUTPATIENT PROVIDER Notes to Outpatient Provider: Follow up on pain control. Follow up with urology in 1-2 wks for mcdaniel removal and voiding trial. Follow up for continuation of eliquis. Date of Encounter: 09/25/18 Time of Encounter: 09:07 - Discharge Diagnosis (1) Small bowel obstruction due to adhesions Priority: Primary Status: Acute (2) Paroxysmal atrial fibrillation Priority: Secondary Status: Chronic (3) DVT prophylaxis Priority: Secondary Status: Acute (4) GERD (gastroesophageal reflux disease) Priority: Secondary Status: Chronic Qualifiers: Esophagitis presence: esophagitis presence not specified Qualified Code(s): K21.9 - Gastro-esophageal reflux disease without esophagitis (5) Severe protein-calorie malnutrition Priority: Secondary Status: Chronic (6) Hypertension Priority: Secondary Status: Chronic Qualifiers: Hypertension type: essential hypertension Qualified Code(s): I10 - Essential (primary) hypertension (7) Acute kidney injury Priority: Secondary Status: Resolved (8) Elevated troponin Priority: Secondary Status: Acute (9) Hypokalemia Priority: Secondary Status: Resolved (10) Bladder distention Priority: Secondary Status: Acute Hospital course: Ms. Baird is a 78 year old female initially admitted for N/V and was found to have a SBO. The pt was also found to be in a fib with RVR and was tx with cardizem. - cardiology was consulted and placed on cardizem/eliquis - CHADVASc of 4 - ECHO showed LVEF 60-65% She is hopsital day 18 and is POD #14 s/p explorator COOPER garciaA. Her surgery was complicated by prolonged post operative ileus. Surgery placed a NG tube 09/17 for post-op ileus, which was removed 09/20 after being clamped and the pt had a trial of CLD. CT abdomen 09/13/18: Distended loops of small bowel throughout the abdomen suggesting a distal small bowel obstruction. Residual contrast in the bowel in the right abdomen. KUB on 09/17/18 - nonobstructive bowel gas pattern KUB on 09/18 showed nondistended gas filled loops of bowel , minimal interval transit of PO contrast - mild post op adynamic ileus - no obstruction CT on 09/18 - signif bilat hydronephrosis and hydroureter , no evidence of stones - severly distended bladder Urology was consulted and the pt will go home with an indwelling mcdaniel catheter and keep for 1-2 wks as per urology - urology will do a voiding trial in 1-2 weeks and remove mcdaniel - the retroperionteal US was unremarkable - pt also had a urine analsis that was (+) for WBC, leukocyte esterase and ketones. Being treated with rocephin x 3days - will d/c pt with 6 days of kephlex She is tolerating a regular diet without any n/v or abd pain. No dysphagia with food. - TPN was weaned and discontinued last week Pt denies chest pain, abd pain, SOB, or n/v/d. She is having adequate BM and is able to pass gas. Nursing reported no overnight events. The pt is stable for discharge [facility]. Discharge discussed with: patient Time spent discussing smoking cessation with patient: 3 to 10 minutes - Time Spent with Patient Total time spent providing and/or coordinating discharge services: Less than 30 minutes - Discharge Medications Prescriptions: Ondansetron ODT [Zofran ODT] 4 mg SL Q6HR PRN 30 Days #120 tab.rapdis PRN Reason: Premedicate prior to Oxycodone Apixaban [Eliquis] 2.5 mg PO BID 30 Days #60 tablet cephALEXin [Keflex] 500 mg PO BID 6 Days #12 capsule Diltiazem CD (24hr) [Cardizem CD] 180 mg PO DAILY 30 Days #30 cap.er.24h Home Medications: Apixaban [Eliquis] 2.5 mg PO BID 30 Days #60 tablet 09/22/18 [Rx] Diltiazem CD (24hr) [Cardizem CD] 180 mg PO DAILY 30 Days #30 cap.er.24h 09/22/18 [Rx] Ondansetron ODT [Zofran ODT] 4 mg SL Q6HR PRN 30 Days #120 tab.rapdis 09/22/18 [Rx] cephALEXin [Keflex] 500 mg PO BID 6 Days #12 capsule 09/22/18 [Rx] Allergies/Adverse Reactions: Allergy/AdvReac Type Severity Reaction Status Date / Time No Known Allergies Allergy Verified 09/04/18 09:22 Date of admission: 09/04/18 12:37 Primary care physician: PCP NONE Consults: 09/04/18 14:02 Consult to Cardiology [CONS] Routine Comment: Consulting Provider: Cardiology Meche Reason for Consult: new onset AFib, troponinemia Call Completed: Yes 09/06/18 15:29 Consult to Surgery [CONS] Routine Consulting Provider: Surgery [facility] Surgical Reason for Consult: SBO on CT scan Call Completed: Yes 09/06/18 17:17 Consult to Nutrition [CONS] Routine Comment: SBO, over one week since meal Consulting Provider: NUTRITION Reason for Dietary Consult: TPN Start and Manage 09/07/18 10:41 Consult to Invasive Line Access Team [CONS] Routine Reason for Consult: Picc Line Insertion Line Type: PICC 09/11/18 11:03 Consult to Occupational Therapy [CONS] Routine Comment: Evaluate, develop and implement POC Reason for Consult: poss need for ecf Does patient have active BEDREST order?: No Is patient medically & hemodynamically stable?: Yes Consult to Physical Therapy [CONS] Routine Comment: Evaluate, develop and implement POC Reason for Consult: poss need for ecf Does patient have active BEDREST order?: No Is patient medically & hemodynamically stable?: Yes 09/13/18 08:54 Consult to Lunch Cook [CONS] Routine Reason for SW Consult: needs placement 09/19/18 10:50 Consult to Urology [CONS] Routine Consulting Provider: Urology Meche Reason for Consult: bladder distention on CT Call Completed: No Discharging clinician: Ike Otoole Anticipated date of discharge: 09/25/18 - Constitutional Vitals: Temp Pulse Resp BP Pulse Ox 99.2 F 82 16 149/61 96 09/25/18 07:16 09/25/18 07:16 09/25/18 07:16 09/25/18 07:16 09/25/18 07:16 Exam: Constitutional: Alert, in no acute distress, laying in bed HEENT: Normocephalic, atraumatic, moist mucus membranes, NG tube removed Heart: Regular rhythm, no murmurs, no edema Lungs: lungs clear and equal bilaterally, no rhonchi, no wheeze Abdomen: dressing on midline of abdomen, returning bowel sounds, nontender, no rigidity, incision is clean and dry Extremities: No edema of lower extremity or upper extremities, warm, nontender Skin: Skin warm and dry, no lesions, no rashes, no jaundice, no edema Neurological: Alert and oriented x 3 - Patient Status Disposition: Transfer SNF Condition: Good Functional capacity at discharge: uses cane/walker Overall status at discharge: patient is progressing back to baseline - Discharge Instructions Instructions: Exploratory Laparotomy (DC), Lysis of Abdominal Adhesions (DC) Follow Up With: Monroe Brannon [Partnered Physician] - 09/29/18 Da Perry DO [Resident] - 09/29/18 Do Gilmore CNP [Advanced Practice Nurse] - 09/26/18 3:00 pm Additional Instructions: General Surgical Discharge Instructions 1. No pushing, pulling, or lifting greater than 15 lbs for 4 weeks (depending upon procedure). 2. You may shower beginning today, but no tub baths, soaking, or swimming for 2 weeks. 3. You may resume driving when you are off narcotics and are safe to react in a car. 4. Take ibuprofen every 8 hours for discomfort. If this does not relieve discomfort, you may take the as needed Percocet. Take narcotics as directed. Do not take more narcotics then directed and do not share your narcotics with any other person. Do not drink alcohol while on narcotics. 5. Take stool softeners (Colace) or a water based laxative (Miralax) while taking narcotics. You may hold for loose stools. 6. Report any fevers greater than 100.5F, increase abdominal discomfort, drainage that looks like pus, increased redness or pain at the surgical site, or any vomiting. 7. Report any pain in the calves, shortness of breath, or rapid heartbeat. 8. Follow-up in the office as directed. 9. If you were prescribed antibiotics, do not stop them without talking to your provider. - Diet and Activity Activity: increase activity as tolerated Diet: advance to your usual diet, low fat, low cholesterol - VTE Documentation of Mechanical Device: Intermittent pneumatic compression device <Jonna Amador - Last Filed: 09/25/18 15:51> - Discharge Diagnosis (1) DVT prophylaxis Status: Acute (2) GERD (gastroesophageal reflux disease) Status: Chronic Qualifiers: Esophagitis presence: esophagitis presence not specified Qualified Code(s): K21.9 - Gastro-esophageal reflux disease without esophagitis (3) Elevated troponin Status: Acute (4) Hypokalemia Status: Resolved (5) Paroxysmal atrial fibrillation Status: Chronic (6) Severe protein-calorie malnutrition Status: Chronic (7) Small bowel obstruction due to adhesions Status: Acute (8) Hypertension Status: Chronic Qualifiers: Hypertension type: essential hypertension Qualified Code(s): I10 - Essential (primary) hypertension (9) Acute kidney injury Status: Resolved (10) Bladder distention Status: Acute Hospital course: Ms. Baird is a 78 year old female - Time Spent with Patient Total time spent providing and/or coordinating discharge services: Date of admission: 09/04/18 12:37 Primary care physician: PCP NONE Consults: 09/04/18 14:02 Consult to Cardiology [CONS] Routine Comment: Consulting Provider: Cardiology Meche Reason for Consult: new onset AFib, troponinemia Call Completed: Yes 09/06/18 15:29 Consult to Surgery [CONS] Routine Consulting Provider: Surgery [facility] Surgical Reason for Consult: SBO on CT scan Call Completed: Yes 09/06/18 17:17 Consult to Nutrition [CONS] Routine Comment: SBO, over one week since meal Consulting Provider: NUTRITION Reason for Dietary Consult: TPN Start and Manage 09/07/18 10:41 Consult to Invasive Line Access Team [CONS] Routine Reason for Consult: Picc Line Insertion Line Type: PICC 09/11/18 11:03 Consult to Occupational Therapy [CONS] Routine Comment: Evaluate, develop and implement POC Reason for Consult: poss need for ecf Does patient have active BEDREST order?: No Is patient medically & hemodynamically stable?: Yes Consult to Physical Therapy [CONS] Routine Comment: Evaluate, develop and implement POC Reason for Consult: poss need for ecf Does patient have active BEDREST order?: No Is patient medically & hemodynamically stable?: Yes 09/13/18 08:54 Consult to Lunch Cook [CONS] Routine Reason for SW Consult: needs placement 09/19/18 10:50 Consult to Urology [CONS] Routine Consulting Provider: Urology Meche Reason for Consult: bladder distention on CT Call Completed: No - Constitutional Vitals: Temp Pulse Resp BP Pulse Ox 99.1 F 84 16 136/70 97 09/25/18 11:21 09/25/18 11:21 09/25/18 11:21 09/25/18 11:21 09/25/18 11:21 - Attending Attestation I examined this patient and my medical decision-making was reviewed with the Resident Physician. I agree with the documented findings, disposition and treatment plan as described except to the extent set forth below.
--- NOTE | 2018-09-25 09:12 | Physician Discharge Referral ---
ExtendedCare Referral Info Transfer To: [facility] Provider in Charge after Transfer: PCP Institutional Level of Care: Skilled - Diagnosis (1) Small bowel obstruction due to adhesions Priority: Primary Status: Acute (2) Bladder distention Priority: Secondary Status: Acute (3) Paroxysmal atrial fibrillation Priority: Secondary Status: Chronic (4) DVT prophylaxis Priority: Secondary Status: Acute (5) GERD (gastroesophageal reflux disease) Priority: Secondary Status: Chronic (6) Severe protein-calorie malnutrition Priority: Secondary Status: Chronic (7) Hypertension Priority: Secondary Status: Chronic (8) Acute kidney injury Priority: Secondary Status: Resolved (9) Elevated troponin Priority: Secondary Status: Acute (10) Hypokalemia Priority: Secondary Status: Resolved Prognosis: Fair Aware of Diagnosis: Patient Aware of Prognosis: Patient - Transfer Medications Prescriptions: Ondansetron ODT [Zofran ODT] 4 mg SL Q6HR PRN 30 Days #120 tab.rapdis PRN Reason: Premedicate prior to Oxycodone Apixaban [Eliquis] 2.5 mg PO BID 30 Days #60 tablet cephALEXin [Keflex] 500 mg PO BID 6 Days #12 capsule Diltiazem CD (24hr) [Cardizem CD] 180 mg PO DAILY 30 Days #30 cap.er.24h Home Medications: Apixaban [Eliquis] 2.5 mg PO BID 30 Days #60 tablet 09/22/18 [Rx] Diltiazem CD (24hr) [Cardizem CD] 180 mg PO DAILY 30 Days #30 cap.er.24h 09/22/18 [Rx] Ondansetron ODT [Zofran ODT] 4 mg SL Q6HR PRN 30 Days #120 tab.rapdis 09/22/18 [Rx] cephALEXin [Keflex] 500 mg PO BID 6 Days #12 capsule 09/22/18 [Rx] Allergies/Adverse Reactions: Allergy/AdvReac Type Severity Reaction Status Date / Time No Known Allergies Allergy Verified 09/04/18 09:22 - Respiratory Orders None Smoking Cessation: Smoking cessation has been advised. For more information, call the [place] Tobacco Quit Line at 3-478-OQJE-NOW. - Advance Directives Code Status: Full Code - Mobility Orders Chair, Ambulate - Rehabiliation Orders Rehab Orders: Evaluation for Physical Therapy, Evaluation for Occupational Therapy - Diet Orders Regular CERTIFICATION: I certify that the transfer of the above named patient to an Extended Care Facility is necessary for the continuing treatment of the diagnosis listed. The above information is true and accurate reflection of patient's current condition. Confidential - Redisclosure prohibited without a patient's written consent.
[2018-09-25 11:26] VITALS: BP 136/70
== END 2018-09-25 13:07 | DRG 335 ==
LOC: SUATTDRO 12:37 → 2ANU 12:37
PROVIDERS: ADMIT Internal Medicine; ATTEND Student in an Organized Health Care Education/Training Program